=== PATIENT | female | born 1960 | race Caucasian/White ===

== ENCOUNTER → 2019-10-07 09:43 | Outpatient (BNVA) | payer BC, SELFPAY | PROVIDERS: Family Provider Electrodiagnostic Medicine; PCP Electrodiagnostic Medicine | DX: Z95.2 Presence of prosthetic heart valve (principal); I25.10 Atherosclerotic heart disease of native coronary artery without angina pectoris | CPT/HCPCS: 85610 ==

== ENCOUNTER → 2019-11-04 09:53 | Outpatient (BNVA) | payer BC, SELFPAY | PROVIDERS: Family Provider Electrodiagnostic Medicine; PCP Electrodiagnostic Medicine; Visit Provider Internal Medicine Cardiovascular Disease | DX: Z95.2 Presence of prosthetic heart valve (principal) | CPT/HCPCS: 85610 ==

== ENCOUNTER → 2019-12-02 10:32 | Outpatient (BNVA) | payer BC, SELFPAY | PROVIDERS: Family Provider Electrodiagnostic Medicine; PCP Electrodiagnostic Medicine; Visit Provider Internal Medicine Cardiovascular Disease | DX: Z95.2 Presence of prosthetic heart valve (principal) | CPT/HCPCS: 85610 ==

== ENCOUNTER 2020-01-01 09:18 | Outpatient (CLI) | payer BC, SELFPAY ==
--- NOTE | 2020-01-01 09:30 | US_ITS ---
WS: [id number] ULTRASOUND THYROID TECHNIQUE: Ultrasound of the thyroid. CLINICAL INFORMATION: THYROID NODULE, HYPOTHYROIDISM COMPARISON: None. FINDINGS: Thyroid: Right and left thyroid lobes are normal in size and echotexture. Multiple bilateral cystic a nd solid thyroid nodules the largest in the left thyroid measuring 8.7 x 6.8 x 5.6 mm and the largest in the right thyroid measuring 8.5 x 3.8 x 7.6 mm. Right thyroid lobe: 4.9 cm x 1.2 cm x 1.2 cm Multiple cystic and solid thyroid nodules subcentimeter in size. Left thyroid lobe: 4.1 cm x 1.3 cm x 1.7 cm. Multiple cystic and solid thyroid nodules subcentimeter in size. Isthmus: 0.1 mm. Cervical lymphadenopathy: None. US/US thyroid [id number] IMPRESSION: 1. Thyroid is normal in size and echotexture with multiple cystic and solid no dules, subcentimeter in size. Recommend 12 month follow-up. 2. Largest nodule left thyroid measuring 8.7 x 6.8 x 5.6 mm 3. Largest nodule right thyroid measuring 8.5 x 3.8 x 7.6 mm.
== END 2020-01-01 09:19 | disposition home or self-care (01) ==
LOC: RADWPI 09:23
PROVIDERS: Family Provider Electrodiagnostic Medicine; PCP Electrodiagnostic Medicine; Visit Provider Electrodiagnostic Medicine
DX: E04.1 Nontoxic single thyroid nodule (principal); E03.9 Hypothyroidism, unspecified; I10 Essential (primary) hypertension; E11.9 Type 2 diabetes mellitus without complications; D50.0 Iron deficiency anemia secondary to blood loss (chronic)
CPT/HCPCS: 76536

== ENCOUNTER → 2020-01-06 10:08 | Outpatient (BNVA) | payer BC, SELFPAY | PROVIDERS: Family Provider Electrodiagnostic Medicine; PCP Electrodiagnostic Medicine; Visit Provider Internal Medicine Cardiovascular Disease | DX: Z95.2 Presence of prosthetic heart valve (principal) | CPT/HCPCS: 85610 ==

== ENCOUNTER → 2020-02-03 10:14 | Outpatient (BNVA) | payer BC, SELFPAY | PROVIDERS: Family Provider Electrodiagnostic Medicine; PCP Electrodiagnostic Medicine; Visit Provider Internal Medicine Cardiovascular Disease | DX: Z95.2 Presence of prosthetic heart valve (principal) | CPT/HCPCS: 85610 ==

== ENCOUNTER → 2020-03-03 09:49 | Outpatient (BNVA) | payer BC, SELFPAY | PROVIDERS: Family Provider Electrodiagnostic Medicine; PCP Electrodiagnostic Medicine; Visit Provider Internal Medicine Cardiovascular Disease | DX: Z79.01 Long term (current) use of anticoagulants (principal); Z95.2 Presence of prosthetic heart valve | CPT/HCPCS: 85610 ==

== ENCOUNTER → 2020-03-31 09:56 | Outpatient (BNVA) | payer BC, SELFPAY | PROVIDERS: Family Provider Electrodiagnostic Medicine; PCP Electrodiagnostic Medicine; Visit Provider Internal Medicine Cardiovascular Disease | DX: Z79.01 Long term (current) use of anticoagulants (principal); Z95.2 Presence of prosthetic heart valve | CPT/HCPCS: 85610 ==

== ENCOUNTER → 2020-04-28 10:18 | Outpatient (BNVA) | payer BC, SELFPAY | PROVIDERS: Family Provider Electrodiagnostic Medicine; PCP Electrodiagnostic Medicine; Visit Provider Internal Medicine Cardiovascular Disease | DX: Z79.01 Long term (current) use of anticoagulants (principal); Z95.2 Presence of prosthetic heart valve; I35.8 Other nonrheumatic aortic valve disorders | CPT/HCPCS: 85610 ==

== ENCOUNTER → 2020-05-17 09:34 | Outpatient (BNVA) | payer BC, SELFPAY | PROVIDERS: Family Provider Electrodiagnostic Medicine; PCP Electrodiagnostic Medicine; Referring Provider Electrodiagnostic Medicine; Visit Provider Internal Medicine | DX: E11.22 Type 2 diabetes mellitus with diabetic chronic kidney disease (principal); E03.9 Hypothyroidism, unspecified; E78.5 Hyperlipidemia, unspecified; N18.3 Chronic kidney disease, stage 3 (moderate); E04.2 Nontoxic multinodular goiter; I10 Essential (primary) hypertension; E11.59 Type 2 diabetes mellitus with other circulatory complications; I25.10 Atherosclerotic heart disease of native coronary artery without angina pectoris; E66.01 Morbid (severe) obesity due to excess calories; Z68.42 Body mass index [BMI] 45.0-49.9, adult | CPT/HCPCS: 99204 ==

== ENCOUNTER → 2020-05-26 10:31 | Outpatient (BNVA) | payer BC, SELFPAY | PROVIDERS: Family Provider Electrodiagnostic Medicine; PCP Electrodiagnostic Medicine; Visit Provider Internal Medicine Cardiovascular Disease | DX: E03.9 Hypothyroidism, unspecified (principal); E11.9 Type 2 diabetes mellitus without complications; E78.5 Hyperlipidemia, unspecified; Z79.01 Long term (current) use of anticoagulants; Z95.2 Presence of prosthetic heart valve | CPT/HCPCS: 80061; 83036; 84439; 84443; 85610; 86376 ==

== ENCOUNTER → 2020-06-23 09:58 | Outpatient (BNVA) | payer BC, SELFPAY | PROVIDERS: Family Provider Electrodiagnostic Medicine; PCP Electrodiagnostic Medicine; Visit Provider Internal Medicine Cardiovascular Disease | DX: Z95.2 Presence of prosthetic heart valve (principal); Z79.01 Long term (current) use of anticoagulants | CPT/HCPCS: 85610 ==

== ENCOUNTER → 2020-07-12 09:46 | Outpatient (BNVA) | payer BC, SELFPAY | PROVIDERS: Family Provider Electrodiagnostic Medicine; PCP Electrodiagnostic Medicine; Visit Provider Internal Medicine | DX: E03.9 Hypothyroidism, unspecified (principal); E04.2 Nontoxic multinodular goiter; E11.22 Type 2 diabetes mellitus with diabetic chronic kidney disease; N18.30 Chronic kidney disease, stage 3 unspecified; E11.59 Type 2 diabetes mellitus with other circulatory complications; I25.10 Atherosclerotic heart disease of native coronary artery without angina pectoris; E66.01 Morbid (severe) obesity due to excess calories; Z68.42 Body mass index [BMI] 45.0-49.9, adult; E78.5 Hyperlipidemia, unspecified | CPT/HCPCS: 99214 ==

== ENCOUNTER → 2020-07-21 10:16 | Outpatient (BNVA) | payer BC, SELFPAY | PROVIDERS: Family Provider Electrodiagnostic Medicine; PCP Electrodiagnostic Medicine; Visit Provider Internal Medicine Cardiovascular Disease | DX: Z79.01 Long term (current) use of anticoagulants (principal); Z95.2 Presence of prosthetic heart valve | CPT/HCPCS: 85610 ==

== ENCOUNTER → 2020-08-18 10:06 | Outpatient (BNVA) | payer BC, SELFPAY | PROVIDERS: Family Provider Electrodiagnostic Medicine; PCP Electrodiagnostic Medicine; Visit Provider Internal Medicine Cardiovascular Disease | DX: Z79.01 Long term (current) use of anticoagulants (principal); Z95.2 Presence of prosthetic heart valve | CPT/HCPCS: 85610 ==

== ENCOUNTER → 2020-09-15 10:20 | Outpatient (BNVA) | payer BC, SELFPAY | PROVIDERS: Family Provider Electrodiagnostic Medicine; PCP Electrodiagnostic Medicine; Visit Provider Internal Medicine Cardiovascular Disease | DX: E11.22 Type 2 diabetes mellitus with diabetic chronic kidney disease (principal); N18.30 Chronic kidney disease, stage 3 unspecified; Z79.01 Long term (current) use of anticoagulants; Z95.2 Presence of prosthetic heart valve | CPT/HCPCS: 85610 ==

== ENCOUNTER → 2020-09-22 10:08 | Outpatient (BNVA) | payer BC, SELFPAY | PROVIDERS: Family Provider Electrodiagnostic Medicine; PCP Electrodiagnostic Medicine; Visit Provider Internal Medicine Cardiovascular Disease | DX: Z79.01 Long term (current) use of anticoagulants (principal); Z95.2 Presence of prosthetic heart valve; E11.22 Type 2 diabetes mellitus with diabetic chronic kidney disease | CPT/HCPCS: 83036; 85610 ==

== ENCOUNTER → 2020-09-29 10:07 | Outpatient (BNVA) | payer BC, SELFPAY | PROVIDERS: Family Provider Electrodiagnostic Medicine; PCP Electrodiagnostic Medicine; Visit Provider Internal Medicine Cardiovascular Disease | DX: Z79.01 Long term (current) use of anticoagulants (principal); Z95.2 Presence of prosthetic heart valve | CPT/HCPCS: 85610 ==

== ENCOUNTER → 2020-10-05 09:49 | Outpatient (BNVA) | payer OTHER, SELFPAY | PROVIDERS: Family Provider Electrodiagnostic Medicine; PCP Electrodiagnostic Medicine; Visit Provider Internal Medicine | DX: E04.2 Nontoxic multinodular goiter (principal); E11.22 Type 2 diabetes mellitus with diabetic chronic kidney disease; N18.30 Chronic kidney disease, stage 3 unspecified; E11.59 Type 2 diabetes mellitus with other circulatory complications; I25.10 Atherosclerotic heart disease of native coronary artery without angina pectoris; E66.01 Morbid (severe) obesity due to excess calories; Z68.42 Body mass index [BMI] 45.0-49.9, adult; E78.5 Hyperlipidemia, unspecified | CPT/HCPCS: 99215 ==

== ENCOUNTER → 2020-10-28 10:04 | Outpatient (BNVA) | payer OTHER, SELFPAY | PROVIDERS: Family Provider Electrodiagnostic Medicine; PCP Electrodiagnostic Medicine; Visit Provider Internal Medicine Cardiovascular Disease | DX: Z79.01 Long term (current) use of anticoagulants (principal); Z95.2 Presence of prosthetic heart valve | CPT/HCPCS: 85610 ==

== ENCOUNTER → 2020-11-04 09:47 | Outpatient (BNVA) | payer OTHER, SELFPAY | PROVIDERS: Family Provider Electrodiagnostic Medicine; PCP Electrodiagnostic Medicine; Visit Provider Internal Medicine Cardiovascular Disease | DX: Z79.01 Long term (current) use of anticoagulants (principal); Z95.2 Presence of prosthetic heart valve | CPT/HCPCS: 85610 ==

== ENCOUNTER → 2020-11-25 09:48 | Outpatient (BNVA) | payer OTHER, SELFPAY | PROVIDERS: Family Provider Electrodiagnostic Medicine; PCP Electrodiagnostic Medicine; Visit Provider Internal Medicine Cardiovascular Disease | DX: Z79.01 Long term (current) use of anticoagulants (principal); Z95.2 Presence of prosthetic heart valve | CPT/HCPCS: 85610 ==

== ENCOUNTER → 2020-12-23 10:09 | Outpatient (BNVA) | payer OTHER, SELFPAY | PROVIDERS: Family Provider Electrodiagnostic Medicine; PCP Electrodiagnostic Medicine; Visit Provider Internal Medicine Cardiovascular Disease | DX: Z79.01 Long term (current) use of anticoagulants (principal); Z95.2 Presence of prosthetic heart valve; E11.22 Type 2 diabetes mellitus with diabetic chronic kidney disease; N18.30 Chronic kidney disease, stage 3 unspecified | CPT/HCPCS: 83036; 85610 ==

== ENCOUNTER 2020-12-29 12:14 | Outpatient (CLI) | payer OTHER, SELFPAY ==
--- NOTE | 2020-12-29 12:45 | US_ITS ---
WS: [id number] THYROID ULTRASOUND (TI-RADS CRITERIA) History: Thyroid nodule. Assess change.. Technique: Ultrasound examination of the thyroid and adjacent soft tissues is performed. Comparison: 01/01/2020. FINDINGS: Right lobe: 5.3 cm x 1.3 cm x 1.8 cm. Volume: 6.3 cm3. Normal size gland. There are several hypoechoic nodules within the gland. Largest nodule in the super ior pole measures 9 x 6 x 1.0 cm. The remaining nodules are less than a centimeter and probably collo id cysts. Left lobe: 5.0 cm x 1.3 cm x 1.6 cm. Volume: 5.5 cm3. Normal size gland with multiple small subcentimeter nodules. These are probably colloid cysts. Isthmus: 0.3 cm. US/US thyroid [id number] Impression: TR1 Recommendation:No FNA or follow-up. No significant change or progression of nodules since the prior study.
== END 2020-12-29 12:15 | disposition home or self-care (01) ==
PROVIDERS: PCP Electrodiagnostic Medicine; Visit Provider Internal Medicine
DX: E04.1 Nontoxic single thyroid nodule (principal)
CPT/HCPCS: 76536

== ENCOUNTER → 2020-12-31 09:53 | Outpatient (BNVA) | payer OTHER, SELFPAY | PROVIDERS: PCP Electrodiagnostic Medicine; Visit Provider Internal Medicine | DX: E04.2 Nontoxic multinodular goiter (principal); E11.22 Type 2 diabetes mellitus with diabetic chronic kidney disease; N18.30 Chronic kidney disease, stage 3 unspecified; E11.59 Type 2 diabetes mellitus with other circulatory complications; I25.10 Atherosclerotic heart disease of native coronary artery without angina pectoris; E66.01 Morbid (severe) obesity due to excess calories; Z68.42 Body mass index [BMI] 45.0-49.9, adult; E78.5 Hyperlipidemia, unspecified | CPT/HCPCS: 99214 ==

== ENCOUNTER → 2021-01-20 09:48 | Outpatient (BNVA) | payer OTHER, SELFPAY | PROVIDERS: PCP Electrodiagnostic Medicine; Visit Provider Internal Medicine Cardiovascular Disease | DX: Z95.2 Presence of prosthetic heart valve (principal) | CPT/HCPCS: 85610 ==

== ENCOUNTER → 2021-02-17 10:48 | Outpatient (BNVA) | payer OTHER, SELFPAY | PROVIDERS: PCP Electrodiagnostic Medicine; Visit Provider Internal Medicine Cardiovascular Disease | DX: I25.10 Atherosclerotic heart disease of native coronary artery without angina pectoris (principal); I10 Essential (primary) hypertension; E78.5 Hyperlipidemia, unspecified; E11.22 Type 2 diabetes mellitus with diabetic chronic kidney disease; I35.0 Nonrheumatic aortic (valve) stenosis; F17.201 Nicotine dependence, unspecified, in remission; E66.01 Morbid (severe) obesity due to excess calories; Z68.42 Body mass index [BMI] 45.0-49.9, adult; Z79.01 Long term (current) use of anticoagulants; Z95.1 Presence of aortocoronary bypass graft; Z95.2 Presence of prosthetic heart valve | CPT/HCPCS: 85610 ==

== ENCOUNTER → 2021-03-24 10:25 | Outpatient (BNVA) | payer OTHER, SELFPAY | PROVIDERS: PCP Electrodiagnostic Medicine; Visit Provider Internal Medicine Cardiovascular Disease | DX: Z95.2 Presence of prosthetic heart valve (principal) | CPT/HCPCS: 85610 ==

== ENCOUNTER → 2021-04-21 10:20 | Outpatient (BNVA) | payer OTHER, SELFPAY | PROVIDERS: PCP Electrodiagnostic Medicine; Visit Provider Internal Medicine Cardiovascular Disease | DX: E11.22 Type 2 diabetes mellitus with diabetic chronic kidney disease (principal); N18.30 Chronic kidney disease, stage 3 unspecified; Z79.01 Long term (current) use of anticoagulants; Z95.2 Presence of prosthetic heart valve | CPT/HCPCS: 83036; 85610 ==

== ENCOUNTER → 2021-04-27 10:16 | Outpatient (BNVA) | payer OTHER, SELFPAY | PROVIDERS: PCP Electrodiagnostic Medicine; Visit Provider Internal Medicine Cardiovascular Disease | DX: Z79.01 Long term (current) use of anticoagulants (principal); Z95.2 Presence of prosthetic heart valve | CPT/HCPCS: 85610 ==

== ENCOUNTER 2021-06-02 09:58 | Outpatient (CLI) | payer OTHER, SELFPAY ==
--- NOTE | 2021-06-02 10:15 | USCV_ITS ---
Cami Martinez Age: 60 Gender: F : 1960 Exam Date: 06/02/2021 10:18 Ordering Phys: Tati Gonzalez MD ([email or web address]) Technologist: Exam Location: [facility] [place] Indication: CHEST PAIN, Mechanical aortic valve BP: 130 / 77 HR: 81 Rhythm: Sinus Technical Quality: Adequate MEASUREMENTS (Male / Female) Normal Values 2D ECHO LV Diastolic Diameter PLAX 4.1 cm 4.2 - 5.9 / 3.9 - 5.3 cm LV Systolic Diameter PLAX 2.3 cm IVS Diastolic Thickness 1.0 cm 0.6 - 1.0 / 0.6 - 0.9 cm IVS Systolic Thickness 1.3 cm LVPW Diastolic Thickness 1.2 cm 0.6 - 1.0 / 0.6 - 0.9 cm LVPW Systolic Thickness 1.2 cm LVOT Diameter 2.1 cm LV Ejection Fraction 2D Teich 70.0 % LV Ejection Fraction MOD 2C 65.8 % LV Ejection Fraction 2C AL 64.5 % LA Diameter 3.8 cm LA Width 3.9 cm LA Height 5.1 cm RA Width 3.6 cm RA Height 4.4 cm Aorta at Sinotubular Diameter 3.3 cm DOPPLER AV Peak Velocity 220.0 cm/s LVOT Peak Velocity 102.0 cm/s AV Area Cont Eq vti 1.8 cm squared AV Area Cont Eq pk 1.6 cm squared MV Area PHT 5.0 cm squared Mitral E to A Ratio 0.8 MV E' Velocity 54.0 cm/s Mitral E to MV E' Ratio 12.1 Mitral E to LV E' Lateral Ratio 10.9 Mitral E to LV E' Septal Ratio 13.8 TR Peak Velocity 244.0 cm/s TR Peak Gradient 23.8 mmHg TV Peak E Velocity 100.0 cm/s Right Atrial Pressure 3.0 mmHg Pulmonary Artery Systolic Pressu 26.8 mmHg FINDINGS Left Ventricle Normal left ventricular size, systolic function and wall thickness, with no regional wall motion abnormalities. Left ventricular ejection fraction is estimated at 65-70 %. Normal diastolic function. Right Ventricle Normal right ventricular size and systolic function. Right ventricular systolic pressure 26.8 mmHg. Right Atrium Normal right atrial size. Left Atrium Mildly increased left atrial size. Mitral Valve Structurally normal mitral valve. No mitral valve stenosis. Trace mitral valve regurgitation. Aortic Valve Mechanical aortic valve in situ. Well-seated and normally functioning. Peak velocity 2.2 m/s, peak gradient 19 mmHg and mean gradient 8 mmHg. Aortic valve area by continuity equation of 1.8 cm squared. No significant valvular or perivalvular regurgitation. Tricuspid Valve Structurally normal tricuspid valve. Trace to mild tricuspid valve regurgitation. Pulmonic Valve Pulmonic valve not well visualized. No significant pulmonary valve regurgitation. Pericardium No pericardial effusion. Aorta Normal size aortic root and proximal ascending aorta. CONCLUSIONS 1. Normal left ventricular size, systolic function and wall thickness, with no regional wall motion abnormalities. Left ventricular ejection fraction is estimated at 65-70 %. Normal diastolic function. 2. Normal right ventricular size and systolic function. 3. Trace to mild tricuspid valve regurgitation. 4. Pulmonary arter pressure estimated at 27 mm Hg. 5. Mechanical aortic valve well-seated and normally functioning. Peak velocity 2.2 m/s, peak gradient 19 mmHg and mean gradient 8 mmHg. Aortic valve area by continuity equation of 1.8 cm squared. 6. When compared to previous echocardiogram dated 12/23/2013, aortic valve has been replaced. Tati Gonzalez MD (Electronically Signed) Final Date: 05 June 2021 17:34 Amended: 19 August 2021 13:52 C
== END 2021-06-02 09:59 | disposition home or self-care (01) ==
PROVIDERS: PCP Electrodiagnostic Medicine; Visit Provider Internal Medicine Cardiovascular Disease
DX: I35.0 Nonrheumatic aortic (valve) stenosis (principal); Z95.2 Presence of prosthetic heart valve; R07.9 Chest pain, unspecified; I07.1 Rheumatic tricuspid insufficiency; I70.0 Atherosclerosis of aorta
CPT/HCPCS: 93306

== ENCOUNTER → 2021-06-07 09:54 | Outpatient (BNVA) | payer OTHER, SELFPAY | PROVIDERS: PCP Electrodiagnostic Medicine; Visit Provider Internal Medicine Cardiovascular Disease | DX: Z95.2 Presence of prosthetic heart valve (principal); Z79.01 Long term (current) use of anticoagulants | CPT/HCPCS: 85610 ==

== ENCOUNTER → 2021-06-21 13:28 | Outpatient (BNVA) | payer OTHER, SELFPAY | PROVIDERS: PCP Electrodiagnostic Medicine; Visit Provider Internal Medicine | DX: E11.22 Type 2 diabetes mellitus with diabetic chronic kidney disease (principal); E11.59 Type 2 diabetes mellitus with other circulatory complications; E78.5 Hyperlipidemia, unspecified; E04.2 Nontoxic multinodular goiter; I25.10 Atherosclerotic heart disease of native coronary artery without angina pectoris; E66.01 Morbid (severe) obesity due to excess calories; Z68.42 Body mass index [BMI] 45.0-49.9, adult; Z79.4 Long term (current) use of insulin | CPT/HCPCS: 99214 ==

== ENCOUNTER → 2021-06-22 09:48 | Outpatient (BNVA) | payer OTHER, SELFPAY | PROVIDERS: PCP Electrodiagnostic Medicine; Visit Provider Internal Medicine Cardiovascular Disease | DX: Z95.2 Presence of prosthetic heart valve (principal); Z79.01 Long term (current) use of anticoagulants | CPT/HCPCS: 85610 ==

== ENCOUNTER → 2021-07-20 10:19 | Outpatient (BNVA) | payer OTHER, SELFPAY | PROVIDERS: PCP Electrodiagnostic Medicine; Visit Provider Internal Medicine Cardiovascular Disease | DX: Z79.01 Long term (current) use of anticoagulants (principal); Z95.2 Presence of prosthetic heart valve | CPT/HCPCS: 85610 ==

== ENCOUNTER → 2021-08-18 11:34 | Outpatient (BNVA) | payer OTHER, SELFPAY | PROVIDERS: PCP Electrodiagnostic Medicine; Visit Provider Internal Medicine Cardiovascular Disease | DX: Z79.01 Long term (current) use of anticoagulants (principal); Z95.2 Presence of prosthetic heart valve | CPT/HCPCS: 85610 ==

== ENCOUNTER → 2021-09-07 10:34 | Outpatient (BNVA) | payer OTHER, SELFPAY | PROVIDERS: PCP Electrodiagnostic Medicine; Visit Provider Internal Medicine | DX: E11.59 Type 2 diabetes mellitus with other circulatory complications (principal); E78.5 Hyperlipidemia, unspecified; E04.2 Nontoxic multinodular goiter; I25.10 Atherosclerotic heart disease of native coronary artery without angina pectoris; E66.01 Morbid (severe) obesity due to excess calories; Z68.42 Body mass index [BMI] 45.0-49.9, adult; Z95.1 Presence of aortocoronary bypass graft; Z79.4 Long term (current) use of insulin | CPT/HCPCS: 99214 ==

== ENCOUNTER → 2021-09-15 10:11 | Outpatient (BNVA) | payer OTHER, SELFPAY | PROVIDERS: PCP Electrodiagnostic Medicine; Visit Provider Internal Medicine Cardiovascular Disease | DX: Z79.01 Long term (current) use of anticoagulants (principal); Z95.2 Presence of prosthetic heart valve | CPT/HCPCS: 85610 ==

== ENCOUNTER → 2021-10-13 10:32 | Outpatient (BNVA) | payer OTHER, SELFPAY | PROVIDERS: PCP Electrodiagnostic Medicine; Visit Provider Internal Medicine Cardiovascular Disease | DX: Z95.2 Presence of prosthetic heart valve (principal) | CPT/HCPCS: 85610 ==

== ENCOUNTER → 2021-11-10 11:32 | Outpatient (BNVA) | payer OTHER, SELFPAY | PROVIDERS: PCP Electrodiagnostic Medicine; Visit Provider Internal Medicine Cardiovascular Disease | DX: Z95.2 Presence of prosthetic heart valve (principal) | CPT/HCPCS: 85610 ==

== ENCOUNTER → 2022-01-05 10:32 | Outpatient (BNVA) | payer OTHER, SELFPAY | PROVIDERS: PCP Electrodiagnostic Medicine; Visit Provider Internal Medicine Cardiovascular Disease | DX: Z95.2 Presence of prosthetic heart valve (principal) | CPT/HCPCS: 85610 ==

== ENCOUNTER → 2022-02-02 10:42 | Outpatient (BNVA) | payer OTHER, SELFPAY | PROVIDERS: PCP Electrodiagnostic Medicine; Visit Provider Internal Medicine Cardiovascular Disease | DX: I35.8 Other nonrheumatic aortic valve disorders (principal); Z95.2 Presence of prosthetic heart valve; Z79.01 Long term (current) use of anticoagulants | CPT/HCPCS: 85610 ==

== ENCOUNTER 2022-03-01 06:55 | Outpatient (CLI) | payer OTHER, SELFPAY ==
[2022-03-01 07:03] VITALS: BMI 47.1
--- NOTE | 2022-03-01 07:04 | ECG_ITS ---
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 Interpretive Statements NAME OF STUDY: LEXISCAN SESTAMIBI STRESS TEST INDICATION: Chest Pain; CAD RESULTS TO DR GONZALEZ /DR GONZALEZ OUT OF TOWN ON DATE OF SERVICE PROCEDURE: At the baseline, the EKG revealed normal sinus rhythm with a poor R wave progression. Features of old anteroseptal myocardial infarction. Minimal left axis deviation. Nonspecific T wave changes. The baseline blood pressure was 197/99 mm Hg with a heart rate of 68 beats/min. Lexiscan was infused over a period of 20 seconds. A total of 0.4 milligrams of Lexiscan was infused. The stress phase was continued for a total of 5 minutes. Heart rate at the end of the stress phase was 75 with a blood pressure 177/86. The EKG at the peak infusion revealed no significant changes. Sestamibi was injected 20 seconds after the Lexiscan infusion. Blood pressure at the end of the recovery phase was 174/85 with a heart rate of 74 per minute. CONCLUSION: 1. No significant EKG changes with the LexiScan infusion 2. No LexiScan induced chest pain or cardiac arrhythmia 3. Normal blood pressure and heart rate response 4. Sestamibi/sestamibi perfusion scan pending; see separate report. Electronically Signed On 03-03-2022 13:21:33 CDT by Maikol Jensen M.D. [id number]
--- NOTE | 2022-03-01 07:04 | NMCV_ITS ---
NM shweta perf SPECT r/s* [id number] Cami Martinez Age: 61 Gender: F : 1960 Exam Date: 03/01/2022 07:58 Ordering Phys: Tati Gonzalez MD ([email or web address]) Technologist: NELIDA Sommer Exam Location: [facility] Indications: Exertional shortness of breath, coronary artery disease STRESS TEST [facility] IMAGE PROTOCOL Rest/Stress 1 Lexiscan Day Radiopharmaceutical Dose (mCi) Administration Site Administered by Rest: Tc-99m 10.9 IV NELIDA Sommer Sestamibi Stress:Tc-99m 32.7 IV NELIDA Pena Sestamibi Rest: 01-Mar-2022 60 Discovery 630 Stress: 01-Mar-2022 30 Discovery 630 0.4mg Lexiscan. Images obtained in supine and prone position. SPECT RESULTS Technical Quality: Excellent Raw Data Analysis: Normal Image Corrections: No attenuation or motion correction applied Summed Stress Score: 0 Summed Rest Score: 0 Summed Difference Score: 0 PERFUSION FINDINGS SPECT images demonstrate homogeneous tracer distribution throughout the myocardium. FUNCTIONAL RESULTS (calculated via Gated SPECT) Stress Image LV EF (%): 79 Stress EDV (mL):89 TID: 1.04 Stress ESV (mL):19 FUNCTIONAL FINDINGS: The left ventricle is normal in size. Transient Ischemia Dilatation of 1. There is normal left ventricular systolic function. The left ventricular ejection fraction is normal with a value of 79%. There is normal left ventricular wall thickening with no regional wall motion abnormality. Normal end diastolic and end systolic volumes. IMPRESSIONS 1. Myocardial perfusion imaging is normal. 2. Overall left ventricular systolic function is normal without regional wall motion abnormalities, LVEF=79%. 3. No EKG changes with lexiscan infusion. Please refer to separate report for details. 4. Scan indicates low risk for cardiac events. Tati Gonzalez MD (Electronically Signed) Final Date: 04 March 2022 19:00 S
[2022-03-01] MEDS: regadenoson 0.4 Mg/5 ml Syringe IVP (09:26)
[2022-03-01 09:46] VITALS: BP 176/84; PULSE 76
== END 2022-03-01 06:56 | disposition home or self-care (01) ==
PROVIDERS: PCP Electrodiagnostic Medicine; Visit Provider Internal Medicine Cardiovascular Disease
DX: R07.9 Chest pain, unspecified (principal); I25.10 Atherosclerotic heart disease of native coronary artery without angina pectoris
CPT/HCPCS: 78452; 93017; A9500; J2785

== ENCOUNTER → 2022-03-02 12:51 | Outpatient (BNVA) | payer OTHER, SELFPAY | PROVIDERS: PCP Electrodiagnostic Medicine; Visit Provider Internal Medicine Cardiovascular Disease | DX: Z95.2 Presence of prosthetic heart valve (principal); I35.8 Other nonrheumatic aortic valve disorders; Z79.01 Long term (current) use of anticoagulants | CPT/HCPCS: 85610 ==

== ENCOUNTER → 2022-04-04 12:37 | Outpatient (BNVA) | payer OTHER, SELFPAY | PROVIDERS: PCP Electrodiagnostic Medicine; Visit Provider Internal Medicine Cardiovascular Disease | DX: Z95.2 Presence of prosthetic heart valve (principal); Z79.01 Long term (current) use of anticoagulants | CPT/HCPCS: 85610 ==

== ENCOUNTER 2022-04-11 09:17 | Outpatient (CLI) | payer OTHER, SELFPAY ==
[2022-04-11 09:49] LABS: Estmated Average Glucose 180; Hemoglobin A1C 7.9 % (4.0-6.0)
[2022-04-11 09:57] LABS: Alanine Aminotransferase 15 U/L (0-33); Albumin Level 4.2 g/dL (3.5-5.2); Alkaline Phosphatase 103 IU/L (35-105); Aspartate Amino Transferase 17 U/L (0-32); Blood Urea Nitrogen 18 mg/dL (8-23); Calcium 9.9 mg/dL (8.5-10.5); Carbon Dioxide 27 mmol/L (22-29); Chloride 103 mmol/L (98-107); Chol HDL Ratio 3.98 mg/dL (0.0-4.40); Cholesterol 179 mg/dL (0-200); Glomerular Filtration Rate 63.4 mL/min (90-130); Glucose 157 mg/dL (65-115); HDL Cholesterol 45 mg/dL (60-100); LDL Cholesterol Calculated 113 mg/dL (50-129); LDL HDL Ratio 2.51 RATIO (0.00-3.22); Osmolality Calculated 293 mOsm/kg (285-295); Sodium 139 mmol/L (136-145); Total Bilirubin 0.5 mg/dL (0.15-1.2); Total Protein 7.2 g/dL (6.6-8.7); Triglycerides 106 mg/dL (0-150)
[2022-04-11 10:00] LABS: Anion Gap 13.4 (5-19); Potassium 4.4 mmol/L (3.5-5.1)
== END 2022-04-11 09:18 | disposition home or self-care (01) ==
LOC: LAB 09:20
PROVIDERS: PCP Electrodiagnostic Medicine; Visit Provider Internal Medicine
DX: E11.9 Type 2 diabetes mellitus without complications (principal); E78.2 Mixed hyperlipidemia
CPT/HCPCS: 36415; 80053; 80061; 83036

== ENCOUNTER 2022-04-13 10:50 | Outpatient (CLI) | payer OTHER, SELFPAY ==
--- NOTE | 2022-04-13 11:00 | US_ITS ---
WS: [id number] THYROID ULTRASOUND HISTORY: Check for changes in nodules COMPARISON: 12/29/2020 and 01/01/2020 Right lobe: 1.2 cm x 1.5 cm x 4.2 cm (w x ap x l). Volume: 4.1 cm3. Normal size gland. Hypoechoic nodule measuring 1.0 x 0.5 x 1.0 cm in superior pole is unchanged. This is an ovoid nodule with no echogenic foci. There is an additional hypoechoic mass with echogenic foc i in the mid gland consistent with a colloid cyst. Left lobe: 1.3 cm x 2.0 cm x 3.9 cm (w x ap x l). Volume: 5.2 cm3. No mass identified. Limited and difficult evaluation of the LEFT lobe due to patient's body habitus. Isthmus: 0.2 cm. US/US thyroid [id number] IMPRESSION: 1. TI-RADS 1. 2. No enlarging or new thyroid nodules.
== END 2022-04-13 10:51 | disposition home or self-care (01) ==
PROVIDERS: PCP Electrodiagnostic Medicine; Visit Provider Internal Medicine
DX: E03.9 Hypothyroidism, unspecified (principal); E04.2 Nontoxic multinodular goiter
CPT/HCPCS: 76536

== ENCOUNTER 2022-04-25 14:23 | Outpatient (CLI) | payer OTHER, SELFPAY ==
--- NOTE | 2022-04-25 14:31 | MM_ITS ---
WS: [id number] BILATERAL 3D TOMOSYNTHESIS DIGITAL DIAGNOSTIC MAMMOGRAPHY WITH CAD CLINICAL INFORMATION: PEAU D'ORANGE OVER BREAST HISTORY: LEFT breast lump with inverted nipple and skin dimpling COMPARISON: None. TECHNIQUE: Bilateral CC, MLO, and ML views. FINDINGS: Scattered fibroglandular densities bilaterally. Large spiculated mass upper outer LEFT breast posteri or depth measuring 3.3 x 2.9 cm highly suspicious for neoplasm. Ultrasound described below. Associate d skin thickening LEFT breast. A few asymmetric densities inner LEFT breast appeared to compress out on the spot compression views. Punctate and lucent centered calcifications. Clustered punctate calcifications upper outer RIGHT brian [address]. Recommend spot magnification views in further evaluation. TECHNIQUE: Ultrasound left breast focused area of concern. CLINICAL INFORMATION: PEAU D'ORANGE OVER BREAST COMPARISON: None. FINDINGS: Ultrasound LEFT breast at the 2:00 position 3 cm from the nipple demonstrates irregular densely shado wing taller than wide mass corresponding to the mammographic findings. This measures approximately 2. 9 x 2.1 x 2.4 cm consistent with neoplasm. Recommend ultrasound-guided biopsy in further evaluation. Mass extends from the 1 to 3:00 position. LEFT axilla demonstrates enlarged suspicious appearing lymph node measuring 2.6 x 1.4 x 1.9 CM with c ortical thickening and replacement of the normal fatty hilum. Irregular borders. Recommend ultrasound -guided biopsy of this lymph node. Additional more normal appearing prominent lymph nodes in the LEFT axilla with preserved fatty hilum the largest measuring 0.6 x 1.2 x 1.8 cm. MM/[place] [id number] IMPRESSION: LEFT BREAST: BI-RADS: 5-Highly Suggestive of Malignancy FOLLOW UP: US Guided Biopsy Recommended Recommend ultrasound-guided biopsy of the LEFT breast mass and irregular LEFT a xillary lymph node. RIGHT BREAST: Recommend spot magnification views of the calcifications upper outer RIGHT brian [address]. BI-RADS: 0 FOLLOW UP: ADDITIONAL IMAGING Message LEFT for Lalo Ortez DO at 04/25/2022 3:56 PM.
== END 2022-04-25 14:24 | disposition home or self-care (01) ==
PROVIDERS: PCP Electrodiagnostic Medicine; Visit Provider Electrodiagnostic Medicine
DX: N63.21 Unspecified lump in the left breast, upper outer quadrant (principal)
CPT/HCPCS: 76642; 77062

== ENCOUNTER → 2022-05-02 11:18 | Outpatient (BNVA) | payer OTHER, SELFPAY | PROVIDERS: PCP Electrodiagnostic Medicine; Visit Provider Internal Medicine Cardiovascular Disease | DX: Z95.2 Presence of prosthetic heart valve (principal) | CPT/HCPCS: 85610 ==

== ENCOUNTER 2022-05-25 10:04 | Outpatient (CLI) | payer OTHER, SELFPAY ==
--- NOTE | 2022-05-25 | US_ITS ---
WS: [id number] ULTRASOUND-GUIDED LEFT BREAST BIOPSY Ultrasound-guided biopsy LEFT AXILLARY LYMPH NODE. HISTORY: BREAST MASS, abnormal LEFT axillary lymph node. COMPARISON: 04/25/2022 Procedure, risks and complications are explained to the patient. Medications are reviewed. Consent is obtained. The mass in the LEFT breast is localized with ultrasound. Mass localizes to 2:00, 3 cm from the nippl e. Skin is cleansed with ChloraPrep and anesthetized with 1% buffered lidocaine. Small dermatome is m suzanne. Under sterile conditions mass is biopsied with a 14-gauge Achieve needle. Multiple core biopsies are performed. Material placed in formalin and sent to pathology for review. No complications encoun tered. Abnormal LEFT axillary lymph node is identified this lymph node is close to the axillary tail. Breast tissue marker (3D FUTURE VISION II ultrasound enhanced ribbon): Markers are placed within the LEFT breast mas s and also the LEFT axillary lymph node. Patient left the radiology suite with no complications. Patient is instructed to return to [facility] or [facility] with any concerns. US/US biopsy lymph node breast/ax IMPRESSION: 1. Uncomplicated core needle biopsy LEFT breast mass at 2:00. PATHOLOGY: Invasive ductal carcinoma. Lymphovascular invasion identified. Breas t prognostic profile is pending. RECOMMENDATION: Surgical and oncologic evaluation. 1. Uncomplicated core needle biopsy LEFT axillary lymph node. PATHOLOGY: Metastatic carcinoma. RECOMMENDATION: Surgical and oncology evaluation.
--- NOTE | 2022-05-25 10:43 | MM_ITS ---
WS: [id number] RIGHT 3D TOMOSYNTHESIS DIGITAL MAMMOGRAPHY WITH CAD CLINICAL INFORMATION: ABNORMAL MAMMOGRAM COMPARISON: April 25, 2022 TECHNIQUE: 3 views of the right breast were obtained. FINDINGS: Scattered fibroglandular densities of the right breast. Spot magnification views of the clustered pun ctate calcifications upper outer RIGHT breast. 3 clusters of calcifications in the upper outer and ce ntral RIGHT breast. Calcifications have a coarse heterogeneous appearance and are nonspecific. Recomm end further evaluation of the largest anterior cluster with stereotactic guided biopsy. The 2 remaini ng clusters could be followed up in 6 months versus additional sampling depending on the biopsy findi ngs. . MM/[place] [id number] IMPRESSION: BI-RADS: 4-Suspicious Finding-Biopsy Should Be Considered FOLLOW UP: Stereotactic Biopsy Recommended Recommend stereotactic guided biopsy of the largest cluster of calcifications a nterior RIGHT breast
[2022-05-25 11:01] LABS: INR 1.16 (0.8-1.2)
--- NOTE | 2022-05-25 12:21 | US_ITS ---
WS: [id number] ULTRASOUND-GUIDED LEFT BREAST BIOPSY Ultrasound-guided biopsy LEFT AXILLARY LYMPH NODE. HISTORY: BREAST MASS, abnormal LEFT axillary lymph node. COMPARISON: 04/25/2022 Procedure, risks and complications are explained to the patient. Medications are reviewed. Consent is obtained. The mass in the LEFT breast is localized with ultrasound. Mass localizes to 2:00, 3 cm from the nippl e. Skin is cleansed with ChloraPrep and anesthetized with 1% buffered lidocaine. Small dermatome is m suzanne. Under sterile conditions mass is biopsied with a 14-gauge Achieve needle. Multiple core biopsies are performed. Material placed in formalin and sent to pathology for review. No complications encoun tered. Abnormal LEFT axillary lymph node is identified this lymph node is close to the axillary tail. Breast tissue marker (JW Player ultrasound enhanced ribbon): Markers are placed within the LEFT breast mas s and also the LEFT axillary lymph node. Patient left the radiology suite with no complications. Patient is instructed to return to [facility] or [facility] with any concerns. US/[place] [id number] IMPRESSION: 1. Uncomplicated core needle biopsy LEFT breast mass at 2:00. PATHOLOGY: Invasive ductal carcinoma. Lymphovascular invasion identified. Breas t prognostic profile is pending. RECOMMENDATION: Surgical and oncologic evaluation. 1. Uncomplicated core needle biopsy LEFT axillary lymph node. PATHOLOGY: Metastatic carcinoma. RECOMMENDATION: Surgical and oncology evaluation.
[2022-05-30 09:33] LABS: Breast Profile ER,PR,HER2,Ki-6 See Report
== END 2022-05-25 10:05 | disposition home or self-care (01) ==
LOC: RAD 10:06
PROVIDERS: PCP Electrodiagnostic Medicine; Visit Provider Electrodiagnostic Medicine
DX: C50.412 Malignant neoplasm of upper-outer quadrant of left female breast (principal); C77.3 Secondary and unspecified malignant neoplasm of axilla and upper limb lymph nodes
CPT/HCPCS: 19083; 36415; 38505; 76942; 77061; 85610; 88305; 88361; 88374

== ENCOUNTER 2022-05-30 13:12 | Outpatient (CLI) | payer OTHER, SELFPAY ==
--- NOTE | 2022-05-30 13:27 | CT_ITS ---
WS: [id number] CT CHEST WITH INTRAVENOUS CONTRAST HISTORY: Short of breath, history of Covid. TECHNIQUE: Contiguous 5 mm axial imaging performed on the thorax. Coronal and sagittal reformats are submitted. All CT scans at [facility] use at least one of these dose optimization techniques: automated exposure control; mA and/or kV adjustment per patient size (includes targeted exams where dose is matched to clinical indication); or iterative reconstruction. CONTRAST: Omnipaque 350; 95 mL IV. DLP: 696.71 mGy.cm COMPARISON: None available. Lungs and central airway: There are 2 noncalcified pulmonary nodules. The largest in the LEFT upper l obe measures 6 mm. There is a smaller 4 mm nodule in the RIGHT lower lobe. Partial atelectasis in the medial RIGHT upper lobe. There is severe narrowing involving the proximal RIGHT upper lobe bronchus by soft tissue. The wall of the bronchus measures up to 1.1 cm. Highly suspicious for an obstructing neoplasm. There is adjacent suprahilar soft tissue stranding and probably lymph node measuring 2.2 x 1.8 cm. Pleura: Normal. No pleural effusion. Heart and pericardium: Normal size heart. Mediastinum and naun: Circumferential soft tissue thickening surrounding the trachea at the мария. T here is soft tissue extension into the proximal bronchi but greatest into the RIGHT upper lobe bronch us. There is subsegmental atelectasis in the medial RIGHT upper lung field. High-grade bronchial obst ruction proximally. Adjacent lymph node at the RIGHT hilum measuring 2.2 x 1.8 cm. Smaller subcarinal lymph node measuring 1.5 cm. Vessels: Atherosclerosis aorta. No central pulmonary embolism. Chest wall and lower neck: LEFT breast mass and LEFT axillary tail mass. These areas were recently bi opsied. There is overlying edema within the soft tissues of the LEFT breast. Upper abdomen: Small hiatal hernia. Hepatic steatosis along the falciform ligament. No metastatic les ions identified within the liver. Cholelithiasis. There are numerous calcifications in the spleen. Th ere are also additional scattered hypoechoic nodules within the spleen which may be due to early michael rial enhancement. No adrenal mass. Osseous structures: Prior CABG. CT/CT chest w con* [id number] IMPRESSION: 1. Partial atelectasis medial RIGHT upper lobe. Central obstructing bronchial lesion is suspected. There is marked bronchial wall thickening with complete ob literation of the lumen of the bronchus. Additional soft tissue stranding surro unding the distal trachea extending to the мария into the proximal bronchi. Re commend bronchoscopy for further evaluation of the bronchial obstruction. Diffe rential includes mucous or tumor plugging. 2. RIGHT hilar and subcarinal lymphadenopathy. 3. Known, recently biopsied LEFT breast neoplasm and axillary metastatic adeno alvaro. 4. Noncalcified, subcentimeter pulmonary nodules. The largest 6 mm in the LEFT upper lobe. Suspicious for metastatic sites. 5. Variable attenuation within the spleen is probably due to early arterial en hancement. This can be further evaluated on follow-up imaging studies to exclud e metastatic disease.
[2022-05-30] MEDS: iohexol 350 mg/mL 100 mL Btl IV (14:11)
== END 2022-05-30 13:13 | disposition home or self-care (01) ==
LOC: RAD 13:13
PROVIDERS: PCP Electrodiagnostic Medicine; Visit Provider Electrodiagnostic Medicine
DX: J98.11 Atelectasis (principal); R06.02 Shortness of breath; Z86.16 Personal history of COVID-19; R59.0 Localized enlarged lymph nodes; N63.20 Unspecified lump in the left breast, unspecified quadrant; R91.8 Other nonspecific abnormal finding of lung field
CPT/HCPCS: 71260

== ENCOUNTER → 2022-06-06 10:25 | Outpatient (BNVA) | payer OTHER, SELFPAY | PROVIDERS: PCP Electrodiagnostic Medicine; Visit Provider Internal Medicine Cardiovascular Disease | DX: Z95.2 Presence of prosthetic heart valve (principal) | CPT/HCPCS: 85610 ==

== ENCOUNTER → 2022-06-13 10:24 | Outpatient (BNVA) | payer OTHER, SELFPAY | PROVIDERS: PCP Electrodiagnostic Medicine; Visit Provider Internal Medicine Cardiovascular Disease | DX: Z95.2 Presence of prosthetic heart valve (principal) | CPT/HCPCS: 85610 ==

== ENCOUNTER 2022-06-26 09:43 | Oncology outpatient (recurring) (ONCR) | payer OTHER, SELFPAY ==
[2022-06-23 12:09] LABS: Basophils % 0.5 %; Eosinophils # 0.1 10^3/uL (0.0-0.8); Eosinophils % 1.9 %; Hematocrit 40.6 % (37.0-47.0); Lymphocytes # 1.2 10^3/uL (0.8-4.8); Lymphocytes % 16.6 %; Mean Corpuscular Hemoglobin 26.9 pg (28.0-34.0); Mean Corpuscular Volume 83.9 fl (81-99); Monocytes # 0.6 10^3/uL (0.2-0.9); Neutrophils # 5.43 10^3/uL (1.8-7.7); Neutrophils % 72.5 %; Nucleated Red Blood Cells % 0 %; Platelet Count 143 10^3/cmm (130-400); Red Blood Count 4.84 10^6/uL (4.1-5.3); Red Cell Distribution Width 14.5 % (12.1-15.1); White Blood Count 7.5 10^3/uL (4.0-10.0)
[2022-06-23 12:40] LABS: Estmated Average Glucose 154
[2022-06-23 12:51] LABS: Cholesterol 156 mg/dL (0-200); HDL Cholesterol 40 mg/dL (60-100); LDL Cholesterol Calculated 97 mg/dL (50-129); LDL HDL Ratio 2.43 RATIO (0.00-3.22); Thyroid Stimulating Hormone 2.18 uIU/mL (0.27-4.20); Triglycerides 97 mg/dL (0-150)
[2022-06-23 13:12] LABS: Free T4 Free Thyroxine 1.11 ng/dL (0.82-1.77)
== END 2022-06-30 23:59 | disposition home or self-care (01) ==
PROVIDERS: Internal Medicine; PCP Electrodiagnostic Medicine; Visit Provider Internal Medicine Hematology & Oncology
DX: C50.912 Malignant neoplasm of unspecified site of left female breast (principal); R51.9 Headache, unspecified; H53.8 Other visual disturbances
CPT/HCPCS: 36415; 80061; 83036; 84439; 84443; 85025; 86300

== ENCOUNTER 2022-06-27 06:38 | Day surgery (SDC) | payer OTHER, SELFPAY ==
[2022-06-23 12:06] VITALS: BMI 46.9
[2022-06-27] VITALS (13 sets, daily range): BP systolic 123–209; BP diastolic 74–113; PULSE 64–69; RESP 16–22; TEMP 36.2–36.7; O2SAT 96–100
[2022-06-27] MEDS: sodium chloride 0.9% 1,000 ML 30 ML IV (07:44)
--- NOTE | 2022-06-27 08:04 | P.HPUD_ITS ---
Surgery/Procedure H&P Update DATE OF PROCEDURE: June 27, 2022 DATE H&P PERFORMED: 06/15/22 CHANGES TO PREVIOUS DOCUMENTATION: NONE PRIMARY INDICATION FOR PROCEDURE: 61-year-old female with significant past medical history recently diagnosed breast cancer CAD s/p CABG, history of mechanical aortic valve replacement on warfarin, hypertension, diabetes, multiple thyroid nodules, obesity, dyslipidemia, ex-smoker referred by Dr. Ortez for lung lesion. Most recent PET/CT June 21, 2022 showed findings consistent with 2 hypermetabolic spiculated nodules in upper outer quadrant of left breast likely representing neoplasm. There is estella metastatic involvement of bilateral lower cervical, left level 1-3 axillary lymph nodes, bilateral mediastinal lymph nodes, right hilar lymph nodes. There is hypermetabolic right hilar lymph node or nodule results in postobstructive atelectasis of the anterior segment of right upper lobe this is probably related to metastatic breast cancer through the appearance is atypical for metastatic disease. Soft tissue sampling could be performed to fully exclude a primary lung neoplasm. Hence today she is scheduled for bronchoscopic evaluation of possible endobro nchial lesion of right upper lobe and endobronchial ultrasound guided FNA C of mediastinal/hilar lymph nodes PLANNED PROCEDURE: Operation Date: 06/27/22 08:10 Proposed Procedures p bronchoscopy and EBUS [id number], 04038, 67383, 59888,R91.8,C50.919(Not Applicable) - Iain Evans MD s Ebus(Not Applicable) - Iain Evans MD
--- NOTE | 2022-06-27 08:28 | ANES.PREANE2 ---
Pre-Anesthetic Assessment Height/Weight: Height 1.6 m Weight 120.202 kg Temp Pulse Resp BP Pulse Ox O2 Del Method 97.1 F L 69 22 H 209/101 98 06/27/22 07:23 06/27/22 07:23 06/27/22 07:23 06/27/22 07:23 06/27/22 07:23 06/27/22 07:23 Preop Diagnosis: lung biopsy Operation Date: 06/27/22 08:10 Proposed Procedures p bronchoscopy and EBUS 53819, 37436, 96003, 74375,R91.8,C50.919(Not Applicable) - Iain Evans MD s Ebus(Not Applicable) - Iain PutnamrMD Was Beta Marisol taken within 24 hours: Yes Was Clonidine taken within 24 hours: N/A Last intake: Intake Last Liquid Date 06/26/22 Last Liquid Time 18:00 Last Solid Date 06/26/22 Last Solid Time 17:30 Social quit smoking 8 years ago Exam alert and oriented x 3 Airway Submandibular: within normal limits Cervical ROM: within normal limits Mallampati: Class III Dentition: false History/ROS No significant history except as noted Pulmonary Chronic Obstructive Pulmonary Disease used inhalers yesterday for lung tightness CV/HEM Coronary Artery Disease and Hypertension valve replaced 2013 None reported Hepatic None reported GI Gastroesophageal Reflux Disease (occasional) Metabolic Diabetes Mellitus, Morbid Obesity and Thyroid Disease [facility] arthritis Anesthetic Plan ASA status: 3 Anesthesia: General Risk of > 500 ml blood loss (7ml/kg in children): No Medications/Allergies Home Medications Medication Instructions Recorded Confirmed Last Taken Type aspirin 81 mg tablet,delayed 81 mg PO DAILY 02/12/20 06/27/22 06/22/22 History release (Aspir-) naproxen sodium 220 mg capsule 220 mg PO BID PRN Pain 05/17/20 06/27/22 06/22/22 History (Aleve) warfarin 4 mg tablet 4 mg PO DAILY #90 tabs 10/25/20 06/26/22 06/22/22 Rx warfarin 5 mg tablet 5 mg PO DAILY #90 tabs 12/08/21 06/26/22 06/22/22 Rx metoprolol tartrate 25 mg tablet 25 mg PO BID #180 tabs 01/30/22 06/27/22 06/27/22 Rx glipizide 5 mg tablet, extended 5 mg PO DAILY #90 tabs 04/18/22 06/26/22 06/26/22 Rx release 24 hr albuterol sulfate 90 mcg/actuation 2 puff inhalation BID PRN 06/15/22 06/26/22 06/26/22 History aerosol inhaler Shortness Of Breath atorvastatin 40 mg tablet 20 mg PO DAILY 06/15/22 06/26/22 06/26/22 History glipizide 10 mg tablet, extended 10 mg PO DAILY 06/15/22 06/26/22 06/26/22 History release 24 hr insulin glargine 100 unit/mL 40 unit SUBCUT DAILY 06/15/22 06/27/22 06/26/22 History subcutaneous solution (Lantus 20 units U-100 Insulin) tiotropium 2.5 mcg-olodaterol 2.5 2 puff inhalation DAILY #4 grams 06/15/22 06/26/22 06/26/22 Rx mcg/actuation mist for inhalation (Stiolto Respimat) cetirizine 10 mg tablet (Zyrtec) 10 mg PO DAILY PRN Allergy Symptoms 06/26/22 06/27/22 06/26/22 History Allergies Allergy/AdvReac Type Severity Reaction Status Date / Time enoxaparin [From Lovenox] Allergy Unknown Unknown Verified 06/26/22 10:32 levothyroxine AdvReac ADR-Cramping Verified 06/26/22 10:32 of the Muscles metformin AdvReac ADR-Heartbu Verified 06/26/22 10:32 rn simvastatin AdvReac ADR-Nausea Verified 06/26/22 10:32 Current Medications Generic Name Dose Route Start Last Admin Trade Name Freq PRN Reason Stop Dose Admin Sodium Chloride 1,000 mls @ 30 mls/hr 06/27/22 07:00 06/27/22 07:44 Sodium Chloride 0.9% IV 06/28/22 06:59 30 mls/hr .Q24H KRISTIN Administration PFSH Anesthesia Medical History Aortic stenosis ASHD (arteriosclerotic heart disease) Breast cancer, left Diabetes Dyslipidemia HTN (hypertension) Obesity Tobacco abuse, in remission Warfarin anticoagulation Surgical History H/O mechanical aortic valve replacement H/O: hysterectomy S/P CABG (coronary artery bypass graft) S/P tonsillectomy Status post tubal ligation Family History Mother Diabetes Grandfather Diabetes MATERNAL AND PATERNAL Grandmother Diabetes MATERNAL AND PATERNAL Family/Other Stroke MATERNAL AUNT Other CAD (coronary artery disease) Hyperlipidemia Hypertension Social History Smoking and tobacco status: former smoker Quit status (tobacco): has quit using tobacco Year quit tobacco: 2013 Former quit date comment: 1 ppd x 36 years Alcohol intake: never Household members: spouse Marital status: Data Anesthesia Cardiac Studies: Echocardiogram Ultrasound 06/02/21 Sestamibi Stress Test (Cardiology) 03/01/22
[2022-06-27] MEDS: lidocaine 1% INJ 20 mL MDV (mL) XX (09:17)
--- NOTE | 2022-06-27 10:38 | XR_ITS ---
WS: [id number] PORTABLE CHEST HISTORY: POST BRONCHOSCOPY/EBUS COMPARISON: Chest CT 05/30/2022, chest radiograph 05/23/2022 Partial atelectasis medial RIGHT upper lobe. Increased consolidation and soft tissue over the RIGHT h ilum. Some of the increased density at the RIGHT hilum may be due to recent bronchoscopy with biopsie s and a small amount of bleeding. Mild progression of RIGHT hilar soft tissue thickening compared to the most recent chest radiograph. Cardiac size: Normal. Mediastinum/Aorta: Mild atherosclerosis aorta. Prior CABG. No osseous abnormality seen. XR/XR chest 1V portable [id number] IMPRESSION: 1. Increased density at the RIGHT hilum with partial atelectasis involving the medial RIGHT upper lobe. Some of the increased density is probably due to the recent biopsy. No large mass or area of hemorrhage. 2. No pneumothorax.
--- NOTE | 2022-06-27 10:38 | PM.OP ---
Operative Report Date of procedure: June 27, 2022 Pre-op diagnosis: Preop Diagnosis PET active lung lesions inpatient with recently diagnosed breast cancer Post-op diagnosis: Malignancy Procedure done: 33071 Dx Bronchoscope w/Washings or airway inspection 89694 Dx Bronchoscope w/BAL 42562 Dx Bronchoscopy w/Bronchial or Endobronchial biopsy(s), single or multiple sites 42519 EBUS Sampling 1/2 nodes Surgeon: Iain Evans MD [facility] Brief History: 61-year-old female with significant past medical history recently diagnosed breast cancer CAD s/p CABG, history of mechanical aortic valve replacement on warfarin, hypertension, diabetes, multiple thyroid nodules, obesity, dyslipidemia, ex-smoker referred by Dr. Ortez for lung lesion. Most recent PET/CT June 21, 2022 showed findings consistent with 2 hypermetabolic spiculated nodules in upper outer quadrant of left breast likely representing neoplasm.? There is estella metastatic involvement of bilateral lower cervical, left level 1-3 axillary lymph nodes, bilateral mediastinal lymph nodes, right hilar lymph nodes.? There is hypermetabolic right hilar lymph node or nodule results in postobstructive atelectasis of the anterior segment of right upper lobe this is probably related to metastatic breast cancer through the appearance is atypical for metastatic disease.? Soft tissue sampling could be performed to fully exclude a primary lung neoplasm. Patient also follows Dr. Chisholm oncology. The PET positive lung lesion as well as mediastinal and hilar areas were suspicious for metastatic breast cancer/second primary lung cancer Hence today she is scheduled for bronchoscopic evaluation of possible endobronchial lesion of right upper lobe and endobronchial ultrasound guided FNA C of mediastinal/hilar lymph nodes Procedure: Name of the procedure: 84831 Dx Bronchoscope w/Washings or airway inspection 25666 Dx Bronchoscope w/BAL 11503 Dx Bronchoscopy w/Bronchial or Endobronchial biopsy(s), single or multiple sites 58230 EBUS Sampling 1/2 nodes -Control of bleeding Indication: PET active bilateral mediastinal lymph nodes, right hilar lymph node, hypermetabolic right hilar lymph node resulting in postobstructive atelectasis of anterior segment of right upper lobe. Anesthesia: General anesthesia. Local anesthesia: The мария in the right and left mainstem bronchi were anesthetized with 1% lidocaine, 4 mL. Description of the procedure: The procedure was explained to the patient and the consent was obtained. The patient was brought to the OR. The patient underwent endotracheal intubation for general anesthesia. Following induction of general anesthesia, the bronchoscope was advanced through the ET tube. The lower trachea mucosa appeared normal, no endotracheal lesion was seen. The мария was sharp. The мария, the right and left mainstem bronchi are anesthetized with 1% lidocaine. In a systematic manner bilateral bronchial tree was then examined. The bronchoscope was advanced into the left mainstem bronchus. The mucosa appeared normal with no endobronchial lesions. The left upper lobe, lingula and left lower lobe bronchi were examined up to the third subsegmental level and no abnormalities were identified. Mucosa appeared normal with no endobronchial lesion, active bleeding or mucous plug. There were some clear secretions in lower lobe-which were suctioned right away. The bronchoscope was then introduced into the right mainstem bronchus. Right bronchus intermedius mucosa appeared irregular and easily bled with bronchoscope touching the ortiz. Almost 90% of right upper lobe opening was completely occluded by extrinsic compression and it was technically very difficult to pass scope through 10% opening. The right upper lobe, right middle lobe and right lower lobe bronchi were examined up to the third subsegmental level and no abnormalities were identified. Throughout the right-sided airways mucosa appeared irregular and bumpy with no definitive endobronchial lesions, or mucous plugs. I was able to take 2 endobronchial biopsies from right upper lobe opening and placed in formalin for histopathology. The bronchoscope was retracted and endobronchial ultrasound was introduced. Identified masslike lesion posteriorly in 4R and fine-needle aspiration cytology samples were obtained. Test breast was reported bled. Remaining samples from 4R were placed in formalin for further evaluation for histopathology. EBUS was advanced to further and was able to identify abnormal lymph nodes in station 7. Prepared 1 touch prep from station 7 lymph node for CHRIS and preliminary pathology diagnosis given was more tissue malignancy. I made 3-4 more passes and obtained tissue and placed in formalin for all the necessary studies. While taking these biopsy samples-bleeding was controlled with cold saline. EBUS was retracted. Bronchoscope was reintroduced and made sure there is no active/overt bleeding. Attempted to obtain bronchoalveolar lavage was performed from the 10% opening of right upper lobe. 30 mL of saline was instilled, fluid return was 20 mL. The fluid was mixed with blood. Sample was sent for gram stain and culture and cytology. After taking BAL, the procedure was terminated. Samples: 1. Bronchoalveolar lavage specimen from right upper lobe was sent for gram stain and culture and cytology 2. Endobronchial forcep biopsies from right upper lobe sent for histopathology in formalin 3. EBUS guided fine-needle aspiration cytology of station 4R lymph node-samples sent in formalin 4. EBUS guided fine-needle aspiration cytology of station 7 lymph node-samples sent in formalin Complications: None.The patient was extubated and brought to the PACU in stable condition. Postprocedure chest x-ray: No evidence of pneumothorax Disposition: Patient can be discharged home in stable condition. Updated preliminary diagnosis to the patient's . He verbalized understanding and agreed with the plan. I will set up clinic follow-up in 7-10 days to follow-up on final biopsy results. Related Problem List Diagnoses (1) Breast cancer: (2) Lung malignancy:
[2022-06-27 14:19] LABS: Cyto Order Verification Order Verified
--- NOTE | 2022-06-27 14:46 | ANE.PACU2 ---
Inpatient post-anesthesia follow up: Airway intact: Yes Vital signs: Temperature 98.1 F Pulse Rate 67 Respiratory Rate 18 Blood Pressure 165/113 Pulse Oximetry 98 Oxygen Delivery Me thod Room Air Oxygen Flow Rate 4 Fraction of Inspir ed Oxygen Hydration adequate: Yes Nausea and vomiting: No Pain level: 1 Mental status: Baseline
[2022-06-30 15:04] LABS: PD-L1 (Clone 22C3) by IHC BBPL See Report
[2022-07-03 07:54] LABS: Glucose Point of Care 101 mg/dL (70-110)
== END 2022-06-27 12:00 | disposition home or self-care (01) ==
PROVIDERS: PCP Electrodiagnostic Medicine; Visit Provider Internal Medicine Pulmonary Disease
PROC: 0BJ08ZZ Inspection of Tracheobronchial Tree, Via Natural or Artificial Opening Endoscopic (ICD-10-PCS; CPT 31622; principal; 2022-06-27 08:00)
PROC: BB4BZZZ Ultrasonography of Pleura (ICD-10-PCS; 2022-06-27 08:00)
DX: C34.90 Malignant neoplasm of unspecified part of unspecified bronchus or lung (principal); Z85.3 Personal history of malignant neoplasm of breast; I25.10 Atherosclerotic heart disease of native coronary artery without angina pectoris; Z95.1 Presence of aortocoronary bypass graft; Z79.01 Long term (current) use of anticoagulants; I10 Essential (primary) hypertension; E11.9 Type 2 diabetes mellitus without complications; E78.5 Hyperlipidemia, unspecified; E66.01 Morbid (severe) obesity due to excess calories; Z68.42 Body mass index [BMI] 45.0-49.9, adult; Z87.891 Personal history of nicotine dependence; J44.9 Chronic obstructive pulmonary disease, unspecified; Z79.82 Long term (current) use of aspirin; Z79.4 Long term (current) use of insulin
CPT/HCPCS: 31624; 31625; 31652; 36416; 71045; 80503; 82962; 87070; 87205; 88108; 88305; 88341; 88342; 94640; J0330; J1100; J2405; J2704; J3010; J3490; J7030

== ENCOUNTER 2022-07-03 16:17 | Oncology outpatient (recurring) (ONCR) | payer OTHER, SELFPAY ==
--- NOTE | 2022-07-03 16:17 | XR_ITS ---
WS: [id number] XR chest 2V* 73966 REASON FOR EXAM: wheezing and productive cough FINDINGS: Status post porcine aortic valve replacement. Compared to 06/27/2022 there has been further collapse of the right upper lobe against the medial medi astinal margin. Prominence of the mediastinum and right hilum. Blunting of both costophrenic angles. Chronic appearing linear opacities in the mid and lower lung fischer, scarring and/or atelectasis. No acute pulmonary parenchymal or pleural abnormality is identified. XR/XR chest 2V* [id number] IMPRESSION: No acute abnormality identified. Small residual pleural effusions. Further collapse of the right upper lobe seco ndary to hilar and mediastinal neoplasm.
== END 2022-07-31 23:59 | disposition home or self-care (01) ==
PROVIDERS: PCP Electrodiagnostic Medicine; Visit Provider Internal Medicine Hematology & Oncology
DX: J44.9 Chronic obstructive pulmonary disease, unspecified (principal); R05.8 Other specified cough; C34.01 Malignant neoplasm of right main bronchus; J91.0 Malignant pleural effusion
CPT/HCPCS: 71046

== ENCOUNTER 2022-07-04 06:58 | Outpatient (CLI) | payer OTHER, SELFPAY | END 2022-07-04 06:59 | disposition home or self-care (01) | LOC: RT 06:59 | PROVIDERS: PCP Electrodiagnostic Medicine; Visit Provider Internal Medicine Pulmonary Disease | DX: C50.912 Malignant neoplasm of unspecified site of left female breast (principal); R51.9 Headache, unspecified; H53.8 Other visual disturbances | CPT/HCPCS: 94618; J7611 ==

== ENCOUNTER 2022-07-04 06:59 | Outpatient (CLI) | payer OTHER, SELFPAY ==
[2022-07-04 07:48] LABS: Alanine Aminotransferase 13 U/L (0-33); Albumin Level 3.8 g/dL (3.5-5.2); Alkaline Phosphatase 109 U/L (35-105); Anion Gap 13.5 (5-19); Aspartate Amino Transferase 15 U/L (0-32); Blood Urea Nitrogen 16 mg/dL (8-23); Calcium 9.7 mg/dL (8.5-10.5); Carbon Dioxide 27 mmol/L (22-29); Chloride 103 mmol/L (98-107); Globulin 3.1 g/dL (1.3-4.6); Glomerular Filtration Rate 63.4 mL/min (90-130); Glucose 168 mg/dL (65-115); Osmolality Calculated 293 mOsm/kg (285-295); Potassium 4.5 mmol/L (3.5-5.1); Sodium 139 mmol/L (136-145); Total Bilirubin 0.5 mg/dL (0.15-1.2); Total Protein 6.9 g/dL (6.6-8.7)
[2022-07-04] MEDS: iohexol 350 mg/mL 100 mL Btl IV (08:11)
--- NOTE | 2022-07-04 08:30 | CT_ITS ---
WS: [id number] CT HEAD TECHNIQUE: Noncontrast and contrast-enhanced CT of the head. CLINICAL INFORMATION: headach, blurred vision COMPARISON: None. DLP: 2093.[address] scans at [facility] use at least one of these dose optimization techniques: automated e xposure control; mA and/or kV adjustment per patient size (includes targeted exams where dose is matc hed to clinical indication); or iterative reconstruction. FINDINGS: No evidence of intracranial hemorrhage or mass effect. Ventricular system and basal cisterns are johnson nt. No abnormal intracranial enhancement. No evidence of enhancing intracranial metastatic disease. P aranasal sinuses and mastoid air cells well aerated. Mild mucosal thickening RIGHT mastoid tip. Santa l dural venous sinuses. Mild small vessel changes. Moderate parenchymal volume loss CT/CT head wo/w con [id number] IMPRESSION: 1. No evidence of intracranial hemorrhage or mass effect. 2. No evidence of enhancing intracranial metastatic disease. 3. Mild small vessel changes with moderate parenchymal volume loss.
--- NOTE | 2022-07-04 14:16 | PFTS_ITS ---
Date of Study:07/04/22 Date of Dictation: MECHANICS: Forced vital capacity (FVC) is reduced. Forced expiratory volume in one second (FEV1) is reduced. FEV1/FVC is reduced. FLOW VOLUME LOOP: Reduced flow at all lung volumes with significant scooping. LUNG VOLUMES: Total lung capacity (TLC) is normal. Residual volume (RV) is normal. DIFFUSING CAPACITY FOR CARBON MONOXIDE: Mild reduced. INTERPRETATION: The postbronchodilator spirometry is consistent with moderate airflow obstruction. There is no significant postbronchodilator response. Lung volumes are normal. Gas exchange (DLCO) is mildly reduced. MTDD
== END 2022-07-04 07:00 | disposition home or self-care (01) ==
LOC: RAD 07:00
PROVIDERS: PCP Electrodiagnostic Medicine; Visit Provider Internal Medicine Hematology & Oncology
DX: R51.9 Headache, unspecified (principal); H53.8 Other visual disturbances; R06.2 Wheezing; R06.00 Dyspnea, unspecified; C50.919 Malignant neoplasm of unspecified site of unspecified female breast; Z87.891 Personal history of nicotine dependence
CPT/HCPCS: 36415; 70470; 80053; 87070; 87205; 94060; 94726; 94729

== ENCOUNTER → 2022-07-11 10:37 | Outpatient (BNVA) | payer OTHER, SELFPAY | PROVIDERS: PCP Electrodiagnostic Medicine; Visit Provider Internal Medicine Cardiovascular Disease | DX: Z95.2 Presence of prosthetic heart valve (principal); I35.8 Other nonrheumatic aortic valve disorders; Z79.01 Long term (current) use of anticoagulants | CPT/HCPCS: 85610 ==

== ENCOUNTER → 2022-08-08 10:20 | Outpatient (BNVA) | payer OTHER, SELFPAY | PROVIDERS: PCP Electrodiagnostic Medicine; Visit Provider Internal Medicine Cardiovascular Disease | DX: C50.919 Malignant neoplasm of unspecified site of unspecified female breast (principal); C78.00 Secondary malignant neoplasm of unspecified lung; Z95.2 Presence of prosthetic heart valve; Z79.01 Long term (current) use of anticoagulants | CPT/HCPCS: 80053; 85025; 85610; 86300 ==

== ENCOUNTER → 2022-08-15 10:40 | Outpatient (BNVA) | payer OTHER, SELFPAY | PROVIDERS: PCP Electrodiagnostic Medicine; Visit Provider Internal Medicine Cardiovascular Disease | DX: Z95.2 Presence of prosthetic heart valve (principal); Z79.01 Long term (current) use of anticoagulants | CPT/HCPCS: 85610 ==

== ENCOUNTER 2022-08-22 10:30 | Oncology outpatient (recurring) (ONCR) | payer OTHER, SELFPAY ==
[2022-08-04 07:13] LABS: Basophils % 0.6 %; Eosinophils # 0.2 10^3/uL (0.0-0.8); Eosinophils % 3.4 %; Hematocrit 41.5 % (37.0-47.0); Hemoglobin 13.4 g/dL (11.5-15.3); Lymphocytes # 1.3 10^3/uL (0.8-4.8); Lymphocytes % 19.9 %; Mean Corpuscular HGB Conc 32.3 g/dL (30.0-36.0); Mean Corpuscular Hemoglobin 26.6 pg (28.0-34.0); Mean Corpuscular Volume 82.5 fl (81-99); Mean Platelet Volume 10.6 fL (7.4-10.4); Monocytes # 0.5 10^3/uL (0.2-0.9); Monocytes % 8.4 %; Neutrophils % 67.1 %; Nucleated Red Blood Cells % 0 %; Platelet Count 153 10^3/cmm (130-400); Red Blood Count 5.03 10^6/uL (4.1-5.3); Red Cell Distribution Width 14.3 % (12.1-15.1); White Blood Count 6.4 10^3/uL (4.0-10.0)
[2022-08-04 07:34] LABS: Alanine Aminotransferase 12 U/L (0-33); Albumin Level 3.8 g/dL (3.5-5.2); Alkaline Phosphatase 109 U/L (35-105); Anion Gap 10.5 (5-19); Aspartate Amino Transferase 13 U/L (0-32); Blood Urea Nitrogen 19 mg/dL (8-23); Calcium 9.9 mg/dL (8.5-10.5); Carbon Dioxide 30 mmol/L (22-29); Chloride 101 mmol/L (98-107); Globulin 2.8 g/dL (1.3-4.6); Glomerular Filtration Rate 50.3 mL/min (90-130); Glucose 111 mg/dL (65-115); Osmolality Calculated 287 mOsm/kg (285-295); Potassium 4.5 mmol/L (3.5-5.1); Sodium 137 mmol/L (136-145); Total Bilirubin 0.5 mg/dL (0.15-1.2); Total Protein 6.6 g/dL (6.6-8.7)
[2022-08-04 10:23] LABS: CA 15-3 25.6 U/mL (0-25)
[2022-08-22 11:11] LABS: Basophils # 0.1 10^3/uL (0.0-0.1); Basophils % 0.7 %; Eosinophils # 0.1 10^3/uL (0.0-0.8); Eosinophils % 1.6 %; Hematocrit 41.8 % (37.0-47.0); Hemoglobin 13.3 g/dL (11.5-15.3); Lymphocytes # 1.3 10^3/uL (0.8-4.8); Lymphocytes % 17.7 %; Mean Corpuscular HGB Conc 31.8 g/dL (30.0-36.0); Mean Corpuscular Hemoglobin 26.3 pg (28.0-34.0); Mean Corpuscular Volume 82.6 fl (81-99); Monocytes # 0.6 10^3/uL (0.2-0.9); Monocytes % 7.8 %; Neutrophils # 5.44 10^3/uL (1.8-7.7); Neutrophils % 71.8 %; Nucleated Red Blood Cells % 0 %; Platelet Count 156 10^3/cmm (130-400); Red Blood Count 5.06 10^6/uL (4.1-5.3); Red Cell Distribution Width 14.3 % (12.1-15.1); White Blood Count 7.6 10^3/uL (4.0-10.0)
[2022-08-22 11:31] LABS: Alanine Aminotransferase 12 U/L (0-33); Albumin Level 3.9 g/dL (3.5-5.2); Alkaline Phosphatase 105 U/L (35-105); Anion Gap 13.9 (5-19); Aspartate Amino Transferase 15 U/L (0-32); Blood Urea Nitrogen 18 mg/dL (8-23); Carbon Dioxide 26 mmol/L (22-29); Chloride 102 mmol/L (98-107); Globulin 2.8 g/dL (1.3-4.6); Glomerular Filtration Rate 56.2 mL/min (90-130); Glucose 130 mg/dL (65-115); Osmolality Calculated 288 mOsm/kg (285-295); Potassium 4.9 mmol/L (3.5-5.1); Sodium 137 mmol/L (136-145); Total Bilirubin 0.4 mg/dL (0.15-1.2); Total Protein 6.7 g/dL (6.6-8.7)
--- NOTE | 2022-08-22 14:36 | PC.PHAR ---
PALBOCICLIB EDUCATION: MS. SY ARRIVED WITH HER TODAY FOR IBRANCE EDUCATION. SHE BROUGHT HER MEDICATION WITH HER. WE TALKED ABOUT HOW THE MEDICATION WORKS AND HOW TO TAKE IT. 125MG PO DAILY DAYS 1- WITH FOOD. SHE WILL CONTINUE HER ANASTROZOLE. SHE STATES SHE IS DOING WELL ON THE ANASTROZOLE. HAVING A FEW HOT FLASHES OTHERWISE TOLERATING OK. WE TALKED ABOUT THE SIDE EFFECTS FATIGUE, BONE MARROW SUPPRESSION, INFECTION, N/D, ETC. SHE WAS TOLD TO CALL US WITH NEW OR WORSENING COUGH. I'VE ENCOURAGED HER TO KEEP ALL LAB APPOINTMENTS. SHE WILL FOLLOW UP IN TWO WEEKS.
[2022-08-29 21:03] LABS: BRCA 1 & 2 Clinical Interpreta NEGATIVE; BRCA 1&2 Result NEGATIVE
== END 2022-08-30 23:59 | disposition home or self-care (01) ==
PROVIDERS: PCP Electrodiagnostic Medicine; Visit Provider Internal Medicine Hematology & Oncology
DX: C50.919 Malignant neoplasm of unspecified site of unspecified female breast; C78.00 Secondary malignant neoplasm of unspecified lung; Z95.2 Presence of prosthetic heart valve
CPT/HCPCS: 36415; 80053; 81162; 85025; 85610; 86300

== ENCOUNTER 2022-08-28 13:19 | Observation (INO) | payer OTHER, SELFPAY ==
[2022-08-28] VITALS (25 sets, daily range): BP systolic 145–205; BP diastolic 54–103; PULSE 74–84; RESP 14–22; TEMP 36.8–37.4; O2SAT 92–97; BMI 45.5
--- NOTE | 2022-08-28 13:22 | W.ED.SYNCOPE ---
HPI - Syncope General: Chief Complaint: Syncope Stated Complaint: syncope Time Seen by Provider: 08/28/22 13:22 History of Present Illness: Ms. Martinez is a 61-year-old lady with significant past medical history of hypertension, hyperlipidemia, aortic stenosis s/p repair, history of CABG, diabetes, breast cancer, and chronic anticoagulated presenting to the emergency department due to abnormal neurologic event. She reports a syncopal episode while walking approximately 1 week ago however had been feeling subsequently well. She was sitting eating lunch when she had a sudden abnormal event where she seemed to lose ability to control her body and shaking. At that time she still could recall hearing. No seizure history. Lasted 5 to 10 seconds and then subsequently had another event upon getting ready EMS stretcher. No other specific changes in health, exacerbating, or alleviating factors identified. Onset (ago): minute(s) Description of event: tonic-clonic movements Prodromal symptoms: none Witnessed: Yes - by Bystander Context: at rest Injuries sustained associated with event: none Associated symptoms: Reports no associated symptoms Review of Systems General: Reports: 10 or more systems reviewed and unremarkable except in HPI and below PFSH ED PFSH: Medical History (Updated 09/05/22 @ 11:05 by Maggie Coleman LPN) Aortic stenosis ASHD (arteriosclerotic heart disease) Breast cancer, left Diabetes Dyslipidemia HTN (hypertension) Malignant neoplasm of breast metastatic to lung Obesity Tobacco abuse, in remission Warfarin anticoagulation Surgical History H/O mechanical aortic valve replacement H/O: hysterectomy S/P CABG (coronary artery bypass graft) S/P tonsillectomy Status post tubal ligation Family History Mother Diabetes Grandfather Diabetes MATERNAL AND PATERNAL Grandmother Diabetes MATERNAL AND PATERNAL Family/Other Stroke MATERNAL AUNT Other CAD (coronary artery disease) Hyperlipidemia Hypertension Social History Smoking and tobacco status: former smoker Quit status (tobacco): has quit using tobacco Year quit tobacco: 2013 Former quit date comment: 1 ppd x 36 years Alcohol intake: never Household members: spouse Marital status: Physical Exam Const: COMMON NORMALS: patient oriented x3 and alert GENERAL APPEARANCE: cooperative and well developed HENMT: COMMON NORMALS: normocephalic and atraumatic HEAD & SCALP: normocephalic and atraumatic THROAT: posterior oropharynx normal Eye: COMMON NORMALS: conjunctivae normal CONJUNCTIVA: Yes conjunctivae normal SCLERA: sclerae normal Neck/C-Spine: COMMON NORMALS: supple GENERAL: Yes trachea midline Resp: COMMON NORMALS: clear to auscultation bilaterally EFFORT & INSPECTION: Yes able to speak in complete sentences AUSCULTATION: clear to auscultation bilaterally Cardio: COMMON NORMALS: regular rate and regular rhythm RATE: regular rate RHYTHM: regular rhythm GI: COMMON NORMALS: Soft to palpation PALPATION: Yes Soft to palpation and No Tenderness to palpation present (GI) Extremity: GENERAL: Yes normal exam except as noted and No edema Neuro: COMMON NORMALS: patient oriented x3, CN's II-XII intact bilaterally, moves all extremities, no focal motor deficits and no sensory deficits noted SENSORIUM/ORIENTATION: Yes alert and No Orientation impaired Psych: COMMON NORMALS: mental status grossly normal and Normal thought process present THOUGHT PROCESS: Normal thought process present Course Vital Signs: Vital signs: Vital Signs Temperature 99.3 F 08/28/22 20:00 Pulse Rate 80 08/28/22 22:51 Respiratory Rate 20 H 08/28/22 20:00 Blood Pressure 188/92 08/28/22 20:00 Pulse Oximetry 93 08/28/22 20:00 Oxygen Delivery Me thod 08/28/22 20:00 MDM - Syncope Medical Decision Making 61-year-old lady presenting with syncope. No focal neurologic deficits appreciated on clinical exam, exam as above. Patient is nontoxic and there are no focal neurologic deficits on initial exam. EKG demonstrates sinus rhythm with no STEMI. Labs notable for no significant hematologic abnormality to explain symptoms. Metabolic panel without acute abnormality to explain symptoms. Delta troponin at 2 hours is negative. TSH normal. No evidence of urinary tract infection. INR is 3.45. CT head negative for acute intracranial pathology. Chest x-ray without obvious lobar consolidation or pneumothorax. During ED course patient did have a bradycardia arrhythmia, symptomatic associated with presyncope and a heart rate that dropped to 12. To the idioventricular that she did have spontaneous recovery prior to requiring intervention. The patient has not had medication changes recently and is very minimal medications that could contribute to profound episodes of bradycardia. Initially I discussed the case with cardiology and admitting service at our facility however later was told that we do not have capability to perform pacemaker placement at this time and therefore the patient requires transfer. The results of ED evaluation were discussed with the patient including plan for transfer due to requirement for level of care not available if discharged to prevent significant worsening/deterioration. Patient agreeable with plan. Discussed with Dr Plascencia who accepted the patient as a transfer. Patient left the emergency department via EMS in satisfactory condition without recurrence of bradycardia arrhythmia during ED care. Medical Records I reviewed the patient's medical records. Lab Data I reviewed the patient's lab results. 08/28/22 13:04 08/28/22 13:04 Radiology Impressions Chest X-Ray 08/28/22 13:24 IMPRESSION: Postoperative chest as above. Possible atelectasis in the left lower lobe compared to the previous examination however a pneumonitis with worsening left pleural effusion would be considered as clinically warranted. Head CT 08/28/22 13:24 IMPRESSION: 1. No evidence of intracranial hemorrhage or mass effect. 2. Mild small vessel changes. Mild parenchymal volume loss. 3. No acute intracranial findings. Laboratory Results WBC 9.7 10^3/uL (4.0-10.0) 08/28/22 13:04 RBC 4.98 10^6/uL (4.1-5.3) 08/28/22 13:04 Hgb 12.9 g/dL (11.5-15.3) 08/28/22 13:04 Hct 41.0 % (37.0-47.0) 08/28/22 13:04 MCV 82.3 fl (81-99) 08/28/22 13:04 MCH 25.9 pg (28.0-34.0) L 08/28/22 13:04 MCHC 31.5 g/dL (30.0-36.0) 08/28/22 13:04 RDW 14.2 % (12.1-15.1) 08/28/22 13:04 Plt Count 164 10^3/cmm (130-400) 08/28/22 13:04 MPV 11.9 fL (7.4-10.4) H 08/28/22 13:04 Neut % (Auto) 75.5 % 08/28/22 13:04 Lymph % (Auto) 18.3 % 08/28/22 13:04 Gillespie % (Auto) 4.1 % 08/28/22 13:04 Eos % (Auto) 1.3 % 08/28/22 13:04 Baso % (Auto) 0.5 % 08/28/22 13:04 Neut # (Auto) 7.30 10^3/uL (1.8-7.7) 08/28/22 13:04 Lymph # (Auto) 1.8 10^3/uL (0.8-4.8) 08/28/22 13:04 Gillespie # (Auto) 0.4 10^3/uL (0.2-0.9) 08/28/22 13:04 Eos # (Auto) 0.1 10^3/uL (0.0-0.8) 08/28/22 13:04 Baso # (Auto) 0.1 10^3/uL (0.0-0.1) 08/28/22 13:04 Nucleated RBC % (auto) 0 % 08/28/22 13:04 Nucleated RBCs # 0.0 /100WBC 08/28/22 13:04 PT 35.00 SECONDS (12.1-14.9) H 08/28/22 13:04 INR 3.45 (0.8-1.2) H 08/28/22 13:04 APTT 36.7 SECONDS (23.9-36.7) 08/28/22 13:04 Sodium 136 mmol/L (136-145) 08/28/22 13:04 Potassium 4.2 mmol/L (3.5-5.1) 08/28/22 13:04 Chloride 102 mmol/L (98-107) 08/28/22 13:04 Carbon Dioxide 24 mmol/L (22-29) 08/28/22 13:04 Anion Gap 14.2 (5-19) 08/28/22 13:04 BUN 23 mg/dL (8-23) 08/28/22 13:04 Creatinine 1.1 mg/dL (0.5-0.9) H 08/28/22 13:04 GFR Calculation 50.3 mL/min (90-130) L 08/28/22 13:04 Glucose 151 mg/dL (65-115) H 08/28/22 13:04 Calculated Osmolality 289 mOsm/kg (285-295) 08/28/22 13:04 Calcium 9.7 mg/dL (8.5-10.5) 08/28/22 13:04 Magnesium 2.0 mg/dL (1.7-2.3) 08/28/22 13:04 Total Bilirubin 0.8 mg/dL (0.15-1.2) 08/28/22 13:04 AST 15 U/L (0-32) 08/28/22 13:04 ALT 11 U/L (0-33) 08/28/22 13:04 Alkaline Phosphatase 111 U/L (35-105) H 08/28/22 13:04 Troponin T Baseline 14 ng/L (0-10) H 08/28/22 13:04 Troponin T 120 Minute 16.46 ng/L (0-10) H 08/28/22 15:05 Delta Troponin T 2.46 ABS# (0-10) 08/28/22 15:05 NT-Pro-B Natriuret Pep 303 pg/mL (0-125) H 08/28/22 13:04 Total Protein 6.7 g/dL (6.6-8.7) 08/28/22 13:04 Albumin 3.9 g/dL (3.5-5.2) 08/28/22 13:04 Globulin 2.8 g/dL (1.3-4.6) 08/28/22 13:04 TSH 2.09 uIU/mL (0.27-4.20) 08/28/22 13:04 Critical Care Time Critical Care Time: Critical Care Time: Yes Total Critical Care Time: 35 Attestation: Due to a high probability of clinically significant, possibly life threatening deterioration, the patient required my highest level of attention and preparedness to intervene emergently and I personally spent this critical care time directly and personally managing the patient. This critical care time included obtaining a history; examining the patient; pulse oximetry; ordering and review of laboratory and imaging studies; arranging urgent treatment with development of a management plan; evaluation of patient's response to treatment; frequent reassessment; and, discussions with other providers as applicable. It was exclusive of separately billable procedures. Primary system involved is cardiac Discharge Plan Discharge Patient Disposition: Xfer Short-Term Hosp Clinical Impression: Bradyarrhythmia, Syncope, cardiogenic Condition: Stable Discharge Orders: Transfer Out of Facility (Order); Ordered 09/01/22 Ordered By: Jorge Luis Toney Coding Level of Care Code ED Computer Programming Supervisor for g Fwd Exam Comprehensive
--- NOTE | 2022-08-28 13:24 | XR_ITS ---
WS: [id number] XR chest 1V portable [id number] REASON FOR EXAM: syncope FINDINGS: Sternotomy with previous aortocoronary bypass and aortic valve replacement surgery. Compared to the examination of 07/03/2022, there continues to be blunting of the right costophrenic an gle. There is also blunting of the left costophrenic angle. There is some ill-defined opacity in the left lower lung which is more prominent than on the previous examination. No other interval changes identified. XR/XR chest 1V portable [id number] IMPRESSION: Postoperative chest as above. Possible atelectasis in the left lower lobe compared to the previous examinatio n however a pneumonitis with worsening left pleural effusion would be considere d as clinically warranted.
--- NOTE | 2022-08-28 13:24 | CT_ITS ---
WS: [id number] CT HEAD TECHNIQUE: Noncontrast CT of the head obtained from the skullbase to the vertex. CLINICAL INFORMATION: syncope COMPARISON: July 04, 2022 DLP: 1094.[address] scans at [facility] use at least one of these dose optimization techniques: automated e xposure control; mA and/or kV adjustment per patient size (includes targeted exams where dose is matc hed to clinical indication); or iterative reconstruction. FINDINGS: No evidence of intracranial hemorrhage or mass effect. Ventricular system and basal cisterns are johnson nt. Mild small vessel changes with mild parenchymal volume loss. No extra-axial fluid collections. No evidence of mass or mass effect. Paranasal sinuses and mastoid air cells are well aerated. .Normal visualized soft tissues. CT/CT head wo con* [id number] IMPRESSION: 1. No evidence of intracranial hemorrhage or mass effect. 2. Mild small vessel changes. Mild parenchymal volume loss. 3. No acute intracranial findings.
--- NOTE | 2022-08-28 13:39 | PC.NURSE ---
Per EMS, pt has had two episodes of syncope with convulsions. Per EMS, one witness episode lasted approximately 5 seconds. Pt denies hx seizures, reports she fell about a week ago. Per EMS, blood glucose was 198, oral temp of 98.8. Pt has hx of breast cancer with mets to her lungs
--- NOTE | 2022-08-28 13:45 | ECG_ITS ---
[facility] Test Date: 2022-08-28 Pat Name: Cami Martinez Department: Room: Gender: Female Forestry Professor: : 1960 Requested By: Rene Henderson Order Number: [id number] Margaret MD: Maikol Jensen M.D. Measurements Intervals [place] Rate: 79 P: 2 ID: 148 QRS: -16 QRSD: 94 T: 72 QT: 399 QTc: 458 Interpretive Statements SINUS RHYTHM LEFT VENTRICULAR HYPERTROPHY AND ST-T CHANGE [VOLTAGE CRITERIA PLUS ST/T ABNORMALITY] POSSIBLE SEPTAL MYOCARDIAL INFARCTION , OF INDETERMINATE AGE [30 ms Q WAVE IN V1/V2] Compared to ECG 11/29/2018 23:03:07 Sinus tachycardia no longer present ST (T wave) deviation still present Myocardial infarct finding still present Electronically Signed On 08-28-2022 14:53:46 ROOM CLEANER by Maiokl Jensen M.D. [id number]
[2022-08-28 14:13] LABS: Basophils # 0.1 10^3/uL (0.0-0.1); Basophils % 0.5 %; Eosinophils # 0.1 10^3/uL (0.0-0.8); Eosinophils % 1.3 %; Hemoglobin 12.9 g/dL (11.5-15.3); Lymphocytes # 1.8 10^3/uL (0.8-4.8); Lymphocytes % 18.3 %; Mean Corpuscular HGB Conc 31.5 g/dL (30.0-36.0); Mean Corpuscular Hemoglobin 25.9 pg (28.0-34.0); Mean Corpuscular Volume 82.3 fl (81-99); Mean Platelet Volume 11.9 fL (7.4-10.4); Monocytes # 0.4 10^3/uL (0.2-0.9); Monocytes % 4.1 %; Neutrophils % 75.5 %; Nucleated Red Blood Cells % 0 %; Platelet Count 164 10^3/cmm (130-400); Red Blood Count 4.98 10^6/uL (4.1-5.3); Red Cell Distribution Width 14.2 % (12.1-15.1); White Blood Count 9.7 10^3/uL (4.0-10.0)
[2022-08-28 14:25] LABS: INR 3.45 (0.8-1.2)
[2022-08-28 14:26] LABS: Partial Thromboplastin Time 36.7 SECONDS (23.9-36.7)
[2022-08-28 14:30] LABS: Troponin(5th) Baseline 14 ng/L (0-10)
[2022-08-28 14:40] LABS: Alanine Aminotransferase 11 U/L (0-33); Albumin Level 3.9 g/dL (3.5-5.2); Alkaline Phosphatase 111 U/L (35-105); Aspartate Amino Transferase 15 U/L (0-32); Blood Urea Nitrogen 23 mg/dL (8-23); Calcium 9.7 mg/dL (8.5-10.5); Carbon Dioxide 24 mmol/L (22-29); Chloride 102 mmol/L (98-107); Globulin 2.8 g/dL (1.3-4.6); Glomerular Filtration Rate 50.3 mL/min (90-130); Glucose 151 mg/dL (65-115); NT Pro B Type Natriuretic Pept 303 pg/mL (0-125); Osmolality Calculated 289 mOsm/kg (285-295); Sodium 136 mmol/L (136-145); Thyroid Stimulating Hormone 2.09 uIU/mL (0.27-4.20); Total Bilirubin 0.8 mg/dL (0.15-1.2); Total Protein 6.7 g/dL (6.6-8.7)
[2022-08-28 14:43] LABS: Anion Gap 14.2 (5-19); Potassium 4.2 mmol/L (3.5-5.1)
--- NOTE | 2022-08-28 15:09 | ECG_ITS ---
[facility] Test Date: 2022-08-28 Pat Name: Cami Martinez Department: Room: Gender: Female Edge Plugger: : 1960 Requested By: Rene Hednerson Order Number: [id number] Margaret MD: Maikol Jensen M.D. Measurements Intervals [place] Rate: 76 P: 3 HI: 147 QRS: -8 QRSD: 96 T: 66 QT: 395 QTc: 444 Interpretive Statements SINUS RHYTHM SEPTAL MYOCARDIAL INFARCTION , OF INDETERMINATE AGE [40+ ms Q WAVE IN V1/V2] Compared to ECG 08/28/2022 13:45:44 Left ventricular hypertrophy no longer present ST (T wave) deviation no longer present Myocardial infarct finding still present Electronically Signed On 08-29-2022 0:13:43 FINISHING MACHINE OPERATOR AUTOMATIC by Maikol Jensen M.D. [id number]
[2022-08-28 15:34] LABS: Troponin 5 2HR 16.46 ng/L (0-10)
[2022-08-28 15:39] LABS: Troponin 5 2HR Delta 2.46 ABS# (0-10)
[2022-08-28 16:10] LABS: Charge for UA Resulting for Rev
[2022-08-28 16:32] LABS: Protein Urine Neg (Negative); Urine Appearance Clear (CLEAR); Urine Color Yellow (Yellow); pH Urine 5 (5-7)
[2022-08-28 16:33] LABS: Add Urine Microscopic? NO; Bilirubin Urine Neg (Negative); Blood Urine Neg (Negative); Glucose Urine UA Trace (Normal); Ketones Urine 1+ (Negative); Leukocyte Esterase Urine Negative (Negative); Nitrate Urine Negative (Negative); Urobilinogen Urine Norm (Negative)
--- NOTE | 2022-08-28 17:22 | P.HP_ITS ---
Providers/Chief Complaint Admitting Physician: Jorge Luis Toney MD Primary Care Provider: Lalo Ortez DO Chief Complaint: syncope History of Present Illness Cami Martinez is a 61 year old female with PMH of CAD S/P CABG with severe aortic stenosis s/p mechanical aortic in 2013 on warfarin , obesity, history of tobacco abuse, anemia, diabetes, hypertension, dyslipidemia, was brought in with c/o syncopal event, experienced twice today lasted briefly, describe as complete black out,she has h/o similar prior episode a week back while she was shopping,denied any confusion after recovery. Upon arrival in the ER Telemetry monitoring showed significant pause of 5 Secs. She has denied any chest pain shortness of breath nausea vomiting, fever cough abdominal pain. Pertinent labs have been reviewed. Has no significant electrolyte abnormalities. CT head without contrast no acute intracranial pathology X-ray chest: No acute findings. Review of Systems General: Reports: 10 or more systems reviewed and unremarkable except in HPI and below Const: Denies: fever(s), chills, body aches, change in appetite or diaphoresis Card: Denies: palpitations, edema, swelling of feet/ankles, dyspnea on exertion, orthopnea or leg pain with exertion Resp: Denies: dyspnea, productive cough, wheezing or pain on inspiration GI: Denies: abdominal pain, nausea, vomiting, diarrhea or constipation : Denies: flank pain Musc: Denies: back pain, extremity pain or extremity swelling Neuro: Denies: headache(s), difficulty walking or confusion Medications/Allergies Home Medications Medication Instructions Recorded Confirmed Last Taken Type naproxen sodium 220 mg capsule 220 mg PO BID PRN Pain 05/17/20 08/28/22 06/22/22 History (Aleve) metoprolol tartrate 25 mg tablet 25 mg PO BID #180 tabs 01/30/22 08/28/2208/28 Rx albuterol sulfate 90 mcg/actuation 2 puff inhalation BID PRN 06/15/22 08/28/22 06/26/22 History aerosol inhaler Shortness Of Breath insulin glargine 100 unit/mL 40 unit SUBCUT DAILY 06/15/22 08/28/22 08/27/22 History subcutaneous solution (Lantus U-100 Insulin) tiotropium 2.5 mcg-olodaterol 2.5 2 puff inhalation DAILY #4 grams 06/15/22 08/28/22 08/28/22 Rx mcg/actuation mist for inhalation (Stiolto Respimat) cetirizine 10 mg tablet (Zyrtec) 10 mg PO DAILY PRN Allergy Symptoms 06/26/22 08/28/22 06/26/22 History anastrozole 1 mg tablet (Arimidex) 1 mg PO DAILY 30 days #60 tabs 08/04/22 08/28/22 08/28/22 Rx calcium 1 tab PO BEDTIME 08/04/22 08/28/22 08/27/22 History mroa-E5-siuzfhzd-inosit-silicon 300 mg-200 unit-37.5 mg tablet (Bone Density Calcium Plus D) palbociclib 125 mg tablet (Ibrance) 125 mg PO DAILY #21 tabs 08/04/22 08/28/22 Unknown Rx albuterol sulfate 0.63 mg/3 mL 0.63 mg (3 mL) inhalation Q6H PRN 08/14/22 1 10/28/21 Unknown Rx solution for nebulization shortness of breath or wheezing #90 mL aspirin 81 mg tablet,delayed 81 mg PO DAILY 08/28/22 08/28/22 08/28/22 History release atorvastatin 40 mg tablet 40 mg PO DAILY 08/28/22 08/28/22 Unknown History glipizide 10 mg tablet, extended 10 mg PO DAILY PRN Hyperglycemia 08/28/22 08/28/22 Unknown History release 24 hr glipizide 5 mg tablet, extended 5 mg PO DAILY PRN Hyperglycemia 08/28/22 08/28/22 Unknown History release 24 hr warfarin 5 mg tablet See Rx Instructions .Route .COMPLEX 08/28/22 08/28/22 08/28/22 History Allergies Allergy/AdvReac Type Severity Reaction Status Date / Time enoxaparin [From Lovenox] Allergy Unknown Unknown Verified 08/28/22 15:46 levothyroxine AdvReac ADR-Cramping Verified 08/28/22 15:46 of the Muscles metformin AdvReac ADR-Heartbu Verified 08/28/22 15:46 rn simvastatin AdvReac ADR-Nausea Verified 08/28/22 15:46 PFSH Acute PFSH: Medical History Aortic stenosis ASHD (arteriosclerotic heart disease) Breast cancer, left Diabetes Dyslipidemia HTN (hypertension) Malignant neoplasm of breast metastatic to lung Obesity Tobacco abuse, in remission Warfarin anticoagulation Surgical History H/O mechanical aortic valve replacement H/O: hysterectomy S/P CABG (coronary artery bypass graft) S/P tonsillectomy Status post tubal ligation Family History Mother Diabetes Grandfather Diabetes MATERNAL AND PATERNAL Grandmother Diabetes MATERNAL AND PATERNAL Family/Other Stroke MATERNAL AUNT Other CAD (coronary artery disease) Hyperlipidemia Hypertension Social History Smoking and tobacco status: former smoker Quit status (tobacco): has quit using tobacco Year quit tobacco: 2013 Former quit date comment: 1 ppd x 36 years Alcohol intake: never Household members: spouse Marital status: Vitals/I&O/Wt Last Vital Signs Temp 98.3 F 08/28/22 16:57 Pulse 78 08/28/22 16:57 Resp 21 H 08/28/22 16:57 BP 186/54 08/28/22 16:57 Pulse Ox 97 08/28/22 16:57 O2 Del Method 08/28/22 13:21 Weight last 48 hrs Weight 116.573 kg Physical Exam Const: COMMON NORMALS: patient oriented x3 Resp: COMMON NORMALS: clear to auscultation bilaterally AUSCULTATION: clear to auscultation bilaterally Cardio: COMMON NORMALS: regular rate, regular rhythm, S1 normal heart sound present, S2 normal heart sound present, No gallops present (Cardio), No murmurs present (Cardio), No rub (Cardio) and Peripheral pulses 2+ throughout RATE: regular rate RHYTHM: regular rhythm HEART SOUNDS: S1 normal heart sound present and S2 normal heart sound present PERIPHERAL PULSES: Peripheral pulses 2+ throughout GI: COMMON NORMALS: Normal to inspection, nondistended, normoactive bowel sounds present, Soft to palpation, non-tender, No hepatosplenomegaly present and no masses AUSCULTATION: Yes normoactive bowel sounds PALPATION: Yes Soft to palpation and Yes No hepatosplenomegaly present RECTAL EXAM: deferred Extremity: COMMON NORMALS: no clubbing, cyanosis or edema and no pedal edema Data 08/28/22 13:04 08/28/22 13:04 A&P Assessment and plan (1) Bradyarrhythmia: (2) Syncope, cardiogenic: (3) Syncope and collapse: (4) Malignant neoplasm of breast metastatic to lung: (5) COPD (chronic obstructive pulmonary disease): (6) Hypothyroid: Qualifiers: Hypothyroidism type: unspecified Qualified Code(s): E03.9 - Hypothyroidism, unspecified (7) Obesity: Qualifiers: Body mass index: BMI 45.0-49.9 Obesity classification: adult class 3 (BMI >= 40) Obesity type: unspecified obesity type Serious obesity comorbidity presence: with serious comorbidity Qualified Code(s): E66.01 - Morbid (severe) obesity due to excess calories; Z68.42 - Body mass index (BMI) 45.0-49.9, adult (8) Diabetes mellitus with cardiac complication: (9) Warfarin anticoagulation: (10) Aortic stenosis: Qualifiers: Cardiac valve disease etiology: nonrheumatic Qualified Code(s): I35.0 - Nonrheumatic aortic (valve) stenosis (11) HTN (hypertension): Qualifiers: Hypertension type: essential hypertension Qualified Code(s): I10 - Essential (primary) hypertension (12) S/P CABG (coronary artery bypass graft): (13) ASHD (arteriosclerotic heart disease): (14) H/O mechanical aortic valve replacement: Plan 61 year old female with PMH of CAD S/P CABG with severe aortic stenosis s/p mechanical aortic in 2013 on warfarin , obesity, history of tobacco abuse, anemia, diabetes, hypertension, dyslipidemia, was brought in with c/o syncopal event, experienced twice today lasted briefly, describe as complete black out,she has h/o similar prior episode a week back while she was shopping,denied any confusion after recovery. Upon arrival in the ER Telemetry monitoring showed significant pause of 5 Secs. Assessment: Symptomatic significant pause Recurrent cardiogenic syncope History of coronary artery disease s/p CABG History of mechanical aortic valve on warfarin Hypertension Diabetes History of CA lung Plan: Given that the patient has symptomatic significant pauses, she will likely need pacemaker placement. Currently we do not have in-house cardiology service for pacemaker placement, hence the patient is being transferred. Continue Lantus sliding scale insulin, monitor fingerstick glucose Monitor INR, will need bridging with heparin Continue hydralazine 50 mg p.o. 3 times daily CODE STATUS: Full code Attestations Medical Necessity Statement*: Patient is to be in hospital for management of recurrent cardiogenic syncope. Coding Level of Care Code Acute Aviation Electronics Technician for Chg Fwd Exam Detailed Diagnoses Bradyarrhythmia I49.8 Syncope, cardiogenic R55 Syncope and collapse R55 Malignant neoplasm of breast metastatic to lung C50.919; C78.00 COPD (chronic obstructive pulmonary disease) J44.9 Hypothyroid E03.9 Hypothyroidism type: unspecified Obesity E66.01; Z68.42 Body mass index: BMI 45.0-49.9 Obesity classification: adult class 3 (BMI >= 40) Obesity type: unspecified obesity type Serious obesity comorbidity presence: with serious comorbidity Diabetes mellitus with cardiac complication E11.59 Warfarin anticoagulation Z79.01 Aortic stenosis I35.0 Cardiac valve disease etiology: nonrheumatic HTN (hypertension) I10 Hypertension type: essential hypertension S/P CABG (coronary artery bypass graft) Z95.1 ASHD (arteriosclerotic heart disease) I25.10 H/O mechanical aortic valve replacement Z95.2
[2022-08-28] MEDS: hyDRALAzine 50 mg Tablet PO (18:39)
--- NOTE | 2022-08-28 19:32 | PC.NURSE ---
Report given to Dallas Minor RN.
[2022-08-28 20:01] LABS: Troponin 5 6HR 15.31 ng/L (0-10)
[2022-08-28 20:02] LABS: Troponin 5 6HR Delta 1.31 ng/L (0-12)
[2022-08-28 20:49] LABS: Glucose Point of Care 138 mg/dL (70-110)
--- NOTE | 2022-08-28 20:53 | PC.NURSE ---
Report called to DANIEL Haynes at [facility].
--- NOTE | 2022-08-28 21:23 | ECG_ITS ---
[facility] Test Date: 2022-08-28 Pat Name: Cami Martinez Department: Room: 103 Gender: Female Pit Recorder: : 1960 Requested By: Rene Henderson Order Number: [id number] Margaret MD: Tati Gonzalez M.D. Measurements Intervals [place] Rate: 78 P: 0 SC: 144 QRS: 4 QRSD: 97 T: 72 QT: 397 QTc: 454 Interpretive Statements SINUS RHYTHM SEPTAL MYOCARDIAL INFARCTION , PROBABLY OLD [40+ ms Q WAVE IN V1/V2] Compared to ECG 08/28/2022 15:09:20 No significant changes Electronically Signed On 08-29-2022 18:14:23 TOWER HAND by Tati Gonzalez M.D. [email or web address].[email or web address]/[id number]
--- NOTE | 2022-08-28 22:48 | PC.NURSE ---
[facility] EMS crew 4 present at bedside at this time to transport patient to [facility]. Patient HR remained NSR throughout shift thus far without significant pausing noted. Report given to EMS crew. DANIEL Haynes at [facility] notified of departure. Patient vital signs stable at time of discharge and was able to transfer self from bed to EMS stretcher.
--- NOTE | 2022-09-01 12:48 | P.DS_ITS ---
Discharge Providers Date of Admission: 08/28/22 15:08 Date of Discharge: September 01, 2022 Attending Provider at Admission: Jorge Luis Toney MD Attending Provider at Discharge: Jorge Luis Toney MD Primary Care Provider: Lalo Ortez DO Diagnoses at Discharge Discharge Diagnosis (1) Bradyarrhythmia: Status: Acute (2) Syncope, cardiogenic: Status: Acute (3) Syncope and collapse: Status: Acute (4) Malignant neoplasm of breast metastatic to lung: Status: Acute (5) COPD (chronic obstructive pulmonary disease): Status: Acute (6) Hypothyroid: Status: Acute Qualifiers: Hypothyroidism type: unspecified Qualified Code(s): E03.9 - Hypothyroidism, unspecified (7) Obesity: Status: Acute Qualifiers: Body mass index: BMI 45.0-49.9 Obesity classification: adult class 3 (BMI >= 40) Obesity type: unspecified obesity type Serious obesity comorbidity presence: with serious comorbidity Qualified Code(s): E66.01 - Morbid (severe) obesity due to excess calories; Z68.42 - Body mass index (BMI) 45.0-49.9, adult (8) Diabetes mellitus with cardiac complication: Status: Acute (9) Warfarin anticoagulation: Status: Acute (10) Aortic stenosis: Status: Acute Qualifiers: Cardiac valve disease etiology: nonrheumatic Qualified Code(s): I35.0 - Nonrheumatic aortic (valve) stenosis (11) HTN (hypertension): Status: Acute Qualifiers: Hypertension type: essential hypertension Qualified Code(s): I10 - Essential (primary) hypertension (12) S/P CABG (coronary artery bypass graft): Status: Acute (13) ASHD (arteriosclerotic heart disease): Status: Acute (14) H/O mechanical aortic valve replacement: Status: Acute Reason for Visit Reason for Visit: syncope Hospital Course Hospital Course 61 year old female with PMH of??CAD S/P CABG? with severe aortic stenosis s/p mechanical aortic? in 2013 on warfarin , obesity, history of tobacco abuse, anemia, diabetes, hypertension, dyslipidemia, was brought in with c/o syncopal event, experienced twice today lasted briefly, describe as complete black out,she has h/o similar prior episode a week back while she was shopping,denied any confusion after recovery.Upon arrival in the ER Telemetry monitoring showed significant pause of? 5 Secs. she was admitted for the management of significant symptomatic sinus pause, possibly secondary to underlying sick sinus syndrome and recurrent cardiogenic syncope.Given that the patient has symptomatic significant pauses, she will need pacemaker placement.Currently we do not have in-house cardiology service for pacemaker placement, hence the patient was transferred. Physical Exam Const: COMMON NORMALS: patient oriented x3 Resp: COMMON NORMALS: clear to auscultation bilaterally AUSCULTATION: clear to auscultation bilaterally Cardio: COMMON NORMALS: regular rate, regular rhythm, S1 normal heart sound present, S2 normal heart sound present, No gallops present (Cardio), No murmurs present (Cardio), No rub (Cardio) and Peripheral pulses 2+ throughout RATE: regular rate RHYTHM: regular rhythm HEART SOUNDS: S1 normal heart sound present and S2 normal heart sound present PERIPHERAL PULSES: Peripheral pulses 2+ throughout GI: COMMON NORMALS: Normal to inspection, nondistended, normoactive bowel sounds present, Soft to palpation, non-tender, No hepatosplenomegaly present and no masses AUSCULTATION: Yes normoactive bowel sounds PALPATION: Yes Soft to palpation and Yes No hepatosplenomegaly present RECTAL EXAM: deferred Extremity: COMMON NORMALS: no clubbing, cyanosis or edema and no pedal edema Neuro: COMMON NORMALS: patient oriented x3 Discharge Data Studies Completed and Pending Completed Studies During Hospitalization Category Date Time Status CT head wo con* [id number] Stat Cat Scan 08/28/22 13:24 Completed XR chest 1V portable [id number] Stat Exams 08/28/22 13:24 Completed Radiology Impressions Chest X-Ray 08/28/22 13:24 IMPRESSION: Postoperative chest as above. Possible atelectasis in the left lower lobe compared to the previous examination however a pneumonitis with worsening left pleural effusion would be considered as clinically warranted. Head CT 08/28/22 13:24 IMPRESSION: 1. No evidence of intracranial hemorrhage or mass effect. 2. Mild small vessel changes. Mild parenchymal volume loss. 3. No acute intracranial findings. Laboratory Results WBC 9.7 10^3/uL (4.0-10.0) 08/28/22 13:04 RBC 4.98 10^6/uL (4.1-5.3) 08/28/22 13:04 Hgb 12.9 g/dL (11.5-15.3) 08/28/22 13:04 Hct 41.0 % (37.0-47.0) 08/28/22 13:04 MCV 82.3 fl (81-99) 08/28/22 13:04 MCH 25.9 pg (28.0-34.0) L 08/28/22 13:04 MCHC 31.5 g/dL (30.0-36.0) 08/28/22 13:04 RDW 14.2 % (12.1-15.1) 08/28/22 13:04 Plt Count 164 10^3/cmm (130-400) 08/28/22 13:04 MPV 11.9 fL (7.4-10.4) H 08/28/22 13:04 Neut % (Auto) 75.5 % 08/28/22 13:04 Lymph % (Auto) 18.3 % 08/28/22 13:04 [place] % (Auto) 4.1 % 08/28/22 13:04 Eos % (Auto) 1.3 % 08/28/22 13:04 Baso % (Auto) 0.5 % 08/28/22 13:04 Neut # (Auto) 7.30 10^3/uL (1.8-7.7) 08/28/22 13:04 Lymph # (Auto) 1.8 10^3/uL (0.8-4.8) 08/28/22 13:04 [place] # (Auto) 0.4 10^3/uL (0.2-0.9) 08/28/22 13:04 Eos # (Auto) 0.1 10^3/uL (0.0-0.8) 08/28/22 13:04 Baso # (Auto) 0.1 10^3/uL (0.0-0.1) 08/28/22 13:04 Nucleated RBC % (auto) 0 % 08/28/22 13:04 Nucleated RBCs # 0.0 /100WBC 08/28/22 13:04 PT 35.00 SECONDS (12.1-14.9) H 08/28/22 13:04 INR 3.45 (0.8-1.2) H 08/28/22 13:04 APTT 36.7 SECONDS (23.9-36.7) 08/28/22 13:04 Sodium 136 mmol/L (136-145) 08/28/22 13:04 Potassium 4.2 mmol/L (3.5-5.1) 08/28/22 13:04 Chloride 102 mmol/L (98-107) 08/28/22 13:04 Carbon Dioxide 24 mmol/L (22-29) 08/28/22 13:04 Anion Gap 14.2 (5-19) 08/28/22 13:04 BUN 23 mg/dL (8-23) 08/28/22 13:04 Creatinine 1.1 mg/dL (0.5-0.9) H 08/28/22 13:04 GFR Calculation 50.3 mL/min (90-130) L 08/28/22 13:04 Glucose 151 mg/dL (65-115) H 08/28/22 13:04 POC Glucose 138 mg/dL (70-110) H 08/28/22 20:46 Calculated Osmolality 289 mOsm/kg (285-295) 08/28/22 13:04 Calcium 9.7 mg/dL (8.5-10.5) 08/28/22 13:04 Magnesium 2.0 mg/dL (1.7-2.3) 08/28/22 13:04 Total Bilirubin 0.8 mg/dL (0.15-1.2) 08/28/22 13:04 AST 15 U/L (0-32) 08/28/22 13:04 ALT 11 U/L (0-33) 08/28/22 13:04 Alkaline Phosphatase 111 U/L (35-105) H 08/28/22 13:04 Troponin T Baseline 14 ng/L (0-10) H 08/28/22 13:04 Troponin T 120 Minute 16.46 ng/L (0-10) H 08/28/22 15:05 Delta Troponin T 2.46 ABS# (0-10) 08/28/22 15:05 Troponin T Hi Sens 6Hr 15.31 ng/L (0-10) H 08/28/22 19:22 Troponin T Hi Sens 6Hr Delta 1.31 ng/L (0-12) 08/28/22 19:22 NT-Pro-B Natriuret Pep 303 pg/mL (0-125) H 08/28/22 13:04 Total Protein 6.7 g/dL (6.6-8.7) 08/28/22 13:04 Albumin 3.9 g/dL (3.5-5.2) 08/28/22 13:04 Globulin 2.8 g/dL (1.3-4.6) 08/28/22 13:04 TSH 2.09 uIU/mL (0.27-4.20) 08/28/22 13:04 Urine Color Yellow (Yellow) 08/28/22 15:47 Urine Appearance Clear (CLEAR) 08/28/22 15:47 Urine pH 5 (5-7) 08/28/22 15:47 Ur Specific [place] 1.020 (1.005-1.030) 08/28/22 15:47 Urine Protein Neg (Negative) 08/28/22 15:47 Urine Glucose (UA) Trace (Normal) H 08/28/22 15:47 Urine Ketones 1+ (Negative) H 08/28/22 15:47 Urine Blood Neg (Negative) 08/28/22 15:47 Urine Nitrate Negative (Negative) 08/28/22 15:47 Urine Bilirubin Neg (Negative) 08/28/22 15:47 Urine Urobilinogen Norm mg/dL (Negative) 08/28/22 15:47 Ur Leukocyte Esterase Negative (Negative) 08/28/22 15:47 Vitals Last Vital Signs Temp 99.3 F 08/28/22 20:00 Pulse 80 08/28/22 22:51 Resp 20 H 08/28/22 20:00 BP 188/92 08/28/22 20:00 Pulse Ox 93 08/28/22 20:00 O2 Del Method 08/28/22 20:00 Discharge Plan Discharge Patient Disposition: Xfer Short-Term Hosp Condition: Stable Prescriptions: Continued glipizide 10 mg tablet extended release 24hr 10 mg PO DAILY PRN (Reason: Hyperglycemia) naproxen sodium [Aleve] 220 mg capsule 220 mg PO BID PRN (Reason: Pain) glipizide 5 mg tablet extended release 24hr 5 mg PO DAILY PRN (Reason: Hyperglycemia) Rx Instructions: Take one tablet by mouth once a day with a 10 mg to make 15 mg. insulin glargine [Lantus U-100 Insulin] 100 unit/mL solution 40 unit SUBCUT DAILY albuterol sulfate 90 mcg/actuation HFA aerosol inhaler 2 puff inhalation BID PRN (Reason: Shortness Of Breath) cetirizine [Zyrtec] 10 mg tablet 10 mg PO DAILY PRN (Reason: Allergy Symptoms) Bone Density Calcium Plus D 300-200-37.5 mg-unit-mg tablet 1 tab PO BEDTIME anastrozole [Arimidex] 1 mg tablet 1 mg PO DAILY 30 Days Qty: 60 2RF albuterol sulfate 0.63 mg/3 mL solution for nebulization 0.63 mg inhalation Q6H PRN (Reason: shortness of breath or wheezing) Qty: 90 3RF Aspir-81 81 mg Tablet,Delayed Release (Dr/Ec) 81 mg PO DAILY warfarin 5 mg tablet See Rx Instructions .ROUTE .COMPLEX Protocol: Dose Management Condition: Sunday Dose/Route: 7.5 mg Instruction: 1.5 x 5 mg tablets Condition: Sunday Dose/Route: 0 mg Instruction: 0 tablets Condition: Sunday Dose/Route: 5 mg Instruction: 1 x 5 mg tablet Condition: Sunday Dose/Route: 5 mg Instruction: 1 x 5 mg tablet Condition: Dose/Route: 5 mg Instruction: 1 x 5 mg tablet Condition: Sunday Dose/Route: 5 mg Instruction: 1 x 5 mg tablet Condition: Sunday Dose/Route: 7.5 mg Instruction: 1.5 x 5 mg tablets Protocol Text: Adjustment Start Date: Sunday09/11/22 INR Value: 41.4 Seconds INR Date: 09/11/22 Recheck Date: 09/18/22 Rx Instructions: 5 mg on Sunday- Sunday- Sunday 7.5 mg on Sunday- Sunday- - Sunday atorvastatin 40 mg tablet 40 mg PO DAILY No Action lisinopril 10 mg tablet 10 mg PO DAILY cefdinir 300 mg capsule 300 mg PO BID doxycycline hyclate 100 mg tablet 100 mg PO BID Ibrance 125 mg tablet 125 mg PO DAILY Qty: 21 0RF Hold Instructions: Doctor's Order Rx Instructions: administer on days 1 through 21 of a 28-day treatment cycle Stiolto Respimat 2.5-2.5 mcg/actuation mist 2 puff inhalation DAILY Qty: 4 5RF Discharge Orders: Transfer Out of Facility (Order); Ordered 09/01/22 Ordered By: Jorge Luis Toney Referrals: Lalo Ortez, [Primary Care Provider] - Patient Instructions: Opioid Safety Discharge Attestations Time Spent in Discharge Care*: less than 30 min Quality Metrics Clinical Quality Measures [ No reported AMI, CVA or VTE this stay] Coding Level of Care Code Acute Chg FW DC note Exam Detailed Diagnoses Bradyarrhythmia I49.8 Syncope, cardiogenic R55 Syncope and collapse R55 Malignant neoplasm of breast metastatic to lung C50.919; C78.00 COPD (chronic obstructive pulmonary disease) J44.9 Hypothyroid E03.9 Hypothyroidism type: unspecified Obesity E66.01; Z68.42 Body mass index: BMI 45.0-49.9 Obesity classification: adult class 3 (BMI >= 40) Obesity type: unspecified obesity type Serious obesity comorbidity presence: with serious comorbidity Diabetes mellitus with cardiac complication E11.59 Warfarin anticoagulation Z79.01 Aortic stenosis I35.0 Cardiac valve disease etiology: nonrheumatic HTN (hypertension) I10 Hypertension type: essential hypertension S/P CABG (coronary artery bypass graft) Z95.1 ASHD (arteriosclerotic heart disease) I25.10 H/O mechanical aortic valve replacement Z95.2
== END 2022-08-28 23:01 | disposition short-term general hospital (02) ==
LOC: ER 15:08 → CSU 16:59
PROVIDERS: Admitting Provider Internal Medicine; Emergency Provider Emergency Medicine; PCP Electrodiagnostic Medicine; Visit Provider Internal Medicine
DX: I49.8 Other specified cardiac arrhythmias (principal); R55 Syncope and collapse; C50.919 Malignant neoplasm of unspecified site of unspecified female breast; C78.00 Secondary malignant neoplasm of unspecified lung; J44.9 Chronic obstructive pulmonary disease, unspecified; E03.9 Hypothyroidism, unspecified; E66.01 Morbid (severe) obesity due to excess calories; Z68.42 Body mass index [BMI] 45.0-49.9, adult; E11.59 Type 2 diabetes mellitus with other circulatory complications; Z79.01 Long term (current) use of anticoagulants; I10 Essential (primary) hypertension; Z95.1 Presence of aortocoronary bypass graft; I25.10 Atherosclerotic heart disease of native coronary artery without angina pectoris; Z95.2 Presence of prosthetic heart valve; Z79.82 Long term (current) use of aspirin
CPT/HCPCS: 36415; 36416; 70450; 71045; 80053; 81003; 82962; 83735; 83880; 84443; 84484; 85025; 85610; 85730; 93005; 99285; G0378

== ENCOUNTER → 2022-09-11 15:10 | Outpatient (BNVA) | payer OTHER, SELFPAY | PROVIDERS: PCP Electrodiagnostic Medicine; Visit Provider Nurse Practitioner Family | DX: Z95.2 Presence of prosthetic heart valve (principal); Z95.0 Presence of cardiac pacemaker | CPT/HCPCS: 36415; 85610 ==

== ENCOUNTER 2022-09-15 10:00 | Oncology outpatient (recurring) (ONCR) | payer OTHER, SELFPAY ==
[2022-09-05 09:55] LABS: Basophils % 0.5 %; Eosinophils # 0.1 10^3/uL (0.0-0.8); Eosinophils % 2.1 %; Hematocrit 33.1 % (37.0-47.0); Hemoglobin 10.6 g/dL (11.5-15.3); Lymphocytes # 0.5 10^3/uL (0.8-4.8); Lymphocytes % 11.8 %; Mean Corpuscular Hemoglobin 26.3 pg (28.0-34.0); Mean Corpuscular Volume 82.1 fl (81-99); Mean Platelet Volume 10.8 fL (7.4-10.4); Monocytes # 0.3 10^3/uL (0.2-0.9); Monocytes % 6.8 %; Neutrophils # 3.44 10^3/uL (1.8-7.7); Neutrophils % 78.3 %; Nucleated Red Blood Cells % 0 %; Platelet Count 127 10^3/cmm (130-400); Red Blood Count 4.03 10^6/uL (4.1-5.3); Red Cell Distribution Width 14.7 % (12.1-15.1); White Blood Count 4.4 10^3/uL (4.0-10.0)
[2022-09-05 10:18] LABS: Alanine Aminotransferase 13 U/L (0-33); Albumin Level 3.2 g/dL (3.5-5.2); Alkaline Phosphatase 108 U/L (35-105); Anion Gap 12.7 (5-19); Aspartate Amino Transferase 14 U/L (0-32); Blood Urea Nitrogen 17 mg/dL (8-23); Calcium 9.6 mg/dL (8.5-10.5); Carbon Dioxide 28 mmol/L (22-29); Chloride 92 mmol/L (98-107); Globulin 3.1 g/dL (1.3-4.6); Glomerular Filtration Rate 63.4 mL/min (90-130); Glucose 262 mg/dL (65-115); Osmolality Calculated 279 mOsm/kg (285-295); Potassium 3.7 mmol/L (3.5-5.1); Sodium 129 mmol/L (136-145); Total Bilirubin 0.6 mg/dL (0.15-1.2); Total Protein 6.3 g/dL (6.6-8.7)
[2022-09-18 14:24] LABS: Ferritin 151 ng/mL (15-150); Iron 49 ug/dL (37-145); Percent Saturation 21.2 % (20-50); Total Iron Binding Capacity 231 mcg/dl; Unsaturated Iron Binding 182 ug/dL (112-347)
== END 2022-09-30 23:59 | disposition home or self-care (01) ==
PROVIDERS: PCP Electrodiagnostic Medicine; Visit Provider Internal Medicine Hematology & Oncology
DX: C50.812 Malignant neoplasm of overlapping sites of left female breast (principal); C50.811 Malignant neoplasm of overlapping sites of right female breast; Z17.0 Estrogen receptor positive status [ER+]; C78.01 Secondary malignant neoplasm of right lung; C78.02 Secondary malignant neoplasm of left lung; C77.8 Secondary and unspecified malignant neoplasm of lymph nodes of multiple regions; R53.1 Weakness; R53.0 Neoplastic (malignant) related fatigue; D64.9 Anemia, unspecified; D72.819 Decreased white blood cell count, unspecified; R73.9 Hyperglycemia, unspecified; Z79.818 Long term (current) use of other agents affecting estrogen receptors and estrogen levels; Z79.899 Other long term (current) drug therapy; Z95.0 Presence of cardiac pacemaker
CPT/HCPCS: 36415; 80053; 82728; 83540; 83550; 85025

== ENCOUNTER 2022-09-15 10:18 | Outpatient (CLI) | payer OTHER, SELFPAY ==
[2022-09-15 10:47] LABS: Basophils % 0.6 %; Eosinophils # 0.1 10^3/uL (0.0-0.8); Hematocrit 34.4 % (37.0-47.0); Hemoglobin 10.7 g/dL (11.5-15.3); Lymphocytes # 0.8 10^3/uL (0.8-4.8); Lymphocytes % 23.1 %; Mean Corpuscular HGB Conc 31.1 g/dL (30.0-36.0); Mean Corpuscular Hemoglobin 26.6 pg (28.0-34.0); Mean Corpuscular Volume 85.4 fl (81-99); Mean Platelet Volume 8.7 fL (7.4-10.4); Monocytes # 0.4 10^3/uL (0.2-0.9); Monocytes % 10.5 %; Neutrophils # 2.07 10^3/uL (1.8-7.7); Neutrophils % 62.2 %; Nucleated Red Blood Cells % 0 %; Platelet Count 157 10^3/cmm (130-400); Red Blood Count 4.03 10^6/uL (4.1-5.3); Red Cell Distribution Width 16.2 % (12.1-15.1); White Blood Count 3.3 10^3/uL (4.0-10.0)
[2022-09-15 11:16] LABS: Alanine Aminotransferase 11 U/L (0-33); Albumin Level 3.4 g/dL (3.5-5.2); Alkaline Phosphatase 91 U/L (35-105); Anion Gap 12.1 (5-19); Aspartate Amino Transferase 16 U/L (0-32); Blood Urea Nitrogen 15 mg/dL (8-23); Calcium 9.4 mg/dL (8.5-10.5); Carbon Dioxide 26 mmol/L (22-29); Chloride 106 mmol/L (98-107); Globulin 2.6 g/dL (1.3-4.6); Glomerular Filtration Rate 56.2 mL/min (90-130); Glucose 145 mg/dL (65-115); Osmolality Calculated 293 mOsm/kg (285-295); Potassium 4.1 mmol/L (3.5-5.1); Sodium 140 mmol/L (136-145); Total Bilirubin 0.3 mg/dL (0.15-1.2)
== END 2022-09-15 10:19 | disposition home or self-care (01) ==
PROVIDERS: PCP Electrodiagnostic Medicine; Visit Provider Internal Medicine Hematology & Oncology
DX: C50.919 Malignant neoplasm of unspecified site of unspecified female breast (principal); C78.00 Secondary malignant neoplasm of unspecified lung
CPT/HCPCS: 36415; 80053; 85025

== ENCOUNTER → 2022-09-18 10:42 | Outpatient (BNVA) | payer OTHER, SELFPAY | PROVIDERS: PCP Electrodiagnostic Medicine; Visit Provider Internal Medicine Cardiovascular Disease | DX: Z95.2 Presence of prosthetic heart valve (principal); Z79.01 Long term (current) use of anticoagulants | CPT/HCPCS: 85610 ==

== ENCOUNTER → 2022-10-13 11:34 | Outpatient (BNVA) | payer OTHER, SELFPAY | PROVIDERS: PCP Electrodiagnostic Medicine; Visit Provider Internal Medicine Cardiovascular Disease | DX: Z95.2 Presence of prosthetic heart valve (principal) | CPT/HCPCS: 85610 ==

== ENCOUNTER → 2022-10-19 11:28 | Outpatient (BNVA) | payer OTHER, SELFPAY | PROVIDERS: PCP Electrodiagnostic Medicine; Visit Provider Internal Medicine Cardiovascular Disease | DX: Z95.2 Presence of prosthetic heart valve (principal) | CPT/HCPCS: 85610 ==

== ENCOUNTER 2022-10-23 13:55 | Outpatient (CLI) | payer OTHER, SELFPAY ==
[2022-10-23 14:46] LABS: Basophils # 0.1 10^3/uL (0.0-0.1); Basophils % 1.6 %; Eosinophils # 0.1 10^3/uL (0.0-0.8); Eosinophils % 2.5 %; Hematocrit 35.9 % (37.0-47.0); Hemoglobin 11.4 g/dL (11.5-15.3); Lymphocytes # 0.9 10^3/uL (0.8-4.8); Lymphocytes % 19.4 %; Mean Corpuscular HGB Conc 31.8 g/dL (30.0-36.0); Mean Corpuscular Hemoglobin 27.1 pg (28.0-34.0); Mean Corpuscular Volume 85.5 fl (81-99); Mean Platelet Volume 10.7 fL (7.4-10.4); Monocytes # 0.3 10^3/uL (0.2-0.9); Monocytes % 5.9 %; Neutrophils # 3.07 10^3/uL (1.8-7.7); Neutrophils % 70.1 %; Nucleated Red Blood Cells % 0 %; Platelet Count 195 10^3/cmm (130-400); White Blood Count 4.4 10^3/uL (4.0-10.0)
[2022-10-23 15:04] LABS: Alanine Aminotransferase 12 U/L (0-33); Alkaline Phosphatase 74 U/L (35-105); Anion Gap 13.3 (5-19); Aspartate Amino Transferase 16 U/L (0-32); Blood Urea Nitrogen 21 mg/dL (8-23); Carbon Dioxide 25 mmol/L (22-29); Chloride 103 mmol/L (98-107); Globulin 2.3 g/dL (1.3-4.6); Glomerular Filtration Rate 45.5 mL/min (90-130); Glucose 166 mg/dL (65-115); Osmolality Calculated 291 mOsm/kg (285-295); Potassium 4.3 mmol/L (3.5-5.1); Sodium 137 mmol/L (136-145); Total Bilirubin 0.5 mg/dL (0.15-1.2); Total Protein 6.3 g/dL (6.6-8.7)
== END 2022-10-23 13:56 | disposition home or self-care (01) ==
LOC: LAB 13:59
PROVIDERS: Nurse Practitioner; PCP Electrodiagnostic Medicine; Visit Provider Internal Medicine Hematology & Oncology
DX: C50.919 Malignant neoplasm of unspecified site of unspecified female breast (principal)
CPT/HCPCS: 36415; 80053; 85025

== ENCOUNTER 2022-10-30 13:00 | Oncology outpatient (recurring) (ONCR) | payer OTHER, SELFPAY ==
[2022-10-09 12:14] LABS: Basophils % 1.6 %; Eosinophils # 0.1 10^3/uL (0.0-0.8); Eosinophils % 3.2 %; Hematocrit 35.9 % (37.0-47.0); Hemoglobin 11.3 g/dL (11.5-15.3); Lymphocytes # 0.9 10^3/uL (0.8-4.8); Lymphocytes % 34.8 %; Mean Corpuscular HGB Conc 31.5 g/dL (30.0-36.0); Mean Corpuscular Hemoglobin 27.6 pg (28.0-34.0); Mean Corpuscular Volume 87.8 fl (81-99); Mean Platelet Volume 10.5 fL (7.4-10.4); Monocytes # 0.4 10^3/uL (0.2-0.9); Monocytes % 15.2 %; Neutrophils # 1.12 10^3/uL (1.8-7.7); Neutrophils % 44.8 %; Nucleated Red Blood Cells % 0 %; Platelet Count 68 10^3/cmm (130-400); Red Blood Count 4.09 10^6/uL (4.1-5.3); Red Cell Distribution Width 19.3 % (12.1-15.1); White Blood Count 2.5 10^3/uL (4.0-10.0)
[2022-10-09 12:38] LABS: Alanine Aminotransferase 12 U/L (0-33); Alkaline Phosphatase 76 U/L (35-105); Anion Gap 13.1 (5-19); Aspartate Amino Transferase 15 U/L (0-32); Blood Urea Nitrogen 15 mg/dL (8-23); Calcium 9.2 mg/dL (8.5-10.5); Carbon Dioxide 25 mmol/L (22-29); Chloride 103 mmol/L (98-107); Globulin 2.4 g/dL (1.3-4.6); Glomerular Filtration Rate 63.4 mL/min (90-130); Glucose 155 mg/dL (65-115); Osmolality Calculated 288 mOsm/kg (285-295); Potassium 4.1 mmol/L (3.5-5.1); Sodium 137 mmol/L (136-145); Total Bilirubin 0.4 mg/dL (0.15-1.2); Total Protein 6.4 g/dL (6.6-8.7)
[2022-10-16 10:45] LABS: Basophils # 0.1 10^3/uL (0.0-0.1); Basophils % 1.6 %; Eosinophils # 0.1 10^3/uL (0.0-0.8); Eosinophils % 2.6 %; Hematocrit 36.4 % (37.0-47.0); Hemoglobin 11.5 g/dL (11.5-15.3); Lymphocytes # 0.9 10^3/uL (0.8-4.8); Lymphocytes % 22.9 %; Mean Corpuscular HGB Conc 31.6 g/dL (30.0-36.0); Mean Corpuscular Hemoglobin 27.4 pg (28.0-34.0); Mean Corpuscular Volume 86.7 fl (81-99); Mean Platelet Volume 10.5 fL (7.4-10.4); Monocytes # 0.5 10^3/uL (0.2-0.9); Neutrophils % 59.6 %; Nucleated Red Blood Cells % 0 %; Platelet Count 129 10^3/cmm (130-400); Red Cell Distribution Width 19.5 % (12.1-15.1); White Blood Count 3.9 10^3/uL (4.0-10.0)
== END 2022-10-31 23:59 | disposition home or self-care (01) ==
PROVIDERS: PCP Electrodiagnostic Medicine; Visit Provider Internal Medicine Hematology & Oncology
DX: C50.812 Malignant neoplasm of overlapping sites of left female breast (principal)
CPT/HCPCS: 36415; 80053; 85025

== ENCOUNTER 2022-11-06 11:22 | Oncology outpatient (recurring) (ONCR) | payer OTHER, SELFPAY ==
[2022-11-06 12:25] LABS: Basophils # 0.1 10^3/uL (0.0-0.1); Basophils % 1.7 %; Eosinophils # 0.1 10^3/uL (0.0-0.8); Hematocrit 36.7 % (37.0-47.0); Hemoglobin 11.8 g/dL (11.5-15.3); Lymphocytes # 1.1 10^3/uL (0.8-4.8); Lymphocytes % 31.9 %; Mean Corpuscular HGB Conc 32.2 g/dL (30.0-36.0); Mean Corpuscular Hemoglobin 27.9 pg (28.0-34.0); Mean Corpuscular Volume 86.8 fl (81-99); Mean Platelet Volume 11.8 fL (7.4-10.4); Monocytes # 0.5 10^3/uL (0.2-0.9); Monocytes % 15.1 %; Neutrophils # 1.69 10^3/uL (1.8-7.7); Nucleated Red Blood Cells % 0 %; Platelet Count 98 10^3/cmm (130-400); Red Blood Count 4.23 10^6/uL (4.1-5.3); Red Cell Distribution Width 18.3 % (12.1-15.1); White Blood Count 3.5 10^3/uL (4.0-10.0)
[2022-11-06 12:45] LABS: Alanine Aminotransferase 13 U/L (0-33); Alkaline Phosphatase 74 U/L (35-105); Anion Gap 10.3 (5-19); Aspartate Amino Transferase 15 U/L (0-32); Blood Urea Nitrogen 17 mg/dL (8-23); Calcium 9.3 mg/dL (8.5-10.5); Carbon Dioxide 27 mmol/L (22-29); Chloride 101 mmol/L (98-107); Globulin 2.2 g/dL (1.3-4.6); Glomerular Filtration Rate 63.4 mL/min (90-130); Glucose 160 mg/dL (65-115); Osmolality Calculated 283 mOsm/kg (285-295); Potassium 4.3 mmol/L (3.5-5.1); Sodium 134 mmol/L (136-145); Total Bilirubin 0.4 mg/dL (0.15-1.2); Total Protein 6.2 g/dL (6.6-8.7)
== END 2022-11-28 23:59 | disposition home or self-care (01) ==
PROVIDERS: PCP Electrodiagnostic Medicine; Visit Provider Internal Medicine Hematology & Oncology
DX: C50.812 Malignant neoplasm of overlapping sites of left female breast (principal); Z17.0 Estrogen receptor positive status [ER+]; C79.81 Secondary malignant neoplasm of breast; C78.01 Secondary malignant neoplasm of right lung; C78.02 Secondary malignant neoplasm of left lung; C77.8 Secondary and unspecified malignant neoplasm of lymph nodes of multiple regions; R53.1 Weakness; R53.0 Neoplastic (malignant) related fatigue; R00.1 Bradycardia, unspecified; D69.6 Thrombocytopenia, unspecified; D72.819 Decreased white blood cell count, unspecified; Z79.818 Long term (current) use of other agents affecting estrogen receptors and estrogen levels; Z79.899 Other long term (current) drug therapy; Z95.0 Presence of cardiac pacemaker
CPT/HCPCS: 36415; 80053; 85025; 85610

== ENCOUNTER 2022-11-15 10:49 | Outpatient (RCR) | payer OTHER, SELFPAY | END 2022-11-28 23:59 | disposition home or self-care (01) | LOC: SPT 10:49 | PROVIDERS: PCP Electrodiagnostic Medicine; Visit Provider Internal Medicine Hematology & Oncology | DX: I89.0 Lymphedema, not elsewhere classified (principal) | CPT/HCPCS: 97140; 97161 ==

== ENCOUNTER → 2022-11-15 11:03 | Outpatient (BNVA) | payer OTHER, SELFPAY | PROVIDERS: PCP Electrodiagnostic Medicine; Visit Provider Internal Medicine Cardiovascular Disease | DX: Z95.2 Presence of prosthetic heart valve (principal) | CPT/HCPCS: 85610 ==

== ENCOUNTER → 2022-11-28 11:01 | Outpatient (BNVA) | payer OTHER, SELFPAY | PROVIDERS: PCP Electrodiagnostic Medicine; Visit Provider Internal Medicine Cardiovascular Disease | DX: Z95.2 Presence of prosthetic heart valve (principal); Z79.01 Long term (current) use of anticoagulants | CPT/HCPCS: 85610 ==

== ENCOUNTER 2022-12-11 11:27 | Outpatient (CLI) | payer OTHER, SELFPAY ==
[2022-12-11 12:27] LABS: Basophils # 0.1 10^3/uL (0.0-0.1); Basophils % 1.6 %; Eosinophils # 0.1 10^3/uL (0.0-0.8); Eosinophils % 3.2 %; Hematocrit 35.9 % (37.0-47.0); Hemoglobin 11.8 g/dL (11.5-15.3); Lymphocytes # 1.1 10^3/uL (0.8-4.8); Lymphocytes % 29.1 %; Mean Corpuscular HGB Conc 32.9 g/dL (30.0-36.0); Mean Corpuscular Hemoglobin 28.6 pg (28.0-34.0); Mean Corpuscular Volume 86.9 fl (81-99); Mean Platelet Volume 10.9 fL (7.4-10.4); Monocytes # 0.4 10^3/uL (0.2-0.9); Monocytes % 11.2 %; Neutrophils # 2.05 10^3/uL (1.8-7.7); Neutrophils % 54.6 %; Nucleated Red Blood Cells % 0 %; Platelet Count 79 10^3/cmm (130-400); Red Blood Count 4.13 10^6/uL (4.1-5.3); Red Cell Distribution Width 16.8 % (12.1-15.1); White Blood Count 3.8 10^3/uL (4.0-10.0)
[2022-12-11 12:40] LABS: Alanine Aminotransferase 10 U/L (0-33); Albumin Level 3.9 g/dL (3.5-5.2); Alkaline Phosphatase 83 U/L (35-105); Anion Gap 13.4 (5-19); Aspartate Amino Transferase 13 U/L (0-32); Blood Urea Nitrogen 19 mg/dL (8-23); Calcium 9.3 mg/dL (8.5-10.5); Carbon Dioxide 27 mmol/L (22-29); Chloride 105 mmol/L (98-107); Globulin 2.4 g/dL (1.3-4.6); Glomerular Filtration Rate 63.2 mL/min (90-130); Glucose 99 mg/dL (65-115); Osmolality Calculated 294 mOsm/kg (285-295); Potassium 4.4 mmol/L (3.5-5.1); Sodium 141 mmol/L (136-145); Total Bilirubin 0.4 mg/dL (0.15-1.2); Total Protein 6.3 g/dL (6.6-8.7)
[2023-01-25 19:19] LABS: BRCA 1 & 2 Clinical Interpreta NEGATIVE; BRCA 1&2 Result NEGATIVE
== END 2022-12-11 11:28 | disposition home or self-care (01) ==
PROVIDERS: PCP Electrodiagnostic Medicine; Visit Provider Internal Medicine Hematology & Oncology
DX: C50.919 Malignant neoplasm of unspecified site of unspecified female breast (principal); C78.00 Secondary malignant neoplasm of unspecified lung
CPT/HCPCS: 36415; 80053; 81162; 85025

== ENCOUNTER 2022-12-20 09:55 | Outpatient (CLI) | payer OTHER, SELFPAY ==
[2022-12-20 10:38] LABS: Basophils # 0.1 10^3/uL (0.0-0.1); Eosinophils # 0.1 10^3/uL (0.0-0.8); Eosinophils % 2.5 %; Hematocrit 36.9 % (37.0-47.0); Hemoglobin 12.2 g/dL (11.5-15.3); Lymphocytes # 1.1 10^3/uL (0.8-4.8); Lymphocytes % 21.3 %; Mean Corpuscular HGB Conc 33.1 g/dL (30.0-36.0); Mean Corpuscular Hemoglobin 28.9 pg (28.0-34.0); Mean Corpuscular Volume 87.4 fl (81-99); Mean Platelet Volume 10.4 fL (7.4-10.4); Monocytes # 0.5 10^3/uL (0.2-0.9); Monocytes % 10.6 %; Neutrophils # 3.27 10^3/uL (1.8-7.7); Nucleated Red Blood Cells % 0 %; Platelet Count 149 10^3/cmm (130-400); Red Blood Count 4.22 10^6/uL (4.1-5.3); Red Cell Distribution Width 16.3 % (12.1-15.1); White Blood Count 5.1 10^3/uL (4.0-10.0)
== END 2022-12-20 09:56 | disposition home or self-care (01) ==
PROVIDERS: PCP Electrodiagnostic Medicine; Visit Provider Internal Medicine Hematology & Oncology
DX: C50.919 Malignant neoplasm of unspecified site of unspecified female breast (principal); Z79.899 Other long term (current) drug therapy
CPT/HCPCS: 36415; 85025

== ENCOUNTER → 2022-12-26 10:37 | Outpatient (BNVA) | payer OTHER, SELFPAY | PROVIDERS: PCP Electrodiagnostic Medicine; Visit Provider Internal Medicine Cardiovascular Disease | DX: Z95.2 Presence of prosthetic heart valve (principal) | CPT/HCPCS: 85610 ==

== ENCOUNTER 2023-01-08 08:58 | Outpatient (CLI) | payer OTHER, SELFPAY ==
[2023-01-08 09:54] LABS: Estmated Average Glucose 108; Hemoglobin A1C 5.4 % (4.0-6.0)
[2023-01-08 10:08] LABS: Alanine Aminotransferase 9 U/L (0-33); Albumin Level 3.9 g/dL (3.5-5.2); Alkaline Phosphatase 80 U/L (35-105); Anion Gap 14.4 (5-19); Aspartate Amino Transferase 12 U/L (0-32); Blood Urea Nitrogen 22 mg/dL (8-23); Calcium 9.2 mg/dL (8.5-10.5); Carbon Dioxide 26 mmol/L (22-29); Chloride 105 mmol/L (98-107); Chol HDL Ratio 4.65 mg/dL (0.0-4.40); Cholesterol 200 mg/dL (0-200); Free T4 Free Thyroxine 1.12 ng/dL (0.82-1.77); Globulin 2.6 g/dL (1.3-4.6); Glucose 111 mg/dL (65-115); HDL Cholesterol 43 mg/dL (60-100); LDL Cholesterol Calculated 139 mg/dL (50-129); LDL HDL Ratio 3.23 RATIO (0.00-3.22); Osmolality Calculated 296 mOsm/kg (285-295); Potassium 4.4 mmol/L (3.5-5.1); Sodium 141 mmol/L (136-145); Thyroid Stimulating Hormone 3.22 uIU/mL (0.27-4.20); Total Bilirubin 0.5 mg/dL (0.15-1.2); Total Protein 6.5 g/dL (6.6-8.7); Triglycerides 88 mg/dL (0-150)
== END 2023-01-08 08:59 | disposition home or self-care (01) ==
LOC: LAB 09:03
PROVIDERS: PCP Electrodiagnostic Medicine; Visit Provider Internal Medicine
DX: E11.59 Type 2 diabetes mellitus with other circulatory complications (principal); E78.2 Mixed hyperlipidemia; I25.10 Atherosclerotic heart disease of native coronary artery without angina pectoris; C50.912 Malignant neoplasm of unspecified site of left female breast; C78.00 Secondary malignant neoplasm of unspecified lung
CPT/HCPCS: 36415; 80053; 80061; 83036; 84439; 84443

== ENCOUNTER 2023-01-17 13:30 | Oncology outpatient (recurring) (ONCR) | payer OTHER, SELFPAY ==
[2023-01-09 16:58] LABS: Eosinophils # 0.1 10^3/uL (0.0-0.8); Eosinophils % 1.7 %; Hematocrit 33.8 % (37.0-47.0); Hemoglobin 11.4 g/dL (11.5-15.3); Lymphocytes % 34.9 %; Mean Corpuscular HGB Conc 33.7 g/dL (30.0-36.0); Mean Corpuscular Hemoglobin 29.9 pg (28.0-34.0); Mean Corpuscular Volume 88.7 fl (81-99); Monocytes # 0.4 10^3/uL (0.2-0.9); Monocytes % 12.7 %; Neutrophils # 1.44 10^3/uL (1.8-7.7); Neutrophils % 49.4 %; Nucleated Red Blood Cells % 0 %; Platelet Count 81 10^3/cmm (130-400); Red Blood Count 3.81 10^6/uL (4.1-5.3); Red Cell Distribution Width 15.6 % (12.1-15.1); White Blood Count 2.9 10^3/uL (4.0-10.0)
[2023-01-17 14:05] LABS: Basophils # 0.1 10^3/uL (0.0-0.1); Basophils % 1.1 %; Eosinophils # 0.1 10^3/uL (0.0-0.8); Eosinophils % 1.3 %; Hematocrit 33.8 % (37.0-47.0); Hemoglobin 11.4 g/dL (11.5-15.3); Lymphocytes # 0.9 10^3/uL (0.8-4.8); Lymphocytes % 19.8 %; Mean Corpuscular HGB Conc 33.7 g/dL (30.0-36.0); Mean Corpuscular Hemoglobin 29.8 pg (28.0-34.0); Mean Corpuscular Volume 88.3 fl (81-99); Mean Platelet Volume 11.1 fL (7.4-10.4); Monocytes # 0.6 10^3/uL (0.2-0.9); Monocytes % 11.9 %; Neutrophils # 3.06 10^3/uL (1.8-7.7); Neutrophils % 65.3 %; Nucleated Red Blood Cells % 0 %; Platelet Count 87 10^3/cmm (130-400); Red Blood Count 3.83 10^6/uL (4.1-5.3); Red Cell Distribution Width 15.9 % (12.1-15.1); White Blood Count 4.7 10^3/uL (4.0-10.0)
== END 2023-01-28 23:59 | disposition home or self-care (01) ==
PROVIDERS: PCP Electrodiagnostic Medicine; Visit Provider Internal Medicine Hematology & Oncology
DX: C50.919 Malignant neoplasm of unspecified site of unspecified female breast (principal); C34.90 Malignant neoplasm of unspecified part of unspecified bronchus or lung
CPT/HCPCS: 36415; 85025

== ENCOUNTER → 2023-01-23 10:38 | Outpatient (BNVA) | payer OTHER, SELFPAY | PROVIDERS: PCP Electrodiagnostic Medicine; Visit Provider Internal Medicine Cardiovascular Disease | DX: Z95.2 Presence of prosthetic heart valve (principal) | CPT/HCPCS: 85610 ==

== ENCOUNTER 2023-02-20 10:29 | Oncology outpatient (recurring) (ONCR) | payer OTHER, SELFPAY ==
[2023-02-06 11:07] LABS: Eosinophils # 0.1 10^3/uL (0.0-0.8); Eosinophils % 1.3 %; Hematocrit 34.5 % (37.0-47.0); Hemoglobin 11.2 g/dL (11.5-15.3); Lymphocytes % 26.3 %; Mean Corpuscular HGB Conc 32.5 g/dL (30.0-36.0); Mean Corpuscular Hemoglobin 28.8 pg (28.0-34.0); Mean Corpuscular Volume 88.7 fl (81-99); Mean Platelet Volume 11.1 fL (7.4-10.4); Monocytes # 0.5 10^3/uL (0.2-0.9); Neutrophils # 2.28 10^3/uL (1.8-7.7); Neutrophils % 58.1 %; Nucleated Red Blood Cells % 0 %; Platelet Count 111 10^3/cmm (130-400); Red Blood Count 3.89 10^6/uL (4.1-5.3); Red Cell Distribution Width 15.6 % (12.1-15.1); White Blood Count 3.9 10^3/uL (4.0-10.0)
[2023-02-06 11:35] LABS: Alanine Aminotransferase 8 U/L (0-33); Albumin Level 3.7 g/dL (3.5-5.2); Alkaline Phosphatase 82 U/L (35-105); Anion Gap 13.4 (5-19); Aspartate Amino Transferase 10 U/L (0-32); Blood Urea Nitrogen 25 mg/dL (8-23); CA 15-3 24.7 U/mL (0-25); Calcium 8.8 mg/dL (8.5-10.5); Carbon Dioxide 25 mmol/L (22-29); Chloride 106 mmol/L (98-107); Globulin 2.4 g/dL (1.3-4.6); Glomerular Filtration Rate 72.4 mL/min (90-130); Glucose 237 mg/dL (65-115); Osmolality Calculated 302 mOsm/kg (285-295); Potassium 4.4 mmol/L (3.5-5.1); Sodium 140 mmol/L (136-145); Total Bilirubin 0.4 mg/dL (0.15-1.2); Total Protein 6.1 g/dL (6.6-8.7)
[2023-02-20 11:05] LABS: Basophils # 0.1 10^3/uL (0.0-0.1); Basophils % 1.3 %; Eosinophils # 0.1 10^3/uL (0.0-0.8); Eosinophils % 2.4 %; Hematocrit 35.7 % (37.0-47.0); Hemoglobin 11.8 g/dL (11.5-15.3); Lymphocytes % 18.3 %; Mean Corpuscular HGB Conc 33.1 g/dL (30.0-36.0); Mean Corpuscular Volume 87.7 fl (81-99); Mean Platelet Volume 9.8 fL (7.4-10.4); Monocytes # 0.5 10^3/uL (0.2-0.9); Monocytes % 9.3 %; Neutrophils # 3.69 10^3/uL (1.8-7.7); Neutrophils % 67.6 %; Nucleated Red Blood Cells % 0 %; Platelet Count 137 10^3/cmm (130-400); Red Blood Count 4.07 10^6/uL (4.1-5.3); Red Cell Distribution Width 14.7 % (12.1-15.1); White Blood Count 5.5 10^3/uL (4.0-10.0)
[2023-02-20 11:22] LABS: INR 2.21 (0.83-1.21); Prothrombin Time (Patient) 25.3 Seconds (12.0-15.1)
== END 2023-02-28 23:59 | disposition home or self-care (01) ==
PROVIDERS: Internal Medicine Cardiovascular Disease; Nurse Practitioner Family; PCP Electrodiagnostic Medicine; Visit Provider Internal Medicine Hematology & Oncology
DX: C50.812 Malignant neoplasm of overlapping sites of left female breast (principal); Z17.0 Estrogen receptor positive status [ER+]; Z95.2 Presence of prosthetic heart valve
CPT/HCPCS: 36415; 80053; 85025; 85610; 86300

== ENCOUNTER 2023-03-03 06:11 | Outpatient (CLI) | payer OTHER, SELFPAY ==
--- NOTE | 2023-03-03 12:00 | PETR_ITS ---
PROCEDURE INFORMATION: Exam: PET/CT Skull Base to Mid-thigh Exam date and time: 03/03/2023 12:27 PM Age: 62 years old Clinical indication: Condition or disease; Primary cancer: Left breast, lung; Follow-up oncological assessment; Additional info: Restaging CT pet. History of bilateral mastectomy. LABS AND CLINICAL REPORTS: Glucose: 151 mg/dl Treatment strategy for malignancy (PET staging): Restaging (PS) TECHNIQUE: Imaging protocol: Following at least four-hour fasting and following the injection of radiopharmaceutical, low dose CT images were obtained. Then, PET images were obtained. Attenuation corrected images were constructed using the CT scan. Fused images of PET and CT were reviewed. The standardized uptake values (SUV) reported below are maximum values within a region of interest, expressed in gm/ml. Exam includes orbital meatal line to mid-thigh. Radiopharmaceutical: 13.17 mCi F-18 FDG (Fluorodeoxyglucose), IV. Time of imaging post radiopharmaceutical administration: 1 hour Injection site: Right antecubital COMPARISON: CT PET Scan 06/20/2022 12:16 PM FINDINGS: Brain: Visualized brain has normal physiologic uptake. Pharynx: No abnormal uptake. Larynx: Asymmetric uptake in the right vocal cord persists, SUV max 8.4 (previously 11.6). No discrete lesion within the vocal cords is identified. Lungs, pleura and trachea: No abnormal uptake. There is a small left pleural effusion similar to the prior PET-CT. Interval near complete resolution of a small right-sided pleural effusion. Previously noted region of extensive right upper lobe atelectasis has resolved. There is new extensive non radiotracer avid atelectasis in the right middle lobe. Heart: Normal physiologic uptake. There is evidence of a prosthetic aortic valve. Mediastinal space: Previously noted uptake within the mid to distal esophagus has decreased, SUV max 3.6 (previously 7.0.) Liver: No abnormal uptake. Gallbladder and bile ducts: No abnormal uptake. Stones in the gallbladder are noted. Pancreas: No abnormal uptake. Spleen: No abnormal uptake. There are calcified granulomas in the spleen. Adrenal glands: Interval resolution of previously noted abnormal uptake in the left adrenal gland. Kidneys and ureters: Normal physiologic uptake. Stomach and bowel: No abnormal uptake. Small hiatal hernia.There are scattered colonic diverticula. Reproductive: The uterus is not identified, likely surgically absent. No abnormal uptake Vasculature: No abnormal uptake. Lymph nodes: A previously identified hypermetabolic lymph node between the left pectoralis major and pectoralis minor muscles is no longer identified. No abnormal uptake is noted in this region. There is a similar size of mediastinal lymph nodes although assessment of lymph node size is limited without intravenous contrast. A single subcarinal lymph node is currently radiotracer avid however measuring 1.5 cm in diameter on series 3, image 49, SUV max 4.8 (previously 14.4. Previously noted uptake in the right hilar region is no longer identified. A previously noted right supraclavicular lymph node is decreased in size and is no longer radiotracer avid, currently measuring 1.1 x 0.5 cm on series 3, image 29, SUV max 0.8 (previous SUV max 6.9). No radiotracer avid left neck lymph nodes or lymphadenopathy is noted. Previously noted radiotracer avid upper abdominal lymph nodes a decreased in size and no longer radiotracer avid for example currently measuring 9 mm adjacent to the caudate lobe of the liver on series 3, image 76 (previously measuring 1.6 cm in diameter in this region with a previous SUV max 7.6). Bones/joints: No abnormal uptake in the visualized axial and appendicular skeleton. Sternotomy wires are present. Degenerative changes in the spine are present. No evidence of acute fracture. Soft tissues: Mild anterior left breast skin thickening appears similar and is not significantly radiotracer avid. A solid soft tissue density mass in the subcutaneous fat of the left anterior chest is noted laterally on series 3, image 47 measuring 2.9 x 2.4 cm, SUV max 5.1 (previously measuring approximately 3.5 x 2.2 cm with an SUV max 12.9). New regions of low density along the lateral aspect of the lesion are noted for example on series 3, image 48. A more posteriorly located soft tissue density lesion in the left chest wall appears slightly more laterally on series 3, image 49 measures 1.5 x 1.4 cm, SUV max 1.9 (previously measuring 2.1 x 2.4 cm with an SUV max 12.9). Additional previously noted radiotracer avid soft tissue density nodules in the anterior left chest wall and axillary region are no longer identified. A previously noted radiotracer avid subcutaneous nodule in the posterior left chest wall has decreased in size, currently measuring 6 mm on series 3, image 60 and is no longer radiotracer avid. A previously noted soft tissue density nodule in the subcutaneous fat of the left gluteal region currently measures 2-3 mm on series 3, image 117 and is slightly decreased in size with no current uptake. Physiologic appearing uptake in the inferior lip adjacent to the anterior mandible on the left with no correlating lesion on the CT images. METRICS: Mediastinal blood pool: SUV max 3.2 PET/PET skulltothigh SUBSEQ [id number] IMPRESSION: 1. Previously noted radiotracer avid masses and lymph nodes in the region of the left chest wall and left axillary region have significantly decreased in number. The dominant lesion on the current study was the dominant lesion on the prior exam and is similar to slightly increased in size(possibly due to new necrosis within the lesion), with interval decrease in uptake (SUV max 5.1, previously 12.9). These findings suggested interval response to therapy. 2. Interval resolution of additional areas of abnormal uptake within the majority of lymph nodes in the neck, bilateral chest and upper abdomen which are morphologically decreased in size consistent with an interval response to therapy. Residual uptake is noted in a small subcarinal lymph node for which malignancy cannot be excluded. 3. Resolved atelectasis of the right upper lobe with new atelectasis involving the right middle lobe compared with the prior PET-CT. 4. Decreased size of small subcutaneous nodules in the posterior left chest wall and left gluteal region which are no longer radiotracer avid consistent with a response to therapy. 5. Interval resolution of uptake in the left adrenal gland compatible with a response to therapy. 6. Persistent asymmetric uptake in the right vocal cord without evidence of a discrete lesion suggestive of left vocal cord paralysis. 7. Interval decrease in uptake in the distal esophagus. Current uptake in this region appears physiologic. 8. Additional nonurgent findings as detailed above.
== END 2023-03-03 06:12 | disposition home or self-care (01) ==
LOC: RAD 03-05 06:11
PROVIDERS: PCP Electrodiagnostic Medicine; Visit Provider Nurse Practitioner Family
DX: C50.912 Malignant neoplasm of unspecified site of left female breast (principal); C34.90 Malignant neoplasm of unspecified part of unspecified bronchus or lung; J98.11 Atelectasis
CPT/HCPCS: 78815; A9552

== ENCOUNTER → 2023-03-20 10:31 | Outpatient (BNVA) | payer OTHER, SELFPAY | PROVIDERS: PCP Electrodiagnostic Medicine; Visit Provider Internal Medicine Cardiovascular Disease | DX: Z95.2 Presence of prosthetic heart valve (principal) | CPT/HCPCS: 85610 ==

== ENCOUNTER 2023-03-23 10:45 | Oncology outpatient (recurring) (ONCR) | payer OTHER, SELFPAY ==
[2023-03-16 08:33] LABS: Basophils % 1.3 %; Eosinophils # 0.1 10^3/uL (0.0-0.8); Hematocrit 36.7 % (37.0-47.0); Lymphocytes % 33.6 %; Mean Corpuscular HGB Conc 32.7 g/dL (30.0-36.0); Mean Corpuscular Hemoglobin 28.7 pg (28.0-34.0); Mean Corpuscular Volume 87.8 fl (81-99); Mean Platelet Volume 10.4 fL (7.4-10.4); Monocytes # 0.4 10^3/uL (0.2-0.9); Monocytes % 12.1 %; Neutrophils # 1.52 10^3/uL (1.8-7.7); Nucleated Red Blood Cells % 0 %; Platelet Count 85 10^3/cmm (130-400); Red Blood Count 4.18 10^6/uL (4.1-5.3); Red Cell Distribution Width 15.2 % (12.1-15.1)
[2023-03-16 08:36] VITALS: BP 164/87; PULSE 68; RESP 18; TEMP 36.5; O2SAT 96
[2023-03-16 08:47] LABS: Alanine Aminotransferase 9 U/L (0-33); Albumin Level 3.9 g/dL (3.5-5.2); Alkaline Phosphatase 99 U/L (35-105); Anion Gap 12.4 (5-19); Aspartate Amino Transferase 12 U/L (0-32); Blood Urea Nitrogen 18 mg/dL (8-23); Calcium 9.8 mg/dL (8.5-10.5); Carbon Dioxide 28 mmol/L (22-29); Chloride 104 mmol/L (98-107); Globulin 2.5 g/dL (1.3-4.6); Glomerular Filtration Rate 72.4 mL/min (90-130); Glucose 120 mg/dL (65-115); Osmolality Calculated 293 mOsm/kg (285-295); Potassium 4.4 mmol/L (3.5-5.1); Sodium 140 mmol/L (136-145); Total Bilirubin 0.4 mg/dL (0.15-1.2); Total Protein 6.4 g/dL (6.6-8.7)
[2023-03-23 10:53] VITALS: BP 159/84; PULSE 74; RESP 18; TEMP 36.1; O2SAT 96
[2023-03-23 11:18] LABS: Basophils # 0.1 10^3/uL (0.0-0.1); Basophils % 1.2 %; Eosinophils # 0.1 10^3/uL (0.0-0.8); Eosinophils % 1.4 %; Hematocrit 36.8 % (37.0-47.0); Hemoglobin 12.1 g/dL (11.5-15.3); Lymphocytes % 22.1 %; Mean Corpuscular HGB Conc 32.9 g/dL (30.0-36.0); Mean Corpuscular Volume 88.2 fl (81-99); Mean Platelet Volume 9.9 fL (7.4-10.4); Monocytes # 0.4 10^3/uL (0.2-0.9); Monocytes % 10.2 %; Neutrophils # 2.77 10^3/uL (1.8-7.7); Neutrophils % 64.4 %; Nucleated Red Blood Cells % 0 %; Platelet Count 103 10^3/cmm (130-400); Red Blood Count 4.17 10^6/uL (4.1-5.3); Red Cell Distribution Width 15.8 % (12.1-15.1); White Blood Count 4.3 10^3/uL (4.0-10.0)
== END 2023-03-30 23:59 | disposition home or self-care (01) ==
PROVIDERS: Nurse Practitioner Family; PCP Electrodiagnostic Medicine; Visit Provider Internal Medicine Hematology & Oncology
DX: C50.919 Malignant neoplasm of unspecified site of unspecified female breast (principal); C78.00 Secondary malignant neoplasm of unspecified lung
CPT/HCPCS: 36415; 80053; 85025

== ENCOUNTER → 2023-04-10 10:46 | Outpatient (BNVA) | payer OTHER, SELFPAY | PROVIDERS: PCP Electrodiagnostic Medicine; Visit Provider Internal Medicine Cardiovascular Disease | DX: Z95.2 Presence of prosthetic heart valve (principal) | CPT/HCPCS: 85610 ==

== ENCOUNTER 2023-04-24 11:15 | Oncology outpatient (recurring) (ONCR) | payer OTHER, SELFPAY ==
[2023-04-16 07:54] VITALS: BP 148/84; PULSE 72; RESP 18; TEMP 36.5; O2SAT 98
[2023-04-16 08:03] LABS: Basophils % 1.2 %; Eosinophils # 0.1 10^3/uL (0.0-0.8); Eosinophils % 1.8 %; Hematocrit 35.5 % (37.0-47.0); Hemoglobin 11.9 g/dL (11.5-15.3); Lymphocytes # 1.1 10^3/uL (0.8-4.8); Lymphocytes % 31.2 %; Mean Corpuscular HGB Conc 33.5 g/dL (30.0-36.0); Mean Corpuscular Hemoglobin 29.2 pg (28.0-34.0); Mean Corpuscular Volume 87.2 fl (81-99); Monocytes # 0.4 10^3/uL (0.2-0.9); Monocytes % 12.5 %; Neutrophils # 1.79 10^3/uL (1.8-7.7); Nucleated Red Blood Cells % 0 %; Platelet Count 86 10^3/cmm (130-400); Red Blood Count 4.07 10^6/uL (4.1-5.3); Red Cell Distribution Width 15.4 % (12.1-15.1); White Blood Count 3.4 10^3/uL (4.0-10.0)
[2023-04-16 08:41] LABS: Alanine Aminotransferase 11 U/L (0-33); Albumin Level 3.8 g/dL (3.5-5.2); Alkaline Phosphatase 90 U/L (35-105); Anion Gap 11.6 (5-19); Aspartate Amino Transferase 12 U/L (0-32); Blood Urea Nitrogen 22 mg/dL (8-23); Calcium 9.5 mg/dL (8.5-10.5); Carbon Dioxide 27 mmol/L (22-29); Chloride 103 mmol/L (98-107); Globulin 2.5 g/dL (1.3-4.6); Glucose 154 mg/dL (65-115); Osmolality Calculated 290 mOsm/kg (285-295); Potassium 4.6 mmol/L (3.5-5.1); Sodium 137 mmol/L (136-145); Total Bilirubin 0.4 mg/dL (0.15-1.2); Total Protein 6.3 g/dL (6.6-8.7)
[2023-04-24 11:41] VITALS: BP 117/82; PULSE 79; RESP 18; TEMP 36.3; O2SAT 97
[2023-04-24 11:42] VITALS: BMI 43.0
[2023-04-24 11:56] LABS: Basophils % 0.9 %; Eosinophils # 0.1 10^3/uL (0.0-0.8); Eosinophils % 2.3 %; Hematocrit 34.9 % (37.0-47.0); Hemoglobin 11.7 g/dL (11.5-15.3); Lymphocytes # 1.2 10^3/uL (0.8-4.8); Lymphocytes % 26.3 %; Mean Corpuscular HGB Conc 33.5 g/dL (30.0-36.0); Mean Corpuscular Hemoglobin 29.3 pg (28.0-34.0); Mean Corpuscular Volume 87.3 fl (81-99); Mean Platelet Volume 10.1 fL (7.4-10.4); Monocytes # 0.3 10^3/uL (0.2-0.9); Monocytes % 6.8 %; Neutrophils # 2.78 10^3/uL (1.8-7.7); Neutrophils % 63.5 %; Nucleated Red Blood Cells % 0 %; Platelet Count 114 10^3/cmm (130-400); Red Cell Distribution Width 15.6 % (12.1-15.1); White Blood Count 4.4 10^3/uL (4.0-10.0)
[2023-04-26 12:45] LABS: INR 2.03 (0.8-1.2)
== END 2023-04-30 23:59 | disposition home or self-care (01) ==
PROVIDERS: Internal Medicine Cardiovascular Disease; PCP Electrodiagnostic Medicine; Visit Provider Internal Medicine Hematology & Oncology
DX: C50.919 Malignant neoplasm of unspecified site of unspecified female breast (principal); C78.00 Secondary malignant neoplasm of unspecified lung
CPT/HCPCS: 36415; 80053; 85025; 85610

== ENCOUNTER 2023-05-01 09:29 | Outpatient (CLI) | payer OTHER, SELFPAY ==
--- NOTE | 2023-05-01 10:05 | MM_ITS ---
WS: [id number] DIAGNOSTIC BILATERAL DIGITAL BREAST TOMOSYNTHESIS MAMMOGRAPHY WITH CAD HISTORY: ANNUAL - HX BR CA COMPARISON: 05/25/2022 and 04/25/2022 TECHNIQUE: Bilateral craniocaudad, mediolateral oblique, and mediolateral views are submitted with to moshoward and BILLY. Computer aided detection utilized. Breast composition: There are scattered areas of fibroglandular density. Spiculated mass with biopsy clip in the upper-outer quadrant of the LEFT breast is identified. Mass now measures 3.1 x 2.3 cm. Ma ss has decreased in size from 3.4 x 2.9 cm on 04/25/2022. There is skin thickening and trabecular thic kening throughout the LEFT breast. No axillary lymph nodes are identified on today's exam. RIGHT breast calcifications and vascular calcifications are stable. No progression of calcification d istribution. MM/[place] [id number] IMPRESSION: BI-RADS: 6-Known Biopsy-Proven Malignancy FOLLOW UP: See Report Patient has a known biopsy-proven LEFT breast neoplasm. The spiculated mass has slightly decreased in size from 04/25/2022. Residual mass measures 3.1 x 2.3 cm . Stable RIGHT breast calcifications.
== END 2023-05-01 09:30 | disposition home or self-care (01) ==
PROVIDERS: PCP Electrodiagnostic Medicine; Visit Provider Nurse Practitioner Family
DX: Z12.31 Encounter for screening mammogram for malignant neoplasm of breast (principal)
CPT/HCPCS: 77062; G0279

== ENCOUNTER 2023-05-29 10:00 | Oncology outpatient (recurring) (ONCR) | payer OTHER, SELFPAY ==
[2023-05-08 10:47] VITALS: BP 130/83; PULSE 84; RESP 18; TEMP 36.4; O2SAT 95
[2023-05-08 11:07] LABS: Basophils % 1.1 %; Eosinophils # 0.1 10^3/uL (0.0-0.8); Eosinophils % 1.7 %; Hematocrit 35.5 % (37.0-47.0); Hemoglobin 12.1 g/dL (11.5-15.3); Lymphocytes # 0.9 10^3/uL (0.8-4.8); Lymphocytes % 25.8 %; Mean Corpuscular HGB Conc 34.1 g/dL (30.0-36.0); Mean Corpuscular Hemoglobin 30.4 pg (28.0-34.0); Mean Corpuscular Volume 89.2 fl (81-99); Mean Platelet Volume 10.1 fL (7.4-10.4); Monocytes # 0.5 10^3/uL (0.2-0.9); Monocytes % 14.3 %; Neutrophils # 1.98 10^3/uL (1.8-7.7); Neutrophils % 56.8 %; Nucleated Red Blood Cells % 0 %; Platelet Count 103 10^3/cmm (130-400); Red Blood Count 3.98 10^6/uL (4.1-5.3); White Blood Count 3.5 10^3/uL (4.0-10.0)
[2023-05-08 11:20] LABS: INR 2.04 (0.83-1.21); Prothrombin Time (Patient) 23.8 Seconds (12.0-15.1)
[2023-05-08 11:46] LABS: Alanine Aminotransferase 11 U/L (0-33); Alkaline Phosphatase 87 U/L (35-105); Aspartate Amino Transferase 15 U/L (0-32); Blood Urea Nitrogen 23 mg/dL (8-23); Calcium 9.4 mg/dL (8.5-10.5); Carbon Dioxide 27 mmol/L (22-29); Chloride 104 mmol/L (98-107); Globulin 2.3 g/dL (1.3-4.6); Glomerular Filtration Rate 63.2 mL/min (90-130); Glucose 178 mg/dL (65-115); Osmolality Calculated 296 mOsm/kg (285-295); Sodium 139 mmol/L (136-145); Total Bilirubin 0.3 mg/dL (0.15-1.2); Total Protein 6.3 g/dL (6.6-8.7)
[2023-05-29 09:50] VITALS: BP 147/78; PULSE 79; RESP 18; TEMP 36.5; O2SAT 98
[2023-05-29 10:07] LABS: Eosinophils # 0.1 10^3/uL (0.0-0.8); Eosinophils % 1.7 %; Hematocrit 33.2 % (36-47); Lymphocytes # 0.9 10^3/uL (0.8-4.8); Lymphocytes % 31.8 %; Mean Corpuscular HGB Conc 33.7 g/dL (30-55); Mean Corpuscular Hemoglobin 30.3 pg (27-33); Mean Corpuscular Volume 89.7 fl (85-98); Mean Platelet Volume 10.6 fL (7.4-10.4); Monocytes # 0.3 10^3/uL (0.2-0.9); Monocytes % 11.1 %; Neutrophils # 1.59 10^3/uL (1.8-7.7); Neutrophils % 53.7 %; Nucleated Red Blood Cells % 0 %; Platelet Count 99 10^3/cmm (157-399); Red Cell Distribution Width 15.9 % (12.1-15.1); White Blood Count 2.96 10^3/uL (3.29-11.43)
[2023-05-29 10:34] LABS: Alanine Aminotransferase 11 U/L (0-33); Albumin Level 3.7 g/dL (3.5-5.2); Alkaline Phosphatase 80 U/L (35-105); Anion Gap 12.3 (5-19); Aspartate Amino Transferase 12 U/L (0-32); Blood Urea Nitrogen 24 mg/dL (8-23); Calcium 8.7 mg/dL (8.5-10.5); Carbon Dioxide 26 mmol/L (22-29); Chloride 106 mmol/L (98-107); Globulin 2.1 g/dL (1.3-4.6); Glomerular Filtration Rate 63.2 mL/min (90-130); Glucose 232 mg/dL (65-115); Osmolality Calculated 301 mOsm/kg (285-295); Potassium 4.3 mmol/L (3.5-5.1); Sodium 140 mmol/L (136-145); Total Bilirubin 0.3 mg/dL (0.15-1.2); Total Protein 5.8 g/dL (6.6-8.7)
== END 2023-05-31 23:59 | disposition home or self-care (01) ==
PROVIDERS: Internal Medicine Cardiovascular Disease; Nurse Practitioner Family; PCP Electrodiagnostic Medicine; Visit Provider Internal Medicine Medical Oncology
DX: C50.812 Malignant neoplasm of overlapping sites of left female breast (principal); Z17.0 Estrogen receptor positive status [ER+]; Z53.9 Procedure and treatment not carried out, unspecified reason
CPT/HCPCS: 36415; 80053; 85025; 85610; 86300

== ENCOUNTER → 2023-06-12 10:42 | Outpatient (BNVA) | payer OTHER, SELFPAY | PROVIDERS: PCP Electrodiagnostic Medicine; Visit Provider Internal Medicine Cardiovascular Disease | DX: Z95.2 Presence of prosthetic heart valve (principal); Z79.01 Long term (current) use of anticoagulants | CPT/HCPCS: 85610 ==

== ENCOUNTER 2023-06-26 11:45 | Oncology outpatient (recurring) (ONCR) | payer OTHER, SELFPAY ==
[2023-06-05 11:36] VITALS: BP 171/87; PULSE 68; RESP 16; TEMP 36.7; O2SAT 98
[2023-06-05 11:49] LABS: Basophils # 0.1 10^3/uL (0.0-0.1); Basophils % 1.6 %; Eosinophils # 0.1 10^3/uL (0.0-0.8); Eosinophils % 1.6 %; Hematocrit 33.8 % (36-47); Lymphocytes # 1.1 10^3/uL (0.8-4.8); Lymphocytes % 24.7 %; Mean Corpuscular Hemoglobin 30.6 pg (27-33); Mean Corpuscular Volume 89.9 fl (85-98); Mean Platelet Volume 10.7 fL (7.4-10.4); Monocytes # 0.5 10^3/uL (0.2-0.9); Monocytes % 10.8 %; Neutrophils # 2.71 10^3/uL (1.8-7.7); Neutrophils % 60.6 %; Nucleated Red Blood Cells % 0 %; Platelet Count 102 10^3/cmm (157-399); Red Blood Count 3.76 10^6/uL (3.85-5.65); Red Cell Distribution Width 15.9 % (12.1-15.1); White Blood Count 4.46 10^3/uL (3.29-11.43)
[2023-06-26 11:39] VITALS: BP 165/95; PULSE 76; RESP 16; TEMP 36.3; O2SAT 97
[2023-06-26 11:51] LABS: Basophils % 0.9 %; Eosinophils # 0.1 10^3/uL (0.0-0.8); Eosinophils % 1.8 %; Hematocrit 34.4 % (36-47); Lymphocytes % 30.9 %; Mean Corpuscular HGB Conc 34.3 g/dL (30-55); Mean Corpuscular Hemoglobin 30.5 pg (27-33); Mean Corpuscular Volume 88.9 fl (85-98); Mean Platelet Volume 10.7 fL (7.4-10.4); Monocytes # 0.4 10^3/uL (0.2-0.9); Monocytes % 11.7 %; Neutrophils # 1.81 10^3/uL (1.8-7.7); Neutrophils % 54.4 %; Nucleated Red Blood Cells % 0 %; Platelet Count 99 10^3/cmm (157-399); Red Blood Count 3.87 10^6/uL (3.85-5.65); White Blood Count 3.33 10^3/uL (3.29-11.43)
[2023-06-26 12:06] LABS: Alanine Aminotransferase 11 U/L (0-33); Alkaline Phosphatase 90 U/L (35-105); Anion Gap 10.9 (5-19); Aspartate Amino Transferase 13 U/L (0-32); Blood Urea Nitrogen 21 mg/dL (8-23); Calcium 9.5 mg/dL (8.5-10.5); Carbon Dioxide 28 mmol/L (22-29); Chloride 104 mmol/L (98-107); Globulin 2.5 g/dL (1.3-4.6); Glomerular Filtration Rate 63.2 mL/min (90-130); Glucose 205 mg/dL (65-115); Osmolality Calculated 295 mOsm/kg (285-295); Potassium 4.9 mmol/L (3.5-5.1); Sodium 138 mmol/L (136-145); Total Bilirubin 0.4 mg/dL (0.15-1.2); Total Protein 6.5 g/dL (6.6-8.7)
== END 2023-06-30 23:59 | disposition home or self-care (01) ==
PROVIDERS: PCP Electrodiagnostic Medicine; Visit Provider Internal Medicine Medical Oncology
DX: C50.919 Malignant neoplasm of unspecified site of unspecified female breast (principal); C78.00 Secondary malignant neoplasm of unspecified lung
CPT/HCPCS: 36415; 80053; 85025

== ENCOUNTER → 2023-07-10 10:16 | Outpatient (BNVA) | payer OTHER, SELFPAY | PROVIDERS: PCP Electrodiagnostic Medicine; Visit Provider Internal Medicine Cardiovascular Disease | DX: Z95.2 Presence of prosthetic heart valve (principal) | CPT/HCPCS: 85610 ==

== ENCOUNTER 2023-07-23 12:27 | Outpatient (CLI) | payer OTHER, SELFPAY ==
[2023-07-23] MEDS: iohexol 350 mg/mL 500 mL Btl (per mL) PO (13:54)
--- NOTE | 2023-07-23 14:00 | CT_ITS ---
WS: [id number] CT CHEST, ABDOMEN AND PELVIS WITH CONTRAST HISTORY: Breast cancer metastasized to lung TECHNIQUE: Contiguous 5 mm axial imaging performed through the chest, abdomen and pelvis with IV cont rast, oral contrast has been provided. Coronal and sagittal reformats chest. Coronal and sagittal ref ormats through the abdomen and pelvis. All CT scans at [facility] use at least one of these d ose optimization techniques: automated exposure control; mA and/or kV adjustment per patient size (in cludes targeted exams where dose is matched to clinical indication); or iterative reconstruction. CONTRAST: Omnipaque 350; 100 mL IV. DLP: 1525.51 mGy.cm COMPARISON: Chest CT 05/30/2022, PET/CT 03/03/[address]: LEFT subclavian Port-A-Cath. Known, biopsy-proven LEFT breast neoplasm is identified measur ing 3.0 x 3.3 cm. Not significantly changed in size since 05/30/2022. This dominant mass contains a bi opsy clip. There is an additional mass which is probably a lymph node measuring 1.2 x 1.6 cm which al so contains a biopsy clip. This mass has decreased slightly in size. There are a few additional very small, subcentimeter lymph nodes identified. There is soft tissue thickening associated with the brian st which is similar to prior studies. Mild thickening of the pectoralis muscle on the LEFT. No pulmonary mass. No pneumonia. No pericardial or pleural effusion. Reidentified is subsegmental ate lectasis of the RIGHT middle lobe. Previously described prominent mediastinal and hilar soft tissue h as improved. No adenopathy. There is a small amount of oral contrast in the esophagus from reflux dis ease. Prior CABG. No soft tissue nodules. Abdomen CT: No metastatic disease within the liver. Cholelithiasis without acute cholecystitis. Splen ic granulomata. No bile duct dilatation. Normal portal vein. Negative pancreas. No renal obstruction. Too small to characterize hypodensities in the RIGHT kidney. Mild atherosclerosis aorta. No GI tract obstruction. No colitis. No adenopathy or ascites. There are small lymph nodes in the RIGHT lower qu adrant. Ventral abdominal wall hernia contains fat. Pelvic CT: No free fluid or adenopathy. Normally distended urinary bladder. IMPRESSION: 1. Biopsy-proven LEFT breast neoplasm very similar in size as compared to 05/30/2022. Mass measures 3. 0 x 3.3 cm. 2. LEFT axillary lymph node which contains a biopsy clip and is biopsy-proven adenopathy decreased in size now measuring 1.2 x 1.6. 3. Soft tissue thickening involving the LEFT breast, post treatment. 4. Continued partial atelectasis of the RIGHT middle lobe. 5. No mediastinal or hilar adenopathy. Previously described lymph nodes have decreased in size and/or resolved. 6. No metastatic disease to the liver or adrenal glands.
[2023-07-23] MEDS: iohexol 350 mg/mL 500 mL Btl (per mL) IV (14:12)
== END 2023-07-23 12:28 | disposition home or self-care (01) ==
PROVIDERS: PCP Electrodiagnostic Medicine; Visit Provider Internal Medicine Medical Oncology
DX: C50.912 Malignant neoplasm of unspecified site of left female breast (principal); C78.00 Secondary malignant neoplasm of unspecified lung; R59.0 Localized enlarged lymph nodes; J98.11 Atelectasis
CPT/HCPCS: 71260; 74177; Q9967

== ENCOUNTER 2023-07-26 10:04 | Oncology outpatient (recurring) (ONCR) | payer OTHER, SELFPAY ==
[2023-07-17 09:28] VITALS: BP 158/88; PULSE 68; RESP 16; TEMP 36.3; O2SAT 98
[2023-07-17 09:45] LABS: Basophils % 1.2 %; Eosinophils % 1.2 %; Lymphocytes # 0.8 10^3/uL (0.8-4.8); Lymphocytes % 24.7 %; Mean Corpuscular HGB Conc 33.7 g/dL (30-55); Mean Corpuscular Hemoglobin 31.1 pg (27-33); Mean Corpuscular Volume 92.1 fl (85-98); Mean Platelet Volume 10.5 fL (7.4-10.4); Monocytes # 0.4 10^3/uL (0.2-0.9); Monocytes % 12.6 %; Neutrophils # 2.04 10^3/uL (1.8-7.7); Nucleated Red Blood Cells % 0 %; Platelet Count 111 10^3/cmm (157-399); Red Cell Distribution Width 15.1 % (12.1-15.1)
[2023-07-17 10:02] LABS: Alanine Aminotransferase 10 U/L (0-33); Albumin Level 3.9 g/dL (3.5-5.2); Alkaline Phosphatase 85 U/L (35-105); Anion Gap 9.4 (5-19); Aspartate Amino Transferase 13 U/L (0-32); Blood Urea Nitrogen 18 mg/dL (8-23); Calcium 9.3 mg/dL (8.5-10.5); Carbon Dioxide 29 mmol/L (22-29); Chloride 106 mmol/L (98-107); Chol HDL Ratio 4.59 mg/dL (0.0-4.40); Cholesterol 202 mg/dL (0-200); Globulin 2.4 g/dL (1.3-4.6); Glomerular Filtration Rate 63.2 mL/min (90-130); Glucose 149 mg/dL (65-115); HDL Cholesterol 44 mg/dL (60-100); LDL Cholesterol Calculated 137 mg/dL (50-129); LDL HDL Ratio 3.11 RATIO (0.00-3.22); Osmolality Calculated 295 mOsm/kg (285-295); Potassium 4.4 mmol/L (3.5-5.1); Sodium 140 mmol/L (136-145); Total Bilirubin 0.4 mg/dL (0.15-1.2); Total Protein 6.3 g/dL (6.6-8.7); Triglycerides 103 mg/dL (0-150)
[2023-07-17 10:04] LABS: Estmated Average Glucose 120; Hemoglobin A1C 5.8 % (4.0-6.0)
[2023-07-17 10:48] LABS: Creatinine Urine, Random 76 mg/dL (28-217); Microalbumin Random Urine 4 ug/dL (0-20)
[2023-07-17 10:50] LABS: Microalbum Creatinine Ratio Ur 53 mg/dL (0-20)
[2023-07-17 11:07] LABS: CA 15-3 28.2 U/mL (0-25)
[2023-07-18 12:36] LABS: CA 27.29 59 U/mL (<38)
== END 2023-07-31 23:59 | disposition home or self-care (01) ==
PROVIDERS: Internal Medicine; PCP Electrodiagnostic Medicine; Visit Provider Internal Medicine Medical Oncology
DX: Z53.9 Procedure and treatment not carried out, unspecified reason (principal)
CPT/HCPCS: 36415; 80053; 80061; 82044; 83036; 85025; 86300

== ENCOUNTER 2023-08-10 13:11 | Emergency (ER) | payer OTHER, SELFPAY ==
[2023-08-10 13:13] VITALS: BMI 42.8
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
[2023-08-10 13:17] VITALS: BP 188/66; PULSE 76; RESP 16; TEMP 37.5; O2SAT 98
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
== END 2023-08-10 14:37 | disposition home or self-care (01) ==
PROVIDERS: Emergency Provider Physician Assistant; PCP Electrodiagnostic Medicine
DX: S40.021A Contusion of right upper arm, initial encounter (principal); S80.02XA Contusion of left knee, initial encounter; Z79.01 Long term (current) use of anticoagulants; Z79.82 Long term (current) use of aspirin; Z79.4 Long term (current) use of insulin; M17.12 Unilateral primary osteoarthritis, left knee; Z85.3 Personal history of malignant neoplasm of breast; J44.9 Chronic obstructive pulmonary disease, unspecified; E11.9 Type 2 diabetes mellitus without complications; E78.5 Hyperlipidemia, unspecified; I10 Essential (primary) hypertension; Z85.118 Personal history of other malignant neoplasm of bronchus and lung; Z95.0 Presence of cardiac pacemaker; Z95.1 Presence of aortocoronary bypass graft; Z87.891 Personal history of nicotine dependence; V89.2XXA Person injured in unspecified motor-vehicle accident, traffic, initial encounter
CPT/HCPCS: 73060; 73562; 99284

== ENCOUNTER 2023-08-16 10:10 | Outpatient (CLI) | payer OTHER, SELFPAY ==
--- NOTE | 2023-08-16 10:45 | US_ITS ---
WS: [id number] ULTRASOUND BREAST HISTORY: c/o changing size of left breast mass, patient has a known, previously biopsied neoplasm LEF T breast. COMPARISON: 05/25/2022 and 04/25/2022 TECHNIQUE: 2-D and Doppler. Hypoechoic neoplasm with angular margins and ductal distention is reidentified at 2:00, 3 cm from the nipple. Mass measures 3.2 x 3.4 x 2.5 cm and there is mild increased vascularity. Mass extends into the posterior subcutaneous soft tissue layer. Mass has increased in size since 04/25/2022. At that brent e the mass measured 3.0 x 2.1 x 2.4 cm. Patient refused imaging of the axilla. IMPRESSION: US/US breast LT complete [id number] BI-RADS: 6-Known Biopsy-Proven Malignancy FOLLOW-UP: See Report Known neoplasm LEFT breast at 2:00 has increased in size since the prior ultras ound of 04/25/2022. It is difficult to compare the prior PET/CT imaging as it is a different modality but visually the mass appears to be increased in size sin ce the PET/CT of 03/03/2023.
== END 2023-08-16 10:11 | disposition home or self-care (01) ==
LOC: RAD 10:10
PROVIDERS: PCP Electrodiagnostic Medicine; Visit Provider Nurse Practitioner Family
DX: C50.412 Malignant neoplasm of upper-outer quadrant of left female breast (principal); C78.00 Secondary malignant neoplasm of unspecified lung
CPT/HCPCS: 76641

== ENCOUNTER 2023-08-28 14:00 | Oncology outpatient (recurring) (ONCR) | payer OTHER, SELFPAY ==
[2023-08-07 10:21] VITALS: BP 151/79; PULSE 72; RESP 20; TEMP 36.5; O2SAT 96
[2023-08-07 10:32] LABS: Basophils # 0.1 10^3/uL (0.0-0.1); Basophils % 1.5 %; Eosinophils # 0.1 10^3/uL (0.0-0.8); Eosinophils % 1.5 %; Hematocrit 34.9 % (36-47); Lymphocytes # 1.1 10^3/uL (0.8-4.8); Lymphocytes % 27.5 %; Mean Corpuscular HGB Conc 34.1 g/dL (30-55); Mean Corpuscular Hemoglobin 30.5 pg (27-33); Mean Corpuscular Volume 89.5 fl (85-98); Mean Platelet Volume 11.1 fL (7.4-10.4); Monocytes # 0.5 10^3/uL (0.2-0.9); Monocytes % 11.9 %; Neutrophils # 2.29 10^3/uL (1.8-7.7); Neutrophils % 56.9 %; Nucleated Red Blood Cells % 0 %; Platelet Count 121 10^3/cmm (157-399); Red Cell Distribution Width 14.6 % (12.1-15.1); White Blood Count 4.03 10^3/uL (3.29-11.43)
[2023-08-07 10:51] LABS: Alanine Aminotransferase 12 U/L (0-33); Alkaline Phosphatase 93 U/L (35-105); Anion Gap 16.2 (5-19); Aspartate Amino Transferase 14 U/L (0-32); Blood Urea Nitrogen 16 mg/dL (8-23); Calcium 9.2 mg/dL (8.5-10.5); Carbon Dioxide 22 mmol/L (22-29); Chloride 106 mmol/L (98-107); Globulin 2.3 g/dL (1.3-4.6); Glomerular Filtration Rate 72.4 mL/min (90-130); Glucose 198 mg/dL (65-115); Osmolality Calculated 297 mOsm/kg (285-295); Potassium 4.2 mmol/L (3.5-5.1); Sodium 140 mmol/L (136-145); Total Bilirubin 0.3 mg/dL (0.15-1.2); Total Protein 6.3 g/dL (6.6-8.7)
[2023-08-28 14:15] VITALS: BP 147/82; PULSE 67; RESP 18; TEMP 36.3; O2SAT 96
[2023-08-28 14:24] VITALS: BP 147/82; PULSE 67; RESP 18; TEMP 36.3; O2SAT 96
[2023-08-28 14:32] LABS: Basophils % 1.1 %; Eosinophils # 0.1 10^3/uL (0.0-0.8); Eosinophils % 1.4 %; Hematocrit 35.5 % (36-47); Lymphocytes # 0.9 10^3/uL (0.8-4.8); Lymphocytes % 26.4 %; Mean Corpuscular HGB Conc 33.8 g/dL (30-55); Mean Corpuscular Volume 91.7 fl (85-98); Mean Platelet Volume 11.1 fL (7.4-10.4); Monocytes # 0.4 10^3/uL (0.2-0.9); Monocytes % 11.5 %; Neutrophils # 2.05 10^3/uL (1.8-7.7); Nucleated Red Blood Cells % 0 %; Platelet Count 115 10^3/cmm (157-399); Red Blood Count 3.87 10^6/uL (3.85-5.65); Red Cell Distribution Width 15.2 % (12.1-15.1); White Blood Count 3.48 10^3/uL (3.29-11.43)
[2023-08-28 14:59] LABS: Alanine Aminotransferase 11 U/L (0-33); Alkaline Phosphatase 91 U/L (35-105); Anion Gap 14.5 (5-19); Aspartate Amino Transferase 17 U/L (0-32); Blood Urea Nitrogen 22 mg/dL (8-23); Calcium 9.3 mg/dL (8.5-10.5); Carbon Dioxide 24 mmol/L (22-29); Chloride 106 mmol/L (98-107); Globulin 2.4 g/dL (1.3-4.6); Glomerular Filtration Rate 63.2 mL/min (90-130); Glucose 159 mg/dL (65-115); Osmolality Calculated 297 mOsm/kg (285-295); Potassium 4.5 mmol/L (3.5-5.1); Sodium 140 mmol/L (136-145); Total Bilirubin 0.4 mg/dL (0.15-1.2); Total Protein 6.4 g/dL (6.6-8.7)
== END 2023-08-30 23:59 | disposition home or self-care (01) ==
PROVIDERS: Nurse Practitioner Family; PCP Electrodiagnostic Medicine; Visit Provider Nurse Practitioner Family
DX: C50.919 Malignant neoplasm of unspecified site of unspecified female breast (principal); C78.00 Secondary malignant neoplasm of unspecified lung; Z79.899 Other long term (current) drug therapy
CPT/HCPCS: 36415; 80053; 85025; 85610; 86300

== ENCOUNTER 2023-09-18 13:30 | Oncology outpatient (recurring) (ONCR) | payer OTHER, SELFPAY ==
[2023-09-18 13:36] VITALS: BP 163/87; PULSE 81; RESP 16; TEMP 36.3; O2SAT 98
[2023-09-18 13:49] LABS: Basophils % 1.1 %; Eosinophils # 0.1 10^3/uL (0.0-0.8); Eosinophils % 1.7 %; Hematocrit 33.8 % (36-47); Lymphocytes % 26.7 %; Mean Corpuscular HGB Conc 34.3 g/dL (30-55); Mean Corpuscular Hemoglobin 31.1 pg (27-33); Mean Corpuscular Volume 90.6 fl (85-98); Mean Platelet Volume 10.5 fL (7.4-10.4); Monocytes # 0.5 10^3/uL (0.2-0.9); Neutrophils # 1.97 10^3/uL (1.8-7.7); Neutrophils % 54.9 %; Nucleated Red Blood Cells % 0 %; Platelet Count 120 10^3/cmm (157-399); Red Blood Count 3.73 10^6/uL (3.85-5.65); Red Cell Distribution Width 15.5 % (12.1-15.1); White Blood Count 3.59 10^3/uL (3.29-11.43)
[2023-09-18 14:41] LABS: Alanine Aminotransferase 14 U/L (0-33); Albumin Level 3.8 g/dL (3.5-5.2); Alkaline Phosphatase 101 U/L (35-105); Anion Gap 12.3 (5-19); Aspartate Amino Transferase 14 U/L (0-32); Blood Urea Nitrogen 23 mg/dL (8-23); Calcium 9.5 mg/dL (8.5-10.5); Carbon Dioxide 27 mmol/L (22-29); Chloride 105 mmol/L (98-107); Globulin 2.2 g/dL (1.3-4.6); Glucose 177 mg/dL (65-115); Osmolality Calculated 298 mOsm/kg (285-295); Potassium 4.3 mmol/L (3.5-5.1); Sodium 140 mmol/L (136-145); Total Bilirubin 0.3 mg/dL (0.15-1.2)
== END 2023-09-30 23:59 | disposition home or self-care (01) ==
PROVIDERS: PCP Electrodiagnostic Medicine; Visit Provider Nurse Practitioner Family
DX: C50.919 Malignant neoplasm of unspecified site of unspecified female breast (principal); C78.00 Secondary malignant neoplasm of unspecified lung; Z53.9 Procedure and treatment not carried out, unspecified reason; E78.2 Mixed hyperlipidemia; E11.59 Type 2 diabetes mellitus with other circulatory complications; I25.10 Atherosclerotic heart disease of native coronary artery without angina pectoris; Z79.899 Other long term (current) drug therapy
CPT/HCPCS: 36415; 80053; 85025

== ENCOUNTER → 2023-09-19 10:27 | Outpatient (BNVA) | payer OTHER, SELFPAY | PROVIDERS: PCP Electrodiagnostic Medicine; Visit Provider Internal Medicine Cardiovascular Disease | DX: Z95.2 Presence of prosthetic heart valve (principal) | CPT/HCPCS: 85610 ==

== ENCOUNTER 2023-10-09 11:58 | Outpatient (CLI) | payer OTHER, SELFPAY ==
--- NOTE | 2023-10-09 12:30 | PETR_ITS ---
PROCEDURE INFORMATION: Exam: PET/CT Skull Base to Mid-thigh Exam date and time: 10/09/2023 12:58 PM Age: 62 years old Clinical indication: Condition or disease; Primary cancer: Malignant neoplasm of the female breast, secondary malignant neoplasm of lung; Follow-up oncological assessment; Prior surgery; Surgery date: 6+ months; Surgery type: Surgery--heart valve, pacemaker, hyst; Additional info: Restaging LABS AND CLINICAL REPORTS: Glucose: 176 mg/dl Treatment strategy for malignancy (PET staging): Restaging (PS) TECHNIQUE: Imaging protocol: Following at least four-hour fasting and following the injection of radiopharmaceutical, low dose CT images were obtained. Then, PET images were obtained. Attenuation corrected images were constructed using the CT scan. Fused images of PET and CT were reviewed. The standardized uptake values (SUV) reported below are maximum values within a region of interest, expressed in gm/ml. Exam includes orbital meatal line to mid-thigh. Radiopharmaceutical: 14.43 mCi F-18 FDG (Fluorodeoxyglucose), IV. Time of imaging post radiopharmaceutical administration: 1 hour Injection site: site COMPARISON: [facility] [id number] 03/03/2023 12:27 PM FINDINGS: Tubes, catheters and devices: Left-sided chest pacemaker. Brain: Visualized brain has normal physiologic uptake. Pharynx: No abnormal uptake. Larynx: No abnormal uptake. Lungs, pleura and trachea: Right middle lobe atelectasis is unchanged. No abnormal uptake in the lungs. Unchanged peripheral right upper lobe scarring. Heart: The aortic valvular replacement changes are stable. Mediastinal space: Uptake in the mid to distal esophagus again present with SUV maximum of 3.0, previously 3.6 likely from esophagitis. Diaphragm: Small hiatal hernia is unchanged. Liver: No abnormal uptake. Gallbladder and bile ducts: Gallstones are unchanged. Pancreas: No abnormal uptake. Spleen: Splenic granulomata are unchanged. Adrenal glands: No abnormal uptake. Kidneys and ureters: Normal physiologic uptake. Stomach and bowel: No abnormal uptake. Vasculature: No abnormal uptake. Lymph nodes: Mild uptake in subcarinal nodes with SUV maximum of 2.6, previously 4.8 decreased. Bones/joints: No abnormal uptake in the visualized axial and appendicular skeleton. Soft tissues: Mass in the outer left breast measuring 3.4 x 3.9 cm is larger than the previous measurement on CT of 3.0 x 3.3 cm. Mass abuts the skin surface which is new since the previous study. Diffuse skin thickening in the left breast with low-grade uptake is unchanged. Uptake is present on PET with SUV maximum of 4.2. Previous SUV maximum was 5.1. Probable lymph node in the left axilla containing a biopsy clip measuring 1.2 x 1.6 cm is unchanged. No significant uptake on today's PET. Unchanged umbilical hernia. PET/PET [facility] SUBSEQ [id number] IMPRESSION: Mass density in the outer left breast is larger than the previous study, now contiguous with the skin surface. There is persistent uptake suspicious for residual/recurrent disease in this location. Low-grade subcarinal lymph node uptake persists but decreased since previous, nonspecific, possibly reactive. Continued attention on follow-up is recommended. No new distant metastasis identified.
== END 2023-10-09 11:59 | disposition home or self-care (01) ==
PROVIDERS: PCP Electrodiagnostic Medicine; Visit Provider Nurse Practitioner Family
DX: C50.412 Malignant neoplasm of upper-outer quadrant of left female breast (principal); C78.00 Secondary malignant neoplasm of unspecified lung; R92.8 Other abnormal and inconclusive findings on diagnostic imaging of breast
CPT/HCPCS: 78815; A9552

== ENCOUNTER → 2023-10-12 09:35 | Outpatient (BNVA) | payer OTHER, SELFPAY | PROVIDERS: PCP Electrodiagnostic Medicine; Visit Provider Internal Medicine Cardiovascular Disease | DX: Z95.2 Presence of prosthetic heart valve (principal) | CPT/HCPCS: 85610 ==

== ENCOUNTER 2023-10-17 13:48 | Outpatient (CLI) | payer OTHER, SELFPAY ==
--- NOTE | 2023-10-17 14:30 | XR_ITS ---
WS: [id number] DEXA (DUAL ENERGY X-RAY ABSORPTIOMETRY) Bone mineral density was performed using a [employer] machine. HISTORY: asymptomatic menopausal state COMPARISON: None available. Lumbar spine BMD (L1-L4): 1.201 g/cm2 T score: 0.2 Z score: 0.5 Total hip BMD: Left: 0.930 g/cm2. T score: -0.6 Z score: -0.3 Right: 0.893 g/cm2. T score: -0.9 Z score: -0.6 10 year probability of a major osteoporotic fracture is 10.6%. IMPRESSION: NORMAL BONE MINERAL DENSITY based upon the WHO classification for females.
== END 2023-10-17 13:49 | disposition home or self-care (01) ==
LOC: RAD 13:48
PROVIDERS: PCP Electrodiagnostic Medicine; Visit Provider Internal Medicine
DX: Z78.0 Asymptomatic menopausal state (principal)
CPT/HCPCS: 77080

== ENCOUNTER 2023-10-30 09:15 | Oncology outpatient (recurring) (ONCR) | payer OTHER, SELFPAY ==
[2023-10-10 09:41] VITALS: BP 149/83; PULSE 71; RESP 16; TEMP 36.3; O2SAT 97
[2023-10-10 09:58] LABS: Basophils # 0.1 10^3/uL (0.0-0.1); Basophils % 1.6 %; Eosinophils # 0.1 10^3/uL (0.0-0.8); Lymphocytes # 0.8 10^3/uL (0.8-4.8); Lymphocytes % 25.4 %; Mean Corpuscular HGB Conc 34.3 g/dL (30-55); Mean Corpuscular Hemoglobin 31.5 pg (27-33); Mean Corpuscular Volume 91.9 fl (85-98); Mean Platelet Volume 10.2 fL (7.4-10.4); Monocytes # 0.4 10^3/uL (0.2-0.9); Monocytes % 12.1 %; Neutrophils # 1.79 10^3/uL (1.8-7.7); Neutrophils % 58.2 %; Nucleated Red Blood Cells % 0 %; Platelet Count 114 10^3/cmm (157-399); Red Blood Count 3.81 10^6/uL (3.85-5.65); Red Cell Distribution Width 15.3 % (12.1-15.1); White Blood Count 3.07 10^3/uL (3.29-11.43)
[2023-10-10 10:18] LABS: Alanine Aminotransferase 12 U/L (0-33); Albumin Level 3.6 g/dL (3.5-5.2); Alkaline Phosphatase 94 U/L (35-105); Anion Gap 13.2 (5-19); Aspartate Amino Transferase 13 U/L (0-32); Blood Urea Nitrogen 17 mg/dL (8-23); Calcium 9.1 mg/dL (8.5-10.5); Carbon Dioxide 25 mmol/L (22-29); Chloride 104 mmol/L (98-107); Globulin 2.4 g/dL (1.3-4.6); Glomerular Filtration Rate 72.4 mL/min (90-130); Glucose 322 mg/dL (65-115); Osmolality Calculated 300 mOsm/kg (285-295); Potassium 4.2 mmol/L (3.5-5.1); Sodium 138 mmol/L (136-145); Total Bilirubin 0.4 mg/dL (0.15-1.2)
[2023-10-30 09:43] LABS: Eosinophils # 0.1 10^3/uL (0.0-0.8); Eosinophils % 1.3 %; Hematocrit 34.8 % (36-47); Lymphocytes % 24.8 %; Mean Corpuscular HGB Conc 34.8 g/dL (30-55); Mean Corpuscular Hemoglobin 31.8 pg (27-33); Mean Corpuscular Volume 91.3 fl (85-98); Mean Platelet Volume 10.2 fL (7.4-10.4); Monocytes # 0.4 10^3/uL (0.2-0.9); Monocytes % 10.9 %; Neutrophils # 2.44 10^3/uL (1.8-7.7); Neutrophils % 61.7 %; Nucleated Red Blood Cells % 0 %; Platelet Count 128 10^3/cmm (157-399); Red Blood Count 3.81 10^6/uL (3.85-5.65); Red Cell Distribution Width 14.6 % (12.1-15.1); White Blood Count 3.95 10^3/uL (3.29-11.43)
[2023-10-30 10:19] LABS: Alanine Aminotransferase 13 U/L (0-33); Albumin Level 3.7 g/dL (3.5-5.2); Alkaline Phosphatase 90 U/L (35-105); Anion Gap 11.6 (5-19); Aspartate Amino Transferase 13 U/L (0-32); Blood Urea Nitrogen 23 mg/dL (8-23); CA 15-3 29.9 U/mL (0-25); Calcium 9.3 mg/dL (8.5-10.5); Carbon Dioxide 27 mmol/L (22-29); Chloride 103 mmol/L (98-107); Globulin 2.3 g/dL (1.3-4.6); Glomerular Filtration Rate 50.2 mL/min (90-130); Glucose 246 mg/dL (65-115); Osmolality Calculated 296 mOsm/kg (285-295); Potassium 4.6 mmol/L (3.5-5.1); Sodium 137 mmol/L (136-145); Total Bilirubin 0.3 mg/dL (0.15-1.2)
== END 2023-10-31 23:59 | disposition home or self-care (01) ==
PROVIDERS: Internal Medicine; PCP Electrodiagnostic Medicine; Visit Provider Nurse Practitioner Family
DX: C50.412 Malignant neoplasm of upper-outer quadrant of left female breast; Z53.9 Procedure and treatment not carried out, unspecified reason
CPT/HCPCS: 36415; 80053; 85025; 86300

== ENCOUNTER 2023-11-14 09:55 | Outpatient (CLI) | payer OTHER, SELFPAY ==
[2023-11-14 10:48] LABS: Alanine Aminotransferase 11 U/L (0-33); Albumin Level 3.7 g/dL (3.5-5.2); Alkaline Phosphatase 94 U/L (35-105); Anion Gap 14.5 (5-19); Aspartate Amino Transferase 14 U/L (0-32); Blood Urea Nitrogen 23 mg/dL (8-23); Calcium 9.1 mg/dL (8.5-10.5); Carbon Dioxide 24 mmol/L (22-29); Chloride 104 mmol/L (98-107); Chol HDL Ratio 4.89 mg/dL (0.0-4.40); Cholesterol 230 mg/dL (0-200); Globulin 2.5 g/dL (1.3-4.6); Glucose 206 mg/dL (65-115); HDL Cholesterol 47 mg/dL (60-100); LDL Cholesterol Calculated 161 mg/dL (50-129); LDL HDL Ratio 3.43 RATIO (0.00-3.22); Osmolality Calculated 296 mOsm/kg (285-295); Potassium 4.5 mmol/L (3.5-5.1); Sodium 138 mmol/L (136-145); Total Bilirubin 0.4 mg/dL (0.15-1.2); Total Protein 6.2 g/dL (6.6-8.7); Triglycerides 111 mg/dL (0-150)
[2023-11-14 17:18] LABS: Estmated Average Glucose 134; Hemoglobin A1C 6.3 % (4.0-6.0)
== END 2023-11-14 09:56 | disposition home or self-care (01) ==
LOC: LAB 09:57
PROVIDERS: PCP Electrodiagnostic Medicine; Visit Provider Internal Medicine
DX: E11.59 Type 2 diabetes mellitus with other circulatory complications (principal); I25.10 Atherosclerotic heart disease of native coronary artery without angina pectoris
CPT/HCPCS: 80053; 80061; 83036; 85610

== ENCOUNTER 2023-11-20 09:16 | Oncology outpatient (recurring) (ONCR) | payer OTHER, SELFPAY ==
[2023-11-20 09:47] LABS: Eosinophils # 0.1 10^3/uL (0.0-0.8); Hematocrit 34.6 % (36-47); Lymphocytes # 0.9 10^3/uL (0.8-4.8); Lymphocytes % 28.8 %; Mean Corpuscular HGB Conc 34.7 g/dL (30-55); Mean Corpuscular Hemoglobin 31.7 pg (27-33); Mean Corpuscular Volume 91.3 fl (85-98); Mean Platelet Volume 10.7 fL (7.4-10.4); Monocytes # 0.4 10^3/uL (0.2-0.9); Monocytes % 13.4 %; Neutrophils # 1.68 10^3/uL (1.8-7.7); Neutrophils % 54.8 %; Nucleated Red Blood Cells % 0 %; Platelet Count 101 10^3/cmm (157-399); Red Blood Count 3.79 10^6/uL (3.85-5.65); Red Cell Distribution Width 14.4 % (12.1-15.1); White Blood Count 3.06 10^3/uL (3.29-11.43)
[2023-11-20 10:22] LABS: Alanine Aminotransferase 11 U/L (0-33); Albumin Level 3.7 g/dL (3.5-5.2); Alkaline Phosphatase 90 U/L (35-105); Anion Gap 11.5 (5-19); Aspartate Amino Transferase 15 U/L (0-32); Blood Urea Nitrogen 18 mg/dL (8-23); CA 15-3 30.3 U/mL (0-25); Calcium 9.2 mg/dL (8.5-10.5); Carbon Dioxide 28 mmol/L (22-29); Chloride 103 mmol/L (98-107); Globulin 2.5 g/dL (1.3-4.6); Glomerular Filtration Rate 63.2 mL/min (90-130); Glucose 258 mg/dL (65-115); Osmolality Calculated 297 mOsm/kg (285-295); Potassium 4.5 mmol/L (3.5-5.1); Sodium 138 mmol/L (136-145); Total Bilirubin 0.4 mg/dL (0.15-1.2); Total Protein 6.2 g/dL (6.6-8.7)
== END 2023-11-29 23:59 | disposition home or self-care (01) ==
PROVIDERS: Internal Medicine; PCP Electrodiagnostic Medicine; Visit Provider Nurse Practitioner Family
DX: Z79.899 Other long term (current) drug therapy; Z79.622 Long term (current) use of Janus kinase inhibitor; Z87.891 Personal history of nicotine dependence; Z79.818 Long term (current) use of other agents affecting estrogen receptors and estrogen levels; C50.412 Malignant neoplasm of upper-outer quadrant of left female breast; C78.01 Secondary malignant neoplasm of right lung; C77.9 Secondary and unspecified malignant neoplasm of lymph node, unspecified; Z17.0 Estrogen receptor positive status [ER+]
CPT/HCPCS: 36415; 80053; 85025; 86300

== ENCOUNTER 2023-12-11 08:44 | Oncology outpatient (recurring) (ONCR) | payer OTHER, SELFPAY ==
[2023-12-11 09:12] LABS: Basophils # 0.1 10^3/uL (0.0-0.1); Basophils % 1.4 %; Eosinophils # 0.1 10^3/uL (0.0-0.8); Hematocrit 34.5 % (36-47); Lymphocytes # 0.9 10^3/uL (0.8-4.8); Lymphocytes % 26.4 %; Mean Corpuscular HGB Conc 34.2 g/dL (30-55); Mean Corpuscular Hemoglobin 31.3 pg (27-33); Mean Corpuscular Volume 91.5 fl (85-98); Mean Platelet Volume 10.7 fL (7.4-10.4); Monocytes # 0.4 10^3/uL (0.2-0.9); Monocytes % 10.7 %; Neutrophils # 2.04 10^3/uL (1.8-7.7); Neutrophils % 59.2 %; Nucleated Red Blood Cells % 0 %; Platelet Count 107 10^3/cmm (157-399); Red Blood Count 3.77 10^6/uL (3.85-5.65); Red Cell Distribution Width 14.8 % (12.1-15.1); White Blood Count 3.45 10^3/uL (3.29-11.43)
[2023-12-11 09:41] LABS: Alanine Aminotransferase 10 U/L (0-33); Albumin Level 3.7 g/dL (3.5-5.2); Alkaline Phosphatase 85 U/L (35-105); Anion Gap 11.3 (5-19); Aspartate Amino Transferase 15 U/L (0-32); Blood Urea Nitrogen 19 mg/dL (8-23); Calcium 9.1 mg/dL (8.5-10.5); Carbon Dioxide 28 mmol/L (22-29); Chloride 104 mmol/L (98-107); Globulin 2.3 g/dL (1.3-4.6); Glucose 234 mg/dL (65-115); Osmolality Calculated 298 mOsm/kg (285-295); Potassium 4.3 mmol/L (3.5-5.1); Sodium 139 mmol/L (136-145); Total Bilirubin 0.3 mg/dL (0.15-1.2)
[2023-12-11 12:35] LABS: CA 15-3 32.3 U/mL (0-25)
== END 2023-12-30 23:59 | disposition home or self-care (01) ==
PROVIDERS: Internal Medicine; PCP Electrodiagnostic Medicine; Visit Provider Nurse Practitioner Family
DX: C50.412 Malignant neoplasm of upper-outer quadrant of left female breast
CPT/HCPCS: 36415; 80053; 85025; 86300

== ENCOUNTER → 2023-12-12 10:34 | Outpatient (BNVA) | payer OTHER, SELFPAY | PROVIDERS: PCP Electrodiagnostic Medicine; Visit Provider Internal Medicine Cardiovascular Disease | DX: Z95.2 Presence of prosthetic heart valve (principal) | CPT/HCPCS: 85610 ==

== ENCOUNTER 2023-12-18 11:41 | Outpatient (CLI) | payer OTHER, SELFPAY ==
--- NOTE | 2023-12-18 12:00 | PETR_ITS ---
PROCEDURE INFORMATION: Exam: PET/CT Skull Base to Mid-thigh Exam date and time: 12/18/2023 12:26 PM Age: 63 years old Clinical indication: Condition or disease; Primary cancer: Malignant neoplasm of upper outer quadrant left female breast; Follow-up oncological assessment; Prior surgery; Surgery date: 6+ months; Surgery type: Heart valve, pacemaker, hyst; Additional info: Re staging LABS AND CLINICAL REPORTS: Glucose: 166 mg/dl Treatment strategy for malignancy (PET staging): Restaging (PS) TECHNIQUE: Imaging protocol: Following at least four-hour fasting and following the injection of radiopharmaceutical, low dose CT images were obtained. Then, PET images were obtained. Attenuation corrected images were constructed using the CT scan. Fused images of PET and CT were reviewed. The standardized uptake values (SUV) reported below are maximum values within a region of interest, expressed in gm/ml. Exam includes orbital meatal line to mid-thigh. Radiopharmaceutical: 10.54 mCi F-18 FDG (Fluorodeoxyglucose), IV. Time of imaging post radiopharmaceutical administration: 1 hour Injection site: site COMPARISON: [facility] [id number] 10/09/2023 12:58 PM FINDINGS: Tubes, catheters and devices: Left chest pacemaker is unchanged. Brain: Visualized brain has normal physiologic uptake. Pharynx: No abnormal uptake. Larynx: No abnormal uptake. Lungs, pleura and trachea: Atelectasis of the right middle lobe is unchanged. Unchanged peripheral lung scarring. No abnormal pulmonary uptake. Heart: Stable heart size. Coronary arteries: Stable coronary artery atherosclerosis. Mediastinal space: No abnormal uptake. Diaphragm: Small hiatal hernia is unchanged. Mid to distal esophageal uptake with SUV max of 3.2 similar to prior value of 3.0 likely from esophagitis. Liver: No abnormal uptake. Gallbladder and bile ducts: Gallstones are unchanged. Pancreas: No abnormal uptake. Spleen: Splenic granulomata are unchanged. Adrenal glands: No abnormal uptake. Kidneys and ureters: Normal physiologic uptake. Stomach and bowel: No abnormal uptake. Reproductive: Hysterectomy changes are stable. Vasculature: No abnormal uptake. Lymph nodes: Mild uptake in subcarinal lymph nodes SUV maximum of 3.6 is increased from previous value of 2.6. Right paratracheal lymph node on series 3, image 58 measuring 9 mm short axis is unchanged with low-grade uptake SUV maximum measures 2.4 previously 0.8 slightly increased. Bones/joints: Previous sternotomy changes are again present. Soft tissues: Mass in the outer left breast measures 4.0 x 5.7 cm, previously 3.4 x 3.9 cm, now larger. Mass again abuts the skin surface with skin retraction. Mass has a SUV maximum of 11.0, previously 4.2, increased. Mass extends to the pectoralis muscles with possible invasion which is progressive since the previous study. Lymph node left axilla containing a biopsy clip measuring 1.2 x 1.6 cm is unchanged with SUV max of 1.2 again not significant. The left breast again has diffuse skin thickening with low-grade uptake SUV max of 1.3 previously 0.4, increased. There is soft tissue uptake anterior to the mandible without discernible mass on CT, potentially dental in origin on series 3 image 38 with SUV maximum of 7.4. Unchanged small fat containing umbilical hernia. PET/PET [facility] SUBSEQ [id number] IMPRESSION: 1. Progressive mass in the left breast with increasing size and uptake. On today's study mass abuts and potentially invades the adjacent chest wall musculature. Mild subcarinal lymph node uptake is increasing suspicious for metastasis. Diffuse left breast skin thickening is unchanged again suspicious for inflammatory carcinoma of the breast. Right paratracheal lymph node is similar in size with increasing low-grade uptake, indeterminate. Recommend attention on follow-up. 2. There is soft tissue uptake anterior to the mandible which is nonspecific and may be dental in origin. Correlate with exam findings.
== END 2023-12-18 11:42 | disposition home or self-care (01) ==
LOC: RAD 11:42
PROVIDERS: PCP Electrodiagnostic Medicine; Visit Provider Internal Medicine
DX: C50.412 Malignant neoplasm of upper-outer quadrant of left female breast (principal); R23.8 Other skin changes; R93.89 Abnormal findings on diagnostic imaging of other specified body structures; Z95.0 Presence of cardiac pacemaker; Z95.2 Presence of prosthetic heart valve
CPT/HCPCS: 78815; A9552

== ENCOUNTER → 2023-12-26 10:32 | Outpatient (BNVA) | payer OTHER, SELFPAY | PROVIDERS: PCP Electrodiagnostic Medicine; Visit Provider Internal Medicine Cardiovascular Disease | DX: Z95.2 Presence of prosthetic heart valve (principal) | CPT/HCPCS: 85610 ==

== ENCOUNTER 2024-01-01 12:22 | Oncology outpatient (recurring) (ONCR) | payer OTHER, SELFPAY ==
[2024-01-01 12:41] LABS: Basophils % 1.4 %; Hematocrit 35.1 % (36-47); Lymphocytes # 0.9 10^3/uL (0.8-4.8); Mean Corpuscular HGB Conc 34.8 g/dL (30-55); Mean Corpuscular Hemoglobin 31.9 pg (27-33); Mean Corpuscular Volume 91.9 fl (85-98); Mean Platelet Volume 11.1 fL (7.4-10.4); Monocytes # 0.4 10^3/uL (0.2-0.9); Monocytes % 13.3 %; Neutrophils # 1.58 10^3/uL (1.8-7.7); Nucleated Red Blood Cells % 0 %; Platelet Count 103 10^3/cmm (157-399); Red Blood Count 3.82 10^6/uL (3.85-5.65); Red Cell Distribution Width 15.5 % (12.1-15.1); White Blood Count 2.93 10^3/uL (3.29-11.43)
[2024-01-01 13:11] LABS: Alanine Aminotransferase 11 U/L (0-33); Albumin Level 3.8 g/dL (3.5-5.2); Alkaline Phosphatase 93 U/L (35-105); Anion Gap 12.1 (5-19); Aspartate Amino Transferase 13 U/L (0-32); Blood Urea Nitrogen 18 mg/dL (8-23); CA 15-3 33.7 U/mL (0-25); Calcium 9.2 mg/dL (8.5-10.5); Carbon Dioxide 27 mmol/L (22-29); Chloride 104 mmol/L (98-107); Globulin 2.3 g/dL (1.3-4.6); Glucose 228 mg/dL (65-115); Osmolality Calculated 297 mOsm/kg (285-295); Potassium 4.1 mmol/L (3.5-5.1); Sodium 139 mmol/L (136-145); Total Bilirubin 0.4 mg/dL (0.15-1.2); Total Protein 6.1 g/dL (6.6-8.7)
== END 2024-01-29 23:59 | disposition home or self-care (01) ==
LOC: ONCMED 12:23
PROVIDERS: Internal Medicine; PCP Electrodiagnostic Medicine; Visit Provider Nurse Practitioner Family
DX: C50.412 Malignant neoplasm of upper-outer quadrant of left female breast (principal)
CPT/HCPCS: 36415; 80053; 85025; 86300

== ENCOUNTER → 2024-01-23 09:33 | Outpatient (BNVA) | payer OTHER, SELFPAY | PROVIDERS: PCP Electrodiagnostic Medicine; Visit Provider Family Medicine | DX: Z01.818 Encounter for other preprocedural examination (principal); Z95.0 Presence of cardiac pacemaker; Z79.01 Long term (current) use of anticoagulants | CPT/HCPCS: 85610; 93005 ==

== ENCOUNTER 2024-01-31 10:18 | Inpatient (IN) | payer OTHER, SELFPAY ==
--- NOTE | 2024-01-31 11:48 | USCV_ITS ---
Cami Martinez Age: 63 Gender: F : 1960 Exam Date: 01/31/2024 14:17 Ordering Phys: Teto Brantley MD Technologist: [place] [facility] [place]: ao pros BP: 169 / 84 HR: 132 Rhythm: Sinus Technical Quality: Adequate MEASUREMENTS (Male / Female) Normal Values 2D ECHO LV Diastolic Diameter PLAX 4.0 cm 4.2 - 5.9 / 3.9 - 5.3 cm IVS Diastolic Thickness 1.3 cm 0.6 - 1.0 / 0.6 - 0.9 cm IVS Systolic Thickness 1.5 cm LVPW Diastolic Thickness 1.3 cm 0.6 - 1.0 / 0.6 - 0.9 cm LVPW Systolic Thickness 1.6 cm LVOT Diameter 2.0 cm LV Ejection Fraction 2D Teich 60.0 % LV Ejection Fraction MOD 2C 66.8 % LV Ejection Fraction 2C AL 67.3 % LA Diameter 3.3 cm RA Systolic Volume 4C AL 38.9 ml RA Systolic Volume 4C MOD 34.9 ml Aorta at Sinotubular Diameter 2.9 cm M-MODE LA Ao Ratio MM 1.1 AV Cusp Separation MM 1.9 cm DOPPLER AV Peak Velocity 245.3 cm/s LVOT Peak Velocity 100.0 cm/s AV Area Cont Eq vti 1.7 cm squared AV Area Cont Eq pk 1.3 cm squared MV Peak Velocity 103.0 cm/s MV Area PHT 2.6 cm squared Mitral E to A Ratio 0.9 TV Peak Velocity 232.5 cm/s TR Peak Velocity 282.0 cm/s TR Peak Gradient 31.8 mmHg TV Peak E Velocity 119.0 cm/s Right Atrial Pressure 3.0 mmHg Pulmonary Artery Systolic Pressu 34.8 mmHg PV Peak Velocity 111.0 cm/s FINDINGS Left Ventricle Left ventricle is normal in size. LV systolic function is normal with EF of 55 to 60%. No regional wall motion abnormalities are seen. Grade 1 diastolic dysfunction Right Ventricle Normal in size and function Right Atrium Normal in size Left Atrium Normal in size Mitral Valve Moderate mitral annular calcification. Trace mitral regurgitation. Aortic Valve Prosthetic aortic valve is seen. Likely mechanical. Mean gradient across aortic valve of 13.8 mmHg and aortic valve area 1.69 cm2. DVI is 0.53. Normally functioning aortic valve. Tricuspid Valve Mild tricuspid regurgitation. Pulmonary artery systolic pressure is 34 mmHg. Pulmonic Valve Not well visualized Pericardium Normal Aorta Mildly dilated with diameter of 3.51cm IVC Appears to be normal CONCLUSIONS LV systolic function is normal with EF 55 to 60%. Grade 1 diastolic dysfunction. Trace mitral regurgitation. Bioprosthetic aortic valve is seen. Mean gradient across aortic valve of 13.8 mmHg and aortic valve area 1.69 cm2. DVI is 0.53 Mild tricuspid regurgitation Mildly dilated aorta with diameter of 3.51cm Mohinder Kelley MD (Electronically Signed) Final Date: 01 Feb 2024 14:06 S
--- NOTE | 2024-01-31 11:48 | PM.CONSULT ---
Providers/Reason For Consult Consulting Physician/Specialty*: Dr. Brantley/internal medicine Reason for Consult*: Bridging of anticoagulation Attending Physician: Osbaldo Gilliam DO Primary Care Provider: Lalo Ortez DO History of Present Illness History of Present Illness Cami Martinez is a 63 year old female with past medical history of CABG, aortic valve replacement more than 10 years ago, on Coumadin for anticoagulation, breast cancer requiring chemotherapy for which she needs a Port-A-Cath placement for which she is admitted under surgical team. Patient is allergic to Lovenox with rash and itching hence requires bridging from her warfarin to heparin drip. She last took warfarin on Sunday. Today is . Patient states she is feeling mild shortness of breath especially on exertion which she feels when she knows she is not appropriately anticoagulated. Denies any nausea vomiting, headache, dizziness, chest pain, syncope, cough, orthopnea. Review of Systems General: Reports: 10 or more systems reviewed and unremarkable except in HPI and below Const: Denies: fever(s), chills, body aches, change in appetite, change in weight, malaise, night sweats, diaphoresis, change in sleep pattern, daytime sleepiness or snoring Eyes: Denies: change in vision, blurry vision, photophobia, eye discomfort or eye discharge ENMT: Denies: throat pain, enlarged tonsils, hoarseness, mouth pain, oral sores, dry mouth, tinnitus, nasal congestion or post nasal drip Card: Denies: chest pain, palpitations, irregular heart rhythm, edema, swelling of feet/ankles, lightheadedness, syncope, pre-syncope, dyspnea on exertion, orthopnea, leg pain with exertion or acrocyanosis Resp: Denies: dyspnea, productive cough, non-productive cough, wheezing, stridor, pain on inspiration, change in phlegm color, hemoptysis or chest congestion GI: Denies: abdominal pain, nausea, vomiting, hematemesis, coffee ground emesis, dysphagia, heartburn, diarrhea, constipation, bloating, GI cramping, change in bowel habits, pain on defecation, hematochezia or melena : Denies: flank pain, dysuria, urinary frequency, urinary urgency, urinary hesitancy, nocturia or hematuria Musc: Denies: neck pain, back pain, extremity pain, joint pain, joint swelling, joint redness, joint stiffness or limited range of motion Neuro: Denies: headache(s), numbness in extremities, weakness in extremities, sensory changes, lack of coordination, difficulty walking, frequent falls, dizziness, vertigo, confusion, Slurred speech present, difficulty communicating thoughts or seizure-like activity Psych: Denies: anxiety, depression, mood swings, panic attacks, hopelessness or irritability Endo: Denies: polyuria, polydipsia, tired all the time, cold intolerance, excessive sweating, flushing or heat intolerance Hussein/Lymph: Denies: easy bruising or easy bleeding All/Imm: Denies: tongue swelling, facial swelling or acute wheezing Medications/Allergies Home Medications Medication Instructions Recorded Confirmed Last Taken Type albuterol sulfate 90 mcg/actuation 2 puff inhalation BID PRN 06/15/22 01/23/24 06/26/22 History aerosol inhaler Shortness Of Breath cetirizine 10 mg tablet (Zyrtec) 10 mg PO DAILY PRN Allergy Symptoms 06/26/22 01/23/24 06/26/22 History albuterol sulfate 0.63 mg/3 mL 0.63 mg (3 mL) inhalation Q6H PRN 08/14/22 01/23/24 Unknown Rx solution for nebulization shortness of breath or wheezing #90 mL aspirin 81 mg tablet,delayed 81 mg PO DAILY 08/28/22 01/23/24 08/10/23 History release carvedilol 12.5 mg tablet 12.5 mg PO BID #180 tabs 03/02/23 01/23/24 08/10/23 Rx multivitamin 1 tab PO DAILY 04/13/23 01/14/24 08/10/23 History pen needle, diabetic 32 gauge x ##100 06/11/23 01/14/24 Unknown Rx 1/4 (TechLITE Pen Needle) tiotropium 2.5 mcg-olodaterol 2.5 2 puff inhalation DAILY #4 grams 06/12/23 01/23/24 08/10/23 Rx mcg/actuation mist for inhalation (Stiolto Respimat) amlodipine 5 mg tablet 5 mg PO BID #180 tabs 06/21/23 01/23/24 08/10/23 Rx ondansetron 4 mg disintegrating 4 mg PO DAILY PRN nausea and 07/16/23 01/23/24 Unknown Rx tablet vomiting 5 days #20 tabs warfarin 5 mg tablet See Rx Instructions .Route 08/08/23 01/25/24 08/10/23 Rx .COMPLEX #90 tabs anastrozole 1 mg tablet 1 mg PO DAILY #90 tabs 09/04/23 01/23/24 Unknown Rx insulin glargine 100 unit/mL (3 24 unit SUBCUT DAILY 10/25/23 01/23/24 Unknown History mL) subcutaneous pen (Lantus Solostar U-100 Insulin) prochlorperazine maleate 10 mg 10 mg PO Q6H PRN nausea and 10/30/23 01/23/24 Unknown Rx tablet vomiting #30 tabs lidocaine 5 % topical cream 1 applic topical BID PRN pain #30 11/20/23 01/14/24 Unknown Rx grams Allergies Allergy/AdvReac Type Severity Reaction Status Date / Time enoxaparin [From Lovenox] Allergy Unknown Unknown Verified 01/23/24 09:58 insulin glargine AdvReac Severe pain Verified 01/23/24 09:58 [From Basaglar KwikPen U-100 Insulin] lisinopril AdvReac Mild ADR-Nausea Verified 01/23/24 09:58 levothyroxine AdvReac ADR-Cramping Verified 01/23/24 09:58 of the Muscles metformin AdvReac ADR-Heartbu Verified 01/23/24 09:58 rn simvastatin AdvReac ADR-Nausea Verified 01/23/24 09:58 lipitor Allergy ADR-Vomitin Uncoded 01/23/24 09:58 g PFSH Acute PFSH: Medical History Breast cancer Warfarin anticoagulation Pacemaker Syncope, cardiogenic Syncope and collapse Malignant neoplasm of breast metastatic to lung COPD (chronic obstructive pulmonary disease) Diabetes mellitus with cardiac complication Hypothyroid Obesity Dyslipidemia Diabetes Aortic stenosis HTN (hypertension) ASHD (arteriosclerotic heart disease) Surgical History S/P CABG (coronary artery bypass graft) H/O mechanical aortic valve replacement History of permanent cardiac pacemaker placement Status post tubal ligation S/P tonsillectomy H/O: hysterectomy Family History Mother Diabetes Grandfather Diabetes MATERNAL AND PATERNAL Grandmother Diabetes MATERNAL AND PATERNAL Family/Other Stroke MATERNAL AUNT Other CAD (coronary artery disease) Hyperlipidemia Hypertension Social History Smoking and tobacco/nicotine status: former use of tobacco/nicotine Quit status (tobacco/nicotine): has quit using Year quit tobacco: 2013 Former quit date comment: 1 ppd x 36 years Alcohol intake: never Substance/Drug Use: never Household members: spouse Marital status: Physical Exam Narrative: General: No acute distress, AO x3, morbidly obese HEENT: PERRLA, pupils bilaterally equal and reactive Chest: Normal vesicular breath sounds, occasional rhonchi, equal good air entry bilaterally CVS: S1-S2 regular, ejection click present in the aortic region radiating to pericardium, no tachycardia, no gallops, no rubs Abdomen: Soft, nontender, no organomegaly, bowel sounds present Neuro: No focal deficits, no facial deformity, AO x3, power 5/5 in all limbs Data 01/31/24 12:50 A&P Assessment and plan (1) H/O mechanical aortic valve replacement: On warfarin for anticoagulation with target INR 2.5-3.5. Last took warfarin on Sunday which is 4 days ago. Check INR. Start on heparin drip for bridging. Patient is allergic to Lovenox for the rash. Patient would most likely need heparin bridging to Coumadin again postoperatively. Check echocardiogram. Last echocardiogram 01/18/2021 shows an EF of 65 to 70%, mechanical aortic valve in situ with peak velocity of 2.9 with peak 19 mmHg (2) S/P CABG (coronary artery bypass graft): Denies any active chest pain. Continue with home dose of aspirin, beta-lakeshia with carvedilol twice daily. Check A1c, lipid panel. Patient is allergic to statins (3) Pacemaker: (4) Dyslipidemia: (5) Warfarin anticoagulation: (6) Diabetes: Insulin sliding scale at mild dose protocol. Continue with home dose of Lantus. Check A1c as above. Qualifiers: Diabetes mellitus type: type 2 Diabetes mellitus detention insulin use: without predatory animal exterminator use Diabetes mellitus complication status: with kidney complications Diabetes mellitus complication detail: with chronic kidney disease Chronic kidney disease stage: stage 3 (moderate) Qualified Code(s): E11.22 - Type 2 diabetes mellitus with diabetic chronic kidney disease; N18.3 - Chronic kidney disease, stage 3 (moderate) (7) Breast cancer metastasized to lung: Follows up with oncology as an outpatient. Plan for Port-A-Cath placement under primary/surgical team. Qualifiers: Laterality: left Qualified Code(s): C50.912 - Malignant neoplasm of unspecified site of left female breast; C78.02 - Secondary malignant neoplasm of left lung Plan Check CBC, CMP, A1c, lipid panel, iron panel, vitamin B12, folate level. Full code Cardiac carb consistent diet, n.p.o. after midnight Protonix OPD prophylaxis Heparin will be sufficient for DVT prophylaxis. Consult Attestations Medical Necessity Statement: Patient would require admission for more than 2 midnights for bridging from warfarin to heparin drip and vice versa perioperatively in a patient with history of aortic valve replacement, allergic to Lovenox Diagnoses H/O mechanical aortic valve replacement Z95.2 S/P CABG (coronary artery bypass graft) Z95.1 Pacemaker Z95.0 Dyslipidemia E78.5 Warfarin anticoagulation Z79.01 Type 2 diabetes mellitus with stage 3 chronic kidney disease, without long-term current use of insulin E11.22; N18.3 Diabetes mellitus type: type 2 Diabetes mellitus detention insulin use: without detention use Diabetes mellitus complication status: with kidney complications Diabetes mellitus complication detail: with chronic kidney disease Chronic kidney disease stage: stage 3 (moderate) Carcinoma of left breast metastatic to lung C50.912; C78.02 Laterality: left
[2024-01-31 12:00] VITALS: BP 162/107; PULSE 68; RESP 15; TEMP 36.7; O2SAT 100
[2024-01-31 13:04] LABS: Platelet Count 163 10^3/cmm (157-399)
[2024-01-31 13:13] LABS: INR 1.45 (0.8-1.2)
[2024-01-31 13:28] LABS: Thyroid Stimulating Hormone 1.83 uIU/mL (0.27-4.20)
[2024-01-31 13:34] VITALS: O2SAT 98
--- NOTE | 2024-01-31 14:02 | P.HP_ITS ---
Providers/Chief Complaint 2 Admitting Physician: Osbaldo Gilliam DO Primary Care Provider: Lalo Ortez DO Chief Complaint: Mediport Placement History of Present Illness Cami Martinez is a 63 year old female who presents to the hospital in order to bridge from Coumadin to heparin for a Mediport placement tomorrow. She has a Lovenox allergy and therefore cannot bridge with Lovenox. She likely will need to stay postoperatively to bridge back to Coumadin. She denies any abdominal pain, nausea, emesis, diarrhea, constipation, hematochezia and/or melena. Review of Systems 2 General: Reports: 10 or more systems reviewed and unremarkable except in HPI and below Medications/Allergies Home Medications Medication Instructions Recorded Confirmed Last Taken Type albuterol sulfate 90 mcg/actuation 2 puff inhalation BID PRN 06/15/22 01/23/24 06/26/22 History aerosol inhaler Shortness Of Breath cetirizine 10 mg tablet (Zyrtec) 10 mg PO DAILY PRN Allergy Symptoms 06/26/22 01/23/24 06/26/22 History albuterol sulfate 0.63 mg/3 mL 0.63 mg (3 mL) inhalation Q6H PRN 08/14/22 01/23/24 Unknown Rx solution for nebulization shortness of breath or wheezing #90 mL aspirin 81 mg tablet,delayed 81 mg PO DAILY 08/28/22 01/23/24 08/10/23 History release carvedilol 12.5 mg tablet 12.5 mg PO BID #180 tabs 03/02/23 01/23/24 08/10/23 Rx multivitamin 1 tab PO DAILY 04/13/23 01/14/24 08/10/23 History pen needle, diabetic 32 gauge x ##100 06/11/23 01/14/24 Unknown Rx 1/4 (TechLITE Pen Needle) tiotropium 2.5 mcg-olodaterol 2.5 2 puff inhalation DAILY #4 grams 06/12/23 01/23/24 08/10/23 Rx mcg/actuation mist for inhalation (Stiolto Respimat) amlodipine 5 mg tablet 5 mg PO BID #180 tabs 06/21/23 01/23/24 08/10/23 Rx ondansetron 4 mg disintegrating 4 mg PO DAILY PRN nausea and 07/16/23 01/23/24 Unknown Rx tablet vomiting 5 days #20 tabs warfarin 5 mg tablet See Rx Instructions .Route 08/08/23 01/25/24 08/10/23 Rx .COMPLEX #90 tabs anastrozole 1 mg tablet 1 mg PO DAILY #90 tabs 09/04/23 01/23/24 Unknown Rx insulin glargine 100 unit/mL (3 24 unit SUBCUT DAILY 10/25/23 01/23/24 Unknown History mL) subcutaneous pen (Lantus Solostar U-100 Insulin) prochlorperazine maleate 10 mg 10 mg PO Q6H PRN nausea and 10/30/23 01/23/24 Unknown Rx tablet vomiting #30 tabs lidocaine 5 % topical cream 1 applic topical BID PRN pain #30 11/20/23 01/14/24 Unknown Rx grams Allergies Allergy/AdvReac Type Severity Reaction Status Date / Time enoxaparin [From Lovenox] Allergy Unknown Unknown Verified 01/23/24 09:58 insulin glargine AdvReac Severe pain Verified 01/23/24 09:58 [From Basaglar KwikPen U-100 Insulin] lisinopril AdvReac Mild ADR-Nausea Verified 01/23/24 09:58 levothyroxine AdvReac ADR-Cramping Verified 01/23/24 09:58 of the Muscles metformin AdvReac ADR-Heartbu Verified 01/23/24 09:58 rn simvastatin AdvReac ADR-Nausea Verified 01/23/24 09:58 lipitor Allergy ADR-Vomitin Uncoded 01/23/24 09:58 g PFSH Acute 2 PFSH: Medical History Breast cancer Warfarin anticoagulation Pacemaker Syncope, cardiogenic Syncope and collapse Malignant neoplasm of breast metastatic to lung COPD (chronic obstructive pulmonary disease) Diabetes mellitus with cardiac complication Hypothyroid Obesity Dyslipidemia Diabetes Aortic stenosis HTN (hypertension) ASHD (arteriosclerotic heart disease) Surgical History S/P CABG (coronary artery bypass graft) H/O mechanical aortic valve replacement History of permanent cardiac pacemaker placement Status post tubal ligation S/P tonsillectomy H/O: hysterectomy Family History Mother Diabetes Grandfather Diabetes MATERNAL AND PATERNAL Grandmother Diabetes MATERNAL AND PATERNAL Family/Other Stroke MATERNAL AUNT Other CAD (coronary artery disease) Hyperlipidemia Hypertension Social History Smoking and tobacco/nicotine status: former use of tobacco/nicotine Quit status (tobacco/nicotine): has quit using Year quit tobacco: 2013 Former quit date comment: 1 ppd x 36 years Alcohol intake: never Substance/Drug Use: never Household members: spouse Marital status: Vitals/I&O/Wt Last Vital Signs Temp 98.0 F 01/31/24 12:00 Pulse 68 01/31/24 12:00 Resp 15 01/31/24 12:00 BP 162/107 01/31/24 12:00 Pulse Ox 98 01/31/24 13:34 O2 Del Method Room Air 01/31/24 13:34 Weight last 48 hrs Weight 237 lb 9.6 oz Physical Exam 2 Narrative: General : Patient is well developed , no acute distress, oriented x3 Head : Normal cephalic, a-traumatic. Ears : Pinnae and external canal are normal. Hearing is normal. Eyes : PERRLA, Sclera and injection are normal. No conjunctival discharge. Nose : Mucous membranes are without erythema. Throat : buccal mucosa is normal, gums are without significant recession or hypertrophy. Lungs : Equal chest rise bilaterally, no use of accessory muscles, trachea is midline. Cor : Rate and rhythm are normal. Abdomen : Soft, ND, NT, no g/r/m Extremities : No edema, no cyanosis or clubbing, dorsalis pedis pulses are present bilaterally, non-tender to palpation of calves. Upper extremities are normal bilaterally. Back : non-tender to palpation, no CVA tenderness. Neuro : CN II - XII intact, Upper and lower extremities have equal and full strength Data 01/31/24 12:50 A&P Assessment and plan (1) Breast cancer metastasized to lung: Qualifiers: Laterality: left Qualified Code(s): C50.912 - Malignant neoplasm of unspecified site of left female breast; C78.02 - Secondary malignant neoplasm of left lung (2) Warfarin anticoagulation: (3) H/O mechanical aortic valve replacement: (4) S/P CABG (coronary artery bypass graft): Plan Hospitalist consulted See orders Attestations 2 Medical Necessity Statement*: Patient required multiple nights in the hospital for bridging from Coumadin to heparin and back to Coumadin after Mediport placement tomorrow Coding Level of Care Code 66691 Diagnoses Carcinoma of left breast metastatic to lung C50.912; C78.02 Laterality: left Warfarin anticoagulation Z79.01 H/O mechanical aortic valve replacement Z95.2 S/P CABG (coronary artery bypass graft) Z95.1
[2024-01-31 14:20] LABS: Iron 56 ug/dL (37-145); Percent Saturation 17.7 % (20-50); Total Iron Binding Capacity 315 mcg/dl; Unsaturated Iron Binding 259 ug/dL (112-347)
[2024-01-31 14:37] LABS: Vitamin B12 510 pg/mL (232-1245)
--- NOTE | 2024-01-31 14:47 | XRR_ITS ---
PROCEDURE INFORMATION: Exam: XR Chest Exam date and time: 01/31/2024 2:56 PM Age: 63 years old Clinical indication: Shortness of breath TECHNIQUE: Imaging protocol: Radiologic exam of the chest. Views: 1 view. COMPARISON: CT chest abdpel w/*[id number] 07/23/2023 2:09 PM FINDINGS: Lungs: No focal consolidation. Pleural spaces: No evidence of pneumothorax. No evidence of pleural effusion. Heart/Mediastinum: Postsurgical changes of the mediastinum compatible with prior CABG/mitral valve replacement. Left subclavian approach dual-chamber pacemaker. Bones/joints: No evidence of acute osseous abnormality. XR/XR chest 1V portable [id number] IMPRESSION: 1. No acute cardiopulmonary abnormality.
--- NOTE | 2024-01-31 14:47 | ECG_ITS ---
[facility] Test Date: 2024-01-31 Pat Name: Cami Martinez Department: Room: 267 Gender: Female Pain Management Specialist: : 1960 Requested By: Teto Brantley Order Number: [id number] Margaret MD: Maikol Jensen M.D. Measurements Intervals [place] Rate: 70 P: -14 RI: 173 QRS: -24 QRSD: 113 T: 17 QT: 401 QTc: 434 Interpretive Statements SINUS RHYTHM BORDERLINE LEFT AXIS DEVIATION [QRS AXIS < -20] MODERATE INTRAVENTRICULAR CONDUCTION DELAY [110+ ms QRS DURATION] MINIMAL VOLTAGE CRITERIA FOR LVH, CONSIDER NORMAL VARIANT [MEETS CRITERIA IN ONE OF: R(aVL), S(V1), R(V5), R(V5/V6)+S(V1)] Compared to ECG 01/23/2024 09:40:24 Intraventricular conduction delay now present Atrial-paced complex(es) or rhythm no longer present T-wave abnormality no longer present Possible ischemia no longer present Electronically Signed On 01-31-2024 23:16:27 CDT by Maikol Jensen M.D. [id number]
[2024-01-31] MEDS: heparin 5,000 unit/mL INJ 1 mL IV (15:29)
[2024-01-31] MEDS: heparin drip 25,000 UNIT/500 ML PREMIX 31 UNIT IV (15:29)
[2024-01-31 16:00] VITALS: BP 173/81; PULSE 63; RESP 15; TEMP 36.8; O2SAT 98
[2024-01-31] MEDS: carvedilol 12.5 mg Tablet PO (17:53)
[2024-01-31] MEDS: amlodipine 5 mg Tablet PO (17:53)
[2024-01-31 18:15] LABS: Bilirubin Urine Neg (Negative); Blood Urine Neg (Negative); Glucose Urine UA Norm (Normal); Ketones Urine Negative (Negative); Nitrate Urine Negative (Negative); Protein Urine Neg (Negative); Urine Appearance Clear (CLEAR); Urine Color Straw (Yellow); Urobilinogen Urine Norm (Negative); pH Urine 8 (5-7)
[2024-01-31 18:16] LABS: Add Urine Microscopic? YES; Leukocyte Esterase Urine 1+ (Negative)
[2024-01-31 18:18] LABS: Add Urine Culture? No; Bacteria Urine TRACE /hpf; WBC Urine 0-4 /hpf (0-5)
[2024-01-31 18:56] LABS: Basophils # 0.1 10^3/uL (0.0-0.1); Basophils % 0.7 %; Eosinophils # 0.2 10^3/uL (0.0-0.8); Eosinophils % 3.5 %; Hematocrit 35.8 % (36-47); Lymphocytes # 1.4 10^3/uL (0.8-4.8); Lymphocytes % 21.1 %; Mean Corpuscular HGB Conc 33.5 g/dL (30-55); Mean Corpuscular Hemoglobin 29.5 pg (27-33); Mean Platelet Volume 11.9 fL (7.4-10.4); Monocytes # 0.6 10^3/uL (0.2-0.9); Monocytes % 8.5 %; Neutrophils # 4.46 10^3/uL (1.8-7.7); Neutrophils % 65.6 %; Nucleated Red Blood Cells % 0 %; Platelet Count 156 10^3/cmm (157-399); Red Blood Count 4.07 10^6/uL (3.85-5.65); Red Cell Distribution Width 12.9 % (12.1-15.1); White Blood Count 6.81 10^3/uL (3.29-11.43)
[2024-01-31 19:17] LABS: Alanine Aminotransferase 14 U/L (0-33); Albumin Level 3.6 g/dL (3.5-5.2); Alkaline Phosphatase 106 U/L (35-105); Anion Gap 13.2 (5-19); Aspartate Amino Transferase 16 U/L (0-32); Blood Urea Nitrogen 15 mg/dL (8-23); Calcium 8.7 mg/dL (8.5-10.5); Carbon Dioxide 26 mmol/L (22-29); Chloride 105 mmol/L (98-107); Creatinine Clr Calc Pharmacy 63.1731; Globulin 2.5 g/dL (1.3-4.6); Glomerular Filtration Rate 55.8 mL/min (90-130); Glucose 224 mg/dL (65-115); Osmolality Calculated 298 mOsm/kg (285-295); Potassium 4.2 mmol/L (3.5-5.1); Sodium 140 mmol/L (136-145); Total Bilirubin 0.3 mg/dL (0.15-1.2); Total Protein 6.1 g/dL (6.6-8.7)
[2024-01-31 20:00] VITALS: BP 160/85; PULSE 66; RESP 18; TEMP 36.8; O2SAT 96
[2024-01-31] MEDS: insulin glargine 100 units/1 mL 20 UNIT SUBCUT (21:11)
[2024-01-31 22:00] VITALS: PULSE 66
[2024-01-31 22:38] LABS: Partial Thromboplastin Time 235.9 SECONDS (23.9-36.7)
--- NOTE | 2024-01-31 22:42 | PC.NURSE ---
PTT is 235.9, Dr Marks notified, ordere rec'd to hold heparin drip for 2 hours then resume at 24 ml/hr and resume heparin protocol
[2024-02-01] VITALS (15 sets, daily range): BP systolic 133–210; BP diastolic 74–110; PULSE 63–96; RESP 15–18; TEMP 36.2–37.4; O2SAT 94–99; BMI 46.7
[2024-02-01 05:46] LABS: Basophils # 0.1 10^3/uL (0.0-0.1); Eosinophils # 0.2 10^3/uL (0.0-0.8); Eosinophils % 3.5 %; Hematocrit 34.4 % (36-47); Lymphocytes # 1.4 10^3/uL (0.8-4.8); Lymphocytes % 23.7 %; Mean Corpuscular HGB Conc 33.4 g/dL (30-55); Mean Corpuscular Hemoglobin 29.8 pg (27-33); Mean Corpuscular Volume 89.1 fl (85-98); Mean Platelet Volume 11.1 fL (7.4-10.4); Monocytes # 0.6 10^3/uL (0.2-0.9); Monocytes % 9.3 %; Neutrophils # 3.73 10^3/uL (1.8-7.7); Neutrophils % 61.7 %; Nucleated Red Blood Cells % 0 %; Platelet Count 146 10^3/cmm (157-399); Red Blood Count 3.86 10^6/uL (3.85-5.65); Red Cell Distribution Width 12.9 % (12.1-15.1); White Blood Count 6.04 10^3/uL (3.29-11.43)
[2024-02-01 06:01] LABS: Partial Thromboplastin Time 89.6 SECONDS (23.9-36.7)
[2024-02-01 06:09] LABS: Alanine Aminotransferase 14 U/L (0-33); Albumin Level 3.5 g/dL (3.5-5.2); Alkaline Phosphatase 93 U/L (35-105); Anion Gap 12.8 (5-19); Aspartate Amino Transferase 14 U/L (0-32); Blood Urea Nitrogen 15 mg/dL (8-23); Calcium 9.2 mg/dL (8.5-10.5); Carbon Dioxide 25 mmol/L (22-29); Chloride 106 mmol/L (98-107); Creatinine Clr Calc Pharmacy 79.3934; Globulin 2.5 g/dL (1.3-4.6); Glomerular Filtration Rate 72.2 mL/min (90-130); Glucose 160 mg/dL (65-115); Magnesium 1.9 mg/dL (1.7-2.3); Osmolality Calculated 294 mOsm/kg (285-295); Phosphorus 3.5 mg/dL (2.5-4.5); Potassium 3.8 mmol/L (3.5-5.1); Sodium 140 mmol/L (136-145); Total Bilirubin 0.4 mg/dL (0.15-1.2)
[2024-02-01 06:22] LABS: Glucose Point of Care 161 mg/dL (70-110)
[2024-02-01 08:07] LABS: Folate Level 15.5 ng/mL (4.8-37.3)
[2024-02-01] MEDS: carvedilol 12.5 mg Tablet PO ×2 (09:14→18:13)
[2024-02-01] MEDS: aspirin 81 mg EC Tablet PO (09:14)
[2024-02-01] MEDS: pantoprazole DR 40 mg Tablet PO (09:14)
[2024-02-01] MEDS: amlodipine 5 mg Tablet PO ×2 (09:14→18:13)
--- NOTE | 2024-02-01 10:54 | PC.NURSE ---
Heparin drip stopped at this time per Dr. Gilliam order.
--- NOTE | 2024-02-01 11:09 | XR_ITS ---
WS: [id number] XR chest 1V portable [id number] REASON FOR EXAM: Postop Mediport placement FINDINGS: Chemotherapy infusion port over the left chest. Port catheter trans right subclavian vein with the tip in the mid superior vena cava. Atelectasis in the right middle lobe resolving. XR/XR chest 1V portable [id number] IMPRESSION: Right-sided chemotherapy infusion port and catheter in proper position. Resolving right middle lobe atelectasis.
--- NOTE | 2024-02-01 11:09 | SC_ITS ---
WS: [id number] C-arm FL for CVA [id number] REASON FOR EXAM: Mediport placement FINDINGS: Chemotherapy infusion port in place over the right anterolateral chest. Trans left subclavian vein port catheter with the tip in the mid superior vena cava. Atelectasis in the right middle lobe. No pneumothorax. SC/C-arm FL for CVA [id number] IMPRESSION: Chemotherapy infusion port and catheter on the right in proper position. No complication.
[2024-02-01 11:23] LABS: Glucose Point of Care 140 mg/dL (70-110)
--- NOTE | 2024-02-01 12:25 | ANES.PREANE2 ---
Pre-Anesthetic Assessment Height/Weight: Height 1.52 m Weight 108.726 kg Temp Pulse Resp BP Pulse Ox O2 Del Method 98.3 F 68 17 210/110 98 Room Air 02/01/24 11:15 02/01/24 11:15 02/01/24 11:15 02/01/24 11:15 02/01/24 11:15 02/01/24 07:46 Operation Date: 02/01/24 12:00 Proposed Procedures p Portacath Placement 66999, C50.912(Not Applicable) - Osbaldo Gilliam DO Last intake: Intake Last Liquid Date 01/31/24 Last Liquid Time 23:59 Last Solid Date 01/31/24 Last Solid Time 20:00 Social No alcohol and No tobacco Airway Mallampati: Class II Pulmonary Asthma CV/HEM Atrial Fibrillation and Coronary Artery Disease Pacemaker Metabolic Diabetes Mellitus and Morbid Obesity Anesthetic Plan ASA status: 4 Anesthesia: MAC Medications/Allergies Home Medications Medication Instructions Recorded Confirmed Last Taken Type albuterol sulfate 90 mcg/actuation 2 puff inhalation BID PRN 06/15/22 01/31/24 01/31/24 08:00 History aerosol inhaler Shortness Of Breath cetirizine 10 mg tablet (Zyrtec) 10 mg PO DAILY PRN Allergy Symptoms 06/26/22 01/31/24 01/31/24 08:00 History albuterol sulfate 0.63 mg/3 mL 0.63 mg (3 mL) inhalation Q6H PRN 08/14/22 01/31/24 01/31/24 08:00 Rx solution for nebulization shortness of breath or wheezing #90 mL aspirin 81 mg tablet,delayed 81 mg PO DAILY 08/28/22 01/31/24 01/31/24 08:00 History release carvedilol 12.5 mg tablet 12.5 mg PO BID #180 tabs 03/02/23 01/31/24 01/31/24 08:00 Rx multivitamin 1 tab PO DAILY 04/13/23 01/31/24 01/31/24 08:00 History pen needle, diabetic 32 gauge x ##100 06/11/23 01/31/24 Unknown Rx 1/4 (TechLITE Pen Needle) tiotropium 2.5 mcg-olodaterol 2.5 2 puff inhalation DAILY #4 grams 06/12/23 01/31/24 01/31/24 08:00 Rx mcg/actuation mist for inhalation (Stiolto Respimat) amlodipine 5 mg tablet 5 mg PO BID #180 tabs 06/21/23 01/31/24 01/31/24 08:00 Rx ondansetron 4 mg disintegrating 4 mg PO DAILY PRN nausea and 07/16/23 01/31/24 Unknown Rx tablet vomiting 5 days #20 tabs warfarin 5 mg tablet See Rx Instructions .Route 08/08/23 01/31/24 01/27/24 Rx .COMPLEX #90 tabs anastrozole 1 mg tablet 1 mg PO DAILY #90 tabs 09/04/23 01/31/24 01/31/24 08:00 Rx insulin glargine 100 unit/mL (3 24 unit SUBCUT DAILY 10/25/23 01/31/24 01/30/24 19:00 History mL) subcutaneous pen (Lantus Solostar U-100 Insulin) prochlorperazine maleate 10 mg 10 mg PO Q6H PRN nausea and 10/30/23 01/31/24 Unknown Rx tablet vomiting #30 tabs lidocaine 5 % topical cream 1 applic topical BID PRN pain #30 11/20/23 01/31/24 Unknown Rx grams Allergies Allergy/AdvReac Type Severity Reaction Status Date / Time enoxaparin [From Lovenox] Allergy Unknown Unknown Verified 01/23/24 09:58 insulin glargine AdvReac Severe pain Verified 01/23/24 09:58 [From Basaglar KwikPen U-100 Insulin] lisinopril AdvReac Mild ADR-Nausea Verified 01/23/24 09:58 levothyroxine AdvReac ADR-Cramping Verified 01/23/24 09:58 of the Muscles metformin AdvReac ADR-Heartbu Verified 01/23/24 09:58 rn simvastatin AdvReac ADR-Nausea Verified 01/23/24 09:58 lipitor Allergy ADR-Vomitin Uncoded 01/23/24 09:58 g Current Medications Generic Name Dose Route Start Last Admin Trade Name Freq PRN Reason Stop Dose Admin Amlodipine Besylate 5 mg 01/31/24 18:00 02/01/24 09:14 Amlodipine 5 Mg Tablet PO 5 mg BID KRISTIN Administration Aspirin 81 mg 02/01/24 09:00 02/01/24 09:14 Aspirin 81 Mg Ec Tablet PO 81 mg DAILY KRISTIN Administration Carvedilol 12.5 mg 01/31/24 18:00 02/01/24 09:14 Carvedilol 12.5 Mg Tablet PO 12.5 mg BID KRISTIN Administration Heparin Sodium (Porcine) 0 unit 01/31/24 11:41 01/31/24 15:29 Heparin 5,000 Unit/Ml Inj 1 Ml IV 7,000 unit PRN PRN Administration Heparin weight-base protocol Protocol Heparin Sodium/Sodium Chloride 25,000 unit in 500 mls @ 0 mls/hr 01/31/24 11:45 02/01/24 06:32 Heparin Drip IV 9.28 unit/kg/hr .Q0M KRISTIN 20 mls/hr Titration Protocol Per Protocol Insulin Glargine 20 unit 01/31/24 21:00 01/31/24 21:11 Insulin Glargine 100 Units/1 Ml SUBCUT 20 unit BEDTIME KRISTIN Administration Insulin Human Lispro 0 unit 01/31/24 12:00 02/01/24 09:13 Insulin Lispro 100 Unit/1 Ml SUBCUT Not Given WM&BEDTIME KRISTIN Protocol Pantoprazole Sodium 40 mg 02/01/24 09:00 02/01/24 09:[address] 40 Mg Tablet PO 40 mg DAILY KRISTIN Administration [facility] Anesthesia Medical History Breast cancer Warfarin anticoagulation Pacemaker Syncope, cardiogenic Syncope and collapse Malignant neoplasm of breast metastatic to lung COPD (chronic obstructive pulmonary disease) Diabetes mellitus with cardiac complication Hypothyroid Obesity Dyslipidemia Diabetes Aortic stenosis HTN (hypertension) ASHD (arteriosclerotic heart disease) Surgical History S/P CABG (coronary artery bypass graft) H/O mechanical aortic valve replacement History of permanent cardiac pacemaker placement Status post tubal ligation S/P tonsillectomy H/O: hysterectomy Family History Mother Diabetes Grandfather Diabetes MATERNAL AND PATERNAL Grandmother Diabetes MATERNAL AND PATERNAL Family/Other Stroke MATERNAL AUNT Other CAD (coronary artery disease) Hyperlipidemia Hypertension Social History Smoking and tobacco/nicotine status: former use of tobacco/nicotine Quit status (tobacco/nicotine): has quit using Year quit tobacco: 2013 Former quit date comment: 1 ppd x 36 years Alcohol intake: never Substance/Drug Use: never Household members: spouse Marital status: Data Anesthesia 02/01/24 05:28 02/01/24 05:28 Short CBC 01/31/24 01/31/24 02/01/24 Range/Units 12:50 18:21 05:28 WBC 6.81 6.04 (3.29-11.43) 10^3/uL Hgb 12.00 11.50 (11.27-16.99) g/dL Hct 35.8 L 34.4 L (36-47) % MCV 88.0 89.1 (85-98) fl Plt Count 163 156 L 146 L (157-399) 10^3/cmm Neut % (Auto) 65.6 61.7 % Neut # (Auto) 4.46 3.73 (1.8-7.7) 10^3/uL BMP 01/31/24 02/01/24 18:21 05:28 Sodium 140 140 Potassium 4.2 3.8 Chloride 105 106 Carbon Dioxide 26 25 BUN 15 15 Creatinine 1.0 H 0.8 Glucose 224 H 160 H Calcium 8.7 9.2 Liver Function 01/31/24 02/01/24 Range/Units 18:21 05:28 Total Bilirubin 0.3 0.4 (0.15-1.2) mg/dL AST 16 14 (0-32) U/L ALT 14 14 (0-33) U/L Alkaline Phosphatase 106 H 93 (35-105) U/L Albumin 3.6 3.5 (3.5-5.2) g/dL Urine 01/31/24 Range/Units 17:55 Urine Color Straw (Yellow) Urine Appearance Clear (CLEAR) Urine pH 8 H (5-7) Ur Specific Hume 1.010 (1.005-1.030) Urine Protein Neg (Negative) Urine Glucose (UA) Norm (Normal) Urine Ketones Negative (Negative) Urine Nitrate Negative (Negative) Urine Bilirubin Neg (Negative) Ur Leukocyte Esterase 1+ H (Negative) Urine RBC None (0-2) /hpf Urine WBC 0-4 H (0-5) /hpf Coags 01/31/24 01/31/24 02/01/24 12:50 22:00 05:28 PT 18.10 H INR 1.45 H APTT 235.9 H* 89.6 H D Cardiac Studies: Echocardiogram Ultrasound 06/02/21 Sestamibi Stress Test (Cardiology) 03/01/22
--- NOTE | 2024-02-01 12:32 | P.PN_ITS ---
Vitals/I&O/Wt Last Vital Signs Temp 98.3 F 02/01/24 11:15 Pulse 68 02/01/24 11:15 Resp 17 02/01/24 11:15 BP 210/110 02/01/24 11:15 Pulse Ox 98 02/01/24 11:15 O2 Del Method Room Air 02/01/24 07:46 01/31/24 02/01/24 02/01/24 22:59 06:59 14:59 Intake Total 1304.75 / 1304.75 756.8 / 2061.55 Output Total 300 / 300 Balance 1004.75 / 1004.75 756.8 / 1761.55 Weight last 48 hrs Weight 239 lb 11.2 oz Weight 239 lb 11.2 oz Weight 237 lb 9.6 oz Data 02/01/24 05:28 02/01/24 05:28 A&P Assessment and plan (1) Breast cancer metastasized to lung: Qualifiers: Laterality: left Qualified Code(s): C50.912 - Malignant neoplasm of unspecified site of left female breast; C78.02 - Secondary malignant neoplasm of left lung (2) Warfarin anticoagulation: (3) H/O mechanical aortic valve replacement: (4) S/P CABG (coronary artery bypass graft): Plan Mediport placement The risks and benefits of the procedure, including but not limited to, bleeding, infection, infection requiring Mediport removal antibiotic therapy and repeat surgery, damage to surrounding structures, scar, numbness, pain, pneumothorax requiring thoracostomy tube, were explained to the patient. He/She is understanding of the risks and wishes to proceed. Attestations 2 Medical Necessity Statement*: Patient will require multiple nights in the hospital for bridging from heparin to Coumadin after the procedure Coding Level of Care Code Acute Code for Chg Fwd Diagnoses Carcinoma of left breast metastatic to lung C50.912; C78.02 Laterality: left Warfarin anticoagulation Z79.01 H/O mechanical aortic valve replacement Z95.2 S/P CABG (coronary artery bypass graft) Z95.1
[2024-02-01 12:47] LABS: Partial Thromboplastin Time 30.1 SECONDS (23.9-36.7)
[2024-02-01] MEDS: ceFAZolin 2,000 MG in sodium chloride 0.9% (plus) 50 ML 100 MG IV (12:56)
[2024-02-01] MEDS: heparin, porcine 1,000 unit/mL INJ 10 mL 10000 UNIT IRRIGATION (13:29)
--- NOTE | 2024-02-01 13:34 | P.OP_ITS ---
Operative Report Date of procedure: February 01, 2024 Pre-op diagnosis: Breast cancer Post-op diagnosis: same Procedure done: Mediport placement Intraoperative interpretation of fluoroscopy Implants: PowerPort Specimens removed/disposition: None Surgeon: Osbaldo Gilliam DO Anesthesia: MAC and Local Estimated blood loss (mL): 5 Complications: None apparent Brief History: This very pleasant 63-year-old female with left breast cancer. Oncology requested Mediport placement. The risk and benefits were explained and docu mented. Procedure: The patient was taken to the operating room and placed supine on the operating room table. All bony prominences were padded. She was given IV sedation and monitored throughout the case by the anesthesia personnel. SCDs were placed and turned on. The arms were tucked to the side. Patient received Ancef 2 g preoperatively IV. The bilateral chest wall was prepped and draped in usual sterile fashion using chlorhexidine base prep. Sterile drapes were applied. We did procedure pause prior to beginning. An 18 gauge needle was placed in the right subclavian vein. Dark, nonpulsatile blood was aspirated. A guidewire was placed through the needle centrally toward the atrial/vena caval junction. Fluoroscopy visualized good placement. The needle was removed and the guidewire was clipped to the drape with a hemostat. Further local anesthetic was infiltrated in the soft tissues of the right chest wall and a #15 blade was used to make a horizontal skin incision. A subcutaneous Mediport pocket was created using Bovie cautery, dissecting down through the skin and subcutaneous tissues. Meticulous hemostasis was achieved. The Mediport was sutured in position using 3-0 vicryl suture x2 stitches. A #15 blade was used to make a small skin sosa around the guidewire insertion area. The Mediport tubing was tunneled through the subcutaneous tissues up to the needle insertion location. A dilator with a peel-away sheath was placed over the guidewire and placed centrally. After measuring the Mediport tubing was cut to length so that the tip would end at the atrial/vena caval junction. The inner cannula and the guidewire were removed, leaving the dilator sheath in place. The Mediport was flushed. The tip of the catheter was inserted through the peel-away sheath and the peel-away sheath removed in the standard fashion. The Mediport was accessed with a straight Daigle needle and dark, nonpulsatile blood was aspirated and flushed using heparinized saline to hep-lock the Mediport. Final fluoroscopy visualization showed no kink in the catheter and the tip of the Mediport tubing near the atrial/vena caval junction. There is no obvious pneumothorax. Both skin incisions were thoroughly irrigated and suctioned dry. Meticulous hemostasis noted. The dermis was approximated with 3-0 Vicryl in an interrupted fashion. Skin was closed with Dermabond. Patient was awakened from anesthesia and transferred via her cart to the recovery room in stable condition. All needle, sponge, and instrument counts were correct per the operating personnel x2 counts.
[2024-02-01] MEDS: lidocaine-epi 2% PF 1:200,000 20 mL SDV XX (13:38)
--- NOTE | 2024-02-01 14:48 | SUR.PHASEI ---
Patient transported back to floor room. Report given to Sonia. PAtient ambulated from rney to bed and tolerated well. Patient awake and alert, no pain stated. Patients in room. CXR done in pacu and read in pacu by camille elmore. VS charted.
--- NOTE | 2024-02-01 15:22 | P.PN_ITS ---
Subjective 2 Subjective: No acute events overnight. Today morning seen preoperatively. Patient seen with spouse at bedside. States she is feeling a lot better. Does not feel any heaviness in chest anymore. Continued on heparin drip overnight. Vitals/I&O/Wt Last Vital Signs Temp 97.8 F 02/01/24 14:25 Pulse 73 02/01/24 14:25 Resp 17 02/01/24 14:25 BP 160/81 02/01/24 14:25 Pulse Ox 96 02/01/24 14:25 O2 Del Method Room Air 02/01/24 14:25 02/01/24 02/01/24 02/01/24 06:59 14:59 22:59 Intake Total 756.8 / 2061.55 450 / 450 Output Total / Balance 756.8 / 1761.55 448 / 448 Weight last 48 hrs Weight 108.726 kg Weight 108.726 kg Weight 107.774 kg Physical Exam 2 Narrative: General: No acute distress, AO x3, morbidly obese HEENT: PERRLA, pupils bilaterally equal and reactive Chest: Normal vesicular breath sounds, occasional rhonchi, equal good air entry bilaterally CVS: S1-S2 regular, ejection click present in the aortic region radiating to pericardium, no tachycardia, no gallops, no rubs Abdomen: Soft, nontender, no organomegaly, bowel sounds present Neuro: No focal deficits, no facial deformity, AO x3, power 5/5 in all limbs Data 02/01/24 05:28 02/01/24 05:28 A&P Assessment and plan (1) H/O mechanical aortic valve replacement: On warfarin for anticoagulation with target INR 2.5-3.5. Last took warfarin on Sunday which is 4 days ago. Patient is allergic to Lovenox. Appreciate INR yesterday. Patient postoperative now. Restart heparin drip in few hours. Restart Coumadin as per home dose today. Will plan to check INR daily. Continue bridging from heparin drip to Coumadin till target INR of 2.5-3.5 is reached. Appreciate echocardiogram results of EF 55 to 60%, grade 1 diastolic dysfunction, trace MR, bioprosthetic valve with mean gradient of 13.8 mmHg, mild TR. (2) S/P CABG (coronary artery bypass graft): Denies any active chest pain. Continue with home dose of aspirin, beta-lakeshia with carvedilol twice daily. Appreciate recent A1c, lipid panel. Patient is allergic to statins (3) Pacemaker: (4) Dyslipidemia: (5) Warfarin anticoagulation: (6) Diabetes: Insulin sliding scale at mild dose protocol. Continue with home dose of Lantus. 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 Post Port-A-Cath placement on 01/31. Qualifiers: Laterality: left Qualified Code(s): C50.912 - Malignant neoplasm of unspecified site of left female breast; C78.02 - Secondary malignant neoplasm of left lung Plan Hypertension: Goal blood pressure less than 140/90 mmHg. For now continue with home dose of amlodipine and Coreg. Will uptitrate as for goal blood pressures. If needed will add losartan. Full code Cardiac carb consistent diet, Protonix OPD prophylaxis Heparin will be sufficient for DVT prophylaxis. Getting bridged over with Coumadin Attestations 2 Medical Necessity Statement*: Requires further hospitalization for bridging of anticoagulation from heparin to Coumadin in a patient with history of mechanical aortic valve currently admitted for Port-A-Cath placement Diagnoses H/O mechanical aortic valve replacement Z95.2 S/P CABG (coronary artery bypass graft) Z95.1 Pacemaker Z95.0 Dyslipidemia E78.5 Warfarin anticoagulation Z79.01 Type 2 diabetes mellitus with stage 3 chronic kidney disease, without long-term current use of insulin E11.22; N18.3 Diabetes mellitus type: type 2 Diabetes mellitus termite control representative insulin use: without group home use Diabetes mellitus complication status: with kidney complications Diabetes mellitus complication detail: with chronic kidney disease Chronic kidney disease stage: stage 3 (moderate) Carcinoma of left breast metastatic to lung C50.912; C78.02 Laterality: left
--- NOTE | 2024-02-01 16:00 | PC.NURSE ---
Patient's Heparin drip restarted at [address] Reza orders. Scheduled PTT for 6 hours later.
[2024-02-01 16:15] LABS: INR 1.23 (0.8-1.2)
[2024-02-01] MEDS: warfarin 5 mg Tablet PO (17:15)
[2024-02-01] MEDS: warfarin 2 mg Tablet PO (17:15)
[2024-02-01] MEDS: heparin drip 25,000 UNIT/500 ML PREMIX 20 UNIT IV (17:17)
--- NOTE | 2024-02-01 17:33 | PC.NURSE ---
Patient's Heparin drip restarted at 0400
[2024-02-01] MEDS: sodium chloride 0.9% 1,000 ML 30 ML IV (18:15)
[2024-02-01] MEDS: heparin 5,000 unit/mL INJ 1 mL IV (21:48)
[2024-02-01 21:55] LABS: Glucose Point of Care 304 mg/dL (70-110)
[2024-02-01] MEDS: insulin glargine 100 units/1 mL 20 UNIT SUBCUT (21:55)
[2024-02-02] VITALS (9 sets, daily range): BP systolic 140–169; BP diastolic 72–77; PULSE 63–73; RESP 16–18; TEMP 36.7–37.2; O2SAT 95–98
[2024-02-02 03:14] LABS: Platelet Count 142 10^3/cmm (157-399)
[2024-02-02 06:47] LABS: Glucose Point of Care 185 mg/dL (70-110)
[2024-02-02] MEDS: carvedilol 12.5 mg Tablet PO ×2 (09:17→17:49)
[2024-02-02] MEDS: amlodipine 5 mg Tablet PO ×2 (09:17→17:49)
[2024-02-02] MEDS: pantoprazole DR 40 mg Tablet PO (09:17)
[2024-02-02] MEDS: aspirin 81 mg EC Tablet PO (09:17)
[2024-02-02 10:14] LABS: Partial Thromboplastin Time 51.7 SECONDS (23.9-36.7)
[2024-02-02 10:56] LABS: Glucose Point of Care 265 mg/dL (70-110)
[2024-02-02] MEDS: insulin lispro 100 unit/1 mL SUBCUT (12:49)
[2024-02-02] MEDS: warfarin 2 mg Tablet PO (12:50)
[2024-02-02] MEDS: warfarin 5 mg Tablet PO (12:51)
--- NOTE | 2024-02-02 16:22 | P.PN_ITS ---
Subjective 2 Subjective: No acute events overnight. Patient has remained hemodynamically stable and afebrile. Patient declined subcu premeals insulin. Otherwise denies any new complaints. States he is feeling better. Vitals/I&O/Wt Last Vital Signs Temp 98.3 F 02/02/24 11:27 Pulse 69 02/02/24 11:31 Resp 18 02/02/24 11:31 BP 169/72 02/02/24 11:27 Pulse Ox 98 02/02/24 11:31 O2 Del Method Room Air 02/02/24 11:31 02/02/24 02/02/24 02/02/24 06:59 14:59 22:59 Intake Total 268.4 / 1283.517 603.3 / 603.3 Balance 268.4 / 1281.517 603.3 / 603.3 Weight last 48 hrs Weight 108.097 kg Weight 108.068 kg Weight 108.726 kg Weight 108.726 kg Physical Exam 2 Narrative: General: No acute distress, AO x3, morbidly obese HEENT: PERRLA, pupils bilaterally equal and reactive Chest: Normal vesicular breath sounds, occasional rhonchi, equal good air entry bilaterally CVS: S1-S2 regular, ejection click present in the aortic region radiating to pericardium, no tachycardia, no gallops, no rubs Abdomen: Soft, nontender, no organomegaly, bowel sounds present Neuro: No focal deficits, no facial deformity, AO x3, power 5/5 in all limbs Data 02/02/24 03:07 02/01/24 05:28 A&P Assessment and plan (1) H/O mechanical aortic valve replacement: On warfarin for anticoagulation with target INR 2.5-3.5. Last took warfarin on Sunday which is 4 days ago. Patient is allergic to Lovenox. Appreciate INR yesterday. Patient postoperative now. Restart heparin drip in few hours. Restart Coumadin as per home dose today. Will plan to check INR daily. Continue bridging from heparin drip to Coumadin till target INR of 2.5-3.5 is reached. Appreciate echocardiogram results of EF 55 to 60%, grade 1 diastolic dysfunction, trace MR, bioprosthetic valve with mean gradient of 13.8 mmHg, mild TR. (2) S/P CABG (coronary artery bypass graft): Denies any active chest pain. Continue with home dose of aspirin, beta-lakeshia with carvedilol twice daily. Appreciate recent A1c, lipid panel. Patient is allergic to statins (3) Pacemaker: (4) Dyslipidemia: (5) Warfarin anticoagulation: (6) Diabetes: Insulin sliding scale at mild dose protocol. Continue with home dose of Lantus. 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 Post Port-A-Cath placement on 01/31. Qualifiers: Laterality: left Qualified Code(s): C50.912 - Malignant neoplasm of unspecified site of left female breast; C78.02 - Secondary malignant neoplasm of left lung Plan Hypertension: Goal blood pressure less than 140/90 mmHg. For now continue with home dose of amlodipine and Coreg. Will uptitrate as for goal blood pressures. If needed will add losartan. Plan for the day: Post Port-A-Cath placement yesterday. Continue heparin drip. Restarted home dose of Coumadin. Check INR daily. Continue with bridging. Target INR of 2.5-3.5 is reached. Monitor PTT. Blood sugar elevated. Patient is agreeable for Premeal checks and insulin as needed. Increase nighttime Lantus to 26 units. Blood pressure is elevated. Patient would like to discuss further with her outpatient provider before increasing any antihypertensives. Discussed that her goal blood pressure should be less than 140/90 mmHg. Full code Cardiac carb consistent diet, Protonix OPD prophylaxis Heparin will be sufficient for DVT prophylaxis. Getting bridged over with Coumadin Attestations 2 Medical Necessity Statement*: Requires further hospitalization while bridging from heparin drip to Coumadin is completed in a patient with mechanical aortic valve, CABG who underwent Port-A-Cath placement Diagnoses H/O mechanical aortic valve replacement Z95.2 S/P CABG (coronary artery bypass graft) Z95.1 Pacemaker Z95.0 Dyslipidemia E78.5 Warfarin anticoagulation Z79.01 Type 2 diabetes mellitus with stage 3 chronic kidney disease, without long-term current use of insulin E11.22; N18.3 Diabetes mellitus type: type 2 Diabetes mellitus laborer marine terminal insulin use: without laborer marine terminal use Diabetes mellitus complication status: with kidney complications Diabetes mellitus complication detail: with chronic kidney disease Chronic kidney disease stage: stage 3 (moderate) Carcinoma of left breast metastatic to lung C50.912; C78.02 Laterality: left
[2024-02-02 17:34] LABS: Glucose Point of Care 211 mg/dL (70-110)
--- NOTE | 2024-02-02 18:23 | PC.NURSE ---
pts ptt was drwan when scheduled @1640 by lab. lab did not get an adequate amt of blood to run ptt. redrawn, no results at this time.
[2024-02-02 18:34] LABS: Partial Thromboplastin Time 48.9 SECONDS (23.9-36.7)
--- NOTE | 2024-02-02 19:09 | PC.NURSE ---
ptt results entered, this nurse and noc nurse entered pts room and discussed the lab results, pt stated, that's not right! she chemo it from the same arm and it wasn't paused. pts heparin drip was not paused.
[2024-02-02 20:35] LABS: Partial Thromboplastin Time 32.5 SECONDS (23.9-36.7)
[2024-02-02] MEDS: heparin drip 25,000 UNIT/500 ML PREMIX 20 UNIT IV (20:47)
[2024-02-02] MEDS: heparin 5,000 unit/mL INJ 1 mL IV (20:51)
[2024-02-02 21:07] LABS: Glucose Point of Care 291 mg/dL (70-110)
[2024-02-02] MEDS: insulin glargine 100 units/1 mL 26 UNIT SUBCUT (21:16)
--- NOTE | 2024-02-02 23:20 | P.PN_ITS ---
Subjective 2 Subjective: Patient seen and examined. INR is still subtherapeutic and she is on a heparin drip. She denies any pain or other symptoms Vitals/I&O/Wt Last Vital Signs Temp 98.4 F 02/03/24 12:00 Pulse 67 02/03/24 12:00 Resp 18 02/03/24 12:00 BP 168/105 02/03/24 12:00 Pulse Ox 96 02/03/24 12:00 O2 Del Method Room Air 02/03/24 12:00 02/02/24 02/03/24 02/03/24 22:59 06:59 14:59 Intake Total 502.966 / 1106.266 411.167 / 1517.433 745.667 / 745.667 Balance 502.966 / 1106.266 411.167 / 1517.433 745.667 / 745.667 Weight last 48 hrs Weight 238 lb 1 oz Weight 238 lb 5 oz Weight 238 lb 4 oz Physical Exam 2 Narrative: General: No acute distress, awake alert and oriented x 3 Skin: Incision intact without erythema or exudate Data 02/03/24 02:47 02/03/24 02:47 A&P Assessment and plan (1) Breast cancer metastasized to lung: Qualifiers: Laterality: left Qualified Code(s): C50.912 - Malignant neoplasm of unspecified site of left female breast; C78.02 - Secondary malignant neoplasm of left lung (2) S/P CABG (coronary artery bypass graft): (3) H/O mechanical aortic valve replacement: (4) Warfarin anticoagulation: Plan Continue bridging to Coumadin with heparin Hospitalist consulted-appreciate recommendations Awaiting therapeutic INR, between 2.5 and 3.5, for discharge Attestations 2 Medical Necessity Statement*: Patient will require at least 1 more night in the hospital for bridging to Coumadin with heparin. INR is still subtherapeutic Coding Level of Care Code 22289 Diagnoses Carcinoma of left breast metastatic to lung C50.912; C78.02 Laterality: left S/P CABG (coronary artery bypass graft) Z95.1 H/O mechanical aortic valve replacement Z95.2 Warfarin anticoagulation Z79.01
[2024-02-03] VITALS (10 sets, daily range): BP systolic 142–168; BP diastolic 77–105; PULSE 64–74; RESP 16–20; TEMP 36.7–36.9; O2SAT 96–98
[2024-02-03 02:56] LABS: Basophils % 0.5 %; Eosinophils # 0.3 10^3/uL (0.0-0.8); Eosinophils % 3.9 %; Hematocrit 32.2 % (36-47); Lymphocytes # 1.5 10^3/uL (0.8-4.8); Lymphocytes % 22.7 %; Mean Corpuscular HGB Conc 33.9 g/dL (30-55); Mean Corpuscular Hemoglobin 29.9 pg (27-33); Mean Corpuscular Volume 88.5 fl (85-98); Mean Platelet Volume 11.7 fL (7.4-10.4); Monocytes # 0.7 10^3/uL (0.2-0.9); Monocytes % 10.2 %; Neutrophils # 4.03 10^3/uL (1.8-7.7); Neutrophils % 61.9 %; Nucleated Red Blood Cells % 0 %; Platelet Count 135 10^3/cmm (157-399); Red Blood Count 3.64 10^6/uL (3.85-5.65); Red Cell Distribution Width 13.1 % (12.1-15.1); White Blood Count 6.49 10^3/uL (3.29-11.43)
[2024-02-03 03:16] LABS: Alanine Aminotransferase 11 U/L (0-33); Albumin Level 3.5 g/dL (3.5-5.2); Alkaline Phosphatase 88 U/L (35-105); Aspartate Amino Transferase 12 U/L (0-32); Blood Urea Nitrogen 16 mg/dL (8-23); Calcium 9.3 mg/dL (8.5-10.5); Carbon Dioxide 25 mmol/L (22-29); Chloride 106 mmol/L (98-107); Creatinine Clr Calc Pharmacy 79.1112; Globulin 2.3 g/dL (1.3-4.6); Glomerular Filtration Rate 72.2 mL/min (90-130); Glucose 196 mg/dL (65-115); Osmolality Calculated 297 mOsm/kg (285-295); Sodium 140 mmol/L (136-145); Total Bilirubin 0.3 mg/dL (0.15-1.2); Total Protein 5.8 g/dL (6.6-8.7)
[2024-02-03 03:19] LABS: Partial Thromboplastin Time 138.7 SECONDS (23.9-36.7)
[2024-02-03 07:32] LABS: Glucose Point of Care 196 mg/dL (70-110)
[2024-02-03] MEDS: pantoprazole DR 40 mg Tablet PO (08:06)
[2024-02-03] MEDS: carvedilol 12.5 mg Tablet PO ×2 (08:06→17:43)
[2024-02-03] MEDS: aspirin 81 mg EC Tablet PO (08:06)
[2024-02-03] MEDS: insulin lispro 100 unit/1 mL SUBCUT ×4 (08:06→21:07)
[2024-02-03] MEDS: amlodipine 5 mg Tablet PO ×2 (08:06→17:43)
[2024-02-03 09:34] LABS: Partial Thromboplastin Time 68.2 SECONDS (23.9-36.7)
[2024-02-03 11:45] LABS: Glucose Point of Care 233 mg/dL (70-110)
[2024-02-03 11:50] LABS: INR 1.41 (0.8-1.2)
--- NOTE | 2024-02-03 12:17 | PC.NURSE ---
Dr. Brantley notified of Patients blood pressure 168/105 taken on left ankle. Patient stated it runs high when sitting up in the chair. Dr. Brantley stated patient did not want to change any medications. Dr. Brantley is okay with the pressure.
--- NOTE | 2024-02-03 13:23 | P.PN_ITS ---
Subjective 2 Subjective: Patient seen and examined. Tolerating diet. No complaints Vitals/I&O/Wt Last Vital Signs Temp 98.4 F 02/03/24 12:00 Pulse 67 02/03/24 12:00 Resp 18 02/03/24 12:00 BP 168/105 02/03/24 12:00 Pulse Ox 96 02/03/24 12:00 O2 Del Method Room Air 02/03/24 12:00 02/02/24 02/03/24 02/03/24 22:59 06:59 14:59 Intake Total 502.966 / 1106.266 411.167 / 1517.433 745.667 / 745.667 Balance 502.966 / 1106.266 411.167 / 1517.433 745.667 / 745.667 Weight last 48 hrs Weight 238 lb 1 oz Weight 238 lb 5 oz Weight 238 lb 4 oz Physical Exam 2 Narrative: General: No acute distress, awake alert and oriented x 3 Skin: Incision intact without erythema or exudate Data 02/03/24 02:47 02/03/24 02:47 A&P Assessment and plan (1) Breast cancer metastasized to lung: Qualifiers: Laterality: left Qualified Code(s): C50.912 - Malignant neoplasm of unspecified site of left female breast; C78.02 - Secondary malignant neoplasm of left lung (2) S/P CABG (coronary artery bypass graft): (3) H/O mechanical aortic valve replacement: (4) Warfarin anticoagulation: Plan Continue bridging to Coumadin with heparin Hospitalist consulted-appreciate recommendations Ambulate ad kaia. Awaiting therapeutic INR, between 2.5 and 3.5, for discharge Attestations 2 Medical Necessity Statement*: Patient will require at least 1 more night in the hospital for bridging to Coumadin with heparin. INR is still subtherapeutic Coding Level of Care Code 20266 Diagnoses Carcinoma of left breast metastatic to lung C50.912; C78.02 Laterality: left S/P CABG (coronary artery bypass graft) Z95.1 H/O mechanical aortic valve replacement Z95.2 Warfarin anticoagulation Z79.01
--- NOTE | 2024-02-03 13:55 | P.PN_ITS ---
Subjective 2 Subjective: No acute events overnight. Patient has remained hemodynamically stable and afebrile. Sitting up in chair today. Family at bedside. Denies any new complaints. Blood pressures continue to remain elevated but patient does not want to change medications for now before talking to her outpatient primary provider. Vitals/I&O/Wt Last Vital Signs Temp 98.4 F 02/03/24 12:00 Pulse 67 02/03/24 12:00 Resp 18 02/03/24 12:00 BP 168/105 02/03/24 12:00 Pulse Ox 96 02/03/24 13:34 O2 Del Method Room Air 02/03/24 13:34 02/02/24 02/03/24 02/03/24 22:59 06:59 14:59 Intake Total 502.966 / 1106.266 411.167 / 1517.433 745.667 / 745.667 Balance 502.966 / 1106.266 411.167 / 1517.433 745.667 / 745.667 Weight last 48 hrs Weight 107.983 kg Weight 108.097 kg Weight 108.068 kg Physical Exam 2 Narrative: General: No acute distress, AO x3, morbidly obese HEENT: PERRLA, pupils bilaterally equal and reactive Chest: Normal vesicular breath sounds, occasional rhonchi, equal good air entry bilaterally CVS: S1-S2 regular, ejection click present in the aortic region radiating to pericardium, no tachycardia, no gallops, no rubs Abdomen: Soft, nontender, no organomegaly, bowel sounds present Neuro: No focal deficits, no facial deformity, AO x3, power 5/5 in all limbs Data 02/03/24 02:47 02/03/24 02:47 A&P Assessment and plan (1) H/O mechanical aortic valve replacement: On warfarin for anticoagulation with target INR 2.5-3.5. Last took warfarin on Sunday which is 4 days ago. Patient is allergic to Lovenox. Appreciate INR yesterday. Patient postoperative now. Restart heparin drip in few hours. Restart Coumadin as per home dose today. Will plan to check INR daily. Continue bridging from heparin drip to Coumadin till target INR of 2.5-3.5 is reached. Appreciate echocardiogram results of EF 55 to 60%, grade 1 diastolic dysfunction, trace MR, bioprosthetic valve with mean gradient of 13.8 mmHg, mild TR. (2) S/P CABG (coronary artery bypass graft): Denies any active chest pain. Continue with home dose of aspirin, beta-lakeshia with carvedilol twice daily. Appreciate recent A1c, lipid panel. Patient is allergic to statins (3) Pacemaker: (4) Dyslipidemia: (5) Warfarin anticoagulation: (6) Diabetes: Insulin sliding scale at mild dose protocol. Continue with home dose of Lantus. Qualifiers: Diabetes mellitus type: type 2 Diabetes mellitus care home insulin use: without care home use Diabetes mellitus complication status: with kidney complications Diabetes mellitus complication detail: with chronic kidney disease Chronic kidney disease stage: stage 3 (moderate) Qualified Code(s): E 11.22 - Type 2 diabetes mellitus with diabetic chronic kidney disease; N18.3 - Chronic kidney disease, stage 3 (moderate) (7) Breast cancer metastasized to lung: Follows up with oncology as an outpatient. Post Port-A-Cath placement on 01/31. Qualifiers: Laterality: left Qualified Code(s): C50.912 - Malignant neoplasm of unspecified site of left female breast; C78.02 - Secondary malignant neoplasm of left lung Plan Hypertension: Goal blood pressure less than 140/90 mmHg. For now continue with home dose of amlodipine and Coreg. Will uptitrate as for goal blood pressures. If needed will add losartan. Plan for the day: Continue bridging with heparin drip to Coumadin. Monitor INR daily. Target INR between 2.5-3.5. Continue with insulin sliding scale added Lantus 26 units nightly. Will change the dose of Lantus as per daily insulin requirements. Patient is agreeable. Blood pressure is elevated. Goal blood pressure less than 140/90 mmHg. Patient does not want to change antihypertensives for now before talking to her primary care provider. Full code Cardiac carb consistent diet, Protonix OPD prophylaxis Heparin will be sufficient for DVT prophylaxis. Getting bridged over with Coumadin Attestations 2 Medical Necessity Statement*: Requires further hospitalization for bradycardia Anticoagulation from heparin drip to Coumadin in a patient with history of mechanical aortic valve, allergic to Lovenox the patient was admitted for Port-A-Cath placement Diagnoses H/O mechanical aortic valve replacement Z95.2 S/P CABG (coronary artery bypass graft) Z95.1 Pacemaker Z95.0 Dyslipidemia E78.5 Warfarin anticoagulation Z79.01 Type 2 diabetes mellitus with stage 3 chronic kidney disease, without long-term current use of insulin E11.22; N18.3 Diabetes mellitus type: type 2 Diabetes mellitus care home insulin use: without care home use Diabetes mellitus complication status: with kidney complications Diabetes mellitus complication detail: with chronic kidney disease Chronic kidney disease stage: stage 3 (moderate) Carcinoma of left breast metastatic to lung C50.912; C78.02 Laterality: left
[2024-02-03] MEDS: warfarin 5 mg Tablet PO (15:15)
[2024-02-03] MEDS: warfarin 2 mg Tablet PO (15:15)
[2024-02-03 16:17] LABS: Glucose Point of Care 220 mg/dL (70-110)
[2024-02-03 16:44] LABS: INR 1.47 (0.8-1.2)
[2024-02-03 16:45] LABS: Partial Thromboplastin Time 56.1 SECONDS (23.9-36.7)
[2024-02-03] MEDS: heparin drip 25,000 UNIT/500 ML PREMIX 20 UNIT IV (19:55)
[2024-02-03 20:22] LABS: Glucose Point of Care 223 mg/dL (70-110)
[2024-02-03] MEDS: insulin glargine 100 units/1 mL 26 UNIT SUBCUT (21:08)
[2024-02-03 23:40] LABS: Partial Thromboplastin Time 58.2 SECONDS (23.9-36.7)
[2024-02-04] VITALS (8 sets, daily range): BP systolic 127–160; BP diastolic 75–87; PULSE 62–69; RESP 16–20; TEMP 36.7–37.1; O2SAT 94–98
[2024-02-04 05:39] LABS: Basophils % 0.7 %; Eosinophils # 0.3 10^3/uL (0.0-0.8); Eosinophils % 4.6 %; Hematocrit 32.9 % (36-47); Lymphocytes # 1.2 10^3/uL (0.8-4.8); Lymphocytes % 21.5 %; Mean Corpuscular HGB Conc 33.7 g/dL (30-55); Mean Corpuscular Volume 88.9 fl (85-98); Mean Platelet Volume 11.1 fL (7.4-10.4); Monocytes # 0.5 10^3/uL (0.2-0.9); Monocytes % 9.5 %; Neutrophils # 3.59 10^3/uL (1.8-7.7); Neutrophils % 62.8 %; Nucleated Red Blood Cells % 0 %; Platelet Count 128 10^3/cmm (157-399); White Blood Count 5.71 10^3/uL (3.29-11.43)
[2024-02-04 05:58] LABS: Alanine Aminotransferase 22 U/L (0-33); Albumin Level 3.5 g/dL (3.5-5.2); Alkaline Phosphatase 92 U/L (35-105); Anion Gap 12.1 (5-19); Aspartate Amino Transferase 39 U/L (0-32); Blood Urea Nitrogen 14 mg/dL (8-23); Carbon Dioxide 26 mmol/L (22-29); Chloride 106 mmol/L (98-107); Creatinine Clr Calc Pharmacy 78.4625; Globulin 2.5 g/dL (1.3-4.6); Glomerular Filtration Rate 72.2 mL/min (90-130); Glucose 186 mg/dL (65-115); Osmolality Calculated 295 mOsm/kg (285-295); Potassium 4.1 mmol/L (3.5-5.1); Sodium 140 mmol/L (136-145); Total Bilirubin 0.3 mg/dL (0.15-1.2)
[2024-02-04 05:59] LABS: Partial Thromboplastin Time 75.2 SECONDS (23.9-36.7)
[2024-02-04 06:29] LABS: Glucose Point of Care 184 mg/dL (70-110)
[2024-02-04] MEDS: pantoprazole DR 40 mg Tablet PO (08:47)
[2024-02-04] MEDS: insulin lispro 100 unit/1 mL SUBCUT ×4 (08:47→21:30)
[2024-02-04] MEDS: carvedilol 12.5 mg Tablet PO ×2 (08:47→17:45)
[2024-02-04] MEDS: aspirin 81 mg EC Tablet PO (08:47)
[2024-02-04] MEDS: amlodipine 5 mg Tablet PO ×2 (08:47→17:47)
[2024-02-04 08:59] LABS: Partial Thromboplastin Time 75.2 SECONDS (23.9-36.7)
[2024-02-04 09:06] LABS: INR 1.63 (0.8-1.2)
[2024-02-04 09:07] LABS: Fibrinogen 324 mg/dL (174-498)
[2024-02-04 10:20] LABS: Platelet Count 128 10^3/cmm (157-399)
[2024-02-04 11:45] LABS: Glucose Point of Care 185 mg/dL (70-110)
[2024-02-04] MEDS: warfarin 2 mg Tablet PO ×2 (13:26)
[2024-02-04] MEDS: warfarin 5 mg Tablet PO (13:26)
[2024-02-04 16:58] LABS: Glucose Point of Care 160 mg/dL (70-110)
[2024-02-04 20:28] LABS: Partial Thromboplastin Time 77.8 SECONDS (23.9-36.7)
[2024-02-04 20:34] LABS: Glucose Point of Care 171 mg/dL (70-110)
--- NOTE | 2024-02-04 21:11 | P.PN_ITS ---
Subjective 2 Subjective: Patient seen and examined. No complaints Vitals/I&O/Wt Last Vital Signs Temp 98.2 F 02/04/24 20:00 Pulse 67 02/04/24 20:00 Resp 20 H 02/04/24 20:00 BP 134/78 02/04/24 20:00 Pulse Ox 97 02/04/24 20:00 O2 Del Method Room Air 02/04/24 20:00 02/04/24 02/04/24 02/04/24 06:59 14:59 22:59 Intake Total 449.333 / 2576.833 1088.1 / 1088.1 200 / 1288.1 Balance 449.333 / 2576.833 1088.1 / 1088.1 200 / 1288.1 Weight last 48 hrs Weight 235 lb 2 oz Weight 235 lb 2 oz Weight 238 lb 1 oz Physical Exam 2 Narrative: General: No acute distress, awake alert and oriented x 3 Skin: Incision intact without erythema or exudate Data 02/06/24 03:32 02/06/24 03:32 A&P Assessment and plan (1) Breast cancer metastasized to lung: Qualifiers: Laterality: left Qualified Code(s): C50.912 - Malignant neoplasm of unspecified site of left female breast; C78.02 - Secondary malignant neoplasm of left lung (2) S/P CABG (coronary artery bypass graft): (3) H/O mechanical aortic valve replacement: (4) Warfarin anticoagulation: Plan Continue bridging to Coumadin with heparin Hospitalist consulted-appreciate recommendations Ambulate ad kaia. Awaiting therapeutic INR, between 2.5 and 3.5, for discharge Attestations 2 Medical Necessity Statement*: Patient will require at least 1 more night in the hospital for bridging to Coumadin with heparin. INR is still subtherapeutic Coding Level of Care Code Acute Code for Chg Fwd Diagnoses Carcinoma of left breast metastatic to lung C50.912; C78.02 Laterality: left S/P CABG (coronary artery bypass graft) Z95.1 H/O mechanical aortic valve replacement Z95.2 Warfarin anticoagulation Z79.01
[2024-02-04] MEDS: insulin glargine 100 units/1 mL 26 UNIT SUBCUT (21:30)
[2024-02-04] MEDS: heparin drip 25,000 UNIT/500 ML PREMIX 20 UNIT IV (21:30)
--- NOTE | 2024-02-04 23:34 | P.PN_ITS ---
Subjective 2 Subjective: She reports she is doing okay. Denies pain or discomfort. Vitals/I&O/Wt Last Vital Signs Temp 98.2 F 02/04/24 20:00 Pulse 67 02/04/24 20:00 Resp 20 H 02/04/24 20:00 BP 134/78 02/04/24 20:00 Pulse Ox 97 02/04/24 20:00 O2 Del Method Room Air 02/04/24 20:00 02/04/24 02/04/24 02/05/24 14:59 22:59 06:59 Intake Total 1088.1 / 1088.1 882.567 / 1970.667 Balance 1088.1 / 1088.1 882.567 / 1969.667 Weight last 48 hrs Weight 106.651 kg Weight 106.651 kg Weight 107.983 kg Physical Exam 2 Narrative: Accompanied by her . Const: COMMON NORMALS: patient oriented x3 and alert GENERAL APPEARANCE: c ooperative ORIENTATION/CONSCIOUSNESS: Yes awake HENMT: COMMON NORMALS: oropharynx normal Neck/C-Spine: COMMON NORMALS: no JVD Resp: COMMON NORMALS: normal respiratory effort and clear to auscultation bilaterally AUSCULTATION: clear to auscultation bilaterally Cardio: COMMON NORMALS: no JVD, regular rhythm, S1 normal heart sound present, S2 normal heart sound present and No murmurs present (Cardio) RHYTHM: regular rhythm HEART SOUNDS: S1 normal heart sound present and S2 normal heart sound present GI: COMMON NORMALS: Normal to inspection, nondistended, normoactive bowel sounds present, Soft to palpation and non-tender PALPATION: Yes Soft to palpation Extremity: COMMON NORMALS: no joint enlargement and no pedal edema Neuro: COMMON NORMALS: patient oriented x3 and moves all extremities S ENSORIUM/ORIENTATION: Yes alert Skin: COMMON NORMALS: no rashes or lesions noted GENERAL SKIN EXAM: no rashes or lesions noted Data 02/04/24 05:31 02/04/24 05:31 A&P Assessment and plan (1) H/O mechanical aortic valve replacement: Reviewed vitals, hemoglobin, platelets. Reviewed INR. Discussed with her . INR subtherapeutic 1.63. Reviewed PTT. Continue heparin drip. Discussed with her additional 2 mg of warfarin today. She normally takes 7 mg at home daily. Repeat INR requested. Discussed with case assistant. On warfarin for anticoagulation with target INR 2.5-3.5. Last took warfarin on Sunday which is 4 days ago. Patient is allergic to Lovenox. Monitor for risk of bleeding with concomitant heparin drip, warfarin bridging, status post surgical procedure. Appreciate INR yesterday. Patient postoperative now. Restart heparin drip in few hours. Restart Coumadin as per home dose today. Will plan to check INR daily. Continue bridging from heparin drip to Coumadin till target INR of 2.5-3.5 is reached. Appreciate echocardiogram results of EF 55 to 60%, grade 1 diastolic dysfunction, trace MR, bioprosthetic valve with mean gradient of 13.8 mmHg, mild TR. (2) S/P CABG (coronary artery bypass graft): Denies any active chest pain. Continue with home dose of aspirin, beta-lakeshia with carvedilol twice daily. Appreciate recent A1c, lipid panel. Patient is allergic to statins (3) Pacemaker: (4) Dyslipidemia: (5) Warfarin anticoagulation: (6) Diabetes: Reviewed blood glucose, continue Lantus, sliding scale insulin. CC diet. Insulin sliding scale at mild dose protocol. Continue with home dose of Lantus. Qualifiers: Diabetes mellitus type: type 2 Diabetes mellitus group home insulin use: without group home use Diabetes mellitus complication status: with kidney complications Diabetes mellitus complication detail: with chronic kidney disease Chronic kidney disease stage: stage 3 (moderate) Qualified Code(s): E 11.22 - Type 2 diabetes mellitus with diabetic chronic kidney disease; N18.3 - Chronic kidney disease, stage 3 (moderate) (7) Breast cancer metastasized to lung: Follows up with oncology as an outpatient. Post Port-A-Cath placement on 01/31. Qualifiers: Laterality: left Qualified Code(s): C50.912 - Malignant neoplasm of unspecified site of left female breast; C78.02 - Secondary malignant neoplasm of left lung Plan Hypertension: Reviewed blood pressure. Continue carvedilol, amlodipine. Full code Cardiac carb consistent diet, Protonix OPD prophylaxis Heparin will be sufficient for DVT prophylaxis. Getting bridged over with Coumadin Attestations 2 Medical Necessity Statement*: Continue admission for anticoagulation bridging to therapeutic anticoagulation with warfarin in a lady with mechanical aortic valve, allergy to Lovenox. and High MDM includes amount and/or complexity of data reviewed/ordered [ resulted lab(s)/test(s), ordered lab(s)/test(s) and other healthcare professional discussion] and described risk of complication, morbidity or mortality of management as documented Diagnoses H/O mechanical aortic valve replacement Z95.2 S/P CABG (coronary artery bypass graft) Z95.1 Pacemaker Z95.0 Dyslipidemia E78.5 Warfarin anticoagulation Z79.01 Type 2 diabetes mellitus with stage 3 chronic kidney disease, without long-term current use of insulin E11.22; N18.3 Diabetes mellitus type: type 2 Diabetes mellitus barrel scraper insulin use: without barrel scraper use Diabetes mellitus complication status: with kidney complications Diabetes mellitus complication detail: with chronic kidney disease Chronic kidney disease stage: stage 3 (moderate) Carcinoma of left breast metastatic to lung C50.912; C78.02 Laterality: left
[2024-02-05] VITALS (9 sets, daily range): BP systolic 140–168; BP diastolic 68–95; PULSE 60–69; RESP 16–20; TEMP 36.7–37.1; O2SAT 95–99
[2024-02-05 03:43] LABS: Basophils # 0.1 10^3/uL (0.0-0.1); Basophils % 0.8 %; Eosinophils # 0.3 10^3/uL (0.0-0.8); Eosinophils % 5.3 %; Hematocrit 33.3 % (36-47); Lymphocytes # 1.5 10^3/uL (0.8-4.8); Lymphocytes % 22.8 %; Mean Corpuscular HGB Conc 33.6 g/dL (30-55); Mean Corpuscular Volume 89.3 fl (85-98); Mean Platelet Volume 11.3 fL (7.4-10.4); Monocytes # 0.6 10^3/uL (0.2-0.9); Monocytes % 8.7 %; Neutrophils # 3.95 10^3/uL (1.8-7.7); Neutrophils % 61.2 %; Nucleated Red Blood Cells % 0 %; Platelet Count 134 10^3/cmm (157-399); Red Blood Count 3.73 10^6/uL (3.85-5.65); White Blood Count 6.45 10^3/uL (3.29-11.43)
[2024-02-05 03:54] LABS: INR 1.87 (0.8-1.2)
[2024-02-05 03:56] LABS: Partial Thromboplastin Time 68.5 SECONDS (23.9-36.7)
[2024-02-05 04:09] LABS: Anion Gap 12.7 (5-19); Blood Urea Nitrogen 15 mg/dL (8-23); Calcium 9.6 mg/dL (8.5-10.5); Carbon Dioxide 27 mmol/L (22-29); Chloride 105 mmol/L (98-107); Creatinine Clr Calc Pharmacy 78.4625; Glomerular Filtration Rate 72.2 mL/min (90-130); Glucose 135 mg/dL (65-115); Osmolality Calculated 295 mOsm/kg (285-295); Potassium 3.7 mmol/L (3.5-5.1); Sodium 141 mmol/L (136-145)
[2024-02-05 06:36] LABS: Glucose Point of Care 139 mg/dL (70-110)
[2024-02-05] MEDS: pantoprazole DR 40 mg Tablet PO (09:21)
[2024-02-05] MEDS: carvedilol 12.5 mg Tablet PO ×2 (09:23→17:45)
[2024-02-05] MEDS: aspirin 81 mg EC Tablet PO (09:23)
[2024-02-05] MEDS: amlodipine 5 mg Tablet PO ×2 (09:24→17:45)
[2024-02-05 09:54] LABS: Partial Thromboplastin Time 60.2 SECONDS (23.9-36.7)
[2024-02-05 10:53] LABS: Glucose Point of Care 216 mg/dL (70-110)
[2024-02-05] MEDS: insulin lispro 100 unit/1 mL SUBCUT ×3 (12:27→21:11)
[2024-02-05] MEDS: warfarin 2 mg Tablet PO ×2 (14:16)
[2024-02-05] MEDS: warfarin 5 mg Tablet PO (14:16)
[2024-02-05 16:37] LABS: Partial Thromboplastin Time 59.4 SECONDS (23.9-36.7)
[2024-02-05 17:10] LABS: Glucose Point of Care 205 mg/dL (70-110)
[2024-02-05] MEDS: insulin glargine 100 units/1 mL 26 UNIT SUBCUT (20:05)
--- NOTE | 2024-02-05 20:09 | P.PN_ITS ---
Subjective 2 Subjective: Patient seen and examined. Denies any pain or other symptoms. INR still not yet therapeutic Vitals/I&O/Wt Last Vital Signs Temp 98.2 F 02/05/24 19:57 Pulse 68 02/05/24 19:57 Resp 20 H 02/05/24 19:57 BP 143/77 02/05/24 19:57 Pulse Ox 98 02/05/24 19:57 O2 Del Method Room Air 02/05/24 19:57 02/05/24 02/05/24 02/05/24 06:59 14:59 22:59 Intake Total 780 / 2750.667 828.667 / 828.667 480 / 1308.667 Balance 780 / 2750.667 828.667 / 828.667 480 / 1308.667 Weight last 48 hrs Weight 236 lb 5 oz Weight 236 lb 5 oz Weight 235 lb 2 oz Weight 235 lb 2 oz Physical Exam 2 Narrative: General: No acute distress, awake alert and oriented x 3 Skin: Incision intact without erythema or exudate Data 02/06/24 03:32 02/06/24 03:32 A&P Assessment and plan (1) Breast cancer metastasized to lung: Qualifiers: Laterality: left Qualified Code(s): C50.912 - Malignant neoplasm of unspecified site of left female breast; C78.02 - Secondary malignant neoplasm of left lung (2) S/P CABG (coronary artery bypass graft): (3) H/O mechanical aortic valve replacement: (4) Warfarin anticoagulation: Plan Continue bridging to Coumadin with heparin Hospitalist consulted-appreciate recommendations Ambulate ad kaia. Awaiting therapeutic INR, between 2.5 and 3.5, for discharge Attestations 2 Medical Necessity Statement*: Continue admission for anticoagulation bridging to therapeutic anticoagulation with warfarin in a lady with mechanical aortic valve, allergy to Lovenox. Coding Level of Care Code 30370 Diagnoses Carcinoma of left breast metastatic to lung C50.912; C78.02 Laterality: left S/P CABG (coronary artery bypass graft) Z95.1 H/O mechanical aortic valve replacement Z95.2 Warfarin anticoagulation Z79.01
[2024-02-05 20:11] LABS: Glucose Point of Care 156 mg/dL (70-110)
[2024-02-05 22:01] LABS: Partial Thromboplastin Time 61.6 SECONDS (23.9-36.7)
[2024-02-05] MEDS: heparin drip 25,000 UNIT/500 ML PREMIX 20 UNIT IV (22:41)
--- NOTE | 2024-02-05 22:41 | P.PN_ITS ---
Subjective 2 Subjective: She reports she is doing okay. Denies pain. No issues with the port. Vitals/I&O/Wt Last Vital Signs Temp 98.2 F 02/05/24 19:57 Pulse 68 02/05/24 19:57 Resp 20 H 02/05/24 19:57 BP 143/77 02/05/24 19:57 Pulse Ox 98 02/05/24 19:57 O2 Del Method Room Air 02/05/24 19:57 02/05/24 02/05/24 02/05/24 06:59 14:59 22:59 Intake Total 780 / 2750.667 828.667 / 828.667 722.333 / 1551.000 Balance 780 / 2750.667 828.667 / 828.667 722.333 / 1551.000 Weight last 48 hrs Weight 107.19 kg Weight 107.19 kg Weight 106.651 kg Weight 106.651 kg Physical Exam 2 Narrative: Accompanied by her . Const: COMMON NORMALS: patient oriented x3 and alert GENERAL APPEARANCE: c ooperative ORIENTATION/CONSCIOUSNESS: Yes awake HENMT: COMMON NORMALS: oropharynx normal Neck/C-Spine: COMMON NORMALS: no JVD Chest: OTHER: Port in right chest with some eschar. No surrounding erythema. No drainage. Resp: COMMON NORMALS: normal respiratory effort and clear to auscultation bilaterally AUSCULTATION: clear to auscultation bilaterally Cardio: COMMON NORMALS: no JVD, regular rhythm, S1 normal heart sound present, S2 normal heart sound present and No murmurs present (Cardio) RHYTHM: regular rhythm HEART SOUNDS: S1 normal heart sound present and S2 normal heart sound present GI: COMMON NORMALS: Normal to inspection, nondistended, normoactive bowel sounds present, Soft to palpation and non-tender PALPATION: Yes Soft to palpation Extremity: COMMON NORMALS: no joint enlargement and no pedal edema Neuro: COMMON NORMALS: patient oriented x3 and moves all extremities S ENSORIUM/ORIENTATION: Yes alert Skin: COMMON NORMALS: no rashes or lesions noted GENERAL SKIN EXAM: no rashes or lesions noted Data 02/05/24 03:29 02/05/24 03:29 A&P Assessment and plan (1) H/O mechanical aortic valve replacement: Reviewed vitals, CBC, INR, PTT, BMP. No bleeding. Discussed with her her . Discussed with block and case maker. She requested discharge home as soon as possible. Discussed with her regarding INR, anticoagulation, discussed consideration of additional 2 mg warfarin, discussed monitoring for risk of bleeding with anticoagulation with heparin drip and additional warfarin dosing with thrombocytopenia. Discussed consideration of 3 mg additional dose, but concern for risk of bleeding with the above factors and decided to forego the higher additional dose. Follow-up PTT. Repeat INR. Monitor for any bleeding. Repeat CBC. On warfarin for anticoagulation with target INR 2.5-3.5. Last took warfarin on Sunday which is 4 days ago. Patient is allergic to Lovenox. Monitor for risk of bleeding with concomitant heparin drip, warfarin bridging, status post surgical procedure. Appreciate INR yesterday. Patient postoperative now. Restart heparin drip in few hours. Restart Coumadin as per home dose today. Will plan to check INR daily. Continue bridging from heparin drip to Coumadin till target INR of 2.5-3.5 is reached. Appreciate echocardiogram results of EF 55 to 60%, grade 1 diastolic dysfunction, trace MR, bioprosthetic valve with mean gradient of 13.8 mmHg, mild TR. (2) S/P CABG (coronary artery bypass graft): Denies any active chest pain. Continue with home dose of aspirin, beta-lakeshia with carvedilol twice daily. Appreciate recent A1c, lipid panel. Patient is allergic to statins (3) Pacemaker: (4) Dyslipidemia: (5) Warfarin anticoagulation: (6) Diabetes: Reviewed blood glucose, continue Lantus, sliding scale insulin. CC diet. Insulin sliding scale at mild dose protocol. Continue with home dose of Lantus. Qualifiers: Diabetes mellitus type: type 2 Diabetes mellitus halfway insulin use: without halfway use Diabetes mellitus complication status: with kidney complications Diabetes mellitus complication detail: with chronic kidney disease Chronic kidney disease stage: stage 3 (moderate) Qualified Code(s): E 11.22 - Type 2 diabetes mellitus with diabetic chronic kidney disease; N18.3 - Chronic kidney disease, stage 3 (moderate) (7) Breast cancer metastasized to lung: Follows up with oncology as an outpatient. Post Port-A-Cath placement on 01/31. Qualifiers: Laterality: left Qualified Code(s): C50.912 - Malignant neoplasm of unspecified site of left female breast; C78.02 - Secondary malignant neoplasm of left lung Plan Hypertension: Continue carvedilol, amlodipine. Full code Cardiac carb consistent diet, Protonix OPD prophylaxis Heparin will be sufficient for DVT prophylaxis. Getting bridged over with Coumadin Attestations 2 Medical Necessity Statement*: Continue admission for anticoagulation bridging to therapeutic anticoagulation with warfarin in a lady with mechanical aortic valve, allergy to Lovenox. Diagnoses H/O mechanical aortic valve replacement Z95.2 S/P CABG (coronary artery bypass graft) Z95.1 Pacemaker Z95.0 Dyslipidemia E78.5 Warfarin anticoagulation Z79.01 Type 2 diabetes mellitus with stage 3 chronic kidney disease, without long-term current use of insulin E11.22; N18.3 Diabetes mellitus type: type 2 Diabetes mellitus halfway insulin use: without halfway use Diabetes mellitus complication status: with kidney complications Diabetes mellitus complication detail: with chronic kidney disease Chronic kidney disease stage: stage 3 (moderate) Carcinoma of left breast metastatic to lung C50.912; C78.02 Laterality: left
[2024-02-06] VITALS: BP 155/83; PULSE 66; RESP 18; TEMP 36.8; O2SAT 98
[2024-02-06 03:39] LABS: Basophils % 0.6 %; Eosinophils # 0.3 10^3/uL (0.0-0.8); Eosinophils % 4.5 %; Hematocrit 31.8 % (36-47); Lymphocytes # 1.3 10^3/uL (0.8-4.8); Lymphocytes % 21.2 %; Mean Corpuscular HGB Conc 33.6 g/dL (30-55); Mean Corpuscular Hemoglobin 29.9 pg (27-33); Mean Corpuscular Volume 88.8 fl (85-98); Mean Platelet Volume 11.4 fL (7.4-10.4); Monocytes # 0.6 10^3/uL (0.2-0.9); Monocytes % 9.2 %; Neutrophils # 3.94 10^3/uL (1.8-7.7); Nucleated Red Blood Cells % 0 %; Platelet Count 127 10^3/cmm (157-399); Red Blood Count 3.58 10^6/uL (3.85-5.65); White Blood Count 6.17 10^3/uL (3.29-11.43)
[2024-02-06 03:52] LABS: INR 2.29 (0.8-1.2)
[2024-02-06 03:59] LABS: Blood Urea Nitrogen 16 mg/dL (8-23); Calcium 9.6 mg/dL (8.5-10.5); Carbon Dioxide 29 mmol/L (22-29); Chloride 103 mmol/L (98-107); Creatinine Clr Calc Pharmacy 78.7043; Glomerular Filtration Rate 72.2 mL/min (90-130); Glucose 166 mg/dL (65-115); Osmolality Calculated 293 mOsm/kg (285-295); Sodium 139 mmol/L (136-145)
[2024-02-06 04:00] VITALS: BP 141/79; PULSE 64; RESP 20; TEMP 36.6; O2SAT 98
[2024-02-06 04:00] LABS: Partial Thromboplastin Time 71.9 SECONDS (23.9-36.7)
[2024-02-06 06:30] LABS: Glucose Point of Care 164 mg/dL (70-110)
[2024-02-06] MEDS: pantoprazole DR 40 mg Tablet PO (07:53)
[2024-02-06] MEDS: aspirin 81 mg EC Tablet PO (07:53)
[2024-02-06] MEDS: insulin lispro 100 unit/1 mL SUBCUT (07:53)
[2024-02-06] MEDS: amlodipine 5 mg Tablet PO (07:54)
[2024-02-06] MEDS: carvedilol 12.5 mg Tablet PO (07:54)
[2024-02-06 08:11] VITALS: BP 179/80; PULSE 66; RESP 17; TEMP 36.8; O2SAT 99
[2024-02-06 08:12] VITALS: PULSE 64; RESP 16; O2SAT 98
--- NOTE | 2024-02-06 10:07 | PM.DCS ---
Discharge Providers Date of Admission: 01/31/24 10:18 Date of Discharge: February 06, 2024 Attending Provider at Admission: Osbaldo Gilliam DO Attending Provider at Discharge: Osbaldo Gilliam DO Primary Care Provider: Lalo Ortez DO Diagnoses at Discharge Discharge Diagnosis (1) H/O mechanical aortic valve replacement: Status: Acute (2) S/P CABG (coronary artery bypass graft): Status: Acute (3) Pacemaker: Status: Acute (4) Dyslipidemia: Status: Acute (5) Warfarin anticoagulation: Status: Acute (6) Diabetes: Status: Acute Qualifiers: Chronic kidney disease stage: stage 3 (moderate) Diabetes mellitus complication detail: with chronic kidney disease Diabetes mellitus complication status: with kidney complications Diabetes mellitus group home insulin use: without terminal makeup operator use Diabetes mellitus type: type 2 Qualified Code(s): E11.22 - Type 2 diabetes mellitus with diabetic chronic kidney disease; N18.3 - Chronic kidney disease, stage 3 (moderate) (7) Breast cancer metastasized to lung: Status: Acute Qualifiers: Laterality: left Qualified Code(s): C50.912 - Malignant neoplasm of unspecified site of left female breast; C78.02 - Secondary malignant neoplasm of left lung Reason for Visit Reason for Visit: [facility] Hospital Course Hospital Course Pleasant 63-year-old lady with history of mechanical aortic valve, recent diagnosis of lung cancer, CABG was admitted by surgery for placement of Port-A-Cath, due to this warfarin was withheld, she was bridged with heparin drip due to Lovenox allergy. Her INR gradually came up closer to target range of 2.5-3.5, she received 2 extra doses of 2 mg warfarin yesterday and on 02/03 and is continuing her usual dose of 7 mg starting today. She is asked to follow-up with INR on Sunday, Sunday, Sunday, please follow-up to confirm she is coming back to target range. She states that her INR usually holds very steady. Adjust warfarin as needed to achieve target INRs. She was otherwise doing well with Port-A-Cath wound healing. She is asked to follow-up with surgery for wound check. Discharge Data Studies Completed and Pending Completed Studies During Hospitalization Category Date Time Status XR chest 1V portable [id number] Routine Exams 01/31/24 14:47 Completed XR chest 1V portable [id number] Routine Exams 02/01/24 11:09 Completed CV. echo complete* [id number] Routine Ultrasound 01/31/24 11:48 Completed Pending at discharge Category Date Time Status Basic Metabolic Panel AM LABS Lab 02/07/24 04:00 Ordered Complete Blood Count w/Auto AM LABS Lab 02/07/24 04:00 Ordered PTT [Partial Thromboplastin Time] Timed Lab 02/06/24 09:45 Ordered Prothrombin Time INR AM LABS Lab 02/07/24 04:00 Ordered Radiology Impressions C-Arm Fluoroscopy 02/01/24 11:09 IMPRESSION: Chemotherapy infusion port and catheter on the right in proper position. No complication. Chest X-Ray 02/01/24 11:09 IMPRESSION: Right-sided chemotherapy infusion port and catheter in proper position. Resolving right middle lobe atelectasis. Laboratory Results WBC 6.17 10^3/uL (3.29-11.43) 02/06/24 03:32 RBC 3.58 10^6/uL (3.85-5.65) L 02/06/24 03:32 Hgb 10.70 g/dL (11.27-16.99) L 02/06/24 03:32 Hct 31.8 % (36-47) L 02/06/24 03:32 MCV 88.8 fl (85-98) 02/06/24 03:32 MCH 29.9 pg (27-33) 02/06/24 03:32 MCHC 33.6 g/dL (30-55) 02/06/24 03:32 RDW 13.0 % (12.1-15.1) 02/06/24 03:32 Plt Count 127 10^3/cmm (157-399) L 02/06/24 03:32 MPV 11.4 fL (7.4-10.4) H 02/06/24 03:32 Neut % (Auto) 64.0 % 02/06/24 03:32 Lymph % (Auto) 21.2 % 02/06/24 03:32 [place] % (Auto) 9.2 % 02/06/24 03:32 Eos % (Auto) 4.5 % 02/06/24 03:32 Baso % (Auto) 0.6 % 02/06/24 03:32 Neut # (Auto) 3.94 10^3/uL (1.8-7.7) 02/06/24 03:32 Lymph # (Auto) 1.3 10^3/uL (0.8-4.8) 02/06/24 03:32 [place] # (Auto) 0.6 10^3/uL (0.2-0.9) 02/06/24 03:32 Eos # (Auto) 0.3 10^3/uL (0.0-0.8) 02/06/24 03:32 Baso # (Auto) 0.0 10^3/uL (0.0-0.1) 02/06/24 03:32 Nucleated RBC % (auto) 0 % 02/06/24 03:32 Nucleated RBCs # 0.0 /100WBC 02/06/24 03:32 PT 26.10 SECONDS (12.1-14.9) H 02/06/24 03:32 INR 2.29 (0.8-1.2) H 02/06/24 03:32 APTT 71.9 SECONDS (23.9-36.7) H 02/06/24 03:32 Fibrinogen 324 mg/dL (174-498) 02/04/24 05:31 Sodium 139 mmol/L (136-145) 02/06/24 03:32 Potassium 4.0 mmol/L (3.5-5.1) 02/06/24 03:32 Chloride 103 mmol/L (98-107) 02/06/24 03:32 Carbon Dioxide 29 mmol/L (22-29) 02/06/24 03:32 Anion Gap 11.0 (5-19) 02/06/24 03:32 BUN 16 mg/dL (8-23) 02/06/24 03:32 Creatinine 0.8 mg/dL (0.5-0.9) 02/06/24 03:32 GFR Calculation 72.2 mL/min (90-130) L 02/06/24 03:32 Glucose 166 mg/dL (65-115) H 02/06/24 03:32 POC Glucose 164 mg/dL (70-110) H 02/06/24 06:26 Calculated Osmolality 293 mOsm/kg (285-295) 02/06/24 03:32 Calcium 9.6 mg/dL (8.5-10.5) 02/06/24 03:32 Phosphorus 3.5 mg/dL (2.5-4.5) 02/01/24 05:28 Magnesium 1.9 mg/dL (1.7-2.3) 02/01/24 05:28 Iron 56 ug/dL (37-145) 01/31/24 12:50 TIBC 315 mcg/dl 01/31/24 12:50 % Saturation 17.7 % (20-50) L 01/31/24 12:50 Unsat Iron Binding 259 ug/dL (112-347) 01/31/24 12:50 Total Bilirubin 0.3 mg/dL (0.15-1.2) 02/04/24 05:31 AST 39 U/L (0-32) H 02/04/24 05:31 ALT 22 U/L (0-33) 02/04/24 05:31 Alkaline Phosphatase 92 U/L (35-105) 02/04/24 05:31 Total Protein 6.0 g/dL (6.6-8.7) L 02/04/24 05:31 Albumin 3.5 g/dL (3.5-5.2) 02/04/24 05:31 Globulin 2.5 g/dL (1.3-4.6) 02/04/24 05:31 Vitamin B12 510 pg/mL (232-1245) 01/31/24 12:50 Folate 15.5 ng/mL (4.8-37.3) 01/31/24 12:50 TSH 1.83 uIU/mL (0.27-4.20) 01/31/24 12:50 Urine Color Straw (Yellow) 01/31/24 17:55 Urine Appearance Clear (CLEAR) 01/31/24 17:55 Urine pH 8 (5-7) H 01/31/24 17:55 Ur Specific [place] 1.010 (1.005-1.030) 01/31/24 17:55 Urine Protein Neg (Negative) 01/31/24 17:55 Urine Glucose (UA) Norm (Normal) 01/31/24 17:55 Urine Ketones Negative (Negative) 01/31/24 17:55 Urine Blood Neg (Negative) 01/31/24 17:55 Urine Nitrate Negative (Negative) 01/31/24 17:55 Urine Bilirubin Neg (Negative) 01/31/24 17:55 Urine Urobilinogen Norm mg/dL (Negative) 01/31/24 17:55 Ur Leukocyte Esterase 1+ (Negative) H 01/31/24 17:55 Urine RBC None /hpf (0-2) 01/31/24 17:55 Urine WBC 0-4 /hpf (0-5) H 01/31/24 17:55 Ur Squamous Epith Cells None /hpf (0-5) 01/31/24 17:55 Amorphous Sediment Not Reportable 01/31/24 17:55 Urine Bacteria Trace /hpf (NONE) 01/31/24 17:55 Urine Mucus None /hpf 01/31/24 17:55 Vitals Last Vital Signs Temp 98.2 F 02/06/24 08:11 Pulse 64 02/06/24 08:12 Resp 16 02/06/24 08:12 BP 179/80 02/06/24 08:11 Pulse Ox 98 02/06/24 08:12 O2 Del Method Room Air 02/06/24 08:12 Discharge Plan Discharge Patient Disposition: Home Condition: Stable Prescriptions: Continued albuterol sulfate 90 mcg/actuation HFA aerosol inhaler 2 puff inhalation BID PRN (Reason: Shortness Of Breath) cetirizine [Zyrtec] 10 mg tablet 10 mg PO DAILY PRN (Reason: Allergy Symptoms) multivitamin Tablet 1 tab PO DAILY lidocaine 5 % cream 1 applic topical BID PRN (Reason: pain) Qty: 30 0RF albuterol sulfate 0.63 mg/3 mL solution for nebulization 0.63 mg inhalation Q6H PRN (Reason: shortness of breath or wheezing) Qty: 90 3RF carvedilol 12.5 mg tablet 12.5 mg PO BID Qty: 180 3RF Rx Instructions: must administer with a meal/food (DME) pen needle, diabetic [TechLITE Pen Needle] 32 gauge x 1/4 needle See Rx Instructions .ROUTE .COMPLEX Qty: 100 3RF Dose Instruction: USE DIRECTED Rx Instructions: USE DIRECTED Stiolto Respimat 2.5-2.5 mcg/actuation mist 2 puff inhalation DAILY Qty: 4 4RF amlodipine 5 mg tablet 5 mg PO BID Qty: 180 3RF ondansetron 4 mg tablet,disintegrating 4 mg PO DAILY PRN (Reason: nausea and vomiting) 5 Days Qty: 20 0RF anastrozole 1 mg tablet 1 mg PO DAILY Qty: 90 1RF prochlorperazine maleate 10 mg tablet 10 mg PO Q6H PRN (Reason: nausea and vomiting) Qty: 30 2RF aspirin 81 mg Tablet,Delayed Release (Dr/Ec) 81 mg PO DAILY insulin glargine [Lantus Solostar U-100 Insulin] 100 unit/mL (3 mL) insulin pen 24 unit SUBCUT DAILY Changed warfarin 5 mg tablet 7 mg PO DAILY Qty: 30 3RF Protocol: Dose Management Condition: Sunday Dose/Route: 7 mg Instruction: 1.4 x 5 mg tablets Condition: Sunday Dose/Route: 7 mg Instruction: 1.4 x 5 mg tablets Condition: Sunday Dose/Route: 7 mg Instruction: 1.4 x 5 mg tablets Condition: Sunday Dose/Route: 7 mg Instruction: 1.4 x 5 mg tablets Condition: Dose/Route: 7 mg Instruction: 1.4 x 5 mg tablets Condition: Sunday Dose/Route: 7 mg Instruction: 1.4 x 5 mg tablets Condition: Sunday Dose/Route: 7 mg Instruction: 1.4 x 5 mg tablets Protocol Text: Adjustment Start Date: Sunday01/25/24 INR Value: 43.0 Seconds INR Date: 01/23/24 Recheck Date: 02/20/24 Rx Instructions: Continue 7mg per day. Discharge Orders: Discharge Order (Routine); Ordered 02/06/24 Ordered By: Campbell Palacio Other Ambulatory Orders: Prothrombin Time INR (MOWEFR) Timeframe: 20240208 Facility: [facility] - Location: Lab - Main Lab Ordered By: Campbell Palacio Prothrombin Time INR (MOWEFR) Timeframe: 20240211 Facility: [facility] - Location: Lab - Main Lab Ordered By: Campbell Palacio Prothrombin Time INR (MOWEFR) Timeframe: 20240213 Facility: [facility] - Location: Lab - Main Lab Ordered By: Campbell Palacio Referrals: Osbaldo Gilliam DO [Physician] - 1 week (We have notified your physician's clinic of the need for a follow-up appointment to be scheduled. If you have not heard from them within the next 2 business days, please call them directly. ) Lalo Ortez DO [Primary Care Provider] - 02/12/24 11:00 am Discharge Diet: Cardiac and Diabetic Patient Instructions: Warfarin (By mouth) (Coumadin, Jantoven), Vitamin K in Foods (GEN) Activity Restrictions/Additional Instructions: Please follow-up INR Sunday, Sunday, Sunday to reassess level to make sure that it is in target range and not getting too high. Continue your usual warfarin dose of 7mg. Follow-up with your primary doctor for reassessment after port placement as well as reassessment of INR in office. Continue prior target for INR, 2.5-3.5. Seek medical attention in case of any concerning symptoms or bleeding. Monitor blood pressures at home 3 times daily, write down values, bring to your appointment for optimization of blood pressure control. Do not soak in water for 2 weeks. Shower regularly. Discharge Attestations Time Spent in Discharge Care*: greater than 30 min Quality Metrics Clinical Quality Measures [ No reported AMI, CVA or VTE this stay] Coding Level of Care Code 17349 Total time (in minutes) for Discharge: 35 Diagnoses H/O mechanical aortic valve replacement Z95.2 S/P CABG (coronary artery bypass graft) Z95.1 Pacemaker Z95.0 Dyslipidemia E78.5 Warfarin anticoagulation Z79.01 Type 2 diabetes mellitus with stage 3 chronic kidney disease, without long-term current use of insulin E11.22; N18.3 Chronic kidney disease stage: stage 3 (moderate) Diabetes mellitus complication detail: with chronic kidney disease Diabetes mellitus complication status: with kidney complications Diabetes mellitus terminal makeup operator insulin use: without group home use Diabetes mellitus type: type 2 Carcinoma of left breast metastatic to lung C50.912; C78.02 Laterality: left
[2024-02-06 11:22] VITALS: PULSE 64; RESP 16; O2SAT 98
== END 2024-02-06 11:23 | disposition home or self-care (01) | DRG 940 ==
PROVIDERS: Internal Medicine; Student in an Organized Health Care Education/Training Program; Admitting Provider Surgery; PCP Electrodiagnostic Medicine; Visit Provider Surgery
PROC: 0JH60WZ Insertion of Totally Implantable Vascular Access Device into Chest Subcutaneous Tissue and Fascia, Open Approach (ICD-10-PCS; principal; 2024-02-01 12:00)
DX: R79.1 Abnormal coagulation profile (principal); C78.02 Secondary malignant neoplasm of left lung; Z68.42 Body mass index [BMI] 45.0-49.9, adult; R00.1 Bradycardia, unspecified; I25.10 Atherosclerotic heart disease of native coronary artery without angina pectoris; C50.912 Malignant neoplasm of unspecified site of left female breast; Z79.4 Long term (current) use of insulin; J44.9 Chronic obstructive pulmonary disease, unspecified; E11.59 Type 2 diabetes mellitus with other circulatory complications; E11.22 Type 2 diabetes mellitus with diabetic chronic kidney disease; I12.9 Hypertensive chronic kidney disease with stage 1 through stage 4 chronic kidney disease, or unspecified chronic kidney disease; N18.30 Chronic kidney disease, stage 3 unspecified; E03.9 Hypothyroidism, unspecified; E66.9 Obesity, unspecified; E78.5 Hyperlipidemia, unspecified; I35.0 Nonrheumatic aortic (valve) stenosis; Z95.1 Presence of aortocoronary bypass graft; Z95.2 Presence of prosthetic heart valve; Z79.01 Long term (current) use of anticoagulants; Z79.82 Long term (current) use of aspirin; Z95.0 Presence of cardiac pacemaker
CPT/HCPCS: 36415; 36416; 71045; 77001; 80048; 80053; 81001; 82607; 82746; 82962; 83540; 83550; 83735; 84100; 84443; 85025; 85049; 85384; 85610; 85730; 93005; 93306; 94664; 96372; C1788; J0690; J1644; J1815; J7030

== ENCOUNTER → 2024-02-01 11:52 | Day surgery (SDC) | payer OTHER, SELFPAY | LOC: OR 03-06 11:52 | PROVIDERS: PCP Electrodiagnostic Medicine; Visit Provider Surgery | DX: Z53.9 Procedure and treatment not carried out, unspecified reason (principal) | CPT/HCPCS: J2704; J3010 ==

== ENCOUNTER 2024-02-27 11:15 | Oncology outpatient (recurring) (ONCR) | payer OTHER, SELFPAY ==
[2024-02-20 10:22] VITALS: BP 147/75; PULSE 84; RESP 16; TEMP 36.6; O2SAT 96
[2024-02-20 10:39] LABS: Basophils % 0.7 %; Eosinophils # 0.2 10^3/uL (0.0-0.8); Eosinophils % 3.7 %; Hematocrit 34.8 % (36-47); Lymphocytes # 1.1 10^3/uL (0.8-4.8); Lymphocytes % 19.6 %; Mean Corpuscular HGB Conc 32.8 g/dL (30-55); Mean Corpuscular Hemoglobin 28.6 pg (27-33); Mean Corpuscular Volume 87.2 fl (85-98); Mean Platelet Volume 10.9 fL (7.4-10.4); Monocytes # 0.5 10^3/uL (0.2-0.9); Monocytes % 9.6 %; Neutrophils # 3.56 10^3/uL (1.8-7.7); Nucleated Red Blood Cells % 0 %; Platelet Count 132 10^3/cmm (157-399); Red Blood Count 3.99 10^6/uL (3.85-5.65)
[2024-02-20 11:03] LABS: Alanine Aminotransferase 15 U/L (0-33); Albumin Level 3.8 g/dL (3.5-5.2); Alkaline Phosphatase 92 U/L (35-105); Anion Gap 12.2 (5-19); Aspartate Amino Transferase 17 U/L (0-32); Blood Urea Nitrogen 17 mg/dL (8-23); CA 15-3 23.1 U/mL (0-25); Calcium 8.9 mg/dL (8.5-10.5); Carbon Dioxide 25 mmol/L (22-29); Chloride 104 mmol/L (98-107); Creatinine Clr Calc Pharmacy 78.8439; Globulin 2.6 g/dL (1.3-4.6); Glomerular Filtration Rate 72.2 mL/min (90-130); Glucose 229 mg/dL (65-115); Osmolality Calculated 293 mOsm/kg (285-295); Potassium 4.2 mmol/L (3.5-5.1); Sodium 137 mmol/L (136-145); Total Bilirubin 0.3 mg/dL (0.15-1.2); Total Protein 6.4 g/dL (6.6-8.7)
[2024-02-20] MEDS: sodium chloride 0.9% 250 ML 75 ML IV (12:41)
[2024-02-20] MEDS: famotidine 20 mg/2 mL INJ IVP (12:43)
[2024-02-20] MEDS: diphenhydrAMINE 50 mg/mL SDV 1mL 25 MG IVP (12:48)
[2024-02-20] MEDS: ondansetron 2 mg/ML SDV 2 mL 8 MG IVP (12:52)
[2024-02-20] MEDS: dexamethasone 20 MG in sodium chloride 0.9% 50 ML 188 MG IV (13:16)
[2024-02-20 13:50] VITALS: BP 135/80; PULSE 66; RESP 18; TEMP 36.5; O2SAT 98
[2024-02-20 14:05] VITALS: BP 144/85; PULSE 63; RESP 16; TEMP 36.6; O2SAT 95
[2024-02-20 14:53] VITALS: BP 129/71; PULSE 68; RESP 17; TEMP 36.6; O2SAT 94
[2024-02-27 10:47] LABS: Basophils % 0.5 %; Eosinophils # 0.2 10^3/uL (0.0-0.8); Eosinophils % 3.7 %; Lymphocytes # 1.2 10^3/uL (0.8-4.8); Mean Corpuscular HGB Conc 33.6 g/dL (30-55); Mean Corpuscular Hemoglobin 28.8 pg (27-33); Mean Corpuscular Volume 85.5 fl (85-98); Mean Platelet Volume 11.3 fL (7.4-10.4); Monocytes # 0.3 10^3/uL (0.2-0.9); Monocytes % 5.5 %; Neutrophils # 3.83 10^3/uL (1.8-7.7); Neutrophils % 67.9 %; Nucleated Red Blood Cells % 0 %; Platelet Count 157 10^3/cmm (157-399); Red Blood Count 3.86 10^6/uL (3.85-5.65); Red Cell Distribution Width 13.2 % (12.1-15.1); White Blood Count 5.64 10^3/uL (3.29-11.43)
[2024-02-27 11:11] LABS: Alanine Aminotransferase 15 U/L (0-33); Albumin Level 3.8 g/dL (3.5-5.2); Alkaline Phosphatase 87 U/L (35-105); Anion Gap 14.4 (5-19); Aspartate Amino Transferase 12 U/L (0-32); Blood Urea Nitrogen 16 mg/dL (8-23); Calcium 9.3 mg/dL (8.5-10.5); Carbon Dioxide 25 mmol/L (22-29); Chloride 105 mmol/L (98-107); Creatinine Clr Calc Pharmacy 90.1073; Globulin 2.4 g/dL (1.3-4.6); Glomerular Filtration Rate 84.2 mL/min (90-130); Glucose 255 mg/dL (65-115); Osmolality Calculated 300 mOsm/kg (285-295); Potassium 4.4 mmol/L (3.5-5.1); Sodium 140 mmol/L (136-145); Total Bilirubin 0.3 mg/dL (0.15-1.2); Total Protein 6.2 g/dL (6.6-8.7)
[2024-02-27 13:20] VITALS: BP 139/84; PULSE 70; RESP 17; TEMP 36.8; O2SAT 98
[2024-02-27 14:14] VITALS: BP 142/82; PULSE 71; RESP 18; TEMP 36.5; O2SAT 98
[2024-02-27] MEDS: sodium chloride 0.9% (100 ml) 100 ML 50 ML (14:22)
[2024-02-27] MEDS: ondansetron 2 mg/ML SDV 2 mL 8 MG IVP (14:25)
[2024-02-27] MEDS: famotidine 20 mg/2 mL INJ IVP (14:31)
[2024-02-27] MEDS: diphenhydrAMINE 50 mg/mL SDV 1mL 25 MG IVP (14:33)
[2024-02-27] MEDS: dexamethasone 20 MG in sodium chloride 0.9% 50 ML 188 MG IV (14:37)
[2024-02-27 16:48] VITALS: BP 154/74; PULSE 77; RESP 16; TEMP 36.6; O2SAT 98
== END 2024-02-29 23:59 | disposition home or self-care (01) ==
PROVIDERS: PCP Electrodiagnostic Medicine; Visit Provider Nurse Practitioner Family
DX: Z53.9 Procedure and treatment not carried out, unspecified reason; Z51.11 Encounter for antineoplastic chemotherapy; C50.412 Malignant neoplasm of upper-outer quadrant of left female breast; Z17.0 Estrogen receptor positive status [ER+]; Z79.811 Long term (current) use of aromatase inhibitors; Z79.899 Other long term (current) drug therapy
CPT/HCPCS: 80053; 85025; 85610; 86300; 96367; 96375; 96413; J1100; J1200; J2405; J3490; J7050; J9267

== ENCOUNTER 2024-03-19 07:30 | Oncology outpatient (recurring) (ONCR) | payer OTHER, SELFPAY ==
[2024-03-05 12:18] LABS: Basophils % 0.8 %; Eosinophils # 0.1 10^3/uL (0.0-0.8); Eosinophils % 3.5 %; Hematocrit 31.6 % (36-47); Lymphocytes # 1.2 10^3/uL (0.8-4.8); Lymphocytes % 32.1 %; Mean Corpuscular HGB Conc 32.3 g/dL (30-55); Mean Corpuscular Hemoglobin 27.8 pg (27-33); Mean Corpuscular Volume 86.1 fl (85-98); Mean Platelet Volume 10.8 fL (7.4-10.4); Monocytes # 0.3 10^3/uL (0.2-0.9); Monocytes % 8.4 %; Neutrophils # 1.96 10^3/uL (1.8-7.7); Neutrophils % 53.3 %; Nucleated Red Blood Cells % 0.5 %; Platelet Count 164 10^3/cmm (157-399); Red Blood Count 3.67 10^6/uL (3.85-5.65); Red Cell Distribution Width 13.6 % (12.1-15.1); White Blood Count 3.68 10^3/uL (3.29-11.43)
[2024-03-05 12:35] LABS: Alanine Aminotransferase 15 U/L (0-33); Albumin Level 3.4 g/dL (3.5-5.2); Alkaline Phosphatase 82 U/L (35-105); Anion Gap 14.2 (5-19); Aspartate Amino Transferase 13 U/L (0-32); Blood Urea Nitrogen 18 mg/dL (8-23); Calcium 9.1 mg/dL (8.5-10.5); Carbon Dioxide 25 mmol/L (22-29); Chloride 104 mmol/L (98-107); Globulin 2.3 g/dL (1.3-4.6); Glomerular Filtration Rate 72.2 mL/min (90-130); Glucose 238 mg/dL (65-115); Osmolality Calculated 298 mOsm/kg (285-295); Potassium 4.2 mmol/L (3.5-5.1); Sodium 139 mmol/L (136-145); Total Bilirubin 0.2 mg/dL (0.15-1.2); Total Protein 5.7 g/dL (6.6-8.7)
[2024-03-19 08:03] LABS: Basophils % 0.4 %; Eosinophils # 0.1 10^3/uL (0.0-0.8); Eosinophils % 1.2 %; Hematocrit 32.5 % (36-47); Lymphocytes % 14.3 %; Mean Corpuscular Hemoglobin 27.1 pg (27-33); Mean Corpuscular Volume 84.6 fl (85-98); Mean Platelet Volume 10.5 fL (7.4-10.4); Monocytes # 0.6 10^3/uL (0.2-0.9); Monocytes % 8.1 %; Neutrophils # 5.09 10^3/uL (1.8-7.7); Neutrophils % 75.1 %; Nucleated Red Blood Cells % 0 %; Platelet Count 135 10^3/cmm (157-399); Red Blood Count 3.84 10^6/uL (3.85-5.65); Red Cell Distribution Width 14.3 % (12.1-15.1); White Blood Count 6.78 10^3/uL (3.29-11.43)
[2024-03-19 08:21] LABS: Alanine Aminotransferase 11 U/L (0-33); Albumin Level 3.5 g/dL (3.5-5.2); Alkaline Phosphatase 96 U/L (35-105); Anion Gap 14.1 (5-19); Aspartate Amino Transferase 12 U/L (0-32); Blood Urea Nitrogen 16 mg/dL (8-23); Calcium 9.2 mg/dL (8.5-10.5); Carbon Dioxide 25 mmol/L (22-29); Chloride 105 mmol/L (98-107); Globulin 2.3 g/dL (1.3-4.6); Glomerular Filtration Rate 84.2 mL/min (90-130); Glucose 185 mg/dL (65-115); Osmolality Calculated 296 mOsm/kg (285-295); Potassium 4.1 mmol/L (3.5-5.1); Sodium 140 mmol/L (136-145); Total Bilirubin 0.3 mg/dL (0.15-1.2); Total Protein 5.8 g/dL (6.6-8.7)
== END 2024-03-30 23:59 | disposition home or self-care (01) ==
PROVIDERS: Internal Medicine Medical Oncology; Nurse Practitioner Family; PCP Electrodiagnostic Medicine; Visit Provider Nurse Practitioner Family
DX: Z53.9 Procedure and treatment not carried out, unspecified reason (principal); C50.412 Malignant neoplasm of upper-outer quadrant of left female breast
CPT/HCPCS: 36591; 80053; 85025

== ENCOUNTER → 2024-03-26 09:57 | Outpatient (BNVA) | payer OTHER, SELFPAY | PROVIDERS: PCP Electrodiagnostic Medicine; Visit Provider Internal Medicine Cardiovascular Disease | DX: Z95.2 Presence of prosthetic heart valve (principal) | CPT/HCPCS: 85610 ==

== ENCOUNTER → 2024-04-16 13:44 | Outpatient (BNVA) | payer OTHER, SELFPAY | PROVIDERS: PCP Electrodiagnostic Medicine; Visit Provider Internal Medicine Cardiovascular Disease | DX: Z95.2 Presence of prosthetic heart valve (principal) | CPT/HCPCS: 85610 ==

== ENCOUNTER → 2024-04-24 12:39 | Outpatient (BNVA) | payer OTHER, SELFPAY | PROVIDERS: PCP Electrodiagnostic Medicine; Visit Provider Internal Medicine Cardiovascular Disease | DX: Z95.2 Presence of prosthetic heart valve (principal); Z95.1 Presence of aortocoronary bypass graft; F17.201 Nicotine dependence, unspecified, in remission; Z79.01 Long term (current) use of anticoagulants; E78.5 Hyperlipidemia, unspecified; E11.59 Type 2 diabetes mellitus with other circulatory complications; I25.10 Atherosclerotic heart disease of native coronary artery without angina pectoris; E78.2 Mixed hyperlipidemia; Z95.0 Presence of cardiac pacemaker; E11.22 Type 2 diabetes mellitus with diabetic chronic kidney disease; C50.412 Malignant neoplasm of upper-outer quadrant of left female breast | CPT/HCPCS: 36415; 85610 ==

== ENCOUNTER 2024-04-29 10:00 | Oncology outpatient (recurring) (ONCR) | payer OTHER, SELFPAY ==
[2024-04-02 12:19] LABS: Basophils % 0.5 %; Eosinophils # 0.2 10^3/uL (0.0-0.8); Eosinophils % 2.9 %; Hematocrit 32.5 % (36-47); Lymphocytes # 1.3 10^3/uL (0.8-4.8); Lymphocytes % 22.6 %; Mean Corpuscular HGB Conc 32.9 g/dL (30-55); Mean Corpuscular Hemoglobin 27.8 pg (27-33); Mean Corpuscular Volume 84.4 fl (85-98); Mean Platelet Volume 10.3 fL (7.4-10.4); Monocytes # 0.5 10^3/uL (0.2-0.9); Monocytes % 8.2 %; Neutrophils # 3.87 10^3/uL (1.8-7.7); Neutrophils % 65.1 %; Nucleated Red Blood Cells % 0 %; Platelet Count 141 10^3/cmm (157-399); Red Blood Count 3.85 10^6/uL (3.85-5.65); Red Cell Distribution Width 16.6 % (12.1-15.1); White Blood Count 5.94 10^3/uL (3.29-11.43)
[2024-04-02 14:51] LABS: Iron 72 ug/dL (37-145); Percent Saturation 21.7 % (20-50); Total Iron Binding Capacity 331 mcg/dl; Unsaturated Iron Binding 259 ug/dL (112-347)
[2024-04-02 17:32] LABS: Alanine Aminotransferase 11 U/L (0-33); Albumin Level 3.8 g/dL (3.5-5.2); Alkaline Phosphatase 87 U/L (35-105); Aspartate Amino Transferase 14 U/L (0-32); Blood Urea Nitrogen 18 mg/dL (8-23); Calcium 9.3 mg/dL (8.5-10.5); Carbon Dioxide 24 mmol/L (22-29); Chloride 102 mmol/L (98-107); Creatinine Clr Calc Pharmacy 81.9393; Globulin 2.2 g/dL (1.3-4.6); Glomerular Filtration Rate 72.2 mL/min (90-130); Glucose 217 mg/dL (65-115); Osmolality Calculated 292 mOsm/kg (285-295); Sodium 137 mmol/L (136-145); Total Bilirubin 0.4 mg/dL (0.15-1.2)
[2024-04-08 12:30] LABS: Basophils % 0.7 %; Eosinophils # 0.2 10^3/uL (0.0-0.8); Eosinophils % 3.8 %; Lymphocytes # 1.3 10^3/uL (0.8-4.8); Lymphocytes % 23.9 %; Mean Corpuscular HGB Conc 32.4 g/dL (30-55); Mean Corpuscular Hemoglobin 27.8 pg (27-33); Mean Corpuscular Volume 85.7 fl (85-98); Mean Platelet Volume 10.6 fL (7.4-10.4); Monocytes # 0.4 10^3/uL (0.2-0.9); Monocytes % 7.8 %; Neutrophils # 3.52 10^3/uL (1.8-7.7); Neutrophils % 63.6 %; Nucleated Red Blood Cells % 0 %; Platelet Count 130 10^3/cmm (157-399); Red Blood Count 3.85 10^6/uL (3.85-5.65); Red Cell Distribution Width 18.5 % (12.1-15.1); White Blood Count 5.53 10^3/uL (3.29-11.43)
[2024-04-08 12:55] LABS: Alanine Aminotransferase 10 U/L (0-33); Albumin Level 3.7 g/dL (3.5-5.2); Alkaline Phosphatase 92 U/L (35-105); Anion Gap 15.2 (5-19); Aspartate Amino Transferase 13 U/L (0-32); Blood Urea Nitrogen 18 mg/dL (8-23); Calcium 9.2 mg/dL (8.5-10.5); Carbon Dioxide 25 mmol/L (22-29); Chloride 106 mmol/L (98-107); Creatinine Clr Calc Pharmacy 81.9393; Globulin 2.2 g/dL (1.3-4.6); Glomerular Filtration Rate 72.2 mL/min (90-130); Glucose 256 mg/dL (65-115); Osmolality Calculated 305 mOsm/kg (285-295); Potassium 4.2 mmol/L (3.5-5.1); Sodium 142 mmol/L (136-145); Total Bilirubin 0.4 mg/dL (0.15-1.2); Total Protein 5.9 g/dL (6.6-8.7)
[2024-04-08 13:03] LABS: INR 4.39 (0.8-1.2)
[2024-04-29 10:37] LABS: Basophils % 0.6 %; Eosinophils # 0.3 10^3/uL (0.0-0.8); Eosinophils % 5.1 %; Hematocrit 33.4 % (36-47); Lymphocytes # 1.2 10^3/uL (0.8-4.8); Lymphocytes % 23.5 %; Mean Corpuscular HGB Conc 32.3 g/dL (30-55); Mean Corpuscular Hemoglobin 28.5 pg (27-33); Mean Corpuscular Volume 88.1 fl (85-98); Mean Platelet Volume 10.7 fL (7.4-10.4); Monocytes # 0.5 10^3/uL (0.2-0.9); Monocytes % 9.5 %; Neutrophils # 3.06 10^3/uL (1.8-7.7); Neutrophils % 60.5 %; Nucleated Red Blood Cells % 0 %; Platelet Count 137 10^3/cmm (157-399); Red Blood Count 3.79 10^6/uL (3.85-5.65); White Blood Count 5.06 10^3/uL (3.29-11.43)
[2024-04-29 10:52] LABS: INR 2.91 (0.83-1.21); Prothrombin Time (Patient) 31.5 Seconds (12.0-15.1)
[2024-04-29 10:54] LABS: Alanine Aminotransferase 9 U/L (0-33); Albumin Level 3.7 g/dL (3.5-5.2); Alkaline Phosphatase 88 U/L (35-105); Aspartate Amino Transferase 12 U/L (0-32); Blood Urea Nitrogen 20 mg/dL (8-23); Calcium 8.8 mg/dL (8.5-10.5); Carbon Dioxide 21 mmol/L (22-29); Chloride 107 mmol/L (98-107); Chol HDL Ratio 4.67 mg/dL (0.0-4.40); Cholesterol 201 mg/dL (0-200); Creatinine Clr Calc Pharmacy 80.5952; Globulin 2.2 g/dL (1.3-4.6); Glomerular Filtration Rate 72.2 mL/min (90-130); Glucose 275 mg/dL (65-115); HDL Cholesterol 43 mg/dL (60-100); LDL Cholesterol Calculated 118 mg/dL (50-129); LDL HDL Ratio 2.74 RATIO (0.00-3.22); Osmolality Calculated 302 mOsm/kg (285-295); Sodium 140 mmol/L (136-145); Total Bilirubin 0.5 mg/dL (0.15-1.2); Total Protein 5.9 g/dL (6.6-8.7); Triglycerides 200 mg/dL (0-150)
[2024-04-29 10:56] LABS: Estmated Average Glucose 148; Hemoglobin A1C 6.8 % (4.0-6.0)
[2024-04-29 10:57] LABS: Creatinine Urine, Random 180 mg/dL (28-217); Microalbum Creatinine Ratio Ur 17 mg/dL (0-20); Microalbumin Random Urine 3 ug/dL (0-20)
== END 2024-04-30 23:59 | disposition home or self-care (01) ==
PROVIDERS: Internal Medicine; Internal Medicine Cardiovascular Disease; Internal Medicine Medical Oncology; Nurse Practitioner Family; PCP Electrodiagnostic Medicine; Visit Provider Nurse Practitioner Family
DX: Z53.9 Procedure and treatment not carried out, unspecified reason (principal); C50.412 Malignant neoplasm of upper-outer quadrant of left female breast; E11.22 Type 2 diabetes mellitus with diabetic chronic kidney disease; Z95.2 Presence of prosthetic heart valve; Z79.01 Long term (current) use of anticoagulants
CPT/HCPCS: 36591; 80053; 80061; 82044; 83036; 83540; 83550; 85025; 85610

== ENCOUNTER 2024-05-20 11:30 | Oncology outpatient (recurring) (ONCR) | payer OTHER, SELFPAY ==
[2024-05-20 12:16] LABS: Basophils % 0.5 %; Eosinophils # 0.2 10^3/uL (0.0-0.8); Eosinophils % 2.9 %; Hematocrit 33.1 % (36-47); Lymphocytes # 1.2 10^3/uL (0.8-4.8); Lymphocytes % 20.1 %; Mean Corpuscular HGB Conc 33.2 g/dL (30-55); Mean Corpuscular Hemoglobin 30.1 pg (27-33); Mean Corpuscular Volume 90.4 fl (85-98); Mean Platelet Volume 9.5 fL (7.4-10.4); Monocytes # 0.5 10^3/uL (0.2-0.9); Monocytes % 8.6 %; Neutrophils # 3.91 10^3/uL (1.8-7.7); Neutrophils % 67.2 %; Nucleated Red Blood Cells % 0 %; Platelet Count 106 10^3/cmm (157-399); Red Blood Count 3.66 10^6/uL (3.85-5.65); Red Cell Distribution Width 23.4 % (12.1-15.1); White Blood Count 5.82 10^3/uL (3.29-11.43)
[2024-05-20 12:33] LABS: Alanine Aminotransferase 10 U/L (0-33); Albumin Level 3.6 g/dL (3.5-5.2); Alkaline Phosphatase 95 U/L (35-105); Anion Gap 14.6 (5-19); Aspartate Amino Transferase 16 U/L (0-32); Blood Urea Nitrogen 18 mg/dL (8-23); Calcium 8.9 mg/dL (8.5-10.5); Carbon Dioxide 23 mmol/L (22-29); Chloride 106 mmol/L (98-107); Globulin 2.1 g/dL (1.3-4.6); Glomerular Filtration Rate 72.2 mL/min (90-130); Glucose 205 mg/dL (65-115); Osmolality Calculated 296 mOsm/kg (285-295); Potassium 4.6 mmol/L (3.5-5.1); Sodium 139 mmol/L (136-145); Total Bilirubin 0.6 mg/dL (0.15-1.2); Total Protein 5.7 g/dL (6.6-8.7)
== END 2024-05-31 23:59 | disposition home or self-care (01) ==
PROVIDERS: Internal Medicine Medical Oncology; PCP Electrodiagnostic Medicine; Visit Provider Nurse Practitioner Family
DX: C50.412 Malignant neoplasm of upper-outer quadrant of left female breast
CPT/HCPCS: 36591; 80053; 85025

== ENCOUNTER → 2024-05-27 11:02 | Outpatient (BNVA) | payer OTHER, SELFPAY | PROVIDERS: PCP Electrodiagnostic Medicine; Visit Provider Internal Medicine Cardiovascular Disease | DX: Z95.2 Presence of prosthetic heart valve (principal) | CPT/HCPCS: 85610 ==

== ENCOUNTER 2024-06-03 07:58 | Outpatient (CLI) | payer OTHER, SELFPAY ==
--- NOTE | 2024-06-03 08:30 | PETR_ITS ---
PROCEDURE INFORMATION: Exam: PET/CT Skull Base to Mid-thigh Exam date and time: 06/03/2024 9:59 AM Age: 63 years old Clinical indication: Restaging of breast cancer. LABS AND CLINICAL REPORTS: Glucose: 163 mg/dl Treatment strategy for malignancy (PET staging): Restaging (PS) TECHNIQUE: Imaging protocol: Following at least four-hour fasting and following the injection of radiopharmaceutical, low dose CT images were obtained. Then, PET images were obtained. Attenuation corrected images were constructed using the CT scan. Fused images of PET and CT were reviewed. The standardized uptake values (SUV) reported below are maximum values within a region of interest, expressed in gm/ml. Exam includes orbital meatal line to mid-thigh. Radiopharmaceutical: 10.71 mCi F-18 FDG (Fluorodeoxyglucose), IV. Time of imaging post radiopharmaceutical administration: 1 hour Injection site: Right antecubital vein COMPARISON: PT PET skull to thigh SUBS [id number] 12/18/2023 FINDINGS: Tubes, catheters and devices: Port catheter placed via the right internal jugular vein terminates in the superior vena cava. Pacemaker is in the left chest wall with 2 electrodes within the right atrium and right ventricle. Brain: Visualized brain has normal physiologic uptake. Pharynx: No abnormal uptake. Larynx: Small linear focus of posterior uptake on the right side (10.7 SUV) with no corresponding CT abnormality likely represents benign physiologic uptake (prior evidence of left vocal cord paralysis). Lungs, pleura and trachea: Morphologically stable chronic atelectasis in the right middle lobe shows new diffuse uptake of 3.3 SUV. No new lung nodules or masses. Stable subpleural reticular opacity anteriorly in the right upper lobe suggestive of scarring. No pleural effusion. Heart: Normal physiologic uptake. There is no cardiomegaly. Status post aortic valve replacement. There is no pericardial effusion. Mediastinal space: See below in lymph nodes . Linear increased uptake up to 7.5 SUV within the esophagus with no abnormal wall thickening or distension, possible esophagitis. There is stable small hiatal hernia. Liver: No abnormal uptake. Gallbladder and biliary ducts: No abnormal uptake. Stable small calcified gallstones. Pancreas: No abnormal uptake. Spleen: No abnormal uptake. The spleen is normal in size with stable multiple calcified granulomas. Adrenal glands: No abnormal uptake. No nodules. Kidneys and ureters: Normal physiologic uptake. No hydronephrosis. Stomach and bowel: No abnormal uptake. Intraperitoneal and retroperitoneal spaces: No abnormal uptake. No ascites. Bladder: Normal physiologic uptake. Reproductive: No abnormal uptake. The uterus is absent post surgically. Vasculature: No abnormal uptake. No aortic aneurysm. Lymph nodes: Increased uptake up to 5.5 SUV within normal size mid mediastinal lymph nodes and 4 SUV in the normal size right hilar lymph nodes is indeterminate. No FDG avid lymphadenopathy in the head, neck, abdomen, pelvis, and extremities. Stable sequela of exposure to granulomatous disease with calcified granulomas in normal size left mediastinal and left hilar lymph nodes. Skeleton: Focal uptake of 5.3 SUV in the posterior segment of the right 10th rib with no corresponding CT abnormality is indeterminate. There is new diffusely increased uptake in the sternum (4.7 SUV), in the lumbar spine and pelvic bones (5.1 SUV), proximal femurs (4.6 SUV) and humeri (4.2 SUV) with no corresponding CT abnormality questionably representing benign bone marrow activity. Soft tissues: Primary tumor in the upper outer quadrant of the left breast measures 4.3 x 3.6 cm/24.4 SUV, previously 5.3 x 3.8 cm/12.8 SUV. The abnormal uptake within the tumor is currently diffuse rather than focal limited to the subcutaneous component as was seen on the prior exam. There is stable small fat containing umbilical hernia. PET/PET skull to thigh SUBS [id number] IMPRESSION: In comparison with 12/18/2023 : 1. There is focal metabolic progression in the left breast (increased uptake from 12.8 SUV to 24.4 SUV with larger area of abnormal activity within the tumor that has not increased in size). 2. New increased uptake up to 5.5 SUV within normal size mediastinal and right hilar lymph nodes is indeterminate, may be malignant or benign. 3. New focal uptake of 5.3 SUV in the posterior segment of the right 10th rib is indeterminate, may be malignant or benign posttraumatic in nature though there is no obvious fracture line or callus on CT. New diffusely increased bone marrow uptake in the axial skeleton and proximal extremities is probably benign. 4. New linear uptake in the esophagus is likely benign for clinical correlation with esophagitis.
== END 2024-06-03 07:59 | disposition home or self-care (01) ==
PROVIDERS: PCP Electrodiagnostic Medicine; Visit Provider Internal Medicine Medical Oncology
DX: C50.412 Malignant neoplasm of upper-outer quadrant of left female breast (principal); J98.11 Atelectasis; Z95.2 Presence of prosthetic heart valve; K80.20 Calculus of gallbladder without cholecystitis without obstruction; D73.89 Other diseases of spleen; I88.8 Other nonspecific lymphadenitis; R93.89 Abnormal findings on diagnostic imaging of other specified body structures; Z95.0 Presence of cardiac pacemaker; Z95.828 Presence of other vascular implants and grafts
CPT/HCPCS: 78815; A9552

== ENCOUNTER 2024-06-11 13:40 | Oncology outpatient (recurring) (ONCR) | payer OTHER, SELFPAY ==
[2024-06-11 14:09] LABS: Basophils % 0.7 %; Eosinophils # 0.2 10^3/uL (0.0-0.8); Hematocrit 33.8 % (36-47); Lymphocytes # 1.2 10^3/uL (0.8-4.8); Lymphocytes % 23.2 %; Mean Corpuscular HGB Conc 33.7 g/dL (30-55); Mean Corpuscular Hemoglobin 32.1 pg (27-33); Mean Corpuscular Volume 95.2 fl (85-98); Mean Platelet Volume 10.3 fL (7.4-10.4); Monocytes # 0.5 10^3/uL (0.2-0.9); Monocytes % 9.2 %; Neutrophils # 3.39 10^3/uL (1.8-7.7); Neutrophils % 63.5 %; Nucleated Red Blood Cells % 0 %; Platelet Count 121 10^3/cmm (157-399); Red Blood Count 3.55 10^6/uL (3.85-5.65); Red Cell Distribution Width 21.2 % (12.1-15.1); White Blood Count 5.34 10^3/uL (3.29-11.43)
[2024-06-11 15:01] LABS: Alanine Aminotransferase 10 U/L (0-33); Albumin Level 3.8 g/dL (3.5-5.2); Alkaline Phosphatase 99 U/L (35-105); Anion Gap 16.1 (5-19); Aspartate Amino Transferase 12 U/L (0-32); Blood Urea Nitrogen 22 mg/dL (8-23); Carbon Dioxide 24 mmol/L (22-29); Chloride 104 mmol/L (98-107); Glucose 261 mg/dL (65-115); Osmolality Calculated 302 mOsm/kg (285-295); Potassium 4.1 mmol/L (3.5-5.1); Sodium 140 mmol/L (136-145); Total Bilirubin 0.6 mg/dL (0.15-1.2); Total Protein 5.8 g/dL (6.6-8.7)
== END 2024-06-30 23:59 | disposition home or self-care (01) ==
PROVIDERS: Internal Medicine Medical Oncology; PCP Electrodiagnostic Medicine; Visit Provider Nurse Practitioner Family
DX: C50.412 Malignant neoplasm of upper-outer quadrant of left female breast; Z79.01 Long term (current) use of anticoagulants; D64.9 Anemia, unspecified
CPT/HCPCS: 36591; 80053; 85025

== ENCOUNTER → 2024-06-24 10:34 | Outpatient (BNVA) | payer OTHER, SELFPAY | PROVIDERS: PCP Electrodiagnostic Medicine; Visit Provider Internal Medicine Cardiovascular Disease | DX: Z95.2 Presence of prosthetic heart valve (principal) | CPT/HCPCS: 85610 ==

== ENCOUNTER 2024-07-14 18:05 | Observation (INO) | payer OTHER, SELFPAY ==
[2024-07-14 18:37] VITALS: BMI 42.7
--- NOTE | 2024-07-14 18:53 | P.CONIM_ITS ---
Providers/Reason For Consult 2 Consulting Physician/Specialty*: Hospitalist Reason for Consult*: Anticoagulation management Attending Physician: Osbaldo Gilliam DO Primary Care Provider: Lalo Ortez DO History of Present Illness History of Present Illness Cami Martinez is a 63 year old female who came to the hospital for left mastectomy, hospital service was consulted for anticoagulation management because she was on Coumadin for mechanical valve, her INR is 1.3 she was started on heparin drip. There was plan to stop heparin drip 6 AM so she could go for the surgery She did not complain of any active chest pain shortness with nausea vomiting or diarrhea Hemodynamically stable I requested CBC BMP and coagulation profile as well Review of Systems 2 Const: Denies: fever(s) or change in weight ENMT: Denies: throat pain Card: Denies: chest pain Resp: Denies: dyspnea GI: Denies: abdominal pain Medications/Allergies Home Medications Medication Instructions Recorded Confirmed Last Taken Type albuterol sulfate 90 mcg/actuation 2 puff inhalation BID PRN 06/15/22 07/14/24 01/31/24 08:00 History aerosol inhaler Shortness Of Breath cetirizine 10 mg tablet (Zyrtec) 10 mg PO DAILY PRN Allergy Symptoms 06/26/22 07/14/24 07/14/24 History albuterol sulfate 0.63 mg/3 mL 0.63 mg (3 mL) inhalation Q6H PRN 08/14/22 07/14/24 01/31/24 08:00 Rx solution for nebulization shortness of breath or wheezing #90 mL aspirin 81 mg tablet,delayed 81 mg PO DAILY 08/28/22 07/14/24 07/14/24 History release multivitamin 1 tab PO DAILY 04/13/23 07/14/24 07/14/24 History tiotropium 2.5 mcg-olodaterol 2.5 2 puff inhalation DAILY #4 grams 06/12/23 07/14/24 07/14/24 Rx mcg/actuation mist for inhalation (Stiolto Respimat) insulin glargine 100 unit/mL (3 24 unit SUBCUT DAILY 10/25/23 07/14/24 07/14/24 History mL) subcutaneous pen (Lantus Solostar U-100 Insulin) lidocaine 5 % topical cream 1 applic topical BID PRN pain #30 11/20/23 07/14/24 Unknown Rx grams warfarin 5 mg tablet 7 mg PO DAILY #30 tabs 02/06/24 07/15/24 01/27/24 Rx carvedilol 12.5 mg tablet See Rx Instructions .Route 02/26/24 07/14/24 07/14/24 Rx .COMPLEX #180 tabs prochlorperazine maleate 10 mg 10 mg PO Q6H PRN mild nausea and 02/27/24 07/14/24 Unknown Rx tablet vomiting #60 tabs ferrous sulfate 27 mg iron tablet 27 mg PO DAILY 04/24/24 07/14/24 07/14/24 History pen needle, diabetic 32 gauge x #100 ea 05/06/24 07/15/24 Unknown Rx 1/4 (BD Ultra-Fine Micro Pen Needle) warfarin 4 mg tablet See Rx Instructions .Route 06/19/24 07/15/24 Unknown Rx .COMPLEX #90 tabs amlodipine 5 mg tablet See Rx Instructions .Route 06/24/24 07/14/24 07/14/24 Rx .COMPLEX #180 tabs Allergies Allergy/AdvReac Type Severity Reaction Status Date / Time enoxaparin [From Lovenox] Allergy Unknown Unknown Verified 07/15/24 00:34 atorvastatin [From Lipitor] Allergy ADR-Vomitin Verified 07/15/24 00:34 g insulin glargine AdvReac Severe pain Verified 07/15/24 00:34 [From Basaglar KwikPen U-100 Insulin] lisinopril AdvReac Mild ADR-Nausea Verified 07/15/24 00:34 levothyroxine AdvReac ADR-Cramping Verified 07/15/24 00:34 of the Muscles metformin AdvReac ADR-Heartbu Verified 07/15/24 00:34 rn simvastatin AdvReac ADR-Nausea Verified 07/15/24 00:34 PFSH Acute 2 PFSH: Medical History Breast cancer Port-A-Cath in place 02/01/24 Dr Gilliam Warfarin anticoagulation Pacemaker Syncope, cardiogenic Syncope and collapse COPD (chronic obstructive pulmonary disease) Diabetes mellitus with cardiac complication Hypothyroid Obesity Dyslipidemia Diabetes Aortic stenosis HTN (hypertension) ASHD (arteriosclerotic heart disease) Surgical History S/P CABG (coronary artery bypass graft) H/O mechanical aortic valve replacement History of permanent cardiac pacemaker placement Status post tubal ligation S/P tonsillectomy H/O: hysterectomy Family History Mother Diabetes Grandfather Diabetes MATERNAL AND PATERNAL Grandmother Diabetes MATERNAL AND PATERNAL Family/Other Stroke MATERNAL AUNT Other CAD (coronary artery disease) Hyperlipidemia Hypertension Social History Smoking and tobacco/nicotine status: never used tobacco/nicotine Quit status (tobacco/nicotine): has quit using Year quit tobacco: 2013 Former quit date comment: 1 ppd x 36 years Alcohol intake: never Substance/Drug Use: never Household members: spouse Marital status: Vitals/I&O/Wt Weight last 48 hrs Weight 106.141 kg Physical Exam 2 Narrative: Awake and alert Morbidly beast Pleasant cooperative GCS 15 Nonfocal neuroexam currently on room air Hemodynamically stable Data 07/15/24 03:22 07/15/24 03:22 A&P Assessment and plan (1) H/O mechanical aortic valve replacement: (2) S/P CABG (coronary artery bypass graft): (3) Warfarin anticoagulation: (4) Diabetes: Qualifiers: Diabetes mellitus type: type 2 Diabetes mellitus adjunct faculty for medical terminology insulin use: without snf use Diabetes mellitus complication status: with kidney complications Diabetes mellitus complication detail: with chronic kidney disease Chronic kidney disease stage: stage 3 (moderate) Qualified Code(s): E 11.22 - Type 2 diabetes mellitus with diabetic chronic kidney disease; N18.3 - Chronic kidney disease, stage 3 (moderate) (5) Multiple thyroid nodules: (6) Hoarseness of voice: (7) Malignant neoplasm of upper-outer quadrant of left female breast: Plan Mechanical aortic valve STop warfarin start heparin gtt her INR is 1.3 Stop heparin at 6 am Npo after MN for breast surgery Full code Consult Attestations 2 Medical Necessity Statement: Continue medical management Diagnoses H/O mechanical aortic valve replacement Z95.2 S/P CABG (coronary artery bypass graft) Z95.1 Warfarin anticoagulation Z79.01 Type 2 diabetes mellitus with stage 3 chronic kidney disease, without long-term current use of insulin E11.22; N18.3 Diabetes mellitus type: type 2 Diabetes mellitus snf insulin use: without snf use Diabetes mellitus complication status: with kidney complications Diabetes mellitus complication detail: with chronic kidney disease Chronic kidney disease stage: stage 3 (moderate) Multiple thyroid nodules E04.2 Hoarseness of voice R49.0 Malignant neoplasm of upper-outer quadrant of left female breast C50.412
[2024-07-14 19:27] LABS: Platelet Count 130 10^3/cmm (157-399)
[2024-07-14 19:42] LABS: Fibrinogen 374 mg/dL (174-498); Partial Thromboplastin Time 26.4 SECONDS (23.9-36.7)
--- NOTE | 2024-07-14 19:47 | PC.NURSE ---
Dr. Yan notified of INR of 1.3. Ordered to start Heparin drip now and ordered to stop Heparin drip at 6 am. Patient currently does not have IV access and her port is not accessed. This will need to be done prior to starting Heparin drip.
[2024-07-14 19:53] LABS: Platelet Count 130 10^3/cmm (157-399)
[2024-07-14 20:00] VITALS: BP 152/86; PULSE 71; RESP 17; TEMP 36.8; O2SAT 98
--- NOTE | 2024-07-14 20:35 | PC.NURSE ---
Patient refusing peripheral IV stick at this time. Unsuccessful port access x2 nurses. Patient educated that it is best we start a peripheral line to start Heparin drip as soon as possible to decrease belkis of blood clots. Patient verbalized understanding and stated I'll be fine, a little bit longer won't hurt. Charge nurse is contacting another nuse to come attempt port access. Patient did own dressing change to left breast.
--- NOTE | 2024-07-14 20:44 | PC.NURSE ---
Did not update Warfarin in med rec. Patient states her dose was lowered while she was on chemo meds and now it is going to have to be increased again now that she is off the chemo.
[2024-07-14] MEDS: heparin drip 25,000 UNIT/500 ML PREMIX 31 UNIT IV (21:07)
[2024-07-14] MEDS: heparin 5,000 unit/mL INJ 1 mL IVP (21:08)
--- NOTE | 2024-07-14 21:38 | PC.NURSE ---
Addendum entered by Shona Cooper RN 07/14/24 22:06: Dr. Brantley ordered Amlodipine, but not Coreg. Original Note: 3rd attempt from 3rd nurse at access for port was not successful. Peripheral line started. Dr. Brantley notified of the following: Patient is asking for her nighttime doses of her home medications, Amlodipine and Coreg. She is a patient of Dr. Gilliam having a mastectomy tomorrow, with a hospitalist consult. Blood pressure is 152 /86 and heart rate is 71
[2024-07-14] MEDS: amlodipine 5 mg Tablet PO (22:30)
[2024-07-14 22:35] LABS: Glucose Point of Care 226 mg/dL (70-110)
--- NOTE | 2024-07-14 22:37 | PC.NURSE ---
Patient states that she takes Lantus at home. Patient states she cannot take our off brand Lantus because it made her sick last time. Patient states she can take our Humalog.
[2024-07-14] MEDS: insulin lispro 100 unit/1 mL SUBCUT (22:48)
[2024-07-15] VITALS (14 sets, daily range): BP systolic 109–175; BP diastolic 61–92; PULSE 60–72; RESP 16–18; TEMP 36.2–37.1; O2SAT 92–98
[2024-07-15] MEDS: acetaminophen 325 mg Tablet 650 MG PO (02:28)
[2024-07-15 03:35] LABS: Basophils # 0.1 10^3/uL (0.0-0.1); Basophils % 0.7 %; Eosinophils # 0.3 10^3/uL (0.0-0.8); Eosinophils % 4.1 %; Hematocrit 34.6 % (36-47); Lymphocytes # 1.5 10^3/uL (0.8-4.8); Lymphocytes % 22.2 %; Mean Corpuscular HGB Conc 32.9 g/dL (30-55); Mean Corpuscular Hemoglobin 31.4 pg (27-33); Mean Corpuscular Volume 95.3 fl (85-98); Monocytes # 0.7 10^3/uL (0.2-0.9); Monocytes % 10.6 %; Neutrophils # 4.22 10^3/uL (1.8-7.7); Neutrophils % 62.1 %; Nucleated Red Blood Cells % 0 %; Platelet Count 126 10^3/cmm (157-399); Red Blood Count 3.63 10^6/uL (3.85-5.65); Red Cell Distribution Width 14.7 % (12.1-15.1)
[2024-07-15 03:46] LABS: INR 1.32 (0.8-1.2)
[2024-07-15 03:51] LABS: Anion Gap 10.6 (5-19); Blood Urea Nitrogen 14 mg/dL (8-23); Calcium 8.9 mg/dL (8.5-10.5); Carbon Dioxide 26 mmol/L (22-29); Chloride 106 mmol/L (98-107); Creatinine Clr Calc Pharmacy 81.3292; Glomerular Filtration Rate 72.2 mL/min (90-130); Glucose 107 mg/dL (65-115); Osmolality Calculated 289 mOsm/kg (285-295); Potassium 3.6 mmol/L (3.5-5.1); Sodium 139 mmol/L (136-145)
[2024-07-15 03:52] LABS: Magnesium 2.1 mg/dL (1.7-2.3)
[2024-07-15 03:57] LABS: Partial Thromboplastin Time 109.6 SECONDS (23.9-36.7)
[2024-07-15 06:42] LABS: Glucose Point of Care 112 mg/dL (70-110)
[2024-07-15] MEDS: amlodipine 5 mg Tablet PO ×2 (08:45→16:59)
--- NOTE | 2024-07-15 09:43 | PC.CHAP ---
Pastoral Care Encounter/Spiritual Assessment Type of Contact [] Declined operations developer visit [] Patient/Family/Request visit [] Outpatient visit [] Follow-up visit [] Physician referral [] Code/Alert [x] Routine visit [] Staff referral [] Actively dying [] Patient sleeping [] Family support [] [] Out of room [] Palliative care [] [] Receiving care in room [] Pre-surgical visit [] Trauma [] Long length of stay [] ICU visit [] Other: Relational/Emotional Strength [x] Patient feels connected with others/family/visitors/staff [] Distress [] Loneliness/isolation [] Abandonment Spirituality of Patient [x] Person of Desire [] Attends Holiness of their Desire [x] Believes in Prayer [] Reads Bible or Mu-Ism materials [] There are Spiritual issues to be addressed Paramedic Interventions [x] Prayer [x] Active listening [] Non-anxious presence [x] Spiritual/emotional support [] Crisis/trauma care [] Spiritual counseling [] Bereavement support [] Provided bereavement packet [] Provided Bible/devotional materials [] Provided toy/stuffed animal, coloring book to patient or family member [] Provided Communion [] Anointing/[place] [] Salvation [x] Completed spiritual assessment [] Other: Impact on Illness or Injury [] Angry [] Fearful [] Anxious [] Often cries [] Exhaustion [] Unable to work [] Unable to attend synagogue [] Unable to walk/stand [] Unable to read [] Unable to drive [] Unable to eat/drink [] Unable to sleep [] Unable to be with family [] Patient intubated [] Other: Summary Time spent with patient 5 min
[2024-07-15 11:48] LABS: Glucose Point of Care 142 mg/dL (70-110)
--- NOTE | 2024-07-15 12:07 | P.HP_ITS ---
Providers/Chief Complaint 2 Admitting Physician: Osbaldo Gilliam DO Primary Care Provider: Lalo Ortez DO Chief Complaint: surgury History of Present Illness Cami Martinez is a 63 year old female with metastatic left breast cancer who presented for heparin bridging from warfarin. She has a mechanical aortic valve and is allergic to Lovenox. She has metastatic left breast cancer infiltrating the skin of her left breast causing an open wound. After explaining her options, she preferred to proceed with palliative simple left mastectomy. She understands that this is not potentially curative. She has dull constant pain at the left breast that does not radiate. Palpation makes pain worse. Nothing makes pain better. She denies any fever or chills Review of Systems 2 General: Reports: 10 or more systems reviewed and unremarkable except in HPI and below Medications/Allergies Home Medications Medication Instructions Recorded Confirmed Last Taken Type albuterol sulfate 90 mcg/actuation 2 puff inhalation BID PRN 06/15/22 07/14/24 01/31/24 08:00 History aerosol inhaler Shortness Of Breath cetirizine 10 mg tablet (Zyrtec) 10 mg PO DAILY PRN Allergy Symptoms 06/26/22 07/14/24 07/14/24 History albuterol sulfate 0.63 mg/3 mL 0.63 mg (3 mL) inhalation Q6H PRN 08/14/22 07/14/24 01/31/24 08:00 Rx solution for nebulization shortness of breath or wheezing #90 mL aspirin 81 mg tablet,delayed 81 mg PO DAILY 08/28/22 07/14/24 07/14/24 History release multivitamin 1 tab PO DAILY 04/13/23 07/14/24 07/14/24 History tiotropium 2.5 mcg-olodaterol 2.5 2 puff inhalation DAILY #4 grams 06/12/23 07/14/24 07/14/24 Rx mcg/actuation mist for inhalation (Stiolto Respimat) insulin glargine 100 unit/mL (3 24 unit SUBCUT DAILY 10/25/23 07/14/24 07/14/24 History mL) subcutaneous pen (Lantus Solostar U-100 Insulin) lidocaine 5 % topical cream 1 applic topical BID PRN pain #30 11/20/23 07/14/24 Unknown Rx grams warfarin 5 mg tablet 7 mg PO DAILY #30 tabs 02/06/24 07/15/24 01/27/24 Rx carvedilol 12.5 mg tablet See Rx Instructions .Route 02/26/24 07/14/24 07/14/24 Rx .COMPLEX #180 tabs prochlorperazine maleate 10 mg 10 mg PO Q6H PRN mild nausea and 02/27/24 07/14/24 Unknown Rx tablet vomiting #60 tabs ferrous sulfate 27 mg iron tablet 27 mg PO DAILY 04/24/24 07/14/24 07/14/24 History pen needle, diabetic 32 gauge x #100 ea 05/06/24 07/15/24 Unknown Rx 1/4 (BD Ultra-Fine Micro Pen Needle) warfarin 4 mg tablet See Rx Instructions .Route 06/19/24 07/15/24 Unknown Rx .COMPLEX #90 tabs amlodipine 5 mg tablet See Rx Instructions .Route 06/24/24 07/14/24 07/14/24 Rx .COMPLEX #180 tabs Allergies Allergy/AdvReac Type Severity Reaction Status Date / Time enoxaparin [From Lovenox] Allergy Unknown Unknown Verified 07/15/24 00:34 atorvastatin [From Lipitor] Allergy ADR-Vomitin Verified 07/15/24 00:34 g insulin glargine AdvReac Severe pain Verified 07/15/24 00:34 [From Basaglar KwikPen U-100 Insulin] lisinopril AdvReac Mild ADR-Nausea Verified 07/15/24 00:34 levothyroxine AdvReac ADR-Cramping Verified 07/15/24 00:34 of the Muscles metformin AdvReac ADR-Heartbu Verified 07/15/24 00:34 rn simvastatin AdvReac ADR-Nausea Verified 07/15/24 00:34 PFSH Acute 2 PFSH: Medical History Breast cancer Port-A-Cath in place 02/01/24 Dr Gilliam Warfarin anticoagulation Pacemaker Syncope, cardiogenic Syncope and collapse COPD (chronic obstructive pulmonary disease) Diabetes mellitus with cardiac complication Hypothyroid Obesity Dyslipidemia Diabetes Aortic stenosis HTN (hypertension) ASHD (arteriosclerotic heart disease) Surgical History S/P CABG (coronary artery bypass graft) H/O mechanical aortic valve replacement History of permanent cardiac pacemaker placement Status post tubal ligation S/P tonsillectomy H/O: hysterectomy Family History Mother Diabetes Grandfather Diabetes MATERNAL AND PATERNAL Grandmother Diabetes MATERNAL AND PATERNAL Family/Other Stroke MATERNAL AUNT Other CAD (coronary artery disease) Hyperlipidemia Hypertension Social History Smoking and tobacco/nicotine status: never used tobacco/nicotine Quit status (tobacco/nicotine): has quit using Year quit tobacco: 2013 Former quit date comment: 1 ppd x 36 years Alcohol intake: never Substance/Drug Use: never Household members: spouse Marital status: Vitals/I&O/Wt Last Vital Signs Temp 98.2 F 07/15/24 11:47 Pulse 67 07/15/24 11:47 Resp 18 07/15/24 11:47 BP 139/74 07/15/24 11:47 Pulse Ox 94 07/15/24 11:47 O2 Del Method Room Air 07/15/24 11:47 07/14/24 07/15/24 07/15/24 22:59 06:59 14:59 Intake Total 246.650 / 246.650 Balance 246.650 / 246.650 Weight last 48 hrs Weight 234 lb 6.4 oz Weight 234 lb Physical Exam 2 Narrative: General : Patient is well developed , no acute distress, oriented x3 Head : Normal cephalic, a-traumatic. Ears : Pinnae and external canal are normal. Hearing is normal. Eyes : PERRLA, Sclera and injection are normal. No conjunctival discharge. Nose : Mucous membranes are without erythema. Throat : buccal mucosa is normal, gums are without significant recession or hypertrophy. Lungs : Equal chest rise bilaterally, no use of accessory muscles, trachea is midline. Cor : Rate and rhythm are normal. Abdomen : Soft, ND, NT, no g/r/m Extremities : No edema, no cyanosis or clubbing, dorsalis pedis pulses are present bilaterally, non-tender to palpation of calves. Upper extremities are normal bilaterally. Back : non-tender to palpation, no CVA tenderness. Neuro : CN II - XII intact, Upper and lower extremities have equal and full strength Data 07/15/24 03:22 07/15/24 03:22 A&P Assessment and plan (1) Metastatic malignant neoplasm to skin of breast: (2) H/O mechanical aortic valve replacement: (3) Warfarin anticoagulation: Plan Left simple mastectomy The risks and benefits of the procedure, including but not limited to, bleeding, infection, scar, numbness, pain, damage to surrounding structures including nerves arteries and veins, recurrence, need for further surgery, psychological effects of losing her breast, were explained to the patient. She understands that this procedure is only for palliation and has no chance of curing her breast cancer. She is understanding of the risks and wishes to proceed She was placed on heparin yesterday and it was held at 6 AM this morning. INR this morning was below 1.5. We will restart her heparin drip and bridged her to Coumadin after 24 hours from surgery. She will need to remain in the hospital until her INR is above 2.5 Consult hospitalist for heparin drip Attestations 2 Medical Necessity Statement*: Patient will require multiple nights in the hospital for bridging from heparin to Coumadin as she has a mechanical aortic valve Coding Level of Care Code 48678 Diagnoses Metastatic malignant neoplasm to skin of breast C79.2 H/O mechanical aortic valve replacement Z95.2 Warfarin anticoagulation Z79.01
--- NOTE | 2024-07-15 12:08 | PM.PN ---
Subjective Subjective: Patient doing well going for surgery today Heparin on hold Vitals/I&O/Wt Last Vital Signs Temp 98.2 F 07/15/24 11:47 Pulse 67 07/15/24 11:47 Resp 18 07/15/24 11:47 BP 139/74 07/15/24 11:47 Pulse Ox 94 07/15/24 11:47 O2 Del Method Room Air 07/15/24 11:47 07/14/24 07/15/24 07/15/24 22:59 06:59 14:59 Intake Total 246.650 / 246.650 Balance 246.650 / 246.650 Weight last 48 hrs Weight 106.322 kg Weight 106.141 kg Physical Exam Narrative: Awake and alert Discharge Pleasant Currently on room air No active chest pain or shortness of breath GCS 15 Pleasant cooperative Data 07/15/24 03:22 07/15/24 03:22 A&P Assessment and plan (1) H/O mechanical aortic valve replacement: (2) S/P CABG (coronary artery bypass graft): (3) Warfarin anticoagulation: (4) Diabetes: Qualifiers: Diabetes mellitus type: type 2 Diabetes mellitus exterminator helper termite insulin use: without exterminator helper termite use Diabetes mellitus complication status: with kidney complications Diabetes mellitus complication detail: with chronic kidney disease Chronic kidney disease stage: stage 3 (moderate) Qualified Code(s): E11.22 - Type 2 diabetes mellitus with diabetic chronic kidney disease; N18.3 - Chronic kidney disease, stage 3 (moderate) (5) Multiple thyroid nodules: (6) Hoarseness of voice: (7) Malignant neoplasm of upper-outer quadrant of left female breast: Plan Mechanical aortic valve I will also consult pharmacy to dose Coumadin we might need to bridge her again with heparin before her INR becomes therapeutic with Coumadin Attestations Medical Necessity Statement*: Currently medical management Diagnoses H/O mechanical aortic valve replacement Z95.2 S/P CABG (coronary artery bypass graft) Z95.1 Warfarin anticoagulation Z79.01 Type 2 diabetes mellitus with stage 3 chronic kidney disease, without long-term current use of insulin E11.22; N18.3 Diabetes mellitus type: type 2 Diabetes mellitus exterminator helper termite insulin use: without exterminator helper termite use Diabetes mellitus complication status: with kidney complications Diabetes mellitus complication detail: with chronic kidney disease Chronic kidney disease stage: stage 3 (moderate) Multiple thyroid nodules E04.2 Hoarseness of voice R49.0 Malignant neoplasm of upper-outer quadrant of left female breast C50.412
[2024-07-15] MEDS: sodium chloride 0.9% 1,000 ML 30 ML IV (12:27)
--- NOTE | 2024-07-15 12:47 | ANES.PREANE2 ---
Pre-Anesthetic Assessment Height/Weight: Height 5 ft 2 in Weight 234 lb 6.4 oz Temp Pulse Resp BP Pulse Ox O2 Del Method 97.2 F L 72 18 166/92 97 Room Air 07/15/24 12:16 07/15/24 12:16 07/15/24 12:16 07/15/24 12:16 07/15/24 12:16 07/15/24 12:16 Preop Diagnosis: Breast mass Operation Date: 07/15/24 13:45 Proposed Procedures p Mastectomy Simple 66946, C50.412(Not Applicable) - Osbaldo Gilliam, DO Was Beta Marisol taken within 24 hours: N/A Was Clonidine taken within 24 hours: N/A Last intake: Intake Last Liquid Date 07/15/24 Last Liquid Time 02:30 Last Solid Date 07/14/24 Last Solid Time 18:00 Social No alcohol and No tobacco Exam alert, oriented x 3, clear to auscultation bilaterally and regular rate & rhythm Airway Submandibular: within normal limits Cervical ROM: within normal limits Mallampati: Class III Dentition: other (Edentulous) Anesthetic Plan ASA status: 3 Anesthesia: General Other: No prior issues with anesthesia NPO since yesterday Patient was admitted overnight due to being on chronic warfarin and needing bridged with heparin. Heparin gtt. shut off at 6 AM Hypertension on amlodipine and carvedilol. BB taken yesterday Type 2 diabetes on insulin. A.m. BS 142 S/p CABG and aortic valve replacement approximately 10 [address] ago[address] in place due to bradycardia. Patient has an Barry pacemaker, last interrogation 04/11/2024. Current mode DDDR Echo in 01/2024 showing EF 55 to 60% INR 1.32, hemoglobin 11.4 Currently undergoing chemotherapy, port in place Patient states that she is able to perform ADLs Plan for GETA. Will most likely have to place magnet over pacemaker due to location of pacemaker being close to surgical incision. Medications/Allergies Home Medications Medication Instructions Recorded Confirmed Last Taken Type albuterol sulfate 90 mcg/actuation 2 puff inhalation BID PRN 06/15/22 07/14/24 01/31/24 08:00 History aerosol inhaler Shortness Of Breath cetirizine 10 mg tablet (Zyrtec) 10 mg PO DAILY PRN Allergy Symptoms 06/26/22 07/14/24 07/14/24 History albuterol sulfate 0.63 mg/3 mL 0.63 mg (3 mL) inhalation Q6H PRN 08/14/22 07/14/24 01/31/24 08:00 Rx solution for nebulization shortness of breath or wheezing #90 mL aspirin 81 mg tablet,delayed 81 mg PO DAILY 08/28/22 07/14/24 07/14/24 History release multivitamin 1 tab PO DAILY 04/13/23 07/14/24 07/14/24 History tiotropium 2.5 mcg-olodaterol 2.5 2 puff inhalation DAILY #4 grams 06/12/23 07/14/24 07/14/24 Rx mcg/actuation mist for inhalation (Stiolto Respimat) insulin glargine 100 unit/mL (3 24 unit SUBCUT DAILY 10/25/23 07/14/24 07/14/24 History mL) subcutaneous pen (Lantus Solostar U-100 Insulin) lidocaine 5 % topical cream 1 applic topical BID PRN pain #30 11/20/23 07/14/24 Unknown Rx grams warfarin 5 mg tablet 7 mg PO DAILY #30 tabs 02/06/24 07/15/24 01/27/24 Rx carvedilol 12.5 mg tablet See Rx Instructions .Route 02/26/24 07/14/24 07/14/24 Rx .COMPLEX #180 tabs prochlorperazine maleate 10 mg 10 mg PO Q6H PRN mild nausea and 02/27/24 07/14/24 Unknown Rx tablet vomiting #60 tabs ferrous sulfate 27 mg iron tablet 27 mg PO DAILY 04/24/24 07/14/24 07/14/24 History pen needle, diabetic 32 gauge x #100 ea 05/06/24 07/15/24 Unknown Rx 1/4 (BD Ultra-Fine Micro Pen Needle) warfarin 4 mg tablet See Rx Instructions .Route 06/19/24 07/15/24 Unknown Rx .COMPLEX #90 tabs amlodipine 5 mg tablet See Rx Instructions .Route 06/24/24 07/14/24 07/14/24 Rx .COMPLEX #180 tabs Allergies Allergy/AdvReac Type Severity Reaction Status Date / Time enoxaparin [From Lovenox] Allergy Unknown Unknown Verified 07/15/24 00:34 atorvastatin [From Lipitor] Allergy ADR-Vomitin Verified 07/15/24 00:34 g insulin glargine AdvReac Severe pain Verified 07/15/24 00:34 [From Becky Steel U-100 Insulin] lisinopril AdvReac Mild ADR-Nausea Verified 07/15/24 00:34 levothyroxine AdvReac ADR-Cramping Verified 07/15/24 00:34 of the Muscles metformin AdvReac ADR-Heartbu Verified 07/15/24 00:34 rn simvastatin AdvReac ADR-Nausea Verified 07/15/24 00:34 Current Medications Generic Name Dose Route Start Last Admin Trade Name Freq PRN Reason Stop Dose Admin Acetaminophen 650 mg 07/15/24 01:56 07/15/24 02:28 Acetaminophen 325 Mg Tablet PO 650 mg Q6H PRN Administration MILD PAIN Amlodipine Besylate 5 mg 07/14/24 22:06 07/15/24 08:45 Amlodipine 5 Mg Tablet PO 5 mg BID KRISTIN Administration Heparin Sodium/Sodium Chloride 25,000 unit in 500 mls @ 0 mls/hr 07/14/24 19:00 07/15/24 05:52 Heparin Drip IV 0 unit/kg/hr CONT KRISTIN 0 mls/hr Titration Protocol Per Protocol Sodium Chloride 1,000 mls @ 30 mls/hr 07/15/24 12:15 07/15/24 12:27 Sodium Chloride 0.9% IV 07/16/24 12:14 30 mls/hr .Q24H KRISTIN Administration Insulin Human Lispro 0 unit 07/14/24 22:37 07/15/24 07:51 Insulin Lispro 100 Unit/1 Ml SUBCUT Not Given WM&BEDTIME KRISTIN Protocol Senna/Docusate Sodium 2 tab 07/15/24 09:00 07/15/24 08:46 Sennosides-Docusate Tablet PO Not Given BID KRISTIN PFSH Anesthesia Medical History Breast cancer Port-A-Cath in place 02/01/24 Dr Gilliam Warfarin anticoagulation Pacemaker Syncope, cardiogenic Syncope and collapse COPD (chronic obstructive pulmonary disease) Diabetes mellitus with cardiac complication Hypothyroid Obesity Dyslipidemia Diabetes Aortic stenosis HTN (hypertension) ASHD (arteriosclerotic heart disease) Surgical History S/P CABG (coronary artery bypass graft) H/O mechanical aortic valve replacement History of permanent cardiac pacemaker placement Status post tubal ligation S/P tonsillectomy H/O: hysterectomy Family History Mother Diabetes Grandfather Diabetes MATERNAL AND PATERNAL Grandmother Diabetes MATERNAL AND PATERNAL Family/Other Stroke MATERNAL AUNT Other CAD (coronary artery disease) Hyperlipidemia Hypertension Social History Smoking and tobacco/nicotine status: never used tobacco/nicotine Quit status (tobacco/nicotine): has quit using Year quit tobacco: 2013 Former quit date comment: 1 ppd x 36 years Alcohol intake: never Substance/Drug Use: never Household members: spouse Marital status: Data Anesthesia 07/15/24 03:22 07/15/24 03:22 Short CBC 07/14/24 07/14/24 07/15/24 Range/Units 19:16 19:16 03:22 WBC 6.80 (3.29-11.43) 10^3/uL Hgb 11.40 (11.27-16.99) g/dL Hct 34.6 L (36-47) % MCV 95.3 (85-98) fl Plt Count 130 L 130 L 126 L (157-399) 10^3/cmm Neut % (Auto) 62.1 % Neut # (Auto) 4.22 (1.8-7.7) 10^3/uL BMP 07/15/24 03:22 Sodium 139 Potassium 3.6 Chloride 106 Carbon Dioxide 26 BUN 14 Creatinine 0.8 Glucose 107 Calcium 8.9 Coags 07/14/24 07/15/24 19:16 03:22 PT 16.60 H 16.80 H INR 1.30 H 1.32 H APTT 26.4 109.6 H D Fibrinogen 374 Cardiac Studies: Echocardiogram 01/31/24 Echocardiogram Ultrasound 06/02/21 Sestamibi Stress Test (Cardiology) 03/01/22
[2024-07-15] MEDS: ceFAZolin 2,000 mg SDV 2000 MG IVP ×2 (13:08→21:59)
[2024-07-15] MEDS: lidocaine-epi 2% PF 1:200,000 20 mL SDV XX (14:25)
[2024-07-15] MEDS: tranexamic acid 1,000 mg/10mL SDV 1000 MG IV ×2 (15:00→16:10)
--- NOTE | 2024-07-15 15:29 | P.OP_ITS ---
Operative Report Date of procedure: July 15, 2024 Surgeon: Osbaldo Gilliam DO Procedure: The patient was wheeled into the operative room and placed on the OR table in the supine position. The left breast and axilla were inspected prepped and draped in the usual sterile fashion. A timeout was performed. All present were in agreement. After injecting with 2% lidocaine with epinephrine, an oblique ellipse excision was made with a 10 blade scalpel and carried down to the fatty tissue with Bovie cautery. I started with the superior flap and removed all the breast tissue using Bovie cautery. This was carried up to the clavipectoral fascia and down to the pectoralis major. All breast tissue was removed laterally to the latissimus dorsi and proximally to the sternum. I then went to the posterior flap all breast tissue was removed with Bovie cautery down to the inframammary fold. I carried the dissection down to the pectoralis major and removed all the breast tissue in its entirety. The mass was infiltrating the p ectoralis major and I shaved off of the muscle and cauterized any muscle that seemed infiltrated with tumor. Hemostasis was achieved with electrocautery. The breast was removed and a long stitch was placed laterally and a short stitch was placed superiorly. The specimen was passed off. The surgical field was irrigated and suctioned. Any small bleeders were controlled with more electrocautery. There was no signs of bleeding. Vistaseal was then applied over raw surfaces. The patient expressly did not want a surgical drain placed. Therefore a second Vistaseal was used. Dermis was then approximated with 2-0 and 3-0 Vicryl in interrupted fashion. Skin was then closed with 4-0 STRATAFIX in a subcuticular running fashion. Pereneo applied. The patient tolerated the procedure well and was wheeled in the postoperative anesthesia care unit in good condition.
--- NOTE | 2024-07-15 16:35 | ANE.PACU2 ---
Inpatient post-anesthesia follow up: Airway intact: Yes Vital signs: Temperature 98.4 F Pulse Rate 72 Respiratory Rate 16 Blood Pressure 113/57 Pulse Oximetry 100 Oxygen Delivery Me thod Room Air Oxygen Flow Rate Fraction of Inspir ed Oxygen Hydration adequate: Yes Nausea and vomiting: No Pain level: 1 Mental status: Baseline
[2024-07-15 16:57] LABS: Glucose Point of Care 187 mg/dL (70-110)
[2024-07-15] MEDS: carvedilol 12.5 mg Tablet PO (16:58)
[2024-07-15] MEDS: sennosides-docusate Tablet 2 TAB PO (16:58)
[2024-07-15] MEDS: metoclopramide 5 mg/mL SDV 2 mL 10 MG IVP (16:59)
[2024-07-15] MEDS: warfarin 5 mg Tablet PO (16:59)
[2024-07-15 17:36] LABS: Partial Thromboplastin Time 33.9 SECONDS (23.9-36.7)
[2024-07-15 21:43] LABS: Glucose Point of Care 293 mg/dL (70-110)
[2024-07-15] MEDS: insulin lispro 100 unit/1 mL SUBCUT (21:59)
[2024-07-16] VITALS: BP 113/54; PULSE 67; RESP 18; TEMP 36.7; O2SAT 97
[2024-07-16 01:22] LABS: Partial Thromboplastin Time 101.1 SECONDS (23.9-36.7)
[2024-07-16] MEDS: heparin drip 25,000 UNIT/500 ML PREMIX 24 UNIT IV (02:12)
[2024-07-16 04:00] VITALS: BP 95/60; PULSE 64; RESP 17; TEMP 36.5; O2SAT 95
[2024-07-16] MEDS: ceFAZolin 2,000 mg SDV 2000 MG IVP ×2 (04:43→12:07)
[2024-07-16 06:37] LABS: Glucose Point of Care 208 mg/dL (70-110)
[2024-07-16 07:06] LABS: Basophils % 0.1 %; Hematocrit 31.1 % (36-47); Lymphocytes # 0.8 10^3/uL (0.8-4.8); Lymphocytes % 7.1 %; Mean Corpuscular HGB Conc 32.5 g/dL (30-55); Mean Corpuscular Hemoglobin 30.9 pg (27-33); Mean Corpuscular Volume 95.1 fl (85-98); Mean Platelet Volume 10.7 fL (7.4-10.4); Monocytes # 0.7 10^3/uL (0.2-0.9); Monocytes % 6.2 %; Neutrophils # 9.47 10^3/uL (1.8-7.7); Neutrophils % 86.1 %; Nucleated Red Blood Cells % 0 %; Platelet Count 113 10^3/cmm (157-399); Red Blood Count 3.27 10^6/uL (3.85-5.65); Red Cell Distribution Width 14.3 % (12.1-15.1)
[2024-07-16 07:20] VITALS: BP 152/80; PULSE 71; RESP 16; TEMP 36.8; O2SAT 99
[2024-07-16 07:20] LABS: INR 1.18 (0.8-1.2)
[2024-07-16 07:24] LABS: Anion Gap 13.5 (5-19); Blood Urea Nitrogen 16 mg/dL (8-23); Calcium 8.4 mg/dL (8.5-10.5); Carbon Dioxide 23 mmol/L (22-29); Chloride 108 mmol/L (98-107); Creatinine Clr Calc Pharmacy 81.2273; Glomerular Filtration Rate 72.2 mL/min (90-130); Glucose 221 mg/dL (65-115); Osmolality Calculated 298 mOsm/kg (285-295); Potassium 4.5 mmol/L (3.5-5.1); Sodium 140 mmol/L (136-145)
[2024-07-16] MEDS: carvedilol 12.5 mg Tablet PO ×2 (08:51→18:09)
[2024-07-16] MEDS: amlodipine 5 mg Tablet PO ×2 (08:52→18:09)
[2024-07-16] MEDS: insulin lispro 100 unit/1 mL SUBCUT ×4 (08:53→20:44)
--- NOTE | 2024-07-16 10:45 | P.PN_ITS ---
Subjective 2 Subjective: No postop complications Hemoglobin stable at 10 INR 1.1 Patient will need to start bridging therapy starting today Coumadin dose will be given at 1400 Will start heparin drip bridging therapy around 1700 Patient is allergic to Lovenox, our only option is to use heparin for bridging therapy Patient is agreeable to stay until her INR is therapeutic range I have also requested pharmacy to dose Coumadin Vitals/I&O/Wt Last Vital Signs Temp 98.3 F 07/16/24 07:20 Pulse 71 07/16/24 07:20 Resp 16 07/16/24 07:20 BP 152/80 07/16/24 07:20 Pulse Ox 99 07/16/24 07:20 O2 Del Method Room Air 07/16/24 07:20 07/15/24 07/16/24 07/16/24 22:59 06:59 14:59 Intake Total 945.25 / 945.25 196.0 / 1141.25 358 / 358 Output Total 200 / 200 Balance 745.25 / 745.25 196.0 / 941.25 358 / 358 Weight last 48 hrs Weight 105.914 kg Weight 106.322 kg Weight 106.141 kg Physical Exam 2 Narrative: Awake and alert GCS 15 Pleasant cough No significant ecchymosis or bleeding around the surgical site Nonfocal neuroexam Currently on room air Hemodynamically stable Afebrile Data 07/16/24 06:49 07/16/24 06:49 A&P Assessment and plan (1) H/O mechanical aortic valve replacement: (2) Nausea alone: (3) Warfarin anticoagulation: (4) Pacemaker: (5) H/O breast surgery: Plan Status post mastectomy left-sided Postop day 1 Start bridging therapy with heparin and pharmacy to dose Coumadin For mechanical valve her INR needs to be 2.5-3.5 range Patient is okay to stay until her INR is therapeutic Adjust antihypertensive regimen Opioids along bowel regimen however patient is stating that she has own way to manage her bowel movements she does not want Senokot or lactulose or any bowel regimen with opioids at this point She is well aware of opioid-induced constipation Full code Check INR daily basis Attestations 2 Medical Necessity Statement*: Continue medical management Diagnoses H/O mechanical aortic valve replacement Z95.2 Nausea alone R11.0 Warfarin anticoagulation Z79.01 Pacemaker Z95.0 H/O breast surgery Z98.890
[2024-07-16 11:12] VITALS: BP 113/57; PULSE 72; RESP 16; TEMP 36.9; O2SAT 100
[2024-07-16 11:57] LABS: Glucose Point of Care 257 mg/dL (70-110)
[2024-07-16] MEDS: warfarin 10 mg Tablet PO (15:04)
[2024-07-16 15:07] VITALS: BP 124/67; PULSE 72; RESP 16; TEMP 36.8; O2SAT 98
--- NOTE | 2024-07-16 15:26 | P.PN_ITS ---
Subjective 2 Subjective: Patient seen and examined. Pain controlled Vitals/I&O/Wt Last Vital Signs Temp 98.3 F 07/16/24 20:32 Pulse 72 07/16/24 20:32 Resp 18 07/16/24 20:32 BP 122/85 07/16/24 20:32 Pulse Ox 97 07/16/24 20:32 O2 Del Method Room Air 07/16/24 20:32 07/16/24 07/16/24 07/16/24 06:59 14:59 22:59 Intake Total 196.0 / 1141.25 2045.2 / 2045.2 240 / 2285.2 Balance 196.0 / 941.25 2045.2 / 2045.2 240 / 2285.2 Weight last 48 hrs Weight 233 lb 8 oz Weight 234 lb 6.4 oz Physical Exam 2 Narrative: General: No acute distress, awake alert and oriented x 3 Skin: Incision intact without erythema or exudate Data 07/16/24 06:49 07/16/24 06:49 A&P Assessment and plan (1) Metastatic malignant neoplasm to skin of breast: Plan Postoperative day #1 status post left simple mastectomy Bridging heparin to Coumadin for an aortic mechanical valve Plan to DC home once INR over 2.5 Attestations 2 Medical Necessity Statement*: Patient will require likely at least a few more nights in the hospital for bridging from heparin to Coumadin due to a mechanical aortic valve and allergy to Lovenox Coding Level of Care Code Acute Code for Chg Fwd Diagnoses Metastatic malignant neoplasm to skin of breast C79.2
[2024-07-16 17:07] LABS: Glucose Point of Care 259 mg/dL (70-110)
[2024-07-16 17:39] LABS: Partial Thromboplastin Time 28.4 SECONDS (23.9-36.7)
[2024-07-16] MEDS: heparin drip 25,000 UNIT/500 ML PREMIX 29 UNIT IV (18:06)
[2024-07-16 20:31] LABS: Glucose Point of Care 263 mg/dL (70-110)
[2024-07-16 20:32] VITALS: BP 122/85; PULSE 72; RESP 18; TEMP 36.8; O2SAT 97
[2024-07-16 23:33] LABS: Partial Thromboplastin Time 134.4 SECONDS (23.9-36.7)
[2024-07-17] VITALS (7 sets, daily range): BP systolic 106–144; BP diastolic 56–72; PULSE 63–82; RESP 16–18; TEMP 36.6–36.9; O2SAT 93–99
[2024-07-17 06:11] LABS: Basophils % 0.4 %; Eosinophils % 0.4 %; Hematocrit 28.9 % (36-47); Lymphocytes # 1.5 10^3/uL (0.8-4.8); Lymphocytes % 18.4 %; Mean Corpuscular HGB Conc 31.5 g/dL (30-55); Mean Corpuscular Volume 98.3 fl (85-98); Mean Platelet Volume 11.5 fL (7.4-10.4); Monocytes # 0.7 10^3/uL (0.2-0.9); Neutrophils # 5.75 10^3/uL (1.8-7.7); Neutrophils % 70.9 %; Nucleated Red Blood Cells % 0 %; Platelet Count 108 10^3/cmm (157-399); Red Blood Count 2.94 10^6/uL (3.85-5.65); Red Cell Distribution Width 14.4 % (12.1-15.1)
[2024-07-17 06:11] LABS: Glucose Point of Care 226 mg/dL (70-110)
[2024-07-17 06:37] LABS: INR 1.85 (0.8-1.2); Partial Thromboplastin Time 70.4 SECONDS (23.9-36.7)
[2024-07-17] MEDS: amlodipine 5 mg Tablet PO ×2 (08:47→17:18)
[2024-07-17] MEDS: insulin lispro 100 unit/1 mL SUBCUT ×3 (08:47→21:00)
[2024-07-17] MEDS: carvedilol 12.5 mg Tablet PO ×2 (08:47→17:18)
--- NOTE | 2024-07-17 09:28 | P.PN_ITS ---
Subjective 2 Subjective: INR 2.8 Patient likely will be discharged by tomorrow No active complaints She has received her insulin from home We reduced the dose to 22 units for now Vitals/I&O/Wt Last Vital Signs Temp 98.4 F 07/17/24 07:29 Pulse 66 07/17/24 07:29 Resp 16 07/17/24 07:29 BP 144/62 07/17/24 07:29 Pulse Ox 99 07/17/24 07:29 O2 Del Method Room Air 07/17/24 07:29 07/16/24 07/17/24 07/17/24 22:59 06:59 14:59 Intake Total 240 / 2285.2 319.167 / 2604.367 Balance 240 / 2285.2 319.167 / 2604.367 Weight last 48 hrs Weight 106.226 kg Weight 105.914 kg Physical Exam 2 Narrative: Awake and alert No significant edema of left arm Pleasant cooperative GCS 15 Sitting in a chair No active focal deficit Hemodynamic stable Currently on room air S1, S2 Data 07/17/24 05:56 07/16/24 06:49 A&P Assessment and plan (1) Pacemaker: (2) H/O mechanical aortic valve replacement: (3) H/O breast surgery: (4) Malignant neoplasm of upper-outer quadrant of left female breast: (5) Diabetes: Qualifiers: Diabetes mellitus type: type 2 Diabetes mellitus prison insulin use: without prison use Diabetes mellitus complication status: with kidney complications Diabetes mellitus complication detail: with chronic kidney disease Chronic kidney disease stage: stage 3 (moderate) Qualified Code(s): 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.22 - Type 2 diabetes mellitus with diabetic chronic kidney disease; N18.3 - Chronic kidney disease, stage 3 (moderate) Plan I will give her another dose of Coumadin 10 mg at 1400 Continue heparin bridging therapy Likely will be discharged by tomorrow I have instructed her used to use reduced dose of insulin 22 units in the 25 in the hospital Repeat INR tomorrow Full code Continue consistent carb diet Attestations 2 Medical Necessity Statement*: Discharge likely by tomorrow Diagnoses Pacemaker Z95.0 H/O mechanical aortic valve replacement Z95.2 H/O breast surgery Z98.890 Malignant neoplasm of upper-outer quadrant of left female breast C50.412 Type 2 diabetes mellitus with stage 3 chronic kidney disease, without long-term current use of insulin E11.22; N18.3 Diabetes mellitus type: type 2 Diabetes mellitus joint terminal attack controller insulin use: without joint terminal attack controller use Diabetes mellitus complication status: with kidney complications Diabetes mellitus complication detail: with chronic kidney disease Chronic kidney disease stage: stage 3 (moderate)
--- NOTE | 2024-07-17 12:06 | P.PN_ITS ---
Subjective 2 Subjective: Patient seen and examined. No new complaints Vitals/I&O/Wt Last Vital Signs Temp 97.9 F 07/18/24 04:06 Pulse 65 07/18/24 04:06 Resp 17 07/18/24 04:06 BP 115/72 07/18/24 04:06 Pulse Ox 98 07/18/24 04:06 O2 Del Method Room Air 07/18/24 04:06 07/17/24 07/18/24 07/18/24 22:59 06:59 14:59 Intake Total 360 / 1008.3 Balance 360 / 1008.3 Weight last 48 hrs Weight 234 lb 4.8 oz Weight 234 lb 3 oz Physical Exam 2 Narrative: General: No acute distress, awake alert and oriented x 3 Skin: Incision intact without erythema or exudate Data 07/18/24 01:15 07/16/24 06:49 A&P Assessment and plan (1) Metastatic malignant neoplasm to skin of breast: Plan Postoperative day #2 status post left simple mastectomy Bridging heparin to Coumadin for an aortic mechanical valve Plan to DC home once INR over 2.5 Attestations 2 Medical Necessity Statement*: Patient will require likely at least a few more nights in the hospital for bridging from heparin to Coumadin due to a mechanical aortic valve and allergy to Lovenox Coding Level of Care Code 89788 Diagnoses Metastatic malignant neoplasm to skin of breast C79.2
[2024-07-17 13:08] LABS: Glucose Point of Care 286 mg/dL (70-110)
[2024-07-17] MEDS: warfarin 10 mg Tablet PO (13:58)
[2024-07-17 14:04] LABS: Partial Thromboplastin Time 79.7 SECONDS (23.9-36.7)
[2024-07-17] MEDS: heparin drip 25,000 UNIT/500 ML PREMIX 20 UNIT IV (14:26)
[2024-07-17] MEDS: LANTUS SOLOSTAR PEN 20 EACH XX (17:20)
[2024-07-17 20:20] LABS: Glucose Point of Care 310 mg/dL (70-110)
[2024-07-17 20:25] LABS: Partial Thromboplastin Time 56.1 SECONDS (23.9-36.7)
[2024-07-17 22:57] LABS: Glucose Point of Care 256 mg/dL (70-110)
[2024-07-17 22:57] LABS: Glucose Point of Care 194 mg/dL (70-110)
[2024-07-18 01:25] LABS: Platelet Count 118 10^3/cmm (157-399)
[2024-07-18 01:51] LABS: Partial Thromboplastin Time 63.6 SECONDS (23.9-36.7)
[2024-07-18 04:06] VITALS: BP 115/72; PULSE 65; RESP 17; TEMP 36.6; O2SAT 98
[2024-07-18 06:19] LABS: Glucose Point of Care 170 mg/dL (70-110)
[2024-07-18 07:17] VITALS: BP 127/72; PULSE 64; RESP 16; TEMP 36.8; O2SAT 98
[2024-07-18 07:45] LABS: Partial Thromboplastin Time 61.4 SECONDS (23.9-36.7)
[2024-07-18] MEDS: insulin lispro 100 unit/1 mL SUBCUT (07:49)
[2024-07-18] MEDS: carvedilol 12.5 mg Tablet PO (08:05)
[2024-07-18] MEDS: amlodipine 5 mg Tablet PO (08:05)
--- NOTE | 2024-07-18 09:11 | W.PM.EVENTAC ---
Event Note Event Note: Patient is not complaining of pain around her surgical site INR 2.5 We can discontinue heparin drip I have asked patient to resume her Coumadin dose, she is medically stable to be discharged today Dr. Gilliam to put in discharge orders being the primary Patient is stating that she is not requiring any opioids for now Her blood sugar is well-controlled
[2024-07-18 11:06] VITALS: BP 129/82; PULSE 66; RESP 16; TEMP 36.8; O2SAT 99
--- NOTE | 2024-07-18 12:53 | PC.NURSE ---
Up dated patient and family that we are waiting on Dr. Gilliam to come and see her before I can discharge her. Patient and family verbalized understanding.
--- NOTE | 2024-07-18 13:11 | PM.DCS ---
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 Known metastatic breast cancer that had metastasized to the skin and caused painful open sores. She underwent a palliative simple left mastectomy after being bridged off of Coumadin onto a heparin drip. She has a Lovenox allergy. She did well postoperatively and was bridged back to Coumadin. She was discharged home when her INR went to 2.5. She refused a drain for her mastectomy. Physical Exam Narrative: General : Patient is well developed , no acute distress, oriented x3 Head : Normal cephalic, a-traumatic. Ears : Pinnae and external canal are normal. Hearing is normal. Eyes : PERRLA, Sclera and injection are normal. No conjunctival discharge. Nose : Mucous membranes are without erythema. Throat : buccal mucosa is normal, gums are without significant recession or hypertrophy. Lungs : Equal chest rise bilaterally, no use of accessory muscles, trachea is midline. Cor : Rate and rhythm are normal. Breast: Incision intact without erythema or exudate Abdomen : Soft, ND, NT, no g/r/m Extremities : No edema, no cyanosis or clubbing, dorsalis pedis pulses are present bilaterally, non-tender to palpation of calves. Upper extremities are normal bilaterally. Back : non-tender to palpation, no CVA tenderness. Neuro : CN II - XII intact, Upper and lower extremities have equal and full strength Discharge Data Studies Completed and Pending Pending at discharge Category Date Time Status Prothrombin Time INR AM LABS Lab 07/19/24 04:00 Ordered Pathology: Surgical [PTH] Routine Pth 07/15/24 15:42 Received Laboratory Results WBC 8.10 10^3/uL (3.29-11.43) 07/17/24 05:56 RBC 2.94 10^6/uL (3.85-5.65) L 07/17/24 05:56 Hgb 9.10 g/dL (11.27-16.99) L 07/17/24 05:56 Hct 28.9 % (36-47) L 07/17/24 05:56 MCV 98.3 fl (85-98) H 07/17/24 05:56 MCH 31.0 pg (27-33) 07/17/24 05:56 MCHC 31.5 g/dL (30-55) 07/17/24 05:56 RDW 14.4 % (12.1-15.1) 07/17/24 05:56 Plt Count 118 10^3/cmm (157-399) L 07/18/24 01:15 MPV 11.5 fL (7.4-10.4) H 07/17/24 05:56 Neut % (Auto) 70.9 % 07/17/24 05:56 Lymph % (Auto) 18.4 % 07/17/24 05:56 Stewart % (Auto) 9.0 % 07/17/24 05:56 Eos % (Auto) 0.4 % 07/17/24 05:56 Baso % (Auto) 0.4 % 07/17/24 05:56 Neut # (Auto) 5.75 10^3/uL (1.8-7.7) 07/17/24 05:56 Lymph # (Auto) 1.5 10^3/uL (0.8-4.8) 07/17/24 05:56 Stewart # (Auto) 0.7 10^3/uL (0.2-0.9) 07/17/24 05:56 Eos # (Auto) 0.0 10^3/uL (0.0-0.8) 07/17/24 05:56 Baso # (Auto) 0.0 10^3/uL (0.0-0.1) 07/17/24 05:56 Nucleated RBC % (auto) 0 % 07/17/24 05:56 Nucleated RBCs # 0.0 /100WBC 07/17/24 05:56 PT 27.90 SECONDS (12.1-14.9) H 07/18/24 01:15 INR 2.50 (0.8-1.2) H 07/18/24 01:15 APTT 61.4 SECONDS (23.9-36.7) H 07/18/24 07:15 Fibrinogen 374 mg/dL (174-498) 07/14/24 19:16 Sodium 140 mmol/L (136-145) 07/16/24 06:49 Potassium 4.5 mmol/L (3.5-5.1) 07/16/24 06:49 Chloride 108 mmol/L (98-107) H 07/16/24 06:49 Carbon Dioxide 23 mmol/L (22-29) 07/16/24 06:49 Anion Gap 13.5 (5-19) 07/16/24 06:49 BUN 16 mg/dL (8-23) 07/16/24 06:49 Creatinine 0.8 mg/dL (0.5-0.9) 07/16/24 06:49 GFR Calculation 72.2 mL/min (90-130) L 07/16/24 06:49 Glucose 221 mg/dL (65-115) H 07/16/24 06:49 POC Glucose 170 mg/dL (70-110) H 07/18/24 06:12 Calculated Osmolality 298 mOsm/kg (285-295) H 07/16/24 06:49 Calcium 8.4 mg/dL (8.5-10.5) L 07/16/24 06:49 Magnesium 2.1 mg/dL (1.7-2.3) 07/15/24 03:22 Procedures Performed Left simple mastectomy Vitals Last Vital Signs Temp 98.3 F 07/18/24 11:06 Pulse 66 07/18/24 11:06 Resp 16 07/18/24 11:06 BP 129/82 07/18/24 11:06 Pulse Ox 99 07/18/24 11:06 O2 Del Method Room Air 07/18/24 11:06 Discharge Plan Discharge Patient Disposition: Home Condition: Stable Prescriptions: New hydrocodone-acetaminophen 7.5-325 mg tablet 1 tab PO Q6H PRN (Reason: pain) Qty: 20 0RF polyethylene glycol 3350 [Miralax] 17 gram/dose powder 17 g PO DAILY 7 Days Qty: 119 0RF Continued ferrous sulfate 27 mg iron tablet 27 mg PO DAILY prochlorperazine maleate 10 mg tablet 10 mg PO Q6H PRN (Reason: mild nausea and vomiting) Qty: 60 2RF amlodipine 5 mg tablet See Rx Instructions .ROUTE .COMPLEX Qty: 180 1RF Dose Instruction: TAKE 1 TABLET BY MOUTH TWICE DAILY Rx Instructions: TAKE 1 TABLET BY MOUTH TWICE DAILY albuterol sulfate 90 mcg/actuation HFA aerosol inhaler 2 puff inhalation BID PRN (Reason: Shortness Of Breath) cetirizine [Zyrtec] 10 mg tablet 10 mg PO DAILY PRN (Reason: Allergy Symptoms) multivitamin Tablet 1 tab PO DAILY lidocaine 5 % cream 1 applic topical BID PRN (Reason: pain) Qty: 30 0RF albuterol sulfate 0.63 mg/3 mL solution for nebulization 0.63 mg inhalation Q6H PRN (Reason: shortness of breath or wheezing) Qty: 90 3RF Stiolto Respimat 2.5-2.5 mcg/actuation mist 2 puff inhalation DAILY Qty: 4 4RF carvedilol 12.5 mg tablet See Rx Instructions .ROUTE .COMPLEX Qty: 180 3RF Dose Instruction: TAKE 1 TABLET BY MOUTH TWICE DAILY with meal/food Rx Instructions: TAKE 1 TABLET BY MOUTH TWICE DAILY with meal/food (DME) pen needle, diabetic [BD Ultra-Fine Micro Pen Needle] 32 gauge x 1/4 needle See Rx Instructions .ROUTE .COMPLEX Qty: 100 1RF Dose Instruction: USE DIRECTED DAILY with lantus Rx Instructions: USE DIRECTED DAILY with lantus warfarin 4 mg tablet See Rx Instructions .ROUTE .COMPLEX Qty: 90 1RF Protocol: Dose Management Condition: Sunday Dose/Route: 2.5 mg Instruction: 0.5 x 5 mg tablets Condition: Sunday Dose/Route: 2.5 mg Instruction: 0.5 x 5 mg tablets Condition: Sunday Dose/Route: 2.5 mg Instruction: 0.5 x 5 mg tablets Condition: Sunday Dose/Route: 2.5 mg Instruction: 0.5 x 5 mg tablets Condition: Dose/Route: 2.5 mg Instruction: 0.5 x 5 mg tablets Condition: Sunday Dose/Route: 2.5 mg Instruction: 0.5 x 5 mg tablets Condition: Sunday Dose/Route: 2.5 mg Instruction: 0.5 x 5 mg tablets Protocol Text: Adjustment Start Date: Sunday06/24/24 INR Value: 27.7 Seconds INR Date: 06/24/24 Recheck Date: 07/22/24 Dose Instruction: TAKE 1 TABLET BY MOUTH EVERY DAY Rx Instructions: TAKE 1 TABLET BY MOUTH EVERY DAY aspirin 81 mg Tablet,Delayed Release (Dr/Ec) 81 mg PO DAILY insulin glargine [Lantus Solostar U-100 Insulin] 100 unit/mL (3 mL) insulin pen 24 unit SUBCUT DAILY warfarin 5 mg tablet 7 mg PO DAILY Qty: 30 3RF Protocol: Dose Management Condition: Sunday Dose/Route: 2.5 mg Instruction: 0.5 x 5 mg tablets Condition: Sunday Dose/Route: 2.5 mg Instruction: 0.5 x 5 mg tablets Condition: Sunday Dose/Route: 2.5 mg Instruction: 0.5 x 5 mg tablets Condition: Sunday Dose/Route: 2.5 mg Instruction: 0.5 x 5 mg tablets Condition: Dose/Route: 2.5 mg Instruction: 0.5 x 5 mg tablets Condition: Sunday Dose/Route: 2.5 mg Instruction: 0.5 x 5 mg tablets Condition: Sunday Dose/Route: 2.5 mg Instruction: 0.5 x 5 mg tablets Protocol Text: Adjustment Start Date: Sunday06/24/24 INR Value: 27.7 Seconds INR Date: 06/24/24 Recheck Date: 07/22/24 Rx Instructions: Continue 7mg per day. Discharge Orders: Discharge Order (Routine); Ordered 07/18/24 Ordered By: Patricia Yan Other Ambulatory Orders: Prothrombin Time INR (Routine) Timeframe: 20240722 Facility: [facility] - Location: Lab - Main Lab Ordered By: Patricia Yan Referrals: Osbaldo Gilliam DO [Physician] - 2 weeks (We have notified your physician's clinic of the need for a follow-up appointment to be scheduled. If you have not heard from them within the next 2 business days, please call them directly. ) Lalo Ortez DO [Primary Care Provider] - 07/22/24 1:40 pm Discharge Diet: Diabetic Discharge Activity: Resume usual activity Patient Instructions: Acute Wound Care (DC), Mastectomy (DC), Opioid Safety, Post Anesthesia Care Activity Restrictions/Additional Instructions: Do not soak incisions underwater for 2 weeks. Shower regularly. Discharge Attestations Time Spent in Discharge Care*: less than 30 min Quality Metrics Clinical Quality Measures [ No reported AMI, CVA or VTE this stay] Coding Level of Care Code Acute Code for Chg Fwd Diagnoses Metastatic malignant neoplasm to skin of breast C79.2
[2024-07-22 15:07] LABS: Breast Profile ER,PR,HER2,Ki-6 See Report
== END 2024-07-18 14:00 | disposition home or self-care (01) ==
PROVIDERS: Internal Medicine; Student in an Organized Health Care Education/Training Program; Admitting Provider Surgery; PCP Electrodiagnostic Medicine; Visit Provider Surgery
PROC: (CPT 19303; principal; 2024-07-15 13:45)
DX: C50.412 Malignant neoplasm of upper-outer quadrant of left female breast (principal); Z79.82 Long term (current) use of aspirin; Z79.4 Long term (current) use of insulin; Z79.01 Long term (current) use of anticoagulants; J44.9 Chronic obstructive pulmonary disease, unspecified; E11.22 Type 2 diabetes mellitus with diabetic chronic kidney disease; I12.9 Hypertensive chronic kidney disease with stage 1 through stage 4 chronic kidney disease, or unspecified chronic kidney disease; N18.30 Chronic kidney disease, stage 3 unspecified; E03.9 Hypothyroidism, unspecified; E66.9 Obesity, unspecified; Z68.41 Body mass index [BMI] 40.0-44.9, adult; I25.10 Atherosclerotic heart disease of native coronary artery without angina pectoris; Z95.1 Presence of aortocoronary bypass graft; E04.2 Nontoxic multinodular goiter; R49.0 Dysphonia; Z95.2 Presence of prosthetic heart valve; Z87.891 Personal history of nicotine dependence
CPT/HCPCS: 19303; 36415; 36416; 36591; 80048; 82962; 83735; 85025; 85049; 85384; 85610; 85730; 88309; 88361; 88374; 96372; G0378; G0379; J0690; J1644; J1815; J2765; J7030

== ENCOUNTER → 2024-07-22 10:56 | Outpatient (BNVA) | payer OTHER, SELFPAY | PROVIDERS: PCP Electrodiagnostic Medicine; Visit Provider Internal Medicine | DX: Z95.2 Presence of prosthetic heart valve (principal) | CPT/HCPCS: 85610 ==

== ENCOUNTER 2024-07-23 13:45 | Oncology outpatient (recurring) (ONCR) | payer OTHER, SELFPAY ==
[2024-07-02 11:25] LABS: Basophils % 0.8 %; Eosinophils # 0.2 10^3/uL (0.0-0.8); Hematocrit 32.5 % (36-47); Lymphocytes % 18.3 %; Mean Corpuscular HGB Conc 33.5 g/dL (30-55); Mean Corpuscular Hemoglobin 32.2 pg (27-33); Mean Corpuscular Volume 96.2 fl (85-98); Mean Platelet Volume 10.3 fL (7.4-10.4); Monocytes # 0.5 10^3/uL (0.2-0.9); Monocytes % 8.5 %; Neutrophils # 3.66 10^3/uL (1.8-7.7); Nucleated Red Blood Cells % 0 %; Platelet Count 125 10^3/cmm (157-399); Red Blood Count 3.38 10^6/uL (3.85-5.65); Red Cell Distribution Width 19.7 % (12.1-15.1)
[2024-07-02 11:45] LABS: Alanine Aminotransferase 10 U/L (0-33); Albumin Level 3.7 g/dL (3.5-5.2); Alkaline Phosphatase 96 U/L (35-105); Anion Gap 12.3 (5-19); Aspartate Amino Transferase 15 U/L (0-32); Blood Urea Nitrogen 17 mg/dL (8-23); Calcium 8.7 mg/dL (8.5-10.5); Carbon Dioxide 25 mmol/L (22-29); Chloride 105 mmol/L (98-107); Globulin 1.8 g/dL (1.3-4.6); Glomerular Filtration Rate 72.2 mL/min (90-130); Glucose 237 mg/dL (65-115); Osmolality Calculated 295 mOsm/kg (285-295); Potassium 4.3 mmol/L (3.5-5.1); Sodium 138 mmol/L (136-145); Total Bilirubin 0.6 mg/dL (0.15-1.2); Total Protein 5.5 g/dL (6.6-8.7)
[2024-07-23 14:07] LABS: Basophils % 0.5 %; Eosinophils # 0.1 10^3/uL (0.0-0.8); Eosinophils % 2.1 %; Hematocrit 29.6 % (36-47); Lymphocytes # 1.2 10^3/uL (0.8-4.8); Lymphocytes % 19.2 %; Mean Corpuscular HGB Conc 32.1 g/dL (30-55); Mean Corpuscular Hemoglobin 30.3 pg (27-33); Mean Corpuscular Volume 94.3 fl (85-98); Mean Platelet Volume 10.2 fL (7.4-10.4); Monocytes # 0.5 10^3/uL (0.2-0.9); Neutrophils # 4.42 10^3/uL (1.8-7.7); Neutrophils % 69.7 %; Nucleated Red Blood Cells % 0 %; Platelet Count 166 10^3/cmm (157-399); Red Blood Count 3.14 10^6/uL (3.85-5.65); Red Cell Distribution Width 13.5 % (12.1-15.1); White Blood Count 6.34 10^3/uL (3.29-11.43)
[2024-07-23 14:28] LABS: Alanine Aminotransferase 10 U/L (0-33); Albumin Level 3.4 g/dL (3.5-5.2); Alkaline Phosphatase 83 U/L (35-105); Anion Gap 11.3 (5-19); Aspartate Amino Transferase 12 U/L (0-32); Blood Urea Nitrogen 17 mg/dL (8-23); Calcium 8.6 mg/dL (8.5-10.5); Carbon Dioxide 27 mmol/L (22-29); Chloride 105 mmol/L (98-107); Creatinine Clr Calc Pharmacy 80.9218; Globulin 1.9 g/dL (1.3-4.6); Glomerular Filtration Rate 72.2 mL/min (90-130); Glucose 230 mg/dL (65-115); Osmolality Calculated 297 mOsm/kg (285-295); Potassium 4.3 mmol/L (3.5-5.1); Sodium 139 mmol/L (136-145); Total Bilirubin 0.4 mg/dL (0.15-1.2); Total Protein 5.3 g/dL (6.6-8.7)
[2024-07-23 14:59] LABS: CA 15-3 18.1 U/mL (0-25)
== END 2024-07-31 23:59 | disposition home or self-care (01) ==
PROVIDERS: Internal Medicine Hematology & Oncology; Nurse Practitioner Family; PCP Electrodiagnostic Medicine; Visit Provider Nurse Practitioner Family
DX: C50.919 Malignant neoplasm of unspecified site of unspecified female breast (principal); Z53.9 Procedure and treatment not carried out, unspecified reason; Z95.2 Presence of prosthetic heart valve
CPT/HCPCS: 36591; 80053; 85025; 86300

== ENCOUNTER → 2024-08-05 10:37 | Outpatient (BNVA) | payer OTHER, SELFPAY | PROVIDERS: PCP Electrodiagnostic Medicine; Visit Provider Internal Medicine | DX: Z95.2 Presence of prosthetic heart valve (principal) | CPT/HCPCS: 85610 ==

== ENCOUNTER 2024-08-19 08:47 | Oncology outpatient (recurring) (ONCR) | payer OTHER, SELFPAY ==
[2024-08-19 09:13] LABS: Basophils % 0.6 %; Eosinophils # 0.2 10^3/uL (0.0-0.8); Eosinophils % 2.9 %; Hematocrit 32.6 % (36-47); Lymphocytes # 0.9 10^3/uL (0.8-4.8); Lymphocytes % 13.5 %; Mean Corpuscular HGB Conc 31.6 g/dL (30-55); Mean Corpuscular Hemoglobin 26.7 pg (27-33); Mean Corpuscular Volume 84.5 fl (85-98); Mean Platelet Volume 11.2 fL (7.4-10.4); Monocytes # 0.5 10^3/uL (0.2-0.9); Monocytes % 8.2 %; Neutrophils # 4.77 10^3/uL (1.8-7.7); Nucleated Red Blood Cells % 0 %; Platelet Count 154 10^3/cmm (157-399); Red Blood Count 3.86 10^6/uL (3.85-5.65); Red Cell Distribution Width 13.3 % (12.1-15.1); White Blood Count 6.45 10^3/uL (3.29-11.43)
[2024-08-19 09:31] LABS: Alanine Aminotransferase 8 U/L (0-33); Albumin Level 3.5 g/dL (3.5-5.2); Alkaline Phosphatase 105 U/L (35-105); Anion Gap 11.1 (5-19); Aspartate Amino Transferase 12 U/L (0-32); Blood Urea Nitrogen 14 mg/dL (8-23); Calcium 8.3 mg/dL (8.5-10.5); Carbon Dioxide 27 mmol/L (22-29); Chloride 104 mmol/L (98-107); Creatinine Clr Calc Pharmacy 93.1799; Globulin 2.1 g/dL (1.3-4.6); Glomerular Filtration Rate 84.2 mL/min (90-130); Glucose 282 mg/dL (65-115); Osmolality Calculated 297 mOsm/kg (285-295); Potassium 4.1 mmol/L (3.5-5.1); Sodium 138 mmol/L (136-145); Total Bilirubin 0.3 mg/dL (0.15-1.2); Total Protein 5.6 g/dL (6.6-8.7)
[2024-08-19 10:43] LABS: CA 15-3 15.9 U/mL (0-25)
[2024-08-19] MEDS: fulvestrant 250 mg/5 mL Syringe 500 MG IM (11:48)
[2024-08-19 12:02] VITALS: BP 154/72; PULSE 72; RESP 18; TEMP 35.9; O2SAT 96
== END 2024-08-30 23:59 | disposition home or self-care (01) ==
PROVIDERS: Nurse Practitioner; PCP Electrodiagnostic Medicine; Visit Provider Nurse Practitioner Family
DX: Z53.9 Procedure and treatment not carried out, unspecified reason (principal); C50.412 Malignant neoplasm of upper-outer quadrant of left female breast; Z17.0 Estrogen receptor positive status [ER+]; Z79.818 Long term (current) use of other agents affecting estrogen receptors and estrogen levels; Z51.12 Encounter for antineoplastic immunotherapy; Z79.899 Other long term (current) drug therapy
CPT/HCPCS: 36591; 80053; 85025; 85610; 86300; 96402; J9395

== ENCOUNTER → 2024-09-16 10:46 | Outpatient (BNVA) | payer OTHER, SELFPAY | PROVIDERS: PCP Electrodiagnostic Medicine; Visit Provider Internal Medicine Cardiovascular Disease | DX: Z95.2 Presence of prosthetic heart valve (principal) | CPT/HCPCS: 36415; 85610 ==

== ENCOUNTER → 2024-09-23 10:27 | Outpatient (BNVA) | payer OTHER, SELFPAY | PROVIDERS: PCP Electrodiagnostic Medicine; Visit Provider Internal Medicine Cardiovascular Disease | DX: Z95.2 Presence of prosthetic heart valve (principal) | CPT/HCPCS: 85610 ==

== ENCOUNTER 2024-09-30 10:00 | Oncology outpatient (recurring) (ONCR) | payer OTHER, SELFPAY ==
[2024-09-02 09:30] LABS: Basophils % 0.7 %; Eosinophils # 0.1 10^3/uL (0.0-0.8); Eosinophils % 3.3 %; Hematocrit 35.5 % (36-47); Lymphocytes # 1.1 10^3/uL (0.8-4.8); Lymphocytes % 26.7 %; Mean Corpuscular HGB Conc 31.5 g/dL (30-55); Mean Corpuscular Hemoglobin 26.5 pg (27-33); Mean Corpuscular Volume 83.9 fl (85-98); Mean Platelet Volume 10.3 fL (7.4-10.4); Monocytes # 0.2 10^3/uL (0.2-0.9); Monocytes % 4.5 %; Neutrophils # 2.67 10^3/uL (1.8-7.7); Neutrophils % 63.8 %; Nucleated Red Blood Cells % 0 %; Platelet Count 120 10^3/cmm (157-399); Red Blood Count 4.23 10^6/uL (3.85-5.65); Red Cell Distribution Width 13.8 % (12.1-15.1); White Blood Count 4.19 10^3/uL (3.29-11.43)
[2024-09-02 09:49] LABS: Alanine Aminotransferase 8 U/L (0-33); Albumin Level 3.5 g/dL (3.5-5.2); Alkaline Phosphatase 99 U/L (35-105); Anion Gap 15.1 (5-19); Aspartate Amino Transferase 11 U/L (0-32); Blood Urea Nitrogen 19 mg/dL (8-23); Calcium 8.7 mg/dL (8.5-10.5); Carbon Dioxide 23 mmol/L (22-29); Chloride 105 mmol/L (98-107); Creatinine Clr Calc Pharmacy 71.2522; Globulin 2.1 g/dL (1.3-4.6); Glucose 184 mg/dL (65-115); Osmolality Calculated 295 mOsm/kg (285-295); Potassium 4.1 mmol/L (3.5-5.1); Sodium 139 mmol/L (136-145); Total Bilirubin 0.3 mg/dL (0.15-1.2); Total Protein 5.6 g/dL (6.6-8.7)
[2024-09-30 10:07] LABS: Basophils % 1.2 %; Eosinophils % 0.8 %; Hematocrit 32.5 % (36-47); Lymphocytes % 37.7 %; Mean Corpuscular Hemoglobin 26.1 pg (27-33); Mean Corpuscular Volume 81.7 fl (85-98); Mean Platelet Volume 9.7 fL (7.4-10.4); Monocytes # 0.3 10^3/uL (0.2-0.9); Monocytes % 12.3 %; Neutrophils # 1.21 10^3/uL (1.8-7.7); Nucleated Red Blood Cells % 0 %; Platelet Count 98 10^3/cmm (157-399); Red Blood Count 3.98 10^6/uL (3.85-5.65); Red Cell Distribution Width 17.2 % (12.1-15.1); White Blood Count 2.52 10^3/uL (3.29-11.43)
[2024-09-30 10:34] LABS: Alanine Aminotransferase 8 U/L (0-33); Albumin Level 3.7 g/dL (3.5-5.2); Alkaline Phosphatase 80 U/L (35-105); Anion Gap 13.7 (5-19); Aspartate Amino Transferase 11 U/L (0-32); Blood Urea Nitrogen 17 mg/dL (8-23); CA 15-3 20.9 U/mL (0-25); Calcium 9.3 mg/dL (8.5-10.5); Carbon Dioxide 24 mmol/L (22-29); Chloride 104 mmol/L (98-107); Globulin 2.5 g/dL (1.3-4.6); Glomerular Filtration Rate 55.8 mL/min (90-130); Glucose 309 mg/dL (65-115); Osmolality Calculated 299 mOsm/kg (285-295); Potassium 3.7 mmol/L (3.5-5.1); Sodium 138 mmol/L (136-145); Total Bilirubin 0.2 mg/dL (0.15-1.2); Total Protein 6.2 g/dL (6.6-8.7)
== END 2024-09-30 23:59 | disposition home or self-care (01) ==
PROVIDERS: Internal Medicine Medical Oncology; Nurse Practitioner; PCP Electrodiagnostic Medicine; Visit Provider Nurse Practitioner Family
DX: Z53.9 Procedure and treatment not carried out, unspecified reason (principal); C50.412 Malignant neoplasm of upper-outer quadrant of left female breast; Z17.0 Estrogen receptor positive status [ER+]
CPT/HCPCS: 36591; 80053; 85025; 86300

== ENCOUNTER 2024-10-21 10:15 | Oncology outpatient (recurring) (ONCR) | payer OTHER, SELFPAY ==
--- NOTE | 2024-10-17 10:00 | PETR_ITS ---
PROCEDURE INFORMATION: Exam: PET/CT Skull Base to Mid-thigh Exam date and time: 10/17/2024 10:57 AM Age: 63 years old Clinical indication: Condition or disease; Primary cancer: Breast cancer; Follow-up oncological assessment; Additional info: Restaging, needs scheduled within the next 2 weeks LABS AND CLINICAL REPORTS: Glucose: 179 mg/dl Treatment strategy for malignancy (PET staging): Initial Staging (PI) TECHNIQUE: Imaging protocol: Following at least four-hour fasting and following the injection of radiopharmaceutical, low dose CT images were obtained. Then, PET images were obtained. Attenuation corrected images were constructed using the CT scan. Fused images of PET and CT were reviewed. The standardized uptake values (SUV) reported below are maximum values within a region of interest, expressed in gm/ml. Exam includes orbital meatal line to mid-thigh. SUV normalization method: BodyWeight Radiopharmaceutical: 11.2 mCi F-18 FDG (Fluorodeoxyglucose), IV. Time of imaging post radiopharmaceutical administration: 57 minutes Injection site: right ac COMPARISON: PT PET skull to thigh SUBS [id number] 06/03/2024 9:59 AM FINDINGS: Tubes, catheters and devices: Right chest port terminates at the SVC. Dual lead cardiac device with left chest generator. Brain: Visualized brain has normal physiologic uptake. Pharynx: No abnormal uptake. Larynx: Redemonstrated small posterior right linear FDG uptake without underlying CT abnormality (SUV max 8.5) is likely physiologic in the setting of medialized left vocal cord in keeping with paralysis. Lungs, pleura and trachea: No abnormal uptake. Decreased FDG uptake at platelike right middle lobe atelectasis showing SUV max 2.2, previously 3.3. Mild fvnqb-gbjyfrj-otqj-left linear atelectasis versus scarring. No consolidation or mass. No pleural effusion. Heart: Normal physiologic uptake. Coronary arteries: Heavy coronary artery calcification. Status post CABG. Mediastinal space: Decreased lower esophageal linear FDG uptake greatest just proximal to small hiatal hernia shows SUV max 5.7 with mild thickening, previously SUV max 7.5. Diaphragm: Small hiatal hernia. Liver: No abnormal uptake. Gallbladder and biliary ducts: No abnormal uptake. Cholelithiasis. Pancreas: No abnormal uptake. Spleen: No abnormal uptake. Calcified granulomata. Adrenal glands: No abnormal uptake. Kidneys and ureters: Normal physiologic uptake. Stomach and bowel: No abnormal uptake. Colonic diverticulosis without findings of diverticulitis. Reproductive: The uterus is surgically absent. Vasculature: No abnormal uptake. Diffuse atherosclerotic calcification without aortic aneurysm. Lymph nodes: Decreased FDG uptake at normal size subcarinal node showing SUV max 4.9, previously 5.7. No enlarged lymphadenopathy in the head, neck, chest, abdomen, pelvis, and extremities. Calcified mediastinal and left hilar lymph nodes in keeping with sequela of old granulomatous disease. Skeleton: Nearly resolved osseous FDG uptake with mild scattered residual low-level uptake throughout the spine and pelvis. Soft tissues: Interval left mastectomy and breast implant. Focal FDG uptake at central deep left breast implant margin without discrete underlying CT abnormality shows SUV max 7.5 on axial image 218. Focal low-level FDG uptake at posteromedial breast implant margin is likely inflammatory postsurgical change. 9 x 6 mm soft tissue density nodule at the left lower breast on axial image 198 shows SUV max 3.2. Low-level FDG uptake at mildly thickened left pectoralis major muscle. There is also mildly FDG avid left breast dermal thickening. Short-segment linear FDG uptake along lower thoracic right paraspinal and back musculature without underlying CT abnormality is likely physiologic or strain. Small fat containing umbilical hernia. METRICS: Mediastinal blood pool: SUV mean 2.3 Liver uptake: SUV mean 2.9 PET/PET skull to thigh INIT [id number] IMPRESSION: 1. Interval left mastectomy with breast implant. Focal avid FDG uptake at central posterior breast implant margin without discrete underlying CT abnormality may be postsurgical, malignancy not entirely excluded. 2. 9 mm left lower breast nodule with mild FDG uptake could be postsurgical change or inflammatory intramammary lymph node, malignancy not excluded. 3. Low-level FDG uptake at mildly thickened left pectoralis major muscle is likely inflammatory, possibly postsurgical. 4. Decreased lower esophageal linear FDG uptake likely inflammatory. 5. Decreased FDG uptake at normal size subcarinal lymph node and resolved right hilar FDG uptake. 6. Additional chronic and incidental findings as above.
[2024-10-21 10:52] LABS: Basophils # 0.1 10^3/uL (0.0-0.1); Eosinophils # 0.1 10^3/uL (0.0-0.8); Eosinophils % 2.2 %; Hematocrit 34.2 % (36-47); Lymphocytes # 1.1 10^3/uL (0.8-4.8); Lymphocytes % 18.5 %; Mean Corpuscular HGB Conc 31.9 g/dL (30-55); Mean Corpuscular Volume 81.4 fl (85-98); Mean Platelet Volume 10.2 fL (7.4-10.4); Monocytes # 0.6 10^3/uL (0.2-0.9); Monocytes % 9.5 %; Neutrophils # 4.11 10^3/uL (1.8-7.7); Neutrophils % 68.3 %; Nucleated Red Blood Cells % 0 %; Platelet Count 189 10^3/cmm (157-399); Red Cell Distribution Width 18.6 % (12.1-15.1); White Blood Count 6.01 10^3/uL (3.29-11.43)
[2024-10-21 11:04] LABS: INR 2.14 (0.83-1.21); Prothrombin Time (Patient) 25.2 Seconds (12.0-15.1)
[2024-10-21 11:08] LABS: Alanine Aminotransferase 8 U/L (0-33); Albumin Level 3.8 g/dL (3.5-5.2); Alkaline Phosphatase 99 U/L (35-105); Aspartate Amino Transferase 11 U/L (0-32); Blood Urea Nitrogen 15 mg/dL (8-23); Calcium 9.5 mg/dL (8.5-10.5); Carbon Dioxide 26 mmol/L (22-29); Chloride 101 mmol/L (98-107); Creatinine Clr Calc Pharmacy 79.1413; Globulin 2.5 g/dL (1.3-4.6); Glomerular Filtration Rate 72.2 mL/min (90-130); Glucose 219 mg/dL (65-115); Osmolality Calculated 294 mOsm/kg (285-295); Sodium 138 mmol/L (136-145); Total Bilirubin 0.3 mg/dL (0.15-1.2); Total Protein 6.3 g/dL (6.6-8.7)
[2024-10-21 11:47] LABS: CA 15-3 22.4 U/mL (0-25)
== END 2024-10-31 23:59 | disposition home or self-care (01) ==
PROVIDERS: Internal Medicine Cardiovascular Disease; PCP Electrodiagnostic Medicine; Visit Provider Internal Medicine Medical Oncology
DX: C50.412 Malignant neoplasm of upper-outer quadrant of left female breast; Z17.0 Estrogen receptor positive status [ER+]; Z53.9 Procedure and treatment not carried out, unspecified reason; Z95.2 Presence of prosthetic heart valve
CPT/HCPCS: 36591; 78815; 80053; 85025; 85610; 86300; A9552

== ENCOUNTER → 2024-10-28 15:22 | Outpatient (BNVA) | payer OTHER, SELFPAY | PROVIDERS: PCP Electrodiagnostic Medicine; Visit Provider Internal Medicine | DX: Z95.2 Presence of prosthetic heart valve (principal) | CPT/HCPCS: 85610 ==

== ENCOUNTER 2024-11-18 09:45 | Oncology outpatient (recurring) (ONCR) | payer MEDICARE, SELFPAY ==
[2024-11-18 10:45] LABS: Basophils # 0.1 10^3/uL (0.0-0.1); Basophils % 0.6 %; Eosinophils # 0.1 10^3/uL (0.0-0.8); Eosinophils % 1.6 %; Hematocrit 33.6 % (36-47); Lymphocytes # 1.2 10^3/uL (0.8-4.8); Lymphocytes % 14.8 %; Mean Corpuscular HGB Conc 32.1 g/dL (30-55); Mean Corpuscular Hemoglobin 26.4 pg (27-33); Mean Corpuscular Volume 82.2 fl (85-98); Monocytes # 0.8 10^3/uL (0.2-0.9); Monocytes % 9.9 %; Neutrophils # 6.08 10^3/uL (1.8-7.7); Neutrophils % 72.7 %; Nucleated Red Blood Cells % 0 %; Platelet Count 138 10^3/cmm (157-399); Red Blood Count 4.09 10^6/uL (3.85-5.65); Red Cell Distribution Width 17.3 % (12.1-15.1); White Blood Count 8.36 10^3/uL (3.29-11.43)
[2024-11-18 10:57] LABS: Estmated Average Glucose 146; Hemoglobin A1C 6.7 % (4.0-6.0); INR 2.03 (0.83-1.21); Prothrombin Time (Patient) 24.2 Seconds (12.0-15.1)
[2024-11-18 11:11] LABS: Alanine Aminotransferase 7 U/L (0-33); Albumin Level 3.5 g/dL (3.5-5.2); Alkaline Phosphatase 101 U/L (35-105); Anion Gap 17.3 (5-19); Aspartate Amino Transferase 9 U/L (0-32); Blood Urea Nitrogen 19 mg/dL (8-23); Calcium 9.2 mg/dL (8.5-10.5); Carbon Dioxide 23 mmol/L (22-29); Chloride 99 mmol/L (98-107); Chol HDL Ratio 4.75 mg/dL (0.0-4.40); Cholesterol 209 mg/dL (0-200); Creatinine Clr Calc Pharmacy 69.9411; Globulin 2.8 g/dL (1.3-4.6); Glucose 256 mg/dL (65-115); HDL Cholesterol 44 mg/dL (60-100); LDL Cholesterol Calculated 140 mg/dL (50-129); LDL HDL Ratio 3.18 RATIO (0.00-3.22); Osmolality Calculated 291 mOsm/kg (285-295); Potassium 4.3 mmol/L (3.5-5.1); Sodium 135 mmol/L (136-145); Total Bilirubin 0.5 mg/dL (0.15-1.2); Total Protein 6.3 g/dL (6.6-8.7); Triglycerides 124 mg/dL (0-150)
== END 2024-11-28 23:59 | disposition home or self-care (01) ==
PROVIDERS: Internal Medicine; Internal Medicine Cardiovascular Disease; PCP Electrodiagnostic Medicine; Visit Provider Internal Medicine Medical Oncology
DX: C50.412 Malignant neoplasm of upper-outer quadrant of left female breast (principal); Z17.0 Estrogen receptor positive status [ER+]; Z95.2 Presence of prosthetic heart valve; E11.22 Type 2 diabetes mellitus with diabetic chronic kidney disease; N18.30 Chronic kidney disease, stage 3 unspecified; R07.9 Chest pain, unspecified; Z95.3 Presence of xenogenic heart valve; Z87.891 Personal history of nicotine dependence; Z79.810 Long term (current) use of selective estrogen receptor modulators (SERMs)
CPT/HCPCS: 36591; 80053; 80061; 83036; 85025; 85610; 99214

== ENCOUNTER → 2024-12-01 09:52 | Outpatient (BNVA) | payer MEDICARE, SELFPAY | PROVIDERS: PCP Electrodiagnostic Medicine; Visit Provider Internal Medicine | DX: E11.59 Type 2 diabetes mellitus with other circulatory complications (principal); I25.10 Atherosclerotic heart disease of native coronary artery without angina pectoris; E78.2 Mixed hyperlipidemia; E11.22 Type 2 diabetes mellitus with diabetic chronic kidney disease; E78.5 Hyperlipidemia, unspecified; E04.2 Nontoxic multinodular goiter | CPT/HCPCS: 99214 ==

== ENCOUNTER → 2024-12-02 10:18 | Outpatient (BNVA) | payer MEDICARE, SELFPAY | PROVIDERS: PCP Electrodiagnostic Medicine; Visit Provider Internal Medicine Cardiovascular Disease | DX: R07.9 Chest pain, unspecified (principal); Z95.2 Presence of prosthetic heart valve | CPT/HCPCS: 85610 ==

== ENCOUNTER 2024-12-09 10:04 | Oncology outpatient (recurring) (ONCR) | payer MEDICARE, SELFPAY ==
[2024-12-09 10:42] LABS: Basophils % 0.5 %; Eosinophils # 0.1 10^3/uL (0.0-0.8); Eosinophils % 2.1 %; Lymphocytes % 15.8 %; Mean Corpuscular HGB Conc 31.3 g/dL (30-55); Mean Corpuscular Hemoglobin 25.3 pg (27-33); Mean Corpuscular Volume 80.9 fl (85-98); Mean Platelet Volume 10.1 fL (7.4-10.4); Monocytes # 0.5 10^3/uL (0.2-0.9); Monocytes % 7.4 %; Neutrophils # 4.57 10^3/uL (1.8-7.7); Neutrophils % 73.9 %; Nucleated Red Blood Cells % 0 %; Platelet Count 167 10^3/cmm (157-399); Red Blood Count 3.83 10^6/uL (3.85-5.65); Red Cell Distribution Width 15.5 % (12.1-15.1); White Blood Count 6.19 10^3/uL (3.29-11.43)
[2024-12-09 11:22] LABS: Alanine Aminotransferase 8 U/L (0-33); Albumin Level 3.4 g/dL (3.5-5.2); Alkaline Phosphatase 87 U/L (35-105); Anion Gap 12.1 (5-19); Aspartate Amino Transferase 9 U/L (0-32); Blood Urea Nitrogen 20 mg/dL (8-23); Carbon Dioxide 25 mmol/L (22-29); Chloride 103 mmol/L (98-107); Ferritin 40 ng/mL (15-150); Globulin 2.5 g/dL (1.3-4.6); Glucose 206 mg/dL (65-115); Iron 27 ug/dL (37-145); Osmolality Calculated 291 mOsm/kg (285-295); Percent Saturation 9.7 % (20-50); Potassium 4.1 mmol/L (3.5-5.1); Sodium 136 mmol/L (136-145); Thyroid Stimulating Hormone 3.83 uIU/mL (0.27-4.20); Total Bilirubin 0.3 mg/dL (0.15-1.2); Total Iron Binding Capacity 277 mcg/dl; Total Protein 5.9 g/dL (6.6-8.7); Unsaturated Iron Binding 250 ug/dL (112-347); Vitamin B12 317 pg/mL (232-1245)
[2024-12-09 11:39] LABS: Folate Level 8.2 ng/mL (4.8-37.3)
== END 2024-12-29 23:59 | disposition home or self-care (01) ==
PROVIDERS: Internal Medicine; PCP Electrodiagnostic Medicine; Visit Provider Internal Medicine Medical Oncology
DX: C50.412 Malignant neoplasm of upper-outer quadrant of left female breast (principal); Z17.0 Estrogen receptor positive status [ER+]; Z90.12 Acquired absence of left breast and nipple; Z79.810 Long term (current) use of selective estrogen receptor modulators (SERMs)
CPT/HCPCS: 36591; 80053; 82607; 82728; 82746; 83540; 83550; 84443; 85025; 85610; 99214

== ENCOUNTER → 2024-12-23 10:43 | Outpatient (BNVA) | payer MEDICARE, SELFPAY | PROVIDERS: PCP Electrodiagnostic Medicine; Visit Provider Internal Medicine Cardiovascular Disease | DX: R07.9 Chest pain, unspecified (principal); Z95.2 Presence of prosthetic heart valve | CPT/HCPCS: 85610 ==

== ENCOUNTER → 2025-01-19 10:29 | Outpatient (BNVA) | payer MEDICARE, SELFPAY | PROVIDERS: PCP Electrodiagnostic Medicine; Visit Provider Internal Medicine Cardiovascular Disease | DX: R07.9 Chest pain, unspecified (principal); Z95.2 Presence of prosthetic heart valve | CPT/HCPCS: 85610 ==

== ENCOUNTER → 2025-02-02 10:12 | Outpatient (BNVA) | payer MEDICARE, SELFPAY | PROVIDERS: PCP Electrodiagnostic Medicine; Visit Provider Internal Medicine Cardiovascular Disease | DX: R07.9 Chest pain, unspecified (principal); Z95.2 Presence of prosthetic heart valve | CPT/HCPCS: 85610 ==

== ENCOUNTER 2025-02-10 09:20 | Oncology outpatient (recurring) (ONCR) | payer MEDICARE, SELFPAY ==
[2025-02-10 09:56] LABS: Basophils # 0.1 10^3/uL (0.0-0.1); Basophils % 0.9 %; Eosinophils # 0.2 10^3/uL (0.0-0.8); Hematocrit 34.1 % (36-47); Lymphocytes # 1.2 10^3/uL (0.8-4.8); Mean Corpuscular HGB Conc 31.4 g/dL (30-55); Mean Corpuscular Hemoglobin 24.6 pg (27-33); Mean Corpuscular Volume 78.4 fl (85-98); Mean Platelet Volume 11.2 fL (7.4-10.4); Monocytes # 0.4 10^3/uL (0.2-0.9); Monocytes % 7.5 %; Neutrophils # 3.87 10^3/uL (1.8-7.7); Neutrophils % 67.1 %; Nucleated Red Blood Cells % 0 %; Platelet Count 132 10^3/cmm (157-399); Red Blood Count 4.35 10^6/uL (3.85-5.65); Red Cell Distribution Width 16.3 % (12.1-15.1); White Blood Count 5.76 10^3/uL (3.29-11.43)
[2025-02-10 10:18] LABS: INR 2.08 (0.83-1.21); Prothrombin Time (Patient) 24.6 Seconds (12.0-15.1)
[2025-02-10 10:38] LABS: Folate Level 10.5 ng/mL (4.8-37.3)
[2025-02-10 10:46] LABS: Alanine Aminotransferase 10 U/L (0-33); Albumin Level 3.3 g/dL (3.5-5.2); Alkaline Phosphatase 75 U/L (35-105); Aspartate Amino Transferase 11 U/L (0-32); Blood Urea Nitrogen 16 mg/dL (8-23); CA 15-3 19.5 U/mL (0-25); Calcium 8.9 mg/dL (8.5-10.5); Carbon Dioxide 21 mmol/L (22-29); Chloride 105 mmol/L (98-107); Creatinine Clr Calc Pharmacy 77.6484; Ferritin 32 ng/mL (15-150); Globulin 2.6 g/dL (1.3-4.6); Glucose 303 mg/dL (65-115); Iron 43 ug/dL (37-145); Osmolality Calculated 299 mOsm/kg (285-295); Percent Saturation 14.4 % (20-50); Sodium 138 mmol/L (136-145); Total Bilirubin 0.2 mg/dL (0.15-1.2); Total Iron Binding Capacity 298 mcg/dl; Total Protein 5.9 g/dL (6.6-8.7); Unsaturated Iron Binding 255 ug/dL (112-347); Vitamin B12 341 pg/mL (232-1245)
== END 2025-02-28 23:59 | disposition home or self-care (01) ==
PROVIDERS: Internal Medicine Cardiovascular Disease; Internal Medicine Medical Oncology; PCP Electrodiagnostic Medicine; Visit Provider Internal Medicine
DX: C50.412 Malignant neoplasm of upper-outer quadrant of left female breast (principal); Z17.0 Estrogen receptor positive status [ER+]; D64.9 Anemia, unspecified; Z95.2 Presence of prosthetic heart valve; Z79.810 Long term (current) use of selective estrogen receptor modulators (SERMs)
CPT/HCPCS: 36591; 80053; 82607; 82728; 82746; 83540; 83550; 85025; 85610; 86300; 99213

== ENCOUNTER → 2025-02-24 10:30 | Outpatient (BNVA) | payer MEDICARE, SELFPAY | PROVIDERS: PCP Electrodiagnostic Medicine; Visit Provider Internal Medicine Cardiovascular Disease | DX: Z95.2 Presence of prosthetic heart valve (principal); R07.9 Chest pain, unspecified | CPT/HCPCS: 85610 ==

== ENCOUNTER → 2025-03-02 13:18 | Outpatient (BNVA) | payer MEDICARE, SELFPAY | PROVIDERS: PCP Electrodiagnostic Medicine; Visit Provider Student in an Organized Health Care Education/Training Program | DX: C50.919 Malignant neoplasm of unspecified site of unspecified female breast (principal); Z17.0 Estrogen receptor positive status [ER+] | CPT/HCPCS: 99214 ==

== ENCOUNTER → 2025-03-10 10:34 | Outpatient (BNVA) | payer MEDICARE, SELFPAY | PROVIDERS: PCP Electrodiagnostic Medicine; Visit Provider Internal Medicine Cardiovascular Disease | DX: R07.9 Chest pain, unspecified (principal); Z95.2 Presence of prosthetic heart valve | CPT/HCPCS: 85610 ==

== ENCOUNTER 2025-03-12 08:55 | Oncology outpatient (recurring) (ONCR) | payer MEDICARE, SELFPAY ==
--- NOTE | 2025-03-12 09:15 | US_ITS ---
WS: [id number] ULTRASOUND BREAST LEFT TECHNIQUE: Ultrasound left breast focused area of concern. CLINICAL INFORMATION: History of breast cancer with mastectomy COMPARISON: Ultrasound 08/16/2023 FINDINGS: Ultrasound LEFT breast 4 o'clock position 5 cm from the nipple in the area of concern. Solid-appearing heterogeneous mass measuring 4.2 x 4.1 x 4.1 cm. Findings are suspicious for recurrent disease in this location. Recommend further evaluation with ultrasound-guided biopsy or surgical resection. US/US breast LT limited* [id number] IMPRESSION: See discussion above
== END 2025-03-30 23:59 | disposition home or self-care (01) ==
LOC: RAD 08:56 → ONCMED 09:16
PROVIDERS: PCP Electrodiagnostic Medicine; Visit Provider Student in an Organized Health Care Education/Training Program
DX: C50.412 Malignant neoplasm of upper-outer quadrant of left female breast (principal); Z17.0 Estrogen receptor positive status [ER+]; D64.9 Anemia, unspecified; Z95.2 Presence of prosthetic heart valve; Z79.810 Long term (current) use of selective estrogen receptor modulators (SERMs)
CPT/HCPCS: 76642

== ENCOUNTER → 2025-03-16 09:56 | Outpatient (BNVA) | payer MEDICARE, SELFPAY | PROVIDERS: PCP Electrodiagnostic Medicine; Visit Provider Student in an Organized Health Care Education/Training Program | DX: Z09 Encounter for follow-up examination after completed treatment for conditions other than malignant neoplasm (principal) | CPT/HCPCS: 99204; 99213 ==

== ENCOUNTER → 2025-04-06 10:26 | Outpatient (BNVA) | payer MEDICARE, SELFPAY | PROVIDERS: PCP Electrodiagnostic Medicine; Visit Provider Student in an Organized Health Care Education/Training Program | DX: Z09 Encounter for follow-up examination after completed treatment for conditions other than malignant neoplasm (principal); Z90.12 Acquired absence of left breast and nipple; C50.412 Malignant neoplasm of upper-outer quadrant of left female breast | CPT/HCPCS: 99204 ==

== ENCOUNTER → 2025-04-14 08:01 | Outpatient (BNVA) | payer MEDICARE, SELFPAY | PROVIDERS: PCP Electrodiagnostic Medicine; Visit Provider Family Medicine | DX: Z01.818 Encounter for other preprocedural examination (principal); I21.9 Acute myocardial infarction, unspecified; I44.0 Atrioventricular block, first degree | CPT/HCPCS: 93005 ==

== ENCOUNTER 2025-04-22 07:33 | Day surgery (SDC) | payer MEDICARE, SELFPAY ==
[2025-04-22] VITALS (10 sets, daily range): BP systolic 108–150; BP diastolic 50–89; PULSE 60–67; RESP 16–24; TEMP 36.1–36.7; O2SAT 96–100; BMI 41.0
--- NOTE | 2025-04-22 08:27 | ANES.PREANE2 ---
Pre-Anesthetic Assessment Height/Weight: Height 1.55 m Weight 98.43 kg Temp Pulse Resp BP Pulse Ox O2 Del Method 98.1 F 67 24 H 150/89 98 Room Air 04/22/25 07:54 04/22/25 07:54 04/22/25 07:54 04/22/25 07:54 04/22/25 07:54 04/22/25 07:54 Operation Date: 04/22/25 09:45 Proposed Procedures p LEFT Sided Chest Wall Soft Tissue Mass Excision(Left) - Damián Preciado MD Familial anesthetic complications: None Was Beta Marisol taken within 24 hours: N/A Was Clonidine taken within 24 hours: N/A Last intake: Intake Last Liquid Date 04/21/25 Last Liquid Time 17:30 Last Solid Date 04/21/25 Last Solid Time 17:30 Social No alcohol and No tobacco Exam alert, oriented x 3, clear to auscultation bilaterally and regular rate & rhythm Airway Mallampati: Class II Dentition: other (none) CV/HEM Coronary Artery Disease (cabg) and Hypertension AV valve replacement off warfarin and counseled on thromboembolism risks with Dr. Miller Pacemaker Metabolic Diabetes Mellitus Anesthetic Plan ASA status: 4 Anesthesia: General Risk of > 500 ml blood loss (7ml/kg in children): No Medications/Allergies Home Medications ?Medication ?Instructions ?Recorded ?Confirmed ?Last Taken ?Type albuterol sulfate 90 mcg/actuation 2 puff inhalation BID PRN 06/15/22 04/21/25 01/31/24 08:00 History aerosol inhaler Shortness Of Breath cetirizine 10 mg tablet (Zyrtec) 10 mg PO DAILY PRN Allergy Symptoms 06/26/22 04/21/25 04/21/25 07:00 History albuterol sulfate 0.63 mg/3 mL 0.63 mg (3 mL) inhalation Q6H PRN 08/14/22 04/21/25 01/31/24 08:00 Rx solution for nebulization shortness of breath or wheezing #90 mL aspirin 81 mg tablet,delayed 81 mg PO DAILY 08/28/22 04/21/25 04/19/25 History release pen needle, diabetic 32 gauge x #100 ea 05/06/24 04/14/25 Unknown Rx 1/4 (BD Ultra-Fine Micro Pen Needle) oxycodone-acetaminophen 5 mg-325 1 tab PO Q12H PRN pain 30 days #60 04/14/25 04/21/25 04/21/25 19:00 Rx mg tablet tabs warfarin 4 mg tablet 4 mg PO DAILY #90 tabs 04/15/25 04/21/25 04/16/25 Rx warfarin 5 mg tablet 7 mg PO DAILY #30 tabs 04/15/25 04/21/25 04/16/25 Rx amlodipine 5 mg tablet 5 mg PO BID 04/21/25 04/21/25 04/22/25 07:00 History carvedilol 12.5 mg tablet 12.5 mg PO BID 04/21/25 04/21/25 04/22/25 07:00 History insulin glargine 100 unit/mL (3 18 unit SUBCUT DAILY 04/22/25 04/22/25 04/21/25 18:00 History mL) subcutaneous pen (Lantus 35 unit Solostar U-100 Insulin) Allergies Allergy/AdvReac Type Severity Reaction Status Date / Time enoxaparin (From Lovenox) Allergy Severe ADR-Itching Verified 04/22/25 07:50 atorvastatin (From Lipitor) Allergy ADR-Vomitin Verified 04/22/25 07:50 g insulin glargine (From AdvReac Severe pain Verified 04/22/25 07:50 Basaglar KwikPen U-100 Insulin) lisinopril AdvReac Mild ADR-Nausea Verified 04/22/25 07:50 levothyroxine AdvReac ADR-Cramping Verified 04/22/25 07:50 of the Muscles metformin AdvReac ADR-Heartbu Verified 04/22/25 07:50 rn simvastatin AdvReac ADR-Nausea Verified 04/22/25 07:50 Current Medications Generic Name Dose Route Start Last Admin Trade Name Freq PRN Reason Stop Dose Admin Sodium Chloride 1,000 mls @ 30 mls/hr 04/22/25 07:45 04/22/25 08:13 Sodium Chloride 0.9% IV 04/23/25 07:44 30 mls/hr .Q24H KRISTIN Administration PFSH Anesthesia Medical History Breast cancer Metastatic malignant neoplasm to skin of breast Malignant neoplasm of upper-outer quadrant of left female breast Nausea alone Hoarseness of voice Multiple thyroid nodules Port-A-Cath in place 02/01/24 Dr Gilliam Warfarin anticoagulation Pacemaker Syncope, cardiogenic Syncope and collapse COPD (chronic obstructive pulmonary disease) Diabetes mellitus with cardiac complication Hypothyroid Obesity Dyslipidemia Diabetes Aortic stenosis HTN (hypertension) ASHD (arteriosclerotic heart disease) Surgical History Hx of left mastectomy Left simple mastectomy- Dr Gilliam 07/15/24 H/O breast surgery S/P CABG (coronary artery bypass graft) H/O mechanical aortic valve replacement History of permanent cardiac pacemaker placement Status post tubal ligation S/P tonsillectomy H/O: hysterectomy Family History Mother Diabetes Grandfather Diabetes MATERNAL AND PATERNAL Grandmother Diabetes MATERNAL AND PATERNAL Family/Other Stroke MATERNAL AUNT Other CAD (coronary artery disease) Hyperlipidemia Hypertension Social History Smoking and tobacco/nicotine status: never used tobacco/nicotine Quit status (tobacco/nicotine): has quit using Year quit tobacco: 2013 Former quit date comment: 1 ppd x 36 years Alcohol intake: never Substance/Drug Use: never Household members: spouse Marital status: Data Anesthesia Cardiac Studies: Echocardiogram 01/31/24 Echocardiogram Ultrasound 06/02/21 Sestamibi Stress Test (Cardiology) 03/01/22
[2025-04-22 08:30] LABS: Hematocrit 29.3 % (36-47); Hemoglobin 9.50 g/dL (11.27-16.99); Mean Corpuscular HGB Conc 32.4 g/dL (30-55); Mean Corpuscular Hemoglobin 25.4 pg (27-33); Mean Corpuscular Volume 78.3 fl (85-98); Nucleated Red Blood Cells % 0 %; Platelet Count 184 10^3/cmm (157-399); Red Blood Count 3.74 10^6/uL (3.85-5.65); White Blood Count 7.61 10^3/uL (3.29-11.43)
--- NOTE | 2025-04-22 08:33 | W.PM.OPSUD ---
Surgery/Procedure H&P Update DATE OF PROCEDURE: April 22, 2025 DATE H&P PERFORMED: 04/06/25 H&P UPDATE INFORMATION: I have reviewed H&P completed within last 30 days, I have examined patient prior to procedure and No changes to prior documentation PLANNED PROCEDURE: Operation Date: 04/22/25 09:45 Proposed Procedures p LEFT Sided Chest Wall Soft Tissue Mass Excision(Left) - Damián Preciado MD
[2025-04-22 08:44] LABS: INR 1.26 (0.8-1.2); Prothrombin Time 16.70 SECONDS (12.1-14.9)
[2025-04-22 08:52] LABS: Alanine Aminotransferase 36 U/L (0-33); Albumin Level 3.2 g/dL (3.5-5.2); Alkaline Phosphatase 67 U/L (35-105); Anion Gap 16.1 (5-19); Aspartate Amino Transferase 21 U/L (0-32); Blood Urea Nitrogen 10 mg/dL (8-23); Calcium 9.9 mg/dL (8.5-10.5); Carbon Dioxide 23 mmol/L (22-29); Chloride 101 mmol/L (98-107); Creatinine Clr Calc Pharmacy 75.3180; Globulin 2.8 g/dL (1.3-4.6); Glucose 156 mg/dL (65-115); Osmolality Calculated 284 mOsm/kg (285-295); Potassium 4.1 mmol/L (3.5-5.1); Sodium 136 mmol/L (136-145); Total Protein 6.0 g/dL (6.6-8.7)
[2025-04-22] MEDS: ceFAZolin 2,000 mg SDV 2000 MG IVP (10:00)
[2025-04-22] MEDS: lidocaine-epi 1% 20 mL INJ INJECTION (10:32)
--- NOTE | 2025-04-22 10:39 | P.OP_ITS ---
Operative Report Date of procedure: April 22, 2025 Pre-op diagnosis: Metastatic breast cancer Post-op diagnosis: same Post-op findings: Necrotic metastatic lesion left chest. Partial metastasectomy. Necrotic lesion down to muscle layer. Unable to approximate skin. Radha dressing applied. Procedure done: Left chest metastasectomy Implants: N/A Specimens removed/disposition: Metastatic lesion sent to pathology Pathology: Metastatic lesions on the pathology Surgeon: Damián Preciado MD Senior Director Creative Services: N/A Anesthesia: General Estimated blood loss (mL): 30 Complications: N/A Findings: Necrotic metastatic lesion left chest. Partial metastasectomy. Necrotic lesion down to muscle layer. Unable to approximate skin. Radha dressing applied. Condition: stable Disposition: same day Brief History: 64-year-old female with a metastatic lesion in left chest. Secondary to breast cancer. Discussed risk and benefits and patient agreed to proceed with metastasectomy left chest. Patient understands this is done for palliative purposes, symptom control. She understands that it may not be possible to resect the entire lesion. Procedure: Consent obtained in the preop area. SCDs on working. Preoperative antibiotics administered. General anesthesia induced. Magnet placed over pacer. Left chest prepped and draped in the usual sterile fashion. Scalpel used to perform an elliptical incision around the metastatic lesion. Electrocautery used to dissect around the lesion. Necrotic lesion extended down to muscle layer. Resected as much lesion as possible down to muscle. Tried to create flaps for skin coverage, however, the metastatic lesion is too extensive and does not allow for adequate mobilization of the skin. Adequate hemostasis achieved using electrocautery. Peroxide used to clean out the lesion since this is a necrotic metastatic lesion. Lucía applied to the wound base. Adequate hemostasis confirmed. A radha dressing was applied to the wound. Wound dimensions are 5 x 6 cm. Adequate seal was obtained. The patient woke up from anesthesia without any complications.
--- NOTE | 2025-04-22 11:50 | ANE.PACU2 ---
Inpatient post-anesthesia follow up: Airway intact: Yes Vital signs: Temperature 97.5 F Pulse Rate 60 Respiratory Rate 18 Blood Pressure 135/51 Pulse Oximetry 98 Oxygen Delivery Me thod Room Air Oxygen Flow Rate Fraction of Inspir ed Oxygen Hydration adequate: Yes Nausea and vomiting: No Pain level: 1 Mental status: Baseline
== END 2025-04-22 11:50 | disposition home or self-care (01) ==
PROVIDERS: Anesthesiology; PCP Electrodiagnostic Medicine; Visit Provider Student in an Organized Health Care Education/Training Program
PROC: (CPT 19120; principal; 2025-04-22 09:35)
DX: C50.912 Malignant neoplasm of unspecified site of left female breast (principal); I25.10 Atherosclerotic heart disease of native coronary artery without angina pectoris; Z95.1 Presence of aortocoronary bypass graft; I10 Essential (primary) hypertension; Z79.82 Long term (current) use of aspirin; Z79.4 Long term (current) use of insulin; Z95.828 Presence of other vascular implants and grafts; Z95.0 Presence of cardiac pacemaker; E11.9 Type 2 diabetes mellitus without complications; E03.9 Hypothyroidism, unspecified; E66.9 Obesity, unspecified; Z68.41 Body mass index [BMI] 40.0-44.9, adult; E78.5 Hyperlipidemia, unspecified; Z90.12 Acquired absence of left breast and nipple; Z79.01 Long term (current) use of anticoagulants; Z87.891 Personal history of nicotine dependence
CPT/HCPCS: 19120; 36415; 36416; 80053; 82962; 85025; 85610; 88307; J0690; J1100; J2405; J2704; J3010; J3490; J7030; J9999

== ENCOUNTER → 2025-04-24 12:22 | Outpatient (BNVA) | payer MEDICARE, SELFPAY | PROVIDERS: PCP Electrodiagnostic Medicine; Visit Provider Surgery | DX: C50.912 Malignant neoplasm of unspecified site of left female breast (principal); Z90.12 Acquired absence of left breast and nipple | CPT/HCPCS: 99214 ==

== ENCOUNTER 2025-04-28 13:10 | Oncology outpatient (recurring) (ONCR) | payer MEDICARE, SELFPAY ==
--- NOTE | 2025-04-01 14:45 | US_ITS ---
WS: [id number] ULTRASOUND-GUIDED LEFT BREAST BIOPSY HISTORY: LEFT breast mass near 4:00 towards the inframammary fold. Patient had a prior mastectomy. Recurrent mass near the scar site. Visually this mass is bulging from the skin and of purple-reddish color. COMPARISON: 03/12/2025, PET/CT 06/03/2024 and 10/17/2024 Procedure, risks and complications are explained to the patient. Medications are reviewed. Consent is obtained. The mass in the LEFT breast is localized with ultrasound. Masses along the inframammary fold near the scar site from the prior mastectomy. Skin is cleansed with ChloraPrep and anesthetized with 1% buffered lidocaine. Small dermatome is made. Under sterile conditions mass is biopsied with a 14-gauge Achieve needle. Multiple core biopsies are performed. Material placed in formalin and sent to pathology for review. No complications encountered. Breast tissue marker (Bard ultrasound enhanced ribbon): Single. Patient left the radiology suite with no complications. Patient is instructed to return [place] [facility] [place] call with any concerns. US/[place] [id number] IMPRESSION: 1. Uncomplicated core needle biopsy LEFT breast mass. 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 RECOMMENDATION: Follow-up with oncology and breast surgeon.
[2025-04-07 14:56] LABS: Breast Profile ER,PR,HER2,Ki-6 See Report
[2025-04-14 12:37] LABS: Hematocrit 31.8 % (36-47); Hemoglobin 10.20 g/dL (11.27-16.99); Mean Corpuscular HGB Conc 32.1 g/dL (30-55); Mean Corpuscular Hemoglobin 25.4 pg (27-33); Mean Corpuscular Volume 79.1 fl (85-98); Nucleated Red Blood Cells % 0 %; Platelet Count 149 10^3/cmm (157-399); Red Blood Count 4.02 10^6/uL (3.85-5.65); White Blood Count 9.98 10^3/uL (3.29-11.43)
[2025-04-14 12:50] LABS: INR 3.79 (0.83-1.21)
[2025-04-14 12:59] LABS: Alanine Aminotransferase 21 U/L (0-33); Albumin Level 3.3 g/dL (3.5-5.2); Alkaline Phosphatase 71 U/L (35-105); Anion Gap 16.4 (5-19); Aspartate Amino Transferase 16 U/L (0-32); Blood Urea Nitrogen 16 mg/dL (8-23); Calcium 9.0 mg/dL (8.5-10.5); Carbon Dioxide 22 mmol/L (22-29); Chloride 102 mmol/L (98-107); Creatinine Clr Calc Pharmacy 77.0459; Ferritin 68 ng/mL (15-150); Globulin 2.6 g/dL (1.3-4.6); Glucose 318 mg/dL (65-115); Iron 16 ug/dL (37-145); Osmolality Calculated 295 mOsm/kg (285-295); Potassium 4.4 mmol/L (3.5-5.1); Sodium 136 mmol/L (136-145); Total Iron Binding Capacity 244 mcg/dl; Total Protein 5.9 g/dL (6.6-8.7); Unsaturated Iron Binding 228 ug/dL (112-347)
[2025-04-14 13:15] LABS: Vitamin B12 458 pg/mL (232-1245)
--- NOTE | 2025-04-17 14:30 | PETR_ITS ---
PROCEDURE INFORMATION: Exam: PET/CT Skull Base to Mid-thigh Exam date and time: 04/17/2025 3:19 PM Age: 64 years old Clinical indication: Condition or disease; Primary cancer: Malignant neoplasm of upper-outer quadrant of left female breast LABS AND CLINICAL REPORTS: Glucose: 173 mg/dl Treatment strategy for malignancy (PET staging): Restaging (PS) TECHNIQUE: Imaging protocol: Following at least four-hour fasting and following the injection of radiopharmaceutical, low dose CT images were obtained. Then, PET images were obtained. Attenuation corrected images were constructed using the CT scan. Fused images of PET and CT were reviewed. The standardized uptake values (SUV) reported below are maximum values within a region of interest, expressed in gm/ml. Exam includes orbital meatal line to mid-thigh. SUV normalization method: BodyWeight Radiopharmaceutical: 12.52 mCi F-18 FDG (Fluorodeoxyglucose), IV. Time of imaging post radiopharmaceutical administration: 47 minutes Injection site: RAC COMPARISON: PT PET skull to thigh INIT [id number] 10/17/2024 10:57 AM FINDINGS: Brain: Visualized brain has normal physiologic uptake. Pharynx: No abnormal uptake. 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 Lungs, pleura and trachea: No abnormal uptake. Heart: Normal physiologic uptake. Mediastinal space: No abnormal uptake. Liver: No abnormal uptake. Gallbladder and biliary ducts: Cholelithiasis. No abnormal uptake. Pancreas: No abnormal uptake. Spleen: Multifocal splenic calcifications, likely sequela of prior granulomatous disease. No abnormal uptake. Adrenal glands: No abnormal uptake. Kidneys and ureters: Normal physiologic uptake. Stomach and bowel: No abnormal uptake. Vasculature: No abnormal uptake. Lymph nodes: New FDG avid left level 5 B lymph node (image 52) measuring 9 mm with SUV max of 6.0, 9 mm paraesophageal lymph node (image 83) with SUV max of 4.9, right retropectoral lymph node (image 86) measuring 1.3 cm with SUV max 2.8, and right axillary lymph node measuring 6 mm in short axis with SUV max of 2.0. Skeleton: FDG-avid soft tissue nodule at the left anterior costochondral junction measuring 2.0 x 1.9 cm with SUV max of 4.0. Status post median sternotomy. Soft tissues: Multiple new left breast masses with peripheral FDG avidity including a 6.5 x 3.3 cm mass posterior to the implant (series 202, image 99) with SUV max of 18.6, a 6.4 x 5.5 cm mass lateral and inferior to the breast implant with SUV max of 11.4, and a 3.3 x 3.0 cm mass inferior to the breast implant with SUV max of 6.1. New soft tissue nodules in the left chest wall adjacent to the left breast disease including 1.5 cm left lateral chest wall nodule (image 95) with SUV max of 10.2, 6 mm medial left chest wall nodule (image 99) with SUV max of 9.8, 6 mm medial chest wall nodule (image 104) with SUV max of 6.4, 6 mm nodule overlying a left lower costochondral junction inferior to the sternum (image 125) with SUV max of 5.1. Subcutaneous stranding in the left chest and abdominal wall. METRICS: Mediastinal blood pool: SUV max = 2.8 Liver uptake: SUV max = 3.3 PET/PET skull to thigh SUBS [id number] IMPRESSION: 1. Multiple new FDG avid left breast masses surrounding the implant, compatible with disease recurrence. 2. New FDG avid multi-station lymphadenopathy and soft tissue nodules, compatible with metastatic disease.
== END 2025-04-30 23:59 | disposition home or self-care (01) ==
PROVIDERS: Internal Medicine; Internal Medicine Cardiovascular Disease; Student in an Organized Health Care Education/Training Program; PCP Electrodiagnostic Medicine; Visit Provider Internal Medicine Medical Oncology
DX: C50.412 Malignant neoplasm of upper-outer quadrant of left female breast (principal); I25.10 Atherosclerotic heart disease of native coronary artery without angina pectoris; I10 Essential (primary) hypertension; E78.2 Mixed hyperlipidemia; E11.59 Type 2 diabetes mellitus with other circulatory complications; Z87.891 Personal history of nicotine dependence; Z79.4 Long term (current) use of insulin; Z79.01 Long term (current) use of anticoagulants; Z79.82 Long term (current) use of aspirin; Z95.1 Presence of aortocoronary bypass graft; Z95.2 Presence of prosthetic heart valve; Z95.0 Presence of cardiac pacemaker; E11.22 Type 2 diabetes mellitus with diabetic chronic kidney disease
CPT/HCPCS: 19083; 36591; 78815; 80053; 82607; 82728; 82746; 83010; 83540; 83550; 83615; 85025; 85610; 88305; 88361; 88374; 99024; 99213; 99214; A9552

== ENCOUNTER → 2025-04-30 13:05 | Outpatient (BNVA) | payer MEDICARE, SELFPAY | PROVIDERS: PCP Electrodiagnostic Medicine; Visit Provider Thoracic Surgery (Cardiothoracic Vascular Surgery) | DX: I96 Gangrene, not elsewhere classified (principal); L98.492 Non-pressure chronic ulcer of skin of other sites with fat layer exposed; C50.412 Malignant neoplasm of upper-outer quadrant of left female breast | CPT/HCPCS: A6197 ==

== ENCOUNTER → 2025-05-04 10:15 | Outpatient (BNVA) | payer MEDICARE, SELFPAY | PROVIDERS: PCP Electrodiagnostic Medicine; Visit Provider Student in an Organized Health Care Education/Training Program | DX: Z98.890 Other specified postprocedural states (principal) | CPT/HCPCS: 99024 ==

== ENCOUNTER → 2025-05-07 09:48 | Outpatient (BNVA) | payer MEDICARE, SELFPAY | PROVIDERS: PCP Electrodiagnostic Medicine; Visit Provider Thoracic Surgery (Cardiothoracic Vascular Surgery) | DX: I96 Gangrene, not elsewhere classified (principal); T81.31XD Disruption of external operation (surgical) wound, not elsewhere classified, subsequent encounter; Y83.8 Other surgical procedures as the cause of abnormal reaction of the patient, or of later complication, without mention of misadventure at the time of the procedure | CPT/HCPCS: 11042; A6253; J9999 ==

== ENCOUNTER → 2025-05-12 11:09 | Outpatient (BNVA) | payer MEDICARE, SELFPAY | PROVIDERS: PCP Electrodiagnostic Medicine; Visit Provider Internal Medicine Cardiovascular Disease | DX: E11.22 Type 2 diabetes mellitus with diabetic chronic kidney disease (principal); I25.10 Atherosclerotic heart disease of native coronary artery without angina pectoris; E11.59 Type 2 diabetes mellitus with other circulatory complications; N18.30 Chronic kidney disease, stage 3 unspecified; E78.5 Hyperlipidemia, unspecified; Z95.2 Presence of prosthetic heart valve; R07.9 Chest pain, unspecified | CPT/HCPCS: 36415; 85610 ==

== ENCOUNTER → 2025-05-21 09:51 | Outpatient (BNVA) | payer MEDICARE, SELFPAY | PROVIDERS: PCP Electrodiagnostic Medicine; Visit Provider Thoracic Surgery (Cardiothoracic Vascular Surgery) | DX: I96 Gangrene, not elsewhere classified (principal); S21.002D Unspecified open wound of left breast, subsequent encounter; X58.XXXD Exposure to other specified factors, subsequent encounter; C50.412 Malignant neoplasm of upper-outer quadrant of left female breast | CPT/HCPCS: 97597; 97598; A6253 ==

== ENCOUNTER 2025-05-26 10:30 | Oncology outpatient (recurring) (ONCR) | payer MEDICARE, SELFPAY ==
[2025-05-19 09:09] LABS: Hematocrit 29.5 % (36-47); Hemoglobin 8.90 g/dL (11.27-16.99); Mean Corpuscular HGB Conc 30.2 g/dL (30-55); Mean Corpuscular Hemoglobin 23.3 pg (27-33); Mean Corpuscular Volume 77.2 fl (85-98); Nucleated Red Blood Cells % 0 %; Platelet Count 194 10^3/cmm (157-399); Red Blood Count 3.82 10^6/uL (3.85-5.65); White Blood Count 9.02 10^3/uL (3.29-11.43)
[2025-05-19 09:30] LABS: Estmated Average Glucose 177; Hemoglobin A1C 7.8 % (4.0-6.0); INR 1.19 (0.83-1.21)
[2025-05-19 09:38] LABS: Creatinine Urine, Random 157 mg/dL (28-217); Microalbum Creatinine Ratio Ur 6 mg/dL (0-20)
[2025-05-19 09:48] LABS: Alanine Aminotransferase 9 U/L (0-33); Albumin Level 3.0 g/dL (3.5-5.2); Alkaline Phosphatase 58 U/L (35-105); Anion Gap 13.3 (5-19); Aspartate Amino Transferase 15 U/L (0-32); Blood Urea Nitrogen 13 mg/dL (8-23); CA 15-3 24.7 U/mL (0-25); Calcium 9.1 mg/dL (8.5-10.5); Carbon Dioxide 24 mmol/L (22-29); Chloride 102 mmol/L (98-107); Cholesterol 185 mg/dL (0-200); Creatinine Clr Calc Pharmacy 76.2428; Globulin 2.5 g/dL (1.3-4.6); Glucose 187 mg/dL (65-115); HDL Cholesterol 30 mg/dL (60-100); Osmolality Calculated 285 mOsm/kg (285-295); Potassium 4.3 mmol/L (3.5-5.1); Sodium 135 mmol/L (136-145); Total Protein 5.5 g/dL (6.6-8.7); Triglycerides 167 mg/dL (0-150)
[2025-05-19] MEDS: dexamethasone 4 mg/mL INJ 5 mL 12 MG IVP (11:29)
[2025-05-19] MEDS: ondansetron 2 mg/ML SDV 2 mL 8 MG IVP (11:38)
[2025-05-19] MEDS: PACLITAXEL PROTEIN BOUND IV (12:29)
[2025-05-19] MEDS: FLEXIBLE CONTAINER IV (12:29)
[2025-05-19 13:20] VITALS: BP 142/86; PULSE 66; RESP 18; TEMP 36.3; O2SAT 96
[2025-05-26 10:37] LABS: Hematocrit 28.2 % (36-47); Hemoglobin 8.80 g/dL (11.27-16.99); Mean Corpuscular HGB Conc 31.2 g/dL (30-55); Mean Corpuscular Hemoglobin 23.7 pg (27-33); Mean Corpuscular Volume 75.8 fl (85-98); Nucleated Red Blood Cells % 0 %; Platelet Count 235 10^3/cmm (157-399); Red Blood Count 3.72 10^6/uL (3.85-5.65); White Blood Count 7.22 10^3/uL (3.29-11.43)
[2025-05-26 10:50] LABS: INR 2.91 (0.83-1.21)
[2025-05-26 11:01] LABS: Alanine Aminotransferase 11 U/L (0-33); Albumin Level 3.0 g/dL (3.5-5.2); Alkaline Phosphatase 64 U/L (35-105); Anion Gap 13.5 (5-19); Aspartate Amino Transferase 11 U/L (0-32); Blood Urea Nitrogen 15 mg/dL (8-23); Calcium 8.9 mg/dL (8.5-10.5); Carbon Dioxide 22 mmol/L (22-29); Chloride 98 mmol/L (98-107); Creatinine Clr Calc Pharmacy 76.4433; Globulin 2.6 g/dL (1.3-4.6); Glucose 227 mg/dL (65-115); Osmolality Calculated 276 mOsm/kg (285-295); Potassium 4.5 mmol/L (3.5-5.1); Sodium 129 mmol/L (136-145); Total Protein 5.6 g/dL (6.6-8.7)
[2025-05-26] MEDS: ondansetron 2 mg/ML SDV 2 mL 8 MG IVP (11:31)
[2025-05-26] MEDS: dexamethasone 4 mg/mL INJ 5 mL 12 MG IVP (11:31)
[2025-05-26] MEDS: FLEXIBLE CONTAINER IV (12:42)
[2025-05-26] MEDS: PACLITAXEL PROTEIN BOUND IV (12:42)
== END 2025-05-26 23:59 | disposition home or self-care (01) ==
PROVIDERS: Internal Medicine; Internal Medicine Cardiovascular Disease; Nurse Practitioner Family; PCP Electrodiagnostic Medicine; Visit Provider Internal Medicine Medical Oncology
DX: Z51.11 Encounter for antineoplastic chemotherapy; C50.412 Malignant neoplasm of upper-outer quadrant of left female breast; Z17.0 Estrogen receptor positive status [ER+]; R07.9 Chest pain, unspecified; G89.3 Neoplasm related pain (acute) (chronic); R11.0 Nausea; Z95.2 Presence of prosthetic heart valve; Z95.828 Presence of other vascular implants and grafts; Z79.899 Other long term (current) drug therapy; Z79.52 Long term (current) use of systemic steroids; Z87.891 Personal history of nicotine dependence; Z53.9 Procedure and treatment not carried out, unspecified reason
CPT/HCPCS: 80053; 80061; 82044; 83036; 85025; 85610; 86300; 96375; 96413; 99214; 99215; J1100; J2405; J7050; J9264

== ENCOUNTER 2025-05-27 09:47 | Oncology outpatient (recurring) (ONCR) | payer MEDICARE, SELFPAY ==
--- NOTE | 2025-05-27 12:30 | N.ONRAD NP_ITS ---
Radiation Oncology New Patient Visit Patient: Cami Martinez MR#: [id number] : 1960 Age: 64 Sex: Female Dictated by: Cem Roca DO/PEARL/NADIYA Date of Service: 05/27/2025 Referring Physician(s) : Dr. Syed Diagnosis: C77.3 - secondary and unspecified malignant neoplasm of axilla and upper limb lymph nodes, Diagnosed 04/17/2025 (active), C77.1 - secondary and unspecified malignant neoplasm of intrathoracic lymph nodes, Diagnosed 04/17/2025 (active) and C50.312 - malignant neoplasm of lower-inner quadrant of left female breast, Diagnosed 04/01/2025 (active). LEFT IDC-MD 05/25/2022,ER/CO+, H2N-,KI-67 55%, AXILLA +, 2.5X2.9CM, UOQ(12.8), BL MED/CERV LN/RT HILAR LN+, BRONCH RUL/STA 4R/STA 7+, ANASTRAZOLE WITH IBRANCE 07/22 TILL 11/2023 LED TO BRADYCARDIA WHICH WENT TO PACEMAKER 07/22, DS PROGRESSION STARTED ON TAXOL LEAD TO NEUROPATHY STARTED ON XELODA MARCH 2024TIL JUN 24 PROGRESSION LED TO LEFT PARTIAL MAST PD IDC 7CM WITH TUMOR EROSING SKINCLOSE MARGINS, FASLODEX AUG 19, 2024 + VERZENIO, [place] FASLODEX 09/02/2024, STARTED ON LETROZOLE BUT STOPPED EVERYTHING ON SEP 20, 2024, PET/CT 10/17/2024 NO MALIGNANCY, STARTED ON TAMOXIFEN ???STOPPED IN MARCH 2025 D/T PROGRESSION, BX LEFT BREAST VISIBLE MASS WAS PD-LARGE CELLBREAST PRIMARY-ER/CO/H2N-(TRIPLE NEGATIVE),LEFT CW PAIN, DEBULKING SURGERY WITH INABILTY TO CLOSE INCISION, STARTED ON ABRAXANE 05/19/2025 NO REAL CHANGE IN 11 X 9 CM ULCERATED/NECROTIC/DRAINING/FOUL SMELLING LESION, WOUND CLINIC SINCE 04/30/2025 WITH NO CHANGE IN RESPONSE STAGE: IV ICD-10:C50.312, C77.3, 77.1 Radiotherapy to date: Summary > No prior radiation therapy. Chief Complaint / History of Present Illness: This is a pleasant but emotional 64-year-old obese female that is being seen for consideration of palliative XRT to the ulcerative/draining/foul-smelling lesion measuring 11 x 9 cm of the left breast. She states she is not being given any type of prognosis as of yet. See history as noted above in diagnosis. Evaluated patient with our physicist to discuss any options. She is unable to lift her left arm for any type of treatment due to pain associated with metastatic disease. It was felt due to the thickness based on CT portion of PET/CT that electrons could not be utilized for treatment of the 9 cm depth of tumor. Due to her coronary artery disease we did not want any disease to be affecting the heart. We can reconstruct portals to not go through the left arm. We will use wet gauze in the open ulcerative lesion to help treat that area also. CT SIM performed today with simulation wire outlining open lesion. There is a large seroma between segments of disease in the left breast there is a 2.5 cm new lesion in the right medial segment of the right breast that we will use to see response to chemotherapy. Patient had a left upper chest based pacemaker secondary to bradycardia in place since 2021 Current Medications: lbuterol sulfate 90 mcg/actuation 2 puffs inhalation BID PRN albuterol sulfate 0.63 mg (3 mL) inhalation Q6H PRN amlodipine 5 mg PO BID aspirin 81 mg PO DAILY Held on 04/22/25. Instructions: Resume on 04/23/25. carvedilol 12.5 mg PO BID hydrocodone-acetaminophen 10-325 mg 1 tab PO BID PRN 30 days insulin glargine (Lantus Solostar U-100 Insulin) 18 units SUBCUT DAILY pantoprazole (Protonix) 40 mg PO BID 6 weeks pen needle, diabetic (BD Ultra-Fine Micro Pen Needle) USE DIRECTED DAILY with lantus prochlorperazine maleate (Compazine) 10 mg PO Q4H PRN sucralfate 10 mL PO BID 6 weeks warfarin 4 mg See Protocol PO DAILY Held on 04/22/25. Instructions: Resume on 04/23/25. warfarin 7 mg See Protocol PO DAILY Held on 04/22/25. Instructions: Resume on 04/23/25. Allergies: enoxaparin (From Lovenox) Allergy (Severe, Verified 05/26/25 10:21) ADR-Itching atorvastatin (From Lipitor) Allergy (Verified 05/26/25 10:21) ADR-Vomiting insulin glargine (From Basaglar KwikPen U-100 Insulin) Adverse Reaction (Severe, Verified 05/26/25 10:21) pain lisinopril Adverse Reaction (Mild, Verified 05/26/25 10:21) ADR-Nausea levothyroxine Adverse Reaction (Verified 05/26/25 10:21) ADR-Cramping of the Muscles metformin Adverse Reaction (Verified 05/26/25 10:21) ADR-Heartburn simvastatin Adverse Reaction (Verified 05/26/25 10:21) ADR-Nausea Medical History: No history of collagen vascular disease. No previous radiation therapy. Breast cancer Metastatic malignant neoplasm to skin of breast Malignant neoplasm of upper-outer quadrant of left female breast Nausea alone Hoarseness of voice Multiple thyroid nodules Port-A-Cath in place 02/01/24 Dr Gilliam Warfarin anticoagulation Pacemaker Syncope, cardiogenic Syncope and collapse COPD (chronic obstructive pulmonary disease) Diabetes mellitus with cardiac complication Hypothyroid Obesity Dyslipidemia Diabetes Aortic stenosis HTN (hypertension) ASHD (arteriosclerotic heart disease) Surgical History: Hx of left mastectomy Left simple mastectomy- Dr Gilliam 07/15/24 Debulking surgery March 2025 H/O breast surgery S/P CABG (coronary artery bypass graft) H/O mechanical aortic valve replacement History of permanent cardiac pacemaker placement Status post tubal ligation S/P tonsillectomy H/O: hysterectomy Family History: Mother Diabetes Grandfather Diabetes MATERNAL AND PATERNAL Grandmother Diabetes MATERNAL AND PATERNAL Family/Other Stroke MATERNAL AUNT Other CAD (coronary artery disease) Hyperlipidemia Hypertension Social History: Smoking and tobacco/nicotine status: never used tobacco/nicotine Quit status (tobacco/nicotine): has quit using Year quit tobacco: 2013 Former quit date comment: 1 ppd x 36 years Alcohol intake: never Substance/Drug Use: never Household members: spouse Marital status: Dietary Habits Caffeine: Yes Caffeine intake frequency: tea Current Complaints / Review of Systems: . Vital Signs: Performed on 05/27/2025 9:00 AM BMI - 39.324 kg/m2 (high), Height - 62 in, Weight - 215 lbs, Temperature - 97.7 f, Pulse - 72 /min, Respiration - 17 /min, O2 Sat - 97 %, Pain - 8, Fatigue - 0 and BP - 138/ 80 mm(hg). Physical Exam: Alert and tearful female in moderate distress at time of examination. Limited exam showed coronary repair scarring in the chest. Left ulcerated/necrotic/draining/foul-smelling lesion measuring 11 x 9 cm. Left upper extremity Limited range of motion due to metastatic disease and pain Performance Status: KPS 60 Pathology: Primary, c77.3 - secondary and unspecified malignant neoplasm of axilla and upper limb lymph nodes, Diagnosed 04/17/2025 (active) , Primary, c77.1 - secondary and unspecified malignant neoplasm of intrathoracic lymph nodes, Diagnosed 04/17/2025 (active) and Primary, c50.312 - malignant neoplasm of lower-inner quadrant of left female breast, Diagnosed 04/01/2025 (active) . Lab: Imaging: See HPI Impression: C77.3 - secondary and unspecified malignant neoplasm of axilla and upper limb lymph nodes, Diagnosed 04/17/2025 (active), C77.1 - secondary and unspecified malignant neoplasm of intrathoracic lymph nodes, Diagnosed 04/17/2025 (active) and C50.312 - malignant neoplasm of lower-inner quadrant of left female breast, Diagnosed 04/01/2025 (active). LEFT IDC-MD 05/25/2022,ER/CO+, H2N-,KI-67 55%, AXILLA +, 2.5X2.9CM, UOQ(12.8), BL MED/CERV LN/RT HILAR LN+, BRONCH RUL/STA 4R/STA 7+, ANASTRAZOLE WITH IBRANCE 07/22 TILL 11/2023 LED TO BRADYCARDIA WHICH WENT TO PACEMAKER 07/22, DS PROGRESSION STARTED ON TAXOL LEAD TO NEUROPATHY STARTED ON XELODA MARCH 2024TIL JUN 24 PROGRESSION LED TO LEFT PARTIAL MAST PD IDC 7CM WITH TUMOR EROSING SKINCLOSE MARGINS, FASLODEX AUG 19, 2024 + ARTHUR STEIN FASLODEX 09/02/2024, STARTED ON LETROZOLE BUT STOPPED EVERYTHING ON SEP 20, 2024, PET/CT 10/17/2024 NO MALIGNANCY, STARTED ON TAMOXIFEN ???STOPPED IN MARCH 2025 D/T PROGRESSION, BX LEFT BREAST VISIBLE MASS WAS PD-LARGE CELLBREAST PRIMARY-ER/CO/H2N-(TRIPLE NEGATIVE),LEFT CW PAIN, DEBULKING SURGERY WITH INABILTY TO CLOSE INCISION, STARTED ON ABRAXANE 05/19/2025 NO REAL CHANGE IN 11 X 9 CM ULCERATED/NECROTIC/DRAINING/FOUL SMELLING LESION, WOUND CLINIC SINCE 04/30/2025 WITH NO CHANGE IN RESPONSE STAGE: IV ICD-10:C50.312, C77.3, 77.1 Plan: Options were discussed with the patient and who is present. She and her asked appropriate questions. She is not been told the severity of her disease to lock our discussion today. We will consider palliative XRT to the left chest with wet gauze bolus to the necrotic lesion. We will need pacemaker evaluation prior to first treatment and daily till completed. Plan 4000 cGy in 10 fractions Signed by: 05/27/2025 12:30:18 PM <<Signature on File>> Time spent with patient//RECORDS/RECORD PREP/DOCUMENTS: 90 MINUTES CPT Code: CPT Code:
== END 2025-05-31 23:59 | disposition home or self-care (01) ==
PROVIDERS: PCP Electrodiagnostic Medicine; Visit Provider Internal Medicine Medical Oncology
DX: Z51.11 Encounter for antineoplastic chemotherapy (principal); C50.412 Malignant neoplasm of upper-outer quadrant of left female breast; Z17.0 Estrogen receptor positive status [ER+]; Z90.12 Acquired absence of left breast and nipple; I25.10 Atherosclerotic heart disease of native coronary artery without angina pectoris; E11.59 Type 2 diabetes mellitus with other circulatory complications; E11.22 Type 2 diabetes mellitus with diabetic chronic kidney disease; N18.30 Chronic kidney disease, stage 3 unspecified; E78.5 Hyperlipidemia, unspecified; R07.9 Chest pain, unspecified; Z95.2 Presence of prosthetic heart valve; Z79.899 Other long term (current) drug therapy; Z79.52 Long term (current) use of systemic steroids; Z79.633 Long term (current) use of mitotic inhibitor; Z95.828 Presence of other vascular implants and grafts; Z87.891 Personal history of nicotine dependence; Z71.89 Other specified counseling; Z53.9 Procedure and treatment not carried out, unspecified reason; Z98.82 Breast implant status; R93.89 Abnormal findings on diagnostic imaging of other specified body structures; R59.0 Localized enlarged lymph nodes; K80.20 Calculus of gallbladder without cholecystitis without obstruction; D73.89 Other diseases of spleen; Z98.890 Other specified postprocedural states; N63.20 Unspecified lump in the left breast, unspecified quadrant; G89.3 Neoplasm related pain (acute) (chronic); R22.2 Localized swelling, mass and lump, trunk; C50.512 Malignant neoplasm of lower-outer quadrant of left female breast; N64.1 Fat necrosis of breast
CPT/HCPCS: 77290; 77295; 77300; 77334; 99205

== ENCOUNTER 2025-06-16 08:45 | Oncology outpatient (recurring) (ONCR) | payer MEDICARE, SELFPAY ==
[2025-06-02 09:48] LABS: Hematocrit 27.5 % (36-47); Hemoglobin 8.50 g/dL (11.27-16.99); Mean Corpuscular HGB Conc 30.9 g/dL (30-55); Mean Corpuscular Hemoglobin 23.5 pg (27-33); Mean Corpuscular Volume 76.2 fl (85-98); Nucleated Red Blood Cells % 0 %; Platelet Count 268 10^3/cmm (157-399); Red Blood Count 3.61 10^6/uL (3.85-5.65); White Blood Count 4.79 10^3/uL (3.29-11.43)
[2025-06-02 10:13] LABS: Alanine Aminotransferase 12 U/L (0-33); Albumin Level 3.0 g/dL (3.5-5.2); Alkaline Phosphatase 61 U/L (35-105); Anion Gap 10.3 (5-19); Aspartate Amino Transferase 11 U/L (0-32); Blood Urea Nitrogen 13 mg/dL (8-23); CA 15-3 34.6 U/mL (0-25); Calcium 8.9 mg/dL (8.5-10.5); Carbon Dioxide 26 mmol/L (22-29); Chloride 95 mmol/L (98-107); Globulin 2.5 g/dL (1.3-4.6); Glucose 184 mg/dL (65-115); Osmolality Calculated 269 mOsm/kg (285-295); Potassium 4.3 mmol/L (3.5-5.1); Sodium 127 mmol/L (136-145); Total Protein 5.5 g/dL (6.6-8.7)
[2025-06-02] MEDS: ondansetron 2 mg/ML SDV 2 mL 8 MG IVP (11:03)
[2025-06-02] MEDS: dexamethasone 4 mg/mL INJ 5 mL 12 MG IVP (11:08)
[2025-06-02] MEDS: PACLITAXEL PROTEIN BOUND IV (11:52)
[2025-06-02] MEDS: FLEXIBLE CONTAINER IV (11:52)
[2025-06-02 12:49] VITALS: BP 140/81; PULSE 66; TEMP 36.4
--- NOTE | 2025-06-09 12:57 | ONCRAD TMN_ITS ---
Radiation Oncology Weekly Treatment Management Patient: Cami Martinez MR#: [id number] : 1960 Attending Physician: Dr. Daryn Kimball Date of Service: 06/09/2025 Referring Physician(s) : Diagnosis: C77.3 - Secondary and unspecified malignant neoplasm of axilla and upper limb lymph nodes, Diagnosed 04/17/2025 (Active) C77.1 - Secondary and unspecified malignant neoplasm of intrathoracic lymph nodes, Diagnosed 04/17/2025 (Active) C50.312 - Malignant neoplasm of lower-inner quadrant of left female breast, Diagnosed 04/01/2025 (Active) Radiotherapy to date: Course: Lt Chest 2024, Treatment Site: Lt Chest Wall, Ref. ID: cCTV, Energy: 6X, Dose/Fx (cGy): 400, #Fx: 4 / 10, Dose Correction (cGy): 0, Total Dose Delivered (cGy): 1,600, Start Date: 06/04/2025, End Date: 06/09/2025, Elapsed Days: 5 Reason for visit: The patient is being seen today as part of their regularly scheduled weekly on treatment visits to assess for acute toxicities from radiotherapy. Review of Systems: Nausea now better controlled with improved medication coverage. Left chest wall necrotic malignant ulceration addressed by wound care who sees her every two weeks. Now eating better. On chemo as well. Medial sternal mass being followed with chemo alone for now. Vital Signs: Performed on 06/09/2025 10:33 AM BMI - 22.204 kg/m2, Height - 62 in, Weight - 121.4 lbs, Temperature - 97.1 f, Pulse - 69 /min, Respiration - 18 /min, O2 Sat - 99 %, Pain - 3, Fatigue - 0 and BP - 140/ 69 mm(hg). Physical Exam: Left lateral chest wall mass with deep ulceration. No significant skin erythema. Imaging: Radiation therapy imaging related to accurate target localization (i.e. KV, MV and CBCT) was reviewed. Appropriate changes, if any, were made to ensure treatment accuracy. Plan: Good tolerance of treatment. Continue as planned. Signed by: Dr. Daryn Kimball 06/09/2025 12:55:53 PM
[2025-06-16 09:05] LABS: Hematocrit 29.6 % (36-47); Hemoglobin 8.90 g/dL (11.27-16.99); Mean Corpuscular HGB Conc 30.1 g/dL (30-55); Mean Corpuscular Hemoglobin 22.4 pg (27-33); Mean Corpuscular Volume 74.6 fl (85-98); Nucleated Red Blood Cells % 0.4 %; Platelet Count 259 10^3/cmm (157-399); Red Blood Count 3.97 10^6/uL (3.85-5.65); White Blood Count 8.48 10^3/uL (3.29-11.43)
[2025-06-16 09:34] LABS: Alanine Aminotransferase 10 U/L (0-33); Albumin Level 3.0 g/dL (3.5-5.2); Alkaline Phosphatase 64 U/L (35-105); Anion Gap 14.4 (5-19); Aspartate Amino Transferase 12 U/L (0-32); Blood Urea Nitrogen 11 mg/dL (8-23); CA 15-3 39.5 U/mL (0-25); Calcium 9.0 mg/dL (8.5-10.5); Carbon Dioxide 24 mmol/L (22-29); Chloride 98 mmol/L (98-107); Globulin 2.8 g/dL (1.3-4.6); Glucose 164 mg/dL (65-115); Osmolality Calculated 277 mOsm/kg (285-295); Potassium 4.4 mmol/L (3.5-5.1); Sodium 132 mmol/L (136-145); Total Protein 5.8 g/dL (6.6-8.7)
--- NOTE | 2025-06-16 09:41 | ONCRAD TMN_ITS ---
Radiation Oncology Weekly Treatment Management Patient: Juan Herbert MR#: [id number] : 1960> Attending Physician: Brant Roca Date of Service: 06/16/2025 Referring Physician(s) : Diagnosis: C77.3 - Secondary and unspecified malignant neoplasm of axilla and upper limb lymph nodes, Diagnosed 04/17/2025 (Active) C77.1 - Secondary and unspecified malignant neoplasm of intrathoracic lymph nodes, Diagnosed 04/17/2025 (Active) C50.312 - Malignant neoplasm of lower-inner quadrant of left female breast, Diagnosed 04/01/2025 (Active) Radiotherapy to date: Course: Lt Chest 2024, Treatment Site: Lt Chest Wall, Ref. ID: cCTV, Energy: 6X, Dose/Fx (cGy): 400, #Fx: 6 / 10, Dose Correction (cGy): 0, Total Dose Delivered (cGy): 2,400, Start Date: 06/04/2025, End Date: 06/12/2025, Elapsed Days: 8 Reason for visit: The patient is being seen today as part of their regularly scheduled weekly on treatment visits to assess for acute toxicities from radiotherapy. Review of Systems: Patient wants to quit treatment. She wishes to start hospice which I think is very reasonable. Vital Signs: Performed on 06/16/2025 9:09 AM BMI - 38.776 kg/m2 (high), Height - 62 in, Weight - 212 lbs, Temperature - 98.0 f, Pulse - 75 /min, Respiration - 18 /min, O2 Sat - 95 % (low), Pain - 4, Fatigue - 8 and BP - 124/ 70 mm(hg). Physical Exam: Alert oriented and answers questions appropriately. She has times of crying. She asks appropriate questions. She feels she is running her course. Imaging: Radiation therapy imaging related to accurate target localization (i.e. KV, MV and CBCT) was reviewed. Appropriate changes, if any, were made to ensure treatment accuracy. Plan: Stop treatment as of today. Recommend hospice at this time. Patient wishes no further treatment of any type. Signed by: Brant Roca 06/16/2025 9:40:24 AM
--- NOTE | 2025-06-18 08:27 | N.ONRD TS_ITS ---
Radiation Oncology Treatment Summary Patient: Cami Martinez MR#: [id number] : 1960 Age: 64 Sex: Female Dictated by: Brant Roca Date of Service: 06/16/2025 Referring Physician(s) : Dr. Syed Diagnosis: C77.3 - Secondary and unspecified malignant neoplasm of axilla and upper limb lymph nodes, Diagnosed 04/17/2025 (Active) C77.1 - Secondary and unspecified malignant neoplasm of intrathoracic lymph nodes, Diagnosed 04/17/2025 (Active) C50.312 - Malignant neoplasm of lower-inner quadrant of left female breast, Diagnosed 04/01/2025 (Active) Radiotherapy to Date: Course: Lt Chest 2024, Treatment Site: Lt Chest Wall, Ref. ID: cCTV, Energy: 6X, Dose/Fx (cGy): 400, #Fx: 6 / 10, Dose Correction (cGy): 0, Total Dose Delivered (cGy): 2,400, Start Date: 06/04/2025, End Date: 06/12/2025, Elapsed Days: 8 Clinical Summary: Pt wished to stop treatment and go on hospice. I do feel that is a reasonable effort. No significant change in tumor mass with 6 fractions at this point. Plan: End of treatment today. Continue on the above medication until the skin reaction resolves. Follow up in one month. Signed by: Brant Roca>06/18/2025 8:26:39 AM <<Signature on File>>
== END 2025-06-30 23:59 | disposition home or self-care (01) ==
PROVIDERS: Internal Medicine Medical Oncology; Nurse Practitioner Family; PCP Electrodiagnostic Medicine; Visit Provider Radiology Radiation Oncology
DX: C50.412 Malignant neoplasm of upper-outer quadrant of left female breast; Z17.0 Estrogen receptor positive status [ER+]; Z90.12 Acquired absence of left breast and nipple; G89.3 Neoplasm related pain (acute) (chronic); Z92.3 Personal history of irradiation; Z87.891 Personal history of nicotine dependence; Z79.899 Other long term (current) drug therapy; Z53.9 Procedure and treatment not carried out, unspecified reason
CPT/HCPCS: 36591; 77336; 77387; 77412; 80053; 85025; 86300; 96375; 96413; 97597; 97598; 99024; 99214; A6252; J1100; J2405; J7050; J9264

== ENCOUNTER → 2025-06-18 09:55 | Outpatient (BNVA) | payer MEDICARE, SELFPAY | PROVIDERS: PCP Electrodiagnostic Medicine; Visit Provider Thoracic Surgery (Cardiothoracic Vascular Surgery) | DX: I96 Gangrene, not elsewhere classified (principal); L98.491 Non-pressure chronic ulcer of skin of other sites limited to breakdown of skin | CPT/HCPCS: 97597; 97598; A6253 ==

== ENCOUNTER 2025-07-01 12:19 | Outpatient (CLI) | payer MEDICARE, SELFPAY ==
[2025-07-01 13:25] LABS: INR 4.47 (0.8-1.2); Prothrombin Time 44.80 SECONDS (12.1-14.9)
== END 2025-07-01 12:20 | disposition home or self-care (01) ==
PROVIDERS: PCP Electrodiagnostic Medicine; Visit Provider Family Medicine
DX: C50.412 Malignant neoplasm of upper-outer quadrant of left female breast (principal); Z79.01 Long term (current) use of anticoagulants; R07.9 Chest pain, unspecified; Z95.2 Presence of prosthetic heart valve
CPT/HCPCS: 85610